=== PATIENT | female | born 1945 | race Caucasian/White ===

== ENCOUNTER 2016-11-08 00:25 | Emergency (ER) | payer MEDICARE, MEDICAID ==
[~2016-11-08] VITALS: Ht 154.9 cm; Wt 89.5 kg
[~2016-11-08 00:25] MED LIST: ALBU8.5H2 IH; AMT25T PO; ATOR40TA69 PO; Acetaminophen PO; DIGO250T12 PO; FURO40TA4 PO; INSU100C8 SUBQ; INSU100I13 SUBQ; LEVO75TA4 PO; LOSA50TA37 PO; METO-272 PO; MULT1CAP33 PO; ONDA4TAB6 PO; RIVA10TA PO; SERT100T PO
[2016-11-08 00:32] VITALS: BP 119/77
[2016-11-08] MEDS ORDERED: Diltiazem 5 mg/mL 5 mL Inj IVPUSH ONE ×4 (00:35→02:35)
--- NOTE | 2016-11-08 00:36 | ED.REPORT ---
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 I cannot get her to choose a specific chief complaint. She is a vague and wandering historian-although she will answer questions - and was brought to the ED after her chair collapsed some hours ago. After spending several hours on the floor-possibly longer-EMS was called. The patient was found to be profoundly tachycardic and in what appears to be atrial fibrillation with rapid ventricular response. Patient does complain of some palpitations. EMS also noted severe lower extremity edema and profound redness of the lower extremities. Associated symptoms include shortness of breath, chest pain, reduced appetite - and talks about nausea and not being able to eat normally for several days but is able to drink a little bit of fluids, and bilateral leg pain. The patient denies fever, chills, diaphoresis, or other symptoms. EMS found the patient with a pulse high of 188, an oral temperature of 98.1, a blood sugar of 136, and O2 sats in possibly the 70s on room air, although the determination of saturations was complicated by a very poor Plath- so it is unclear if the signal was accurate. En route she was awake and alert. She is supposed to be on home O2, but later mentions her oxygen device has been broken for months. Additionally she is supposed to be on Xarelto, but reports recent insurance issues and has not been on any anticoagulants for a number of weeks-possibly months. She reports that she is only getting "some" of her medications, but cannot name her medications to me. She has not seen a PCP for the past three months. She is unable to see her old PCP due to insurance issues and has yet to establish a new one. Nursing Notes Stated Complaint: SEPTIC Chief Complaint: Dysrhythmia/Cardiac Nursing Notes Reviewed: Yes ([employer] not reconciled - patient is supposed to be on Xarelto but has not had it in weeks due to insurance) Allergies: Coded Allergies: lisinopril (Verified Allergy, Mild, COUGH, 01/30/16) Scheduled Amitriptyline (Amitriptyline) 25 Mg Tab 25 MG PO HS Atorvastatin Calcium (Atorvastatin Calcium) 40 Mg Tablet 40 MG PO HS Digoxin (Digox) 250 Mcg Tablet 250 MCG PO DAILY Furosemide (Furosemide) 40 Mg Tablet 80 MG PO DAILY Insulin Aspart (NovoLOG U100 Insulin Vial) 100 U/Ml U Unknown Dose SUBQ TID- INSULIN Insulin Glargine (Lantus U100 Solostar Insulin Pen) 100 Unit/Ml Inj 30 UNIT SUBQ HS Levothyroxine (Levothyroxine) 75 Mcg Tablet 75 MCG PO DAILY Losartan Potassium (Losartan Potassium) 50 Mg Tablet 50 MG PO BID Metoprolol Succinate ER (Metoprolol Succinate ER) 50 Mg Tab.er.24h 50 MG PO BID Multivitamin (Multivitamins) 1 Each Capsule 1 EACH PO DAILY senoir complete Rivaroxaban (Xarelto) 10 Mg Tablet 20 MG PO DAILY Sertraline HCl (Zoloft) 100 Mg Tablet 100 MG PO DAILY Scheduled PRN ([Acetaminophen]) 325 MG TABLET 650 MG PO Q6H PRN PRN For Pain Albuterol HFA (Proair HFA) 8.5 Gm Hfa.aer.ad 1-2 PUFFS IH Q4 PRN PRN For Shortness of Breath Ondansetron (Zofran) 4 Mg Tablet 4 MG PO Q4H PRN PRN For Nausea General Time Seen by MD: 00:25 Chief Complaint Multip medical complaints Hx Obtained From: Patient, EMS Arrived By: Ambulance Sudden in Onset?: No Onset Occurred: More than a week ago... ("a couple of weeks") Symptom Duration: Intermittent Location: : Chest: Leg left: Leg right Quality: Painful Severity: Current: Moderate Severity: Maximum: Moderate Associated with: Reports: Chest pain, Shortness of breath, Denies: Fever Pertinent Negative: Relieved by nothing Context Related History: Reports Diabetes mellitus Recent Healthcare: No recent doctor visit Past Medical History Past Medical History Notes: Transferred to [facility] 04/2015 for Traumatic Subarachnoid Hospitalized from 11/28/14 - 12/14/14 for septic shock and multisystem organ failure Hospitalized from 10/22/14 - 10/28/14 for health care associated pneumonia Hospitalized 09/26/14 for pneumonia- treated with levoquin Hospitalized January 2016 for shortness breath and congestive heart failure with atrial fibrillation with RVR Echocardiogram 02/03/2016 EF of 60-70%, right ventricular mildly dilated, mild to moderate mitral regurg Past Medical History Obesity hypoventilation syndrome/obstructive sleep apnea with severe chronic cor pulmonale - she is supposed to be on home O2, compliance unclear Chronic atrial fibrillation-on Xarelto anticoagulation, Digoxin, Metoprolol as of 01/29/16 Hypothyroid Morbid obesity Diastolic heart failure in the setting of normal coronary arteries with negative cardiac cath in 2011, echocardiogram August 2014 showed EF of 55-60%, normal valves" D-shaped" left ventricle in systole and diastole consistent RV pressure overload, with subsequent [place] catheterization November 2014 confirming pulmonary arterial pressure 43/1 mmHg Chronic lower extremity edema History of alcoholism and opioid abuse, sober since 2007 Hx of a traumatic subarachnoid hemorrhage requiring transfer 04/2015 - on phenytoin, compliance and instructions unclear Date of prior acute kidney injury with a peak creatinine 3.November 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 Reports: Congestive heart failure, Diabetes mellitus, Hyperlipidemia, Hypertension Reports: Atrial fibrillation Past Surgical History Gastroplasty Right subclavian artery occlusion s/p repair, 2011 Reports: , Cholecystectomy, Tonsillectomy Smoking History Never Smoker Social History Alcohol Use: Denies alcohol use Drug Use: Denies drug use, In recovery (per EMR) Other Social History: , Lives with children Ambulatory Status Walker Review of Systems + Reduced appetite Full Review of Systems Constitutional: Denies: Chills, Fever Respiratory: Reports: Shortness of breath Cardiovascular: Reports: Chest pain, Palpitations GI: Reports: Nausea, Denies: Diarrhea, Vomiting Musculoskeletal: Reports: Extremity pain (Lower, bilateral), Extremity swelling (Lower, bilateral, with redness) Skin: Denies Diaphoresis Complete sys rev & neg: except as marked. Physical Exam Vital Signs Vital Signs Date Time Temp Pulse Resp B/P Pulse Ox O2 Delivery O2 Flow Rate FiO2 11/08/16 03:14 36.3 152 33 137/68 92 Nasal Cannula 2 11/08/16 00:32 119/77 Initial VS: Reviewed, Vital signs abnormal Neck: Supple, Full range of motion Respiratory: Breath sounds normal, Clear to auscultation, No respiratory distress Psychiatric: Mood/affect normal, Behavior normal General/Constitutional: Awake, Alert Appearance / Presentation: Positive: Obese Patient appears weak and fatigued She is a wandering historian Head / Eyes: Normocephalic Faint ecchymosis around left periorbital region - unclear if true contusion Heart Rate / Rhythm: Positive: Tachycardia No heart tones heard Palpable pulses Normal BP Lower Extremity / Pelvis / MS: No deformity Severe edema to bilateral legs Skin: Dry Color / Condition: Positive: Erythema generalized (Lower extremities, without heat) Bullae along distal right thigh Large abrasion with an open wound that appears chronic in the area of erythema to right leg, with several smaller surrounding wounds. Wounds appear infected without heat present Skin candidiasis under breasts Neurologic: Oriented X3 No focal deficits Interpretation & Diagnostics Interpretation & Diagnostics: Venous Blood Gas Report: Time 00:55 pH 7.293 pCO2 31 pO2 36.3 cHCO3 15.2 cBase -10.3 Arterial Blood Gas Report: Time 03:25 pH 7.269 pCO2 34 pO2 99.4 cHCO3 15.0 cBase -10.7 Lab Results Interpretation Result Diagram: 11/08/16 0040 11/08/16 0306 Test 11/08/16 00:40 11/08/16 03:06 White Blood Count 15.5th/mm3 (3.8-10.1) Red Blood Count 4.99mil/mm3 (3.90-5.20) Hemoglobin 15.1g/dL (12.0-15.6) Hematocrit 45.1% (35.0-46.0) Mean Corpuscular Volume 90.4fL (81-100) Mean Corpuscular Hemoglobin 30.3pg (27.0-35.0) Mean Corpuscular Hemoglobin Concent 33.5% (32.0-37.0) Red Cell Distribution Width 19.5% (12.3-15.4) Platelet Count 198bil/L (150-400) Neutrophils (%) (Auto) 72.1% (40-74) Lymphocytes (%) (Auto) 18.7% (14-46) Monocytes (%) (Auto) 7.3% (4-12) Eosinophils (%) (Auto) 0.4% (0-5) Basophils (%) (Auto) 0.2% (0-3) Hematology Comments Prothrombin Time 11.4sec (8.1-12.5) Prothromb Time International Ratio 1.06ratio Magnesium Level 2.5mg/dL (1.6-2.6) Total Creatine Kinase 234U/L (21-215) Troponin T 0.024ug/L (0.0-0.011) Pro-B-Type Natriuretic Peptide 2407pg/mL (0-301) Thyroid Stimulating Hormone (TSH) 12.050uIU/mL (0.450-4.500) Digoxin Level 0.3nG/mL (0.9-2.0) Phenytoin (Dilantin) Level 0.8uG/mL (10.0-20.0) Sodium Level 131mEq/L (134-144) Potassium Level 5.2mEq/L (3.5-5.2) Chloride Level 95mEq/L (97-108) Carbon Dioxide Level 14mmol/L (18-29) Blood Urea Nitrogen 40mg/dL (8-27) Creatinine 0.94mg/dL (0.57-1.00) Estimat Glomerular Filtration Rate 84mL/min (>59) Glucose Level 152mg/dL (60-99) Lactic Acid Level 3.5mmol/L (0.4-2.0) Calcium Level 8.7mg/dL (8.5-10.1) Total Bilirubin 1.4mg/dL (0.0-1.2) Aspartate Amino Transf (AST/SGOT) 36U/L (0-50) Alanine Aminotransferase (ALT/SGPT) 22U/L (0-32) Alkaline Phosphatase 214U/L (25-165) Total Protein 7.0g/dL (6.4-8.4) Albumin 3.9g/dL (3.4-5.0) Lab Results Interpretation: CBC positive leukocytosis CMP mild hyponatremia, marginal hyperkalemia-with the lab reporting suspected mild homolysis, moderate metabolic acidosis, normal glucose Lactate acid severely elevated Troponin marginally elevated ProBNP significantly elevated-difficult to interpret in the setting of atrial fibrillation Blood cultures 2 pending UA pending TSH elevated c/w hypothyroidism Subtherapeutic digoxin and Dilantin levels ECG Interpretation ECG Interpretation: Atrial fibrillation with rapid ventricular rate at 159 Poor quality baseline No clear ischemic abnormalities More rapid rate but otherwise unchanged from 01/29/2016 Time: 00:39 Interpreted by: ED physician ECG Interpretation: Atrial fibrillation with rapid ventricular rate at 143 No clear ischemic abnormalities More rapid rate but also otherwise unchanged from 01/29/2016 Time: 01:45 Interpreted by: ED physician X-Ray Chest Interpretation Chest Xray Interpretation: Right hemidiaphragm elevation Nonspecific density of right base Both findings present on previous x-ray from one year ago View: Portable, 1 view Interpretation / Wet Read by: Wet read ED physician CT Head Interpretation CONCLUSION: Small old lacunar infarct right posterior frontal deep white matter. Moderate involutional changes. Moderate patchy low density bilaterally in the deep white matter likely due to chronic ischemic small vessel disease. No acute intracranial abnormality. Transmitted to ED at 11/08/2016 - 2:29:52 AM PDT Study: Head CT no contrast Interpretation / Wet Read by: Interpret - Radiologist (Geoffrey Obrien M.D.) Procedures Central Line Placement Time: 02:42 Procedure Performed by: ED physician Consent / Setup / Site Prep: Consent from patient, Time-out performed, Oxygen administered, Pulse oximeter applied, clinical research monitor applied, Hand hygiene observed, Standard surgical scrub, Max barrier precaution, Sterile drapes applied, Position Trendelenburg Skin Preparation Agent: Hibiclens - Chlorhexidine (Initial attempt ) Local Anesthesia: Bupivacaine 0.5% Side / Location / Ultrasound: Femoral right, Subclavian right (Initial attempt - I was easily able to get flash and blood back from the right subclavian vein but was unable to pass the guide-perez. Several attempts were unsuccessful despite easy aspiration of blood and this was abandoned. Due to need, right femoral artery was prepped. ) Catheter / Lumen / Technique: Triple lumen, Seldinger technique, Good blood return, Secured with suture (Due to location) Post-Procedure / Complications: Dressing placed, CXR neg for pneumothorax, Condition improved, Tolerated procedure well, Patient stable Re-Eval/Medical Decision Med Decision/Clinical Course This is a 71-year-old female who is a wandering historian and he was brought by EMS after care collapsed and she was too weak to get up off the floor after a number of hours. She talks about how she has not been feeling well for several weeks-she has had nausea, palpitations, poor appetite, decreased intake, and increasing pain and discomfort in both lower extremities. She has chronic CHF, chronic edema in the legs, but reports increasing redness and discomfort as well. Of note she has multiple medical problems-but states that her insurance changed since she has not been able see PCP since roughly July, that she is post B on home O2 but her oxygen machine is been broken for some time matter of weeks or months, and that while she supposed be on anticoagulants such as Xarelto no longer has insurance coverage-and has not been able to get the anticoagulant, or "most" of her medications in recent weeks. Medics found the patient ill-appearing, in atrial fibrillation rapid ventricular response, and profoundly weak. On exam the patient is not febrile. She is profoundly tachycardic. She is not hypotensive. He has findings of right-sided congestive heart failure, she has profound erythema of the lower extremities-on the skin is not hot, there is some wounds on the right leg in particular this areas although both legs are equally erythematous. The legs appear cellulitic. Her EKGs revealed atrial fibrillation with RVR, but no clear ischemic changes. The patient's multiple doses of diltiazem in an attempt to obtain rate control, and then was placed on a diltiazem drip with improvement. She complains some pain in the lower extremities since he seemed titrated pain and nausea medicine. She is a challenging patient from a fluid management perspective. Her extremities and her history are concerning for congestive heart failure and a component of volume overload-although there is a high probability this is tachycardia induced with the uncontrolled atrial fibrillation. Is in the differential, but aggressive fluids in this situation with the underlying congestive heart failure also present, may complicate matters considerably. The patient's respiratory status appears stable at this time. Given the challenges with what appears to be a component of volume overload in one sense, and potential dehydration another, I chose to initiate therapy with obtaining rate control to if that improves both a lactic acidosis, and the overall clinical picture. The patient is being treated for cellulitis of lower extremities of his Zosyn and vancomycin. She has small bruising around the left side of her face-or what appeared appeared to be subtle bruising, and a prior history of a intracranial bleed, so CT of the brain was obtained. CT of the head was negative. The patient's heart rate improved, but the tachycardia did not resolve. The patient was placed on a diltiazem drip, and ultimately was maximized at 15 mg/ hr. She is still tachycardic. Again the challenges remained in intermittent between congestive heart failure and lactic acidosis secondary to tachydysrhythmia and subsequent cardiomyopathy, versus component of sepsis from lower extremity cellulitis. Therefore given judicious volume committed rather than the aggressive 30 mL/kg typically employed for sepsis. The patient has very poor access, and requires better access for the drip, antibiotic combination. Multiple attempts at peripheral lines were unsuccessful. Given the patient's ill status, central line was placed. Patient is an obese neck difficult anatomy, and a initial right subclavian line was attempted-the subclavian vein was accessed without difficulty, however the guidewire could not be passed. Therefore ultimately these attempted a subclavian was abandoned, and I placed a right femoral catheter without difficulty. Given this location, it was sutured in place so the line would not be lost. A postprocedure chest x-ray was negative for pneumothorax. An ultrasound of the lower extremities to evaluate for DVT is being performed. An ABG was performed and reveals adequate oxygenation, but a persistent metabolic acidosis is not really improved. The heart rate still in the 140s on the maximum dilt drip. Titrated NS boluses are being given. A liu has been requested to help follow urine output. I have been informed no beds are available, so the patient is being turned over to Dr. Robert at change of shift while a bed search is underway. Source of Hx: Old records, EMS Time of Eval: 01:00 Patient Status: Condition unchanged Re-Evaluation/Progress Note: Patient requests pain medication for the pain in her legs. Time of Eval: 01:20 Patient Status: Condition improved Re-Evaluation/Progress Note: Patient rechecked. Additional history obtained. Time of Eval: 02:06 Patient Status: Condition improved Re-Evaluation/Progress Note: Patient rechecked. Discussed with patient plan for bilateral leg US. Time of Eval: 02:30 Patient Status: Condition improved Re-Evaluation/Progress Note: Patient rechecked. Time of Eval: 02:37 Patient Status: Condition improved Re-Evaluation/Progress Note: Discussed with patient plan for central line placement. She agrees with plan for care and all questions were addressed. Time of Eval: 03:37 Patient Status: Condition improved Re-Evaluation/Progress Note: Patient rechecked. Discussed with patient plan for transfer of care to Dr. Robert. Differential Diagnosis: Negative: Abscess, Acute coronary syndrome, Diabetes mellitus, G-tube repair/replacement, Malingering, Neutropenia, Pneumonia Counseled Regarding: Diagnosis, Lab results Discharge & Departure Shift Change Sign-Out Patient Care Transferred: Yes Discussed Complaint(s): Yes Laboratory Evaluation: Ordered, not yet done Imaging Studies: Ordered, not yet done Procedures: Done, results known Response to Therapy: Improved Assume care at 3:[address] Pickard. Arrangements made with [facility] for transfer to their ICU, accepting doctor Dr. Somers. I gave her an initial loading dose of digoxin 0.5 mg, as she had formerly been on digoxin and was supposed to be on at present. She is not been taking it for months apparently. She is already on maximum dose diltiazem with minimal effect on her rate. She has been receiving small aliquots of fluid without much influence either, but her lactate has come down from 4.7-3.5. Central line is been placed by Dr. Pickard and IV antibiotics started. Primary Impression: Atrial fibrillation with RVR Additional Impressions: Congestive heart failure Congestive heart failure type: unspecified congestive heart failure type Congestive heart failure chronicity: acute on chronic Qualified Code: I50.9 - Heart failure, unspecified Bilateral lower leg cellulitis Noncompliance with medication regimen Metabolic acidosis Elevated lactic acid level Hypothyroid Hypothyroidism type: unspecified Qualified Code: E03.9 - Hypothyroidism, unspecified Ruled Out: DVT (deep venous thrombosis) Discharge Condition All VS Reviewed: Yes Condition: Improved Referrals: Jonny Muniz MD (PCP) Care Transferred to: Dr. Robert Care Transferred at: 03:35 Crit Care Except Billable Proc Time Spent: 30-74 minutes Services Performed: Patient management by me, Time spent at bedside, Reviewing test results, Reviewing imaging, Discussing patient care, Documentation in record Scribe Attestation Portions of this note were transcribed by Diana Childs. I, Dr. Pickard, personally performed the history, physical exam, and medical decision-making; I reviewed and confirmed the accuracy of the information in the transcribed note. Signed by: Bandar Peters, 11/08/2016, 03:40 copies to: Jonny Muniz MD, Matthew F MD Nov 08, 2016 00:36 DIANA CHILDS Nov 08, 2016 00:43 Broosk Robert MD Nov 08, 2016 04:38
[2016-11-08] MEDS ORDERED: Lidocaine-Epi-Tetracaine Solution 3 mL Syringe TOPICAL ONE (00:45)
[2016-11-08] MEDS ORDERED: Lidocaine 2% 6mL Topical Jelly MUC_MEMBRM ONE (00:45)
[2016-11-08] MEDS ORDERED: Lidocaine 2% 5 mL Urojet Topical Jelly Syringe MUC_MEMBRM ONE (00:45)
[2016-11-08] MEDS ORDERED: Mupirocin 2% 22 Gm Ointment TOPICAL ONE (00:45)
[2016-11-08 00:48] LABS: BASOPHILS % (AUTO) 0.2 % (0-3); EOSINOPHILS % (AUTO) 0.4 % (0-5); MONOCYTES % (AUTO) 7.3 % (4-12); Mean Corpuscular Hemoglobin 30.3 pg (27.0-35.0); Mean Corpuscular Volume 90.4 fL (81-100); NEUTROPHILS % (AUTO) 72.1 % (40-74)
[2016-11-08] MEDS ORDERED: fentaNYL-PF 50 mCg/mL 2 mL Inj IVPUSH ONE (01:00)
[2016-11-08 01:05] LABS: Platelet Count 198 bil/L (150-400)
--- NOTE | 2016-11-08 01:05 | ABG ---
DateTimeAnalyzed 01:01:33 -_ pH ____7.293 - pCO2 ___31.4__ -mmHg pO2 ___36.3__ -mmHg HCO3- ___15.2__ -mmol/L ABE __-10.3__ -mmol/L tHb ___14.4__ -g/dL O2Hb ___56.2__ -% COHb ____2.2__ -% MetHb ____0.2__ -% sO2 ___57.6__ -% FIO2 __100.0__ -% Drawn By LAB - Date/Time Notified____ 01:05:00 -_ Oxygen Device 1 NON RE-ALBAN - Notified By AF - Notified Whom ___Dr. Neeraj - Age 63 -years B 756 -mmHg K+ ____4.6__ -mmol/L tO2 ___11.3__ -Vol% Sravan test N/A -
[2016-11-08 01:06] LABS: INR 1.06 ratio
[2016-11-08] MEDS ORDERED: Ondansetron 2 mg/mL 2 mL Inj IVPUSH ONE (01:10)
[2016-11-08 01:41] LABS: Magnesium 2.5 mg/dL (1.6-2.6)
[2016-11-08 01:42] LABS: TROPONIN T 0.024 ug/L (0.0-0.011)
[2016-11-08 01:43] LABS: Creatine Kinase 234 U/L (21-215)
[2016-11-08] MEDS ORDERED: Diltiazem Inj 125 MG in Dextrose 5% 100 ML IV SCH (01:47)
[2016-11-08] MEDS ORDERED: Vancomycin Dose per Pharmacist XX ONE (01:50)
[2016-11-08] MEDS ORDERED: Piperacillin-Tazo 3.375 Gm Inj 3.375 GM in Dextrose 5% Minibag Plus 50 ML IV ONE (01:50)
[2016-11-08] MEDS ORDERED: Vancomycin Inj 1,750 MG in 0.9% Sodium Chloride 500 ML IV ONE (01:55)
[2016-11-08] MEDS: fentaNYL-PF 50 mCg/mL 2 mL Inj IVPUSH PRN ×2 (02:30→02:50)
[2016-11-08] MEDS ORDERED: 0.9% Sodium Chloride 500 ML IV ONE ×3 (02:35→03:35)
[2016-11-08] MEDS ORDERED: Magnesium Sulf 2 Gm/50mL Water 2 GM in IV Premix 1 EACH IV ONE (02:40)
[2016-11-08 03:14] VITALS: BP 137/68; PULSE 152; RESP 33; O2SAT 92
--- NOTE | 2016-11-08 03:30 | ABG ---
DateTimeAnalyzed 03:27:00 -_ pH ____7.269 - 7.350 7.450 pCO2 ___33.8__ -mmHg 35.0 45.0 pO2 ___99.4__ -mmHg 69.0 116 HCO3- ___15.0__ -mmol/L 22.0 26.0 ABE __-10.7__ -mmol/L -2.0 2.0 tHb ___13.3__ -g/dL O2Hb ___94.7__ -% COHb ____1.1__ -% MetHb ____0.8__ -% sO2 ___96.5__ -% FIO2 ___21.0__ -% Drawn By AF - Date/Time Notified____ 03:29:00 -_ Notified By AF - Notified Whom ___Dr. Neeraj - Age 63 -years B 758 -mmHg tO2 ___17.9__ -Vol% Sravan test _Positive -
[2016-11-08] MEDS ORDERED: fentaNYL-PF 50 mCg/mL 2 mL Inj IVPUSH PRN (03:35)
[2016-11-08] MEDS ORDERED: Digoxin 0.25 mg/mL 2 mL Inj IV ONE (03:50)
[2016-11-08 04:44] LABS: APPEARANCE,URINE HAZY (CLEAR,HAZY); COLOR,URINE YELLOW (YELLOW)
[2016-11-08 04:45] LABS: OCCULT BLOOD,URINE MODERATE (NEGATIVE)
[2016-11-08 05:32] VITALS: BP 156/98; PULSE 136; RESP 22; O2SAT 92
--- NOTE | 2016-11-08 09:06 | DRSVH ---
PROCEDURE: X-RAY CHEST ONE VIEW, PORTABLE ([id number]) INDICATIONS: AFIB TECHNIQUE: One view of the chest was acquired. COMPARISON: [facility], CR, XR CHEST 1VW (PORTABLE), 11/08/2016, 3:03. [facility], CR, XR CHEST 1VW (PORTABLE), 01/29/2016, 7:17. FINDINGS: Surgical changes and devices: None. Lungs and pleura: Air space opacities present involving the lung bases, otherwise lungs are clear. Mediastinum: Mediastinal contours appear normal. Heart size is enlarged. Bones and chest wall: No suspicious bony lesions. Overlying soft tissues appear unremarkable. IMPRESSION: Bibasilar atelectasis versus aspiration or pneumonia. Correlate clinically. Dictated by: Arpan Khan RR Interpreted: Mona Barbosa MD on 11/08/2016 at 9:05 Transcribed by: GALO on 11/08/2016 at 9:06 Approved by: Mona Barbosa MD, PhD on 11/08/2016 at 16:27
--- NOTE | 2016-11-08 09:34 | DRSVH ---
PROCEDURE: X-RAY CHEST ONE VIEW, PORTABLE ([id number]) INDICATIONS: POST CENTRAL LINE TECHNIQUE: One view of the chest was acquired. COMPARISON: None. FINDINGS: Surgical changes and devices: Multiple surgical clips project over the right neck. Lungs and pleura: Mild venous congestion present slightly increased from previous examination. Sligh t decrease in right and left basilar airspace opacity. No pneumothorax. Mediastinum: Mediastinal contours appear normal. Heart size is enlarged. Bones and chest wall: No suspicious bony lesions. Overlying soft tissues appear unremarkable. IMPRESSION: 1. Mild venous congestion and decrease in the bibasilar airspace opacities likely related to atelecta sis. No pneumothorax is seen. Dictated by: Arpan Khan [facility] Interpreted: Mona Barbosa MD on 11/08/2016 at 9:31 Transcribed by: GALO on 11/08/2016 at 9:34 Approved by: Mona Barbosa MD, PhD on 11/08/2016 at 16:27
--- NOTE | 2016-11-08 09:35 | DRSVH ---
PROCEDURE: US VENOUS LEG DUPLEX BILATERAL INDICATIONS: ro DVT TECHNIQUE: Real-time imaging, as well as color and pulse Doppler interrogation, were performed of the deep veins of both legs from the inguinal ligament to the popliteal fossa. COMPARISON: None. FINDINGS: The deep veins are normally compressible, and free of intraluminal thrombus. Color and pu lse Doppler demonstrate normal phasic intravascular flow. There is normal augmentation response to d istal compression maneuver. IMPRESSION: No deep venous thrombosis identified within either the left or right lower extremities. Dictated by: Arpan Khan [facility] Interpreted: Mona Barbosa MD on 11/08/2016 at 9:35 Transcribed by: GALO on 11/08/2016 at 9:35 Approved by: Mona Barbosa MD, PhD on 11/08/2016 at 16:27
--- NOTE | 2016-11-08 10:46 | DRSVH ---
PROCEDURE: CT BRAIN WITHOUT CONTRAST ([id number]) INDICATIONS: fall TECHNIQUE: Noncontrast 4.5 mm thick angled axial sections acquired from the foramen magnum to the vertex, with c oronal reformats. COMPARISON: None. FINDINGS: Image quality: Excellent. CSF spaces: Basal cisterns are patent. No extra-axial fluid collections. The ventricles are symmet bethany in size and shape. Brain: No intracranial bleeds or masses. There is cerebral volume loss for age, with resultant vent ricular and sulcal prominence. There are periventricular and deep white matter chronic small vessel ischemic changes. Old, small, lacunar infarct noted in the posterior right centrum semiovale. Encepha lomalacia noted in the anterior margin of the right frontal lobe possibly related to remote trauma. There is intracranial internal carotid artery and vertebral artery atherosclerosis. Skull and face: Calvarium and visualized facial bones appear intact, without suspicious lesions. Sinuses: Visualized sinuses and mastoids are clear. IMPRESSION: No acute intracranial disease process. Dictated by: Mona Barbosa MD, PhD on 11/08/2016 at 10:42 Approved by: Mona Barbosa MD, PhD on 11/08/2016 at 10:45
== END 2016-11-08 05:16 | disposition short-term general hospital (02) ==
LOC: SED 00:25
DX: I11.0 Hypertensive heart disease with heart failure (principal); I50.9 Heart failure, unspecified; L03.116 Cellulitis of left lower limb; L03.115 Cellulitis of right lower limb; E03.9 Hypothyroidism, unspecified; E11.59 Type 2 diabetes mellitus with other circulatory complications; E87.2 Acidosis; Z79.4 Long term (current) use of insulin; Z79.899 Other long term (current) drug therapy
CPT/HCPCS: 36415; 36556; 36620; 70450; 71010; 80053; 80162; 80185; 81000; 82375; 82550; 82803; 83605; 83735; 83880; 84443; 84484; 85025; 85610; 87040; 93005; 93970; 96365; 96368; 96375; 96376; 99291; J1160; J2405; J2543; J3010; J3370; J7040

== ENCOUNTER 2017-01-04 14:27 | Observation (INO) | payer MEDICARE, MEDICAID ==
[~2017-01-04] VITALS: Ht 154.9 cm; Wt 92.9 kg
[2017-01-04] VITALS (9 sets, daily range): BP systolic 104–128; BP diastolic 48–83; PULSE 84–150; RESP 18–40; O2SAT 97–100
--- NOTE | 2017-01-04 14:56 | ED.REPORT ---
HPI-General Illness Date of Service January 04, 2017 ED Provider: Henrry Rivera MD The patient is a 71 year old female with history of congestive heart failure, DVT, hyperlipidemia, hypertension, hypothyroidism, atrial fibrillation on Xarelto, and prior traumatic subarachnoid hemorrhage, who was upstairs vising her when staff were concerned about her condition and sent her to the emergency department for further evaluation. The patient has noticed slightly increased work of breathing. She has not been taking all of her medicationss regularly due to financial issues. She has been taking her furosimide BID as prescribed but has not been taking her Digoxin for the last week or 2. She has chronic lower extremity swelling and redness that has gotten worse. She denies chest pain, fevers, chills, cough. She denies recent falls or head injury. Nursing Notes Stated Complaint: SOB,HF,REQ MEDICATION Chief Complaint: Respiratory Complaints Nursing Notes Reviewed: Yes Allergies: Coded Allergies: lisinopril (Verified Allergy, Mild, COUGH, 01/04/17) Scheduled Amitriptyline (Amitriptyline) 25 Mg Tab 25 MG PO HS Atorvastatin Calcium (Atorvastatin Calcium) 40 Mg Tablet 40 MG PO HS Digoxin (Digox) 250 Mcg Tablet 250 MCG PO DAILY Furosemide (Furosemide) 40 Mg Tablet 80 MG PO DAILY Insulin Aspart (NovoLOG U100 Insulin Vial) 100 U/Ml U Unknown Dose SUBQ TID- INSULIN Insulin Glargine (Lantus U100 Solostar Insulin Pen) 100 Unit/Ml Inj 30 UNIT SUBQ HS Levothyroxine (Levothyroxine) 75 Mcg Tablet 75 MCG PO DAILY Losartan Potassium (Losartan Potassium) 50 Mg Tablet 50 MG PO BID Metoprolol Succinate ER (Metoprolol Succinate ER) 50 Mg Tab.er.24h 50 MG PO BID Multivitamin (Multivitamins) 1 Each Capsule 1 EACH PO DAILY senoir complete Rivaroxaban (Xarelto) 10 Mg Tablet 20 MG PO DAILY Sertraline HCl (Zoloft) 100 Mg Tablet 100 MG PO DAILY Scheduled PRN Albuterol HFA (Proair HFA) 8.5 Gm Hfa.aer.ad 1-2 PUFFS IH Q4 PRN PRN For Shortness of Breath General Time Seen by MD: 14:46 Chief Complaint Other (shortness of breath) Hx Obtained From: Patient Arrived By: Walk-in Sudden in Onset?: No Onset Occurred: More than a week ago... Symptom Duration: Since onset Severity: Current: No pain currently Severity: Maximum: No pain Recent Healthcare: No recent hospitalization Similar Sx Previous: Yes Past Medical History Past Medical History Obesity hypoventilation syndrome/obstructive sleep apnea with severe chronic cor pulmonale - she is supposed to be on home O2, compliance unclear Chronic atrial fibrillation-on Xarelto anticoagulation, Digoxin, Metoprolol as of 01/29/16 Hypothyroid Morbid obesity Diastolic heart failure in the setting of normal coronary arteries with negative cardiac cath in 2011, echocardiogram August 2014 showed EF of 55-60%, normal valves" D-shaped" left ventricle in systole and diastole consistent RV pressure overload, with subsequent [place] catheterization November 2014 confirming pulmonary arterial pressure 43/1 mmHg Chronic lower extremity edema History of alcoholism and opioid abuse, sober since 2007 Hx of a traumatic subarachnoid hemorrhage requiring transfer 04/2015 - on phenytoin, compliance and instructions unclear Date of prior acute kidney injury with a peak creatinine 3.November 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 Reports: Congestive heart failure, Diabetes mellitus, Hyperlipidemia, Hypertension Reports: Atrial fibrillation Past Surgical History Gastroplasty Right subclavian artery occlusion s/p repair, 2011 Reports: , Cholecystectomy, Tonsillectomy Family History Noncontributory Smoking History Never Smoker Social History Alcohol Use: Denies alcohol use Drug Use: Denies drug use, In recovery Other Social History: Good social support, , Lives with children Ambulatory Status Walker Review of Systems Full Review of Systems Constitutional: Denies: Chills, Fever Respiratory: Reports: Shortness of breath, Denies: Non-productive cough Cardiovascular: Denies: Chest pain Musculoskeletal: Reports: Extremity swelling (chronic) Skin: Reports Rash (chronic) Complete sys rev & neg: except as marked. Physical Exam Vital Signs Vital Signs Date Time Temp Pulse Resp B/P Pulse Ox O2 Delivery O2 Flow Rate FiO2 01/04/17 16:24 116 26 106/48 98 Room Air 01/04/17 15:46 118 30 104/71 100 Room Air 01/04/17 15:37 105 28 113/60 100 Room Air 01/04/17 15:27 126 26 128/83 100 Room Air 01/04/17 14:31 36.4 150 40 99 Room Air Initial VS: Reviewed Head / Eyes: Atraumatic, Normocephalic, PERRL Neck: Supple, Non-tender, Full range of motion Abdomen / GI: Soft, Non-tender, No guarding, No rebound, No distention Lymphatic: No lymphadenopathy Extremities: Vascular intact, Neuro intact Skin: Warm, Dry, No cyanosis Neurologic: Alert, Oriented, Nonfocal Psychiatric: Mood/affect normal, Behavior normal, Normal thought content General/Constitutional: Awake, Alert ENT: Airway patent Mouth: Positive: Mucous membranes dry Respiratory / Chest: No respiratory distress Coarse breath sounds bilaterally with bibasilar crackles Cardiovascular: Peripheral circulation NL, Pulses = bilaterally Heart Rate / Rhythm: Positive: Irregular rhythm, Tachycardia Lower Extremity / Pelvis / MS: Neurologic intact, Vascular intact 2+ pitting edema of her bilateral lower extremities extending almost up to her hips. No unilateral swelling. Interpretation & Diagnostics Lab Results Interpretation Result Diagram: 01/04/17 1455 01/04/17 1455 Test 01/04/17 14:55 White Blood Count 9.1th/mm3 (3.8-10.1) Red Blood Count 3.97mil/mm3 (3.90-5.20) Hemoglobin 12.0g/dL (12.0-15.6) Hematocrit 36.4% (35.0-46.0) Mean Corpuscular Volume 91.7fL (81-100) Mean Corpuscular Hemoglobin 30.2pg (27.0-35.0) Mean Corpuscular Hemoglobin Concent 33.0% (32.0-37.0) Red Cell Distribution Width 18.7% (12.3-15.4) Platelet Count 241bil/L (150-400) Neutrophils (%) (Auto) 62.8% (40-74) Lymphocytes (%) (Auto) 26.0% (14-46) Monocytes (%) (Auto) 9.2% (4-12) Eosinophils (%) (Auto) 1.0% (0-5) Basophils (%) (Auto) 0.7% (0-3) Sodium Level 136mEq/L (134-144) Potassium Level 4.1mEq/L (3.5-5.2) Chloride Level 97mEq/L (97-108) Carbon Dioxide Level 21mmol/L (18-29) Blood Urea Nitrogen 9mg/dL (8-27) Creatinine 0.79mg/dL (0.57-1.00) Estimat Glomerular Filtration Rate 102mL/min (>59) Glucose Level 149mg/dL (60-99) Calcium Level 9.3mg/dL (8.5-10.1) Magnesium Level 1.8mg/dL (1.6-2.6) Total Bilirubin 0.5mg/dL (0.0-1.2) Aspartate Amino Transf (AST/SGOT) 26U/L (0-50) Alanine Aminotransferase (ALT/SGPT) 22U/L (0-32) Alkaline Phosphatase 104U/L (25-165) Troponin T < 0.010ug/L (0.0-0.011) Pro-B-Type Natriuretic Peptide 1414pg/mL (0-301) Total Protein 7.2g/dL (6.4-8.4) Albumin 3.4g/dL (3.4-5.0) Digoxin Level < 0.3nG/mL (0.9-2.0) ECG Interpretation ECG Interpretation: Atrial fibrillation with RVR Normal axis Normal intervals No ST segment elevations No acute T wave abnormalities When compared to prior EKG dated 10/29/2016 the patient remains in atrial fibrillation with RVR Time: 14:49 Interpreted by: ED physician X-Ray Chest Interpretation Chest Xray Interpretation: IMPRESSION: 1. Probable linear atelectasis in the lung bases without definite acute cardiopulmonary disease. Dictated by: Henri Mcwilliams M.D. on 01/04/2017 at 14:20 Interpretation / Wet Read by: Interpret - Radiologist Re-Eval/Medical Decision Med Decision/Clinical Course The patient is a 71 year old female with history of congestive heart failure, DVT, hyperlipidemia, hypertension, hypothyroidism, atrial fibrillation on Xarelto, and prior traumatic subarachnoid hemorrhage, who was upstairs vising her when staff were concerned about her condition and sent her to the emergency department for further evaluation. The patient has noticed slightly increased work of breathing. She has not been taking all of her medicationss regularly due to financial issues. She has been taking her furosimide BID as prescribed but has not been taking her Digoxin for the last week or 2. She has chronic lower extremity swelling and redness that has gotten worse. She denies chest pain, fevers, chills, cough. She denies recent falls or head injury. Here in the emergency department the patient is tachycardic with a heart rate in the 150s that was otherwise hemodynamically stable and mentating normally. Was obtained and interpreted by myself as documented above. Of note, she was in atrial fibrillation with rapid ventricular response in the 150s to 160s. Treated with IV metoprolol 5 mg x3 with improvement in her heart rate into the low 100s. She was given 25 mg of oral metoprolol thereafter. LABS: CBC unremarkable, CMP unremarkable, troponin negative, BNP 1414, Digoxin level is low. CXR: Probable linear atelectasis in the lung bases without definite acute cardiopulmonary disease. She reported pain in her lower extremities which she attributes to her edema. She is treated with a small dose of IV morphine. Overall presentation seems most consistent with shortness of breath secondary to A. fib with rapid ventricular response. Presentation of convincing for acute coronary syndrome and an initial screening EKG and troponin are reassuring. I suspect there is some degree of congestive heart failure exacerbation as well though I do not feel that she immediately requires IV diuresis though this may be considered as we further stabilized her atrial fibrillation with rapid ventricular response. Overall presentation not convincing for acute pulmonary embolism. Patient discussed with admitting hospitalist and transferred in stable condition for further management. Source of Hx: Old records Time of Eval: 15:47 Re-Evaluation/Progress Note: Rechecked the patient. Discussed plan for admission. All questions were addressed. Consultation : Referral / Consult Name: Seun Acuna MD Consulted With: Hospitalist Requested Call at: 15:45 Call Returned at: 16:22 Lpn Care Manager: Will see patient, Agrees with eval, Agrees with plan, Accepts admit Counseled Regarding: Diagnosis, Lab results, Need for admission Discharge & Departure Primary Impression: CHF exacerbation Congestive heart failure type: unspecified congestive heart failure type Qualified Code: I50.9 - Heart failure, unspecified Additional Impressions: Atrial fibrillation with rapid ventricular response Noncompliance with medication regimen Congestive heart failure Congestive heart failure type: unspecified congestive heart failure type Congestive heart failure chronicity: unspecified congestive heart failure chronicity Qualified Code: I50.9 - Heart failure, unspecified Lower extremity edema Laterality: unspecified laterality Qualified Code: R60.0 - Localized edema Elevated brain natriuretic peptide (BNP) level Disposition: ADMITTED TO HOSPITAL Discharge Condition All VS Reviewed: Yes Condition: Stable Referrals: Jonny Muniz MD (PCP) Crit Care Except Billable Proc Time Spent: 135-164 minutes Services Performed: Patient management by me, Time spent at bedside, Reviewing test results, Reviewing imaging, Discussing patient care, Documentation in record, Time with fam/surrogate Scribe Attestation Portions of this note were transcribed by Leslie Colbert. I, Dr. Rivera personally performed the history, physical exam and medical decision-making; I reviewed and confirmed the accuracy of the information in the transcribed note. Signed by: Bandar Hayden, 01/04/2017 at 1625. copies to: Jonny Muniz MD, Beck O MD January 04, 2017 14:56 Leslie Colbert January 04, 2017 15:03
[2017-01-04] MEDS ORDERED: Ondansetron 2 mg/mL 2 mL Inj IVPUSH PRN (15:00)
[2017-01-04] MEDS ORDERED: Alum-Mag Hydrox-Simeth 30 mL Suspension PO PRN (15:00)
[2017-01-04 15:07] LABS: BASOPHILS % (AUTO) 0.7 % (0-3); MONOCYTES % (AUTO) 9.2 % (4-12); Mean Corpuscular Hemoglobin 30.2 pg (27.0-35.0); Mean Corpuscular Volume 91.7 fL (81-100); NEUTROPHILS % (AUTO) 62.8 % (40-74); Platelet Count 241 bil/L (150-400)
[2017-01-04] MEDS: MeTOProlol 1 mg/mL 5 mL Inj IVPUSH SCH ×3 (15:12→15:36)
--- NOTE | 2017-01-04 15:23 | DRSVH ---
PROCEDURE: X-RAY CHEST ONE VIEW, PORTABLE ([id number]) INDICATIONS: SHORT OF BREATH TECHNIQUE: One view of the chest was acquired. COMPARISON: [facility], CR, XR CHEST 1VW (PORTABLE), 11/08/2016, 3:03. FINDINGS: Surgical changes and devices: Multiple surgical clips are redemonstrated within the visualized right neck. Lungs and pleura: No pleural effusions or pneumothorax. There is mild elevation of the right hemidi aphragm again noted. There are a few linear basilar opacities likely representing atelectasis. No f ocal consolidation. Mediastinum: Mediastinal contours appear unchanged. Heart size is enlarged. Bones and chest wall: No suspicious bony lesions. Overlying soft tissues appear unremarkable. IMPRESSION: 1. Probable linear atelectasis in the lung bases without definite acute cardiopulmonary disease. Dictated by: Henri Mcwilliams M.D. on 01/04/2017 at 14:20 Approved by: Henri Mcwilliams M.D. on 01/04/2017 at 14:22
[2017-01-04 15:29] LABS: TROPONIN T < 0.010 ug/L (0.0-0.011)
[2017-01-04 15:39] LABS: Magnesium 1.8 mg/dL (1.6-2.6)
[2017-01-04] MEDS ORDERED: Polyethylene Glycol (PEG) 17 Gm Powder PO PRN (16:20)
[2017-01-04] MEDS ORDERED: Glucose 40% Oral Gel 15 Gm Tube PO PRN (17:00)
[2017-01-04] MEDS ORDERED: Furosemide 10 mg/mL 2 mL Inj IVPUSH ONE (17:00)
--- NOTE | 2017-01-04 17:19 | PCM.HPMED ---
Subjective Date of Service January 04, 2017 Primary Provider: Admitting Physician: Primary Care Physician: Jonny Muniz MD Attending Physician: Chief Complaint: Difficulty of breathing History of Present Illness: 71-year-old female with depression afebrile on's are also, hypothyroidism, hypertension, hyperlipidemia, chronic diastolic heart failure presented with difficulty breathing pt stated that she has been off her medicine since 2mo ago as her insurance didn 't cover her meds, doesn't exactly remember what she has not been off, she is only taking furosemide until today, ran out of Xarelto about a week ago. 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 pt didn't bring metoprolol, therefore it was also off on past four days. Today, pt was brought from her room by RN staffs to ED as pt didn't look good with labored breathing. ED VS AC346d, RR40, [id number], afebrlie, 99-100% on RA. pt noted to have afib RVR on EKG rate 156, pt received metoprolol 5mg iv followed by po25mg tartrate. CXR didn't suggest overt pul edema. During interview in ED, pt looked comfortable, not labored. stated that she changed her insurance but was told that Rx only be refilled by new PCP Alban Owusu once she establish her care. Her regular PCP is not accepting her new insurance(). pt set up appointment on 01/25, but couldn't get refill until then. ROS: denied fever chills, n/v/c/d. chest pain, has chronic LE erythema/swelling/ pain, but seems getting better recently, denied new findings for the past 1month or 1week, no recent travel, has sick contacts: being treated for MRSA Review of Systems: Pertinent positives as noted in history of present illness. All other systems were reviewed and are negative Allergies Coded Allergies: lisinopril (Verified Allergy, Mild, COUGH, 01/04/17) Home Medications from 11/15/16 EHR Scheduled Amitriptyline (Amitriptyline) 25 Mg Tab 25 MG PO HS Atorvastatin Calcium (Atorvastatin Calcium) 40 Mg Tablet 40 MG PO HS Digoxin (Digox) 250 Mcg Tablet 250 MCG PO DAILY Furosemide (Furosemide) 40 Mg Tablet 80 MG PO DAILY Insulin Aspart (NovoLOG U100 Insulin Vial) 100 U/Ml U Unknown Dose SUBQ TID- INSULIN Insulin Glargine (Lantus U100 Solostar Insulin Pen) 100 Unit/Ml Inj 30 UNIT SUBQ HS Levothyroxine (Levothyroxine) 75 Mcg Tablet 75 MCG PO DAILY Losartan Potassium (Losartan Potassium) 50 Mg Tablet 50 MG PO BID Metoprolol Succinate ER (Metoprolol Succinate ER) 50 Mg Tab.er.24h 50 MG PO BID Multivitamin (Multivitamins) 1 Each Capsule 1 EACH PO DAILY senoir complete Rivaroxaban (Xarelto) 10 Mg Tablet 20 MG PO DAILY Sertraline HCl (Zoloft) 100 Mg Tablet 100 MG PO DAILY Scheduled PRN Albuterol HFA (Proair HFA) 8.5 Gm PMH PAST MEDICAL HISTORY: diastolic congestive heart failure, chronic atrial fibrillation on anticoagulation on Xarelto, type 2 diabetes mellitus, hypothyroidism, history of subarachnoid hemorrhage, depression, hyperlipidemia. PSH c-secx2, gastric bypass FAMILY HISTORY: Mother had valve replacement. SOCIAL HISTORY: Denies any smoking. Alcohol occasionally. ALLERGIES: LISINOPRIL DOCUMENTED OF HAVING COUGH. Social History Hx Alcohol Use: Yes (occasional) Hx Substance Use: No Hx Tobacco Use: No Smoking Status: Never Smoker Additional Information lives with Exam Vital Signs Vital Sign - Last Date Time Temp Pulse Resp B/P Pulse Ox O2 Delivery O2 Flow Rate FiO2 01/04/17 15:46 118 30 104/71 100 Room Air 01/04/17 14:31 36.4 Exam NAD, comfortably laying down on the bed no JVD, MMM, no LAD irreg tachy, nl s1, s2 no mrg mild crackles throughout, no wheezing S,ND,NT,normoactive BS+ diffuse blenching erythema below knee bilaterally, no discharge, very mildly tender, symmetric, Rt anterior venegas scabbed ulcer, 1+pitting/non-pitting edema, pulses 1/2, decreased sensory bilaterally, Lab and Diagnostics Result Diagram: 01/04/17 1455 01/04/17 1455 X-Rays, CTs and MRIs PROCEDURE: X-RAY CHEST ONE VIEW, PORTABLE ([id number]) INDICATIONS: SHORT OF BREATH TECHNIQUE: One view of the chest was acquired. COMPARISON: [facility], CR, XR CHEST 1VW (PORTABLE), 11/08/2016, 3: 03. FINDINGS: Surgical changes and devices: Multiple surgical clips are redemonstrated within the visualized right neck. Lungs and pleura: No pleural effusions or pneumothorax. There is mild elevation of the right hemidiaphragm again noted. There are a few linear basilar opacities likely representing atelectasis. No focal consolidation. Mediastinum: Mediastinal contours appear unchanged. Heart size is enlarged. Bones and chest wall: No suspicious bony lesions. Overlying soft tissues appear unremarkable. IMPRESSION: 1. Probable linear atelectasis in the lung bases without definite acute cardiopulmonary disease. Dictated by: Henri Mcwilliams M.D. on 01/04/2017 at 14:20 Approved by: Henri Mcwilliams M.D. on 01/04/2017 at 14:22 Cardiac Echo Impressions Echocardiogram Report Name: SEAN PIERSON RStudy D ate: 01/30/2016 Height: 61 in Hospital Exam Location: [facility] Weight: 185 lb Gender: Female BSA: 1.8 m2 : 1945 Age: 70 yrs BP: 148/98 mmHg HR: 75 History: A.Fib, CHF Performed By: EW Referring Physician: COLIN GIBBS Interpretation Summary The left ventricle is normal in size, wall thickness, and systolic function without any focal wall motion abnormalities with the ejection fraction is estimated to be 65-70% and appears unchanged compared to the previous study. The right ventricle is mildly dilated and right ventricular systolic function is mildly reduced. The right ventricle appears slightly larger and less dynamic compared to the previous study. The right ventricular systolic pressure is estimated at 47 mmHg assuming a right atrial pressure of 15 mm Hg, and is likely unchanged compared to the previous study. The atria are not well visualized but the left atrium is likely moderately dilated and the right atrium is likely mildly dilated. There is mild to moderate mitral regurgitation that is more prominent compared to the previous study. There is mild to moderate tricuspid regurgitation that is less prominent compared to the previous study. There is no other significant valvular heart disease. The ascending aorta is mild-moderately enlarged but is unchanged compared to the previous study. Assessment & Plan Acute, active chronic A. fib with RVR in the setting of medication noncompliance, POA, -resume home meds; metoprolol ER 50mg bid, digoxin 0.125 slow loading, Xarelto 20mg qd -metoprolol 5mg iv x3 for rate>110s -telemetry -will give 80mg iv lasix one dose, will resume home dose tomorrow diastolic congestive heart failure, mildly overloaded on adm -diuretics as above, -monitor i/o chronic venous stasis, POA, unlikely acute cellulitis given chronicity, no s/s of sepsis, -elevate LE as needed, monitor for now Chronic, stable type 2 diabetes mellitus, resume [id number] [id number]), lisproSS for now , resume amitriptyline for neuropathy hypothyroidism, resume LT4, check TFT depression, resume Zoloft, hyperlipidemia, resume lipitor, HTN, hold losartan for now, resume if HD stable tomorrow dispo:Patient will be admitted with inpatient status with expectation of inpatient therapy for more than 2 midnights please coordinate with SW/CM before d/c for Rx refill with new insurance to prevent readmission given her home situation, being in the hospital, pt likely benefit from diet:heart healthy/diabetic dvt ppx:systemic AC Full code, verbally confirmed. Time spent 65 minutes Seun Acuna MD January 04, 2017 16:21
[2017-01-04] MEDS ORDERED: Furosemide 10 mg/mL 10 mL Inj IVPUSH ONE (17:20)
[2017-01-04] MEDS ORDERED: MeTOProlol 1 mg/mL 5 mL Inj IVPUSH PRN (17:25)
[2017-01-04] MEDS: Insulin LISPRO 300 Unit/3 mL Inj SUBQ SCH ×2 (17:30→21:00)
[2017-01-04] MEDS ORDERED: Furosemide Inj 80 MG in 0.9% Sodium Chloride 50 ML IVPUSH ONE (17:35)
[2017-01-04 20:08] LABS: APPEARANCE,URINE CLEAR (CLEAR,HAZY); COLOR,URINE DARK YELLOW (YELLOW); OCCULT BLOOD,URINE NEGATIVE (NEGATIVE); PH,URINE 5.5 (5.0-8.0); UROBILINOGEN,URINE NORMAL (NORMAL)
[2017-01-04] MEDS: Insulin GLARgine 100 Unit/mL Syringe SUBQ SCH (21:14)
[2017-01-04] MEDS: Nystatin 100,000 Unit/Gm 15 Gm Powder TOPICAL SCH (22:52)
[2017-01-05] VITALS (8 sets, daily range): BP systolic 108–124; BP diastolic 63–74; PULSE 76–112; RESP 18–28; O2SAT 95–100
--- NOTE | 2017-01-05 02:35 | NUR ---
Scratching Skin/Nystatin Pt has been itching skin and has had a few spots become small openings from nails. She says it's from the diabetes. When asked to minimize itching says it is hard to but will try. Pt has many skin problems which are documented in the assessment. Applied Nystatin to skin folds after cleaning with soap & water. Repositioned pt in bed with heels raised and elbow protection with pillows. Will continue to monitor and remind pt to keep scratching to a minimal.
[2017-01-05 06:04] LABS: EOSINOPHILS % (AUTO) 2.2 % (0-5); MONOCYTES % (AUTO) 9.1 % (4-12); Mean Corpuscular Hemoglobin 30.1 pg (27.0-35.0); Mean Corpuscular Volume 96.8 fL (81-100); NEUTROPHILS % (AUTO) 52.2 % (40-74); Platelet Count 178 bil/L (150-400)
[2017-01-05 06:26] LABS: Magnesium 1.7 mg/dL (1.6-2.6); Phosphorus 4.7 mg/dL (2.5-4.9)
[2017-01-05] MEDS: Insulin LISPRO 300 Unit/3 mL Inj SUBQ SCH ×4 (07:45→22:00)
[2017-01-05] MEDS: Nystatin 100,000 Unit/Gm 15 Gm Powder TOPICAL SCH ×2 (08:12→21:57)
[2017-01-05] MEDS: MeTOProlol XL 50 mg ER24 Tablet PO SCH ×2 (08:12→21:57)
[2017-01-05] MEDS ORDERED: Furosemide 10 mg/mL 10 mL Inj IVPUSH SCH (08:30)
--- NOTE | 2017-01-05 10:41 | PCM.PNMED ---
Subjective Date of Service January 05, 2017 Subjective She is seen today in her room to follow up her atrial fibrillation and heart failure. I note her TSH of 14.05 with a T4 of 0.69. She states that she has not taken her thyroid medicine in several months. Thus no change in her current dosing is indicated. She is feeling better, although she disputes that she ever felt badly, and then she contradicts herself again. She says her legs are always purplish. Exam Vital Signs Vital Sign - Last Date Time Temp Pulse Resp B/P Pulse Ox O2 Delivery O2 Flow Rate FiO2 01/05/17 08:56 36.8 112 20 109/67 100 Nasal Cannula 0.50 Intake and Output 01/04/17 01/04/17 01/05/17 Cumulative From/Thru 15:00 23:00 07:00 01/04/17 14:31 - 01/05/17 06:00 Intake Total 400 ml 400 ml 800 ml Output Total 75 ml 1136 ml 1211 ml Balance 325 ml -736 ml -411 ml Intake Oral 400 ml 400 ml 800 ml Output Urine Total 75 ml 1136 ml 1211 ml # Bowel Movements 0 0 0 Exam She is alert and oriented 3, heart is irregularly irregular without murmur, lungs are clear to auscultation bilaterally, extremities have trace bilateral pitting ankle edema with purplish skin discoloration. IVs and Medications Medications Reviewed: Medications were reviewed in detail Lab and Diagnostics Result Diagram: 01/05/17 0540 01/05/17 0540 X-Rays, CTs and MRIs PROCEDURE: X-RAY CHEST ONE VIEW, PORTABLE ([id number]) INDICATIONS: SHORT OF BREATH TECHNIQUE: One view of the chest was acquired. COMPARISON: [facility], CR, XR CHEST 1VW (PORTABLE), 11/08/2016, 3: 03. FINDINGS: Surgical changes and devices: Multiple surgical clips are redemonstrated within the visualized right neck. Lungs and pleura: No pleural effusions or pneumothorax. There is mild elevation of the right hemidiaphragm again noted. There are a few linear basilar opacities likely representing atelectasis. No focal consolidation. Mediastinum: Mediastinal contours appear unchanged. Heart size is enlarged. Bones and chest wall: No suspicious bony lesions. Overlying soft tissues appear unremarkable. IMPRESSION: 1. Probable linear atelectasis in the lung bases without definite acute cardiopulmonary disease. Dictated by: Henri Mcwilliams M.D. on 01/04/2017 at 14:20 Approved by: Henri Mcwilliams M.D. on 01/04/2017 at 14:22 Cardiac Echo Impressions Echocardiogram Report Name: SEAN CABALLEROudaltagracia Newman ate: 01/30/2016 Height: 61 in Hospital Exam Location: [facility] Weight: 185 lb Gender: Female BSA: 1.8 m2 : 1945 Age: 70 yrs BP: 148/98 mmHg HR: 75 History: A.Fib, CHF Performed By: MARILIA Referring Physician: COLIN GIBBS Interpretation Summary The left ventricle is normal in size, wall thickness, and systolic function without any focal wall motion abnormalities with the ejection fraction is estimated to be 65-70% and appears unchanged compared to the previous study. The right ventricle is mildly dilated and right ventricular systolic function is mildly reduced. The right ventricle appears slightly larger and less dynamic compared to the previous study. The right ventricular systolic pressure is estimated at 47 mmHg assuming a right atrial pressure of 15 mm Hg, and is likely unchanged compared to the previous study. The atria are not well visualized but the left atrium is likely moderately dilated and the right atrium is likely mildly dilated. There is mild to moderate mitral regurgitation that is more prominent compared to the previous study. There is mild to moderate tricuspid regurgitation that is less prominent compared to the previous study. There is no other significant valvular heart disease. The ascending aorta is mild-moderately enlarged but is unchanged compared to the previous study. Assessment & Plan Acute, active chronic A. fib with RVR in the setting of medication noncompliance, POA, -Doing well now on home meds; metoprolol ER 50mg bid, digoxin 0.125 slow loading , Xarelto 20mg qd -metoprolol 5mg iv x3 for rate>110s -telemetry -Now on Lasix home dose. diastolic congestive heart failure, mildly overloaded on adm -diuretics as above, -monitor i/o chronic venous stasis, POA, unlikely acute cellulitis given chronicity, no s/s of sepsis, -elevate LE as needed, monitor for now Chronic, stable type 2 diabetes mellitus, resume [id number] qhs([id number]), lisproSS for now , resume amitriptyline for neuropathy hypothyroidism, resume LT4, check TFT depression, resume Zoloft, hyperlipidemia, resume lipitor, HTN. Resume losartan. Hypothyroidism, unstable -She had not taken her thyroid medicine in several months, thus the elevated TSH. -Resumed on 0.075 mg levothyroxine, with next TSH due in 2-3 months. dispo:Patient will be admitted with inpatient status with expectation of inpatient therapy for more than 2 midnights please coordinate with SW/CM before d/c for Rx refill with new insurance to prevent readmission given her home situation, being in the hospital, pt likely benefit from HH, plan discharge tomorrow. diet:heart healthy/diabetic dvt ppx:systemic AC Full code, verbally confirmed. Israel Heath M.D. Resuscitation Status: CPR: Attempt Resuscitation Niranjan Heath MD January 05, 2017 09:25
[2017-01-05] MEDS: Insulin GLARgine 100 Unit/mL Syringe SUBQ SCH (21:57)
[2017-01-06] VITALS (8 sets, daily range): BP systolic 90–118; BP diastolic 53–70; PULSE 66–91; RESP 20–28; O2SAT 91–97
--- NOTE | 2017-01-06 05:28 | NUR ---
Uneventful Night: Pt rested through the night with no complaints of chest pain or discomfort. Denies SOB with rest or n/v. Bed locked, low position. Non-slip socks and SBA for safety. Call light within reach, using appropriately. Frequent rounding in place. Pleasant and cooperative with care.
[2017-01-06] MEDS: Insulin LISPRO 300 Unit/3 mL Inj SUBQ SCH ×4 (07:36→21:51)
[2017-01-06] MEDS: MeTOProlol XL 50 mg ER24 Tablet PO SCH ×2 (08:12→21:50)
[2017-01-06] MEDS: Nystatin 100,000 Unit/Gm 15 Gm Powder TOPICAL SCH ×2 (08:15→21:51)
--- NOTE | 2017-01-06 09:15 | NUR ---
TIMO signed GELACIO Liu
[2017-01-06] MEDS: Furosemide 10 mg/mL 10 mL Inj IVPUSH SCH (09:39)
--- NOTE | 2017-01-06 11:07 | PCM.PNMED ---
Subjective Date of Service January 06, 2017 Subjective She is seen today in her room to follow-up her congestive heart failure, hypothyroidism and atrial for ablation. She has gained 0.3 kg. She remains quite frail appearing with continued edema. She was trialed on oral Lasix yesterday. Exam Vital Signs Vital Sign - Last Date Time Temp Pulse Resp B/P Pulse Ox O2 Delivery O2 Flow Rate FiO2 01/06/17 05:54 79 01/06/17 05:00 36.4 24 102/68 97 Nasal Cannula 0.50 Intake and Output 01/05/17 01/05/17 01/06/17 Cumulative From/Thru 15:00 23:00 07:00 01/04/17 14:31 - 01/06/17 06:09 Intake Total 1116 ml 420 ml 2336 ml Output Total 1200 ml 1200 ml 3611 ml Balance -84 ml -780 ml -1275 ml Intake Oral 1116 ml 420 ml 2336 ml Output Urine Total 1200 ml 1200 ml 3611 ml # Bowel Movements 1 0 1 Exam Heart is regular rate and rhythm without murmur Lungs have left basilar crackles There is trace bilateral pitting ankle edema and chronic reddish purple discoloration of the lower legs. IVs and Medications Medications Reviewed: Medications were reviewed in detail Lab and Diagnostics Result Diagram: 01/05/17 0540 01/05/17 0540 X-Rays, CTs and MRIs PROCEDURE: X-RAY CHEST ONE VIEW, PORTABLE ([id number]) INDICATIONS: SHORT OF BREATH TECHNIQUE: One view of the chest was acquired. COMPARISON: [facility], CR, XR CHEST 1VW (PORTABLE), 11/08/2016, 3: 03. FINDINGS: Surgical changes and devices: Multiple surgical clips are redemonstrated within the visualized right neck. Lungs and pleura: No pleural effusions or pneumothorax. There is mild elevation of the right hemidiaphragm again noted. There are a few linear basilar opacities likely representing atelectasis. No focal consolidation. Mediastinum: Mediastinal contours appear unchanged. Heart size is enlarged. Bones and chest wall: No suspicious bony lesions. Overlying soft tissues appear unremarkable. IMPRESSION: 1. Probable linear atelectasis in the lung bases without definite acute cardiopulmonary disease. Dictated by: Henri Mcwilliams M.D. on 01/04/2017 at 14:20 Approved by: Henri Mcwilliams M.D. on 01/04/2017 at 14:22 Cardiac Echo Impressions Echocardiogram Report Name: SEAN CABALLERO RStudy D ate: 01/30/2016 Height: 61 in Hospital Exam Location: [facility] Weight: 185 lb Gender: Female BSA: 1.8 m2 : 1945 Age: 70 yrs BP: 148/98 mmHg HR: 75 History: A.Fib, CHF Performed By: MARILIA Referring Physician: COLIN GIBBS Interpretation Summary The left ventricle is normal in size, wall thickness, and systolic function without any focal wall motion abnormalities with the ejection fraction is estimated to be 65-70% and appears unchanged compared to the previous study. The right ventricle is mildly dilated and right ventricular systolic function is mildly reduced. The right ventricle appears slightly larger and less dynamic compared to the previous study. The right ventricular systolic pressure is estimated at 47 mmHg assuming a right atrial pressure of 15 mm Hg, and is likely unchanged compared to the previous study. The atria are not well visualized but the left atrium is likely moderately dilated and the right atrium is likely mildly dilated. There is mild to moderate mitral regurgitation that is more prominent compared to the previous study. There is mild to moderate tricuspid regurgitation that is less prominent compared to the previous study. There is no other significant valvular heart disease. The ascending aorta is mild-moderately enlarged but is unchanged compared to the previous study. Assessment & Plan Acute, active chronic A. fib with RVR in the setting of medication noncompliance, POA, -Doing well now on home meds; metoprolol ER 50mg bid, digoxin 0.125, Xarelto 20mg qd -metoprolol 5mg iv x3 for rate>110s -telemetry can now be stopped. diastolic congestive heart failure, mildly overloaded on adm -diuretics will be changed back to IV Lasix for 1 more day, hoping to transition back to oral Lasix tomorrow and discharge at that time. She may need metolazone. chronic venous stasis, POA, unlikely acute cellulitis given chronicity, no s/s of sepsis, -elevate LE as needed, monitor for now Chronic, stable type 2 diabetes mellitus, [id number] qhs([id number]), lisproSS have kept the blood sugars in the low 100s., resume amitriptyline for neuropathy depression. Doing well on Zoloft. hyperlipidemia tolerating Lipitor HTN doing well on losartan. Hypothyroidism, unstable -She had not taken her thyroid medicine in several months, thus the elevated TSH. -Resumed on 0.075 mg levothyroxine, with next TSH due in 2-3 months. dispo: given her home situation, being in the hospital, pt likely benefit from , plan discharge tomorrow. diet:heart healthy/diabetic dvt ppx:systemic AC Full code, verbally confirmed. Israel Heath M.D. Resuscitation Status: CPR: Attempt Resuscitation Niranjan Heath MD January 06, 2017 08:29
--- NOTE | 2017-01-06 15:11 | NUR ---
Social Work: Initial Assessment Data: Pt is a 71 y/o female admitted for AFIB with RVR, CHF exacerbation. Pt's PCP is Dr Muniz, pt's insurance is [employer]. EMR reviewed. Readmit score is 5, high. [employer]DESIGNER met with pt at bedside, role explained. Pt states she and her spouse and daughter live in [place] in a 3 story home where she uses a walker. Pt does not drive, pt has hx with HH with [facility], pt has no hx of SNF. Pt has no LTC or VA benefits, pt is not a caregiver. Pt's spouse is an inpt also in the 3rd floor. She states that if she discharges before him she will stay at the hospital with him. Pt also stated that she would like to have HH with [facility] as she has previously had them before. [employer]DESIGNER will discuss with MD and await possible order. MD stated in rounds that pt may have difficulty getting her medications at discharge. [employer]DESIGNER spoke with pt regarding this. Pt states that she does not have any money until January 10. [employer]DES[employer]ER asked what her preferred pharmacy is, she states [facility]. [employer]DESIGNER will discuss with MD and await order to run pt's medications for cost on day of discharge and also ask that MD consider lowest cost medications if possible. Assessment: Pt who is independent at baseline. Plan: Pt will d/c home via POV with daughter when medically stable, pt requesting HH with [facility], [employer]ER awaiting possible MD order. [employer]DES[employer]ER to await possible order to run cost of medications on day of discharge for pt. [employer]DES[employer]ER will continue to follow. GELACIO Liu Addendum: 01/06/17 at 1519 by SAL BUSTILLO Amended: Links added.
[2017-01-06] MEDS: Insulin GLARgine 100 Unit/mL Syringe SUBQ SCH (21:51)
[2017-01-07] VITALS (7 sets, daily range): BP systolic 99–150; BP diastolic 58–84; PULSE 72–85; RESP 18–22; O2SAT 90–97
--- NOTE | 2017-01-07 07:10 | NUR ---
Respiratory Pt denies SOB. SPO2 87-90 on RA while sleeping. O2 via NC applied. SPO2 mid 90s. Tolerating activities well. No overt complications noted.
[2017-01-07] MEDS: Insulin LISPRO 300 Unit/3 mL Inj SUBQ SCH ×3 (07:28→21:16)
[2017-01-07] MEDS: Furosemide 10 mg/mL 10 mL Inj IVPUSH SCH (07:49)
[2017-01-07] MEDS: MeTOProlol XL 50 mg ER24 Tablet PO SCH ×2 (07:50→21:20)
[2017-01-07] MEDS: Nystatin 100,000 Unit/Gm 15 Gm Powder TOPICAL SCH ×2 (07:50→21:21)
--- NOTE | 2017-01-07 10:31 | NUR ---
contact precautions this RN placed pt back on contact precautions even though labs are clear. pt's who is MRSA positive is in and out of pt's room visiting his .
[2017-01-07] MEDS ORDERED: DIGO0.12 PO (11:55)
[2017-01-07] MEDS ORDERED: ATOR40TA69 PO (11:59)
[2017-01-07] MEDS ORDERED: LOSA50TA37 PO (11:59)
[2017-01-07] MEDS ORDERED: METO-272 PO (11:59)
[2017-01-07] MEDS ORDERED: FURO40TA4 PO (11:59)
[2017-01-07] MEDS ORDERED: RIVA10TA PO (11:59)
[2017-01-07] MEDS ORDERED: INSU100I13 SUBQ (12:00)
--- NOTE | 2017-01-07 13:02 | NUR ---
telemetry pt refusing to wear telemetry. pt pulled lines off and refuses to put them back on. Doc paged to DC order
--- NOTE | 2017-01-07 13:55 | NUR ---
Social Work-readiness for discharge: Data:EMR Reviewed. Pt is on day 3 of hospitalization for AFIB per H&P. Pt is likely medically stable later today or tomorrow. MD order received for HH services. SW followed up with pt at bedside, SW role explained. SW provided pt with HH choice list, pt would like a referral to [facility] . RAHUL called Piper with [facility] and provided her with referral for RN and PT, access given. SW discussed pt's concerns around medications. Pt states she has access to money, but will not be able to get this until tomorrow because the bank is closed. Pt states she was more concerned about getting actual prescriptions for her medications because she is not able to get into her PCP for a while. Pt declined having SW send her medications to the pharmacy because she has the funds tomorrow. Pt is agreeable to assist in calling the bank tomorrow and then getting medications filled. Pt does not have ride home at discharge. Daughter is not able to and stole their car. SW attempted to call daughter with no answer. Pt and have no family or friends in the area and son is in assisted. confirms they have money, their debit card got eaten by the machine and he will have to get a new card tomorrow. SW called [employer] and they are willing to bill pt with hospital backing on payment. RAHUL confirmed with UR specialist Arminda that this is ok. SW went back into the room to discuss further, wonders why she cannot just discharge into 's room. RAHUL spoke with charge account authorizer and UR RN regard this. SW explained that pt cannot be discharged into the room, but can be discharged into the lobby and then pt can chose to either call a cab home(phone number provided) or return to room, this would be her choice. SW explained to pt that if she returns to room, she is not a pt and would need to get her food, take care of herself, and will be responsible for her medications. Pt states an understanding. RAHUL will continue to follow. Assessment:Pt to benefit from HH. Plan:Pt to discharge home when medically stable via POV. Referral made to [facility] for RN and PT. Pt to get money out of the bank tomorrow to pay for medications. RAHUL will continue to follow. GELACIO Galvez
[2017-01-07] MEDS ORDERED: Dextrose 10% 250 ML IV PRN (14:20)
--- NOTE | 2017-01-07 15:08 | PCM.DIMED ---
Discharge Instructions Date of Service January 07, 2017 Dates of Hospitalization January 04, 2017 at 16:56 Discharge Diagnosis Discharge Diagnosis Chronic A. fib with rapid ventricular rate due to medication noncompliance Chronic diastolic congestive heart failure exacerbated by rapid rate Diet Discharge Diet: Low fat, Low Sodium, Diabetic Activity Discharge Activity: No restrictions Patient Instructions Follow-up with PCP in: 1 week Lor Bunch MD January 07, 2017 15:08
[2017-01-07] MEDS ORDERED: ALBU8.5H2 IH (15:10)
[2017-01-07] MEDS ORDERED: LEVO75TA4 PO (15:10)
[2017-01-07] MEDS ORDERED: SERT100T PO (15:10)
[2017-01-07] MEDS ORDERED: AMT25T PO (15:10)
--- NOTE | 2017-01-07 15:15 | PCM.DC.MED ---
Discharge Summary Date of Service January 07, 2017 Dates of Hospitalization Date of Hospital Admission January 04, 2017 at 16:56 Date of Discharge: January 07, 2017 Providers: Admitting Physician: Seun Acuna MD Primary Care Physician: Jonny Muniz MD Attending Physician: Seun Acuna MD Diagnosis at Time of Discharge Diagnosis at Time of Discharge Chronic A. fib with rapid ventricular rate due to medication noncompliance Chronic diastolic congestive heart failure exacerbated by rapid rate Procedures XRay, CTs & MRIs PROCEDURE: X-RAY CHEST ONE VIEW, PORTABLE ([id number]) INDICATIONS: SHORT OF BREATH TECHNIQUE: One view of the chest was acquired. COMPARISON: [facility], CR, XR CHEST 1VW (PORTABLE), 11/08/2016, 3: 03. FINDINGS: Surgical changes and devices: Multiple surgical clips are redemonstrated within the visualized right neck. Lungs and pleura: No pleural effusions or pneumothorax. There is mild elevation of the right hemidiaphragm again noted. There are a few linear basilar opacities likely representing atelectasis. No focal consolidation. Mediastinum: Mediastinal contours appear unchanged. Heart size is enlarged. Bones and chest wall: No suspicious bony lesions. Overlying soft tissues appear unremarkable. IMPRESSION: 1. Probable linear atelectasis in the lung bases without definite acute cardiopulmonary disease. Dictated by: Henri Mcwilliams M.D. on 01/04/2017 at 14:20 Approved by: Henri Mcwilliams M.D. on 01/04/2017 at 14:22 Cardiac Echo Impression Echocardiogram Report Name: SEAN PIERSON RStudy D ate: 01/30/2016 Height: 61 in Hospital Exam Location: [facility] Weight: 185 lb Gender: Female BSA: 1.8 m2 : 1945 Age: 70 yrs BP: 148/98 mmHg HR: 75 History: A.Fib, CHF Performed By: EW Referring Physician: COLIN GIBBS Interpretation Summary The left ventricle is normal in size, wall thickness, and systolic function without any focal wall motion abnormalities with the ejection fraction is estimated to be 65-70% and appears unchanged compared to the previous study. The right ventricle is mildly dilated and right ventricular systolic function is mildly reduced. The right ventricle appears slightly larger and less dynamic compared to the previous study. The right ventricular systolic pressure is estimated at 47 mmHg assuming a right atrial pressure of 15 mm Hg, and is likely unchanged compared to the previous study. The atria are not well visualized but the left atrium is likely moderately dilated and the right atrium is likely mildly dilated. There is mild to moderate mitral regurgitation that is more prominent compared to the previous study. There is mild to moderate tricuspid regurgitation that is less prominent compared to the previous study. There is no other significant valvular heart disease. The ascending aorta is mild-moderately enlarged but is unchanged compared to the previous study. Brief History 71-year-old female with depression afebrile on's are also, hypothyroidism, hypertension, hyperlipidemia, chronic diastolic heart failure presented with difficulty breathing pt stated that she has been off her medicine since 2mo ago as her insurance didn 't cover her meds, doesn't exactly remember what she has not been off, she is only taking furosemide until today, ran out of Xarelto about a week ago. 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 pt didn't bring metoprolol, therefore it was also off on past four days. Today, pt was brought from her room by RN staffs to ED as pt didn't look good with labored breathing. ED VS [id number], RR40, ND225-960, afebrlie, 99-100% on RA. pt noted to have afib RVR on EKG rate 156, pt received metoprolol 5mg iv followed by po25mg tartrate. CXR didn't suggest overt pul edema. During interview in ED, pt looked comfortable, not labored. stated that she changed her insurance but was told that Rx only be refilled by new PCP Alban Owusu once she establish her care. Her regular PCP is not accepting her new insurance(). pt set up appointment on 01/25, but couldn't get refill until then. ROS: denied fever chills, n/v/c/d. chest pain, has chronic LE erythema/swelling/ pain, but seems getting better recently, denied new findings for the past 1month or 1week, no recent travel, has sick contacts: being treated for MRSA Hospital Course chronic A. fib with RVR in the setting of medication noncompliance, POA, - initial dose metoprolol 5mg iv - resumed home meds; metoprolol ER 50mg bid, digoxin 0.125 slow loading, Xarelto 20mg qd - good rate control now that back on meds diastolic congestive heart failure, exacerbated by rapid rate,mildly overloaded on admission -initially given 80mg iv lasix one dose, then next day resumed home dose - given another IV dose January 06 and weight decreased 1.4 kg (total of 1 kg down from admit) - at discharge lungs are clear although trace pedal edema, resume oral dose as outpatient chronic venous stasis, POA, unlikely acute cellulitis given chronicity, no s/s of sepsis, -elevate LE as needed type 2 diabetes mellitus, - lantus 10unit qhs (home 30unit) - lispro SS - resumed amitriptyline for neuropathy Hypothyroidism, TSH elevated - resumed previous dose of levothyroxine since has not been taking recently depression - resumed Zoloft, Hyperlipidemia - resumed lipitor, HTN - initally held losartan but then resumed Full code, verbally confirmed by admitting physician. ADDENDUM: Discharge was canceled later in the day when patient complained of nausea and dizziness when standing. Sitting blood pressure did not drop compared to lying. It was decided to delay discharge and obtain physical therapy evaluation the next day. Exam Vital Signs (Last) Date Time Temp Pulse Resp B/P Pulse Ox O2 Delivery O2 Flow Rate FiO2 01/07/17 14:53 36.6 85 22 138/84 97 Room Air 01/07/17 05:37 1.00 Exam General: Alert and oriented, no acute distress Heart: Regular Lungs: Clear Abdomen: Soft, non-tender Extremities: Trace pedal edema, erythema of both lower legs poss due to chronic stasis Test 01/04/17 14:55 01/04/17 18:30 01/05/17 05:40 01/07/17 05:25 Hemoglobin A1c 6.3% (4.8-5.6) Troponin T < 0.010ug/L (0.0-0.011) Thyroid Stimulating Hormone (TSH) 14.050uIU/mL (0.450-4.500) Free Thyroxine 0.69ng/dL (0.82-1.77) Digoxin Level < 0.3nG/mL (0.9-2.0) Urine Color Dark yellow (YELLOW) Urine Appearance Clear (CLEAR,HAZY) Urine pH 5.5 (5.0-8.0) Urine Specific Roy 1.025 (1.003-1.035) Urine Protein Negativemg/dL (NEG,TRACE) Urine Glucose (UA) Negativemg/dL (NEGATIVE) Urine Ketones Negativemg/dL (NEGATIVE) Urine Occult Blood Negative (NEGATIVE) Urine Nitrite Negative (NEGATIVE) Urine Bilirubin Negative (NEGATIVE) Urine Urobilinogen Normalmg/dL (NORMAL) Urine Leukocyte Esterase Negative (NEGATIVE) Urine RBC 0-2/hpf (0-2) Urine WBC 0-5/hpf (0-5) Urine Epithelial Cells Many/hpf (NONE-MOD) Urine Crystals None seen (NONE SEEN) Urine Bacteria Few/hpf (NONE-FEW) Urine Hyaline Casts None/lpf (NONE) Urine Granular Casts None seen (NONE SEEN) Urine Waxy Casts None seen (NONE SEEN) Urine Red Blood Cell Casts None seen (NONE SEEN) Urine White Blood Cell Casts None seen (NONE SEEN) Urine Mucus None seen (None Seen) Urine Trichomonas None seen (NONE SEEN) Urine Yeast None (NONE SEEN) Urinalysis Comment None Urine Culture Reflexed Not indicated White Blood Count 6.9th/mm3 (3.8-10.1) Red Blood Count 3.49mil/mm3 (3.90-5.20) Hemoglobin 10.5g/dL (12.0-15.6) Hematocrit 33.8% (35.0-46.0) Mean Corpuscular Volume 96.8fL (81-100) Mean Corpuscular Hemoglobin 30.1pg (27.0-35.0) Mean Corpuscular Hemoglobin Concent 31.1% (32.0-37.0) Red Cell Distribution Width 18.7% (12.3-15.4) Platelet Count 178bil/L (150-400) Neutrophils (%) (Auto) 52.2% (40-74) Lymphocytes (%) (Auto) 34.9% (14-46) Monocytes (%) (Auto) 9.1% (4-12) Eosinophils (%) (Auto) 2.2% (0-5) Basophils (%) (Auto) 1.0% (0-3) Phosphorus Level 4.7mg/dL (2.5-4.9) Magnesium Level 1.7mg/dL (1.6-2.6) Total Bilirubin 0.4mg/dL (0.0-1.2) Aspartate Amino Transf (AST/SGOT) 31U/L (0-50) Alanine Aminotransferase (ALT/SGPT) 21U/L (0-32) Alkaline Phosphatase 83U/L (25-165) Total Protein 5.7g/dL (6.4-8.4) Albumin 2.8g/dL (3.4-5.0) Sodium Level 139mEq/L (134-144) Potassium Level 4.4mEq/L (3.5-5.2) Chloride Level 101mEq/L (97-108) Carbon Dioxide Level 24mmol/L (18-29) Blood Urea Nitrogen 13mg/dL (8-27) Creatinine 0.97mg/dL (0.57-1.00) Estimat Glomerular Filtration Rate 81mL/min (>59) Glucose Level 118mg/dL (60-99) Calcium Level 8.3mg/dL (8.5-10.1) Pro-B-Type Natriuretic Peptide 1770pg/mL (0-301) Discharge Medications Discharge Medications Amitriptyline (Amitriptyline) 25 Mg Tab 25 MG PO HS Prescribed by: LEONILA HYATT MD Atorvastatin Calcium (Atorvastatin Calcium) 40 Mg Tablet 40 MG PO HS Prescribed by: LEONILA HYATT MD Digoxin (Digoxin) 0.125 Mg/2.5 Ml Solution 125 MG PO DAILY Prescribed by: LEONILA HYATT MD Furosemide (Furosemide) 40 Mg Tablet 80 MG PO DAILY Prescribed by: LEONILA HYATT MD Insulin Aspart (NovoLOG U100 Insulin Vial) 100 U/Ml U Unknown Dose SUBQ TID- INSULIN (Reported) Insulin Glargine (Lantus U100 Solostar Insulin Pen) 100 Unit/Ml Inj 10 UNIT SUBQ HS Prescribed by: LEONILA HYATT MD Levothyroxine (Levothyroxine) 75 Mcg Tablet 75 MCG PO DAILY Prescribed by: LEONILA HYATT MD Losartan Potassium (Losartan Potassium) 50 Mg Tablet 50 MG PO BID Prescribed by: LEONILA HYATT MD Metoprolol Succinate ER (Metoprolol Succinate ER) 50 Mg Tab.er.24h 50 MG PO BID Prescribed by: LEONILA HYATT MD Multivitamin (Multivitamins) 1 Each Capsule 1 EACH PO DAILY (Reported) senoir complete Rivaroxaban (Xarelto) 10 Mg Tablet 20 MG PO DAILY Prescribed by: LEONILA HYATT MD Sertraline HCl (Zoloft) 100 Mg Tablet 100 MG PO DAILY Prescribed by: LEONILA HYATT MD As needed Albuterol HFA (Proair HFA) 8.5 Gm Hfa.aer.ad 1-2 PUFFS IH Q4 PRN PRN For Shortness of Breath Prescribed by: LEONILA HYATT MD Followup Plan Discharge Diet: Low fat, Low Sodium, Diabetic Discharge Activity: No restrictions Follow-up with PCP in: 1 week Leonila Hyatt MD January 07, 2017 15:15
--- NOTE | 2017-01-07 15:34 | NUR ---
Social Work-discharge: Data:EMR Reviewed. Pt is on day 3 of hospitalization for AFIB per H&P. Pt is medically stable for discharge. Pt aware she needs to get medications filled, declining having SW check cost. Pt has access to funds tomorrow and will have her call the [facility]. Pt aware she will be discharging to the [facility]. Pt has the phone number for bk paredes and is aware that she can return to 's room as visitor if she wants this is her choice, but she will need to be able to take care of herself. Pt and both agreeable to this plan. SW updated Piper with [facility] of discharge and faxed in F2F and orders for RN and PT. All updated and agreeable to plan. Assessment;Pt to benefit from HH. Plan:Pt to discharge home today vai private pay taxi. F2F and orders faxed into [facility] for RN and PT. All updated and agreeable to plan. GELACIO Galvez Addendum: 01/09/17 at 1332 by DEMETRA ROBBINS RAHUL updated that pt did not discharge and orders were cancelled. GELACIO Galvez
--- NOTE | 2017-01-07 16:36 | NUR ---
pain in legs pt states that her legs are hurting again and she isn't sure she will be able to discharge. This RN gave pain medication. pt also states that she now has the chills. Warm blankets given. Doc paged
[2017-01-07] MEDS: Insulin GLARgine 100 Unit/mL Syringe SUBQ SCH (21:00)
[2017-01-08] VITALS (7 sets, daily range): BP systolic 96–133; BP diastolic 58–78; PULSE 79–86; RESP 16–18; O2SAT 92–98
--- NOTE | 2017-01-08 04:43 | NUR ---
pain Roxicodone given per pt's request for leg pain with good relief. Pagesil KIM for PO Zofran for nausea (pt has no IV access); rec'd an order and given; pt had no further c/o nausea this shift. no vomiting noted.
[2017-01-08] MEDS: Insulin LISPRO 300 Unit/3 mL Inj SUBQ SCH ×4 (07:23→21:29)
[2017-01-08] MEDS: MeTOProlol XL 50 mg ER24 Tablet PO SCH ×2 (07:59→19:29)
[2017-01-08] MEDS: Nystatin 100,000 Unit/Gm 15 Gm Powder TOPICAL SCH ×2 (08:00→19:29)
[2017-01-08] MEDS: Furosemide 10 mg/mL 10 mL Inj IVPUSH SCH (08:00)
[2017-01-08 08:35] LABS: Mean Corpuscular Volume 97.4 fL (81-100)
--- NOTE | 2017-01-08 10:31 | NUR ---
Othostatics/Mobility Pt c/o bilate LE pain this morning, rating at 5/10, PRN Oxycodone effective for pain. Pt denied any nausea this morning, ate 100% of her breakfast. Othostatics this morning, Lying BP 96/60 P 82, Sitting BP 110/67 P 83, Standing BP 114/62 P 86. Pt tolerated physical therapy well, ambulating in room with contact guard but denied any pain while ambulating. Pt may DC to home per Phys Therapy recommendation. Cont to monitor.
--- NOTE | 2017-01-08 11:26 | NUR ---
Evaluation completed. Please go to "Notes" then click on "Assessments and Notes" (bottom left corner of screen). Then select appropriate discipline tab on top of screen.
[2017-01-08] MEDS ORDERED: 0.9% Sodium Chloride 500 ML IV ONE (12:00)
--- NOTE | 2017-01-08 15:10 | PCM.PNMED ---
Subjective Date of Service January 08, 2017 Subjective Still feels poorly, says weak and lightheaded when she gets up Exam Vital Signs Vital Sign - Last Date Time Temp Pulse Resp B/P Pulse Ox O2 Delivery O2 Flow Rate FiO2 01/08/17 11:31 72 01/08/17 08:47 114/62 01/08/17 07:23 Supplement Oxygen 01/08/17 05:04 37.1 18 95 01/08/17 01:28 1.00 Intake and Output 01/07/17 01/07/17 01/08/17 Cumulative From/Thru 15:00 23:00 07:00 01/04/17 14:31 - 01/08/17 05:07 Intake Total 356 ml 477 ml 200 ml 3843 ml Output Total 250 ml 1025 ml 800 ml 5811 ml Balance 106 ml -548 ml -600 ml -1968 ml Intake Oral 356 ml 477 ml 200 ml 3843 ml Output Urine Total 250 ml 1025 ml 800 ml 5811 ml # Voids 1 # Bowel Movements 0 1 Exam General: Alert and oriented, no acute distress Heart: Regular Lungs: Clear Abdomen: Soft, non-tender Extremities: trace pedal edema, chr stasis skin changes, bilat erythema worse on right IVs and Medications Medications Reviewed: Medications were reviewed in detail Lab and Diagnostics Result Diagram: 01/08/17 0830 01/08/17 0830 X-Rays, CTs and MRIs PROCEDURE: X-RAY CHEST ONE VIEW, PORTABLE ([id number]) INDICATIONS: SHORT OF BREATH TECHNIQUE: One view of the chest was acquired. COMPARISON: [facility], CR, XR CHEST 1VW (PORTABLE), 11/08/2016, 3: 03. FINDINGS: Surgical changes and devices: Multiple surgical clips are redemonstrated within the visualized right neck. Lungs and pleura: No pleural effusions or pneumothorax. There is mild elevation of the right hemidiaphragm again noted. There are a few linear basilar opacities likely representing atelectasis. No focal consolidation. Mediastinum: Mediastinal contours appear unchanged. Heart size is enlarged. Bones and chest wall: No suspicious bony lesions. Overlying soft tissues appear unremarkable. IMPRESSION: 1. Probable linear atelectasis in the lung bases without definite acute cardiopulmonary disease. Dictated by: Henri Mcwilliams M.D. on 01/04/2017 at 14:20 Approved by: Henri Mcwilliams M.D. on 01/04/2017 at 14:22 Cardiac Echo Impressions Echocardiogram Report Name: SEAN CABALLERO RStudaltagracia Newman ate: 01/30/2016 Height: 61 in Hospital Exam Location: [facility] Weight: 185 lb Gender: Female BSA: 1.8 m2 : 1945 Age: 70 yrs BP: 148/98 mmHg HR: 75 History: A.Fib, CHF Performed By: MARILIA Referring Physician: COLIN GIBBS Interpretation Summary The left ventricle is normal in size, wall thickness, and systolic function without any focal wall motion abnormalities with the ejection fraction is estimated to be 65-70% and appears unchanged compared to the previous study. The right ventricle is mildly dilated and right ventricular systolic function is mildly reduced. The right ventricle appears slightly larger and less dynamic compared to the previous study. The right ventricular systolic pressure is estimated at 47 mmHg assuming a right atrial pressure of 15 mm Hg, and is likely unchanged compared to the previous study. The atria are not well visualized but the left atrium is likely moderately dilated and the right atrium is likely mildly dilated. There is mild to moderate mitral regurgitation that is more prominent compared to the previous study. There is mild to moderate tricuspid regurgitation that is less prominent compared to the previous study. There is no other significant valvular heart disease. The ascending aorta is mild-moderately enlarged but is unchanged compared to the previous study. Assessment & Plan chronic A. fib with RVR in the setting of medication noncompliance, POA, - initial dose metoprolol 5mg iv - resumed home meds; metoprolol ER 50mg bid, digoxin 0.125 slow loading, Xarelto 20mg qd - good rate control now that back on meds diastolic congestive heart failure, exacerbated by rapid rate,mildly overloaded on admission -initially given 80mg iv lasix one dose, then next day resumed home dose - given another IV dose January 06 and weight decreased 1.4 kg (total of 1 kg down from admit) - given another IV dose January 07 and weight decreased another 1.3 kg - Have discontinued the IV Lasix, though she is not orthostatic perhaps she has been over diuresed and this is causing her general malaise and lightheadedness with standing so will go 500 mL of saline IV - Currently she states she feels too poorly to be discharged home - We will need to resume her usual home diuretics at discharge chronic venous stasis, POA, unlikely acute cellulitis given chronicity, no s/s of sepsis, -elevate LE as needed type 2 diabetes mellitus, - lantus 10unit qhs (home 30unit) - lispro SS - resumed amitriptyline for neuropathy Hypothyroidism, TSH elevated - resumed previous dose of levothyroxine since has not been taking recently depression - resumed Zoloft, Hyperlipidemia - resumed lipitor, HTN - initally held losartan but then resumed Full code, verbally confirmed by admitting physician. ADDENDUM: Discharge was canceled later in the day when patient complained of nausea and dizziness when standing. Sitting blood pressure did not drop compared to lying. It was decided to delay discharge and obtain physical therapy evaluation the next day. VTE Mechanical Devices: Venous Foot Pump Resuscitation Status: CPR: Attempt Resuscitation Lor Bunch MD January 08, 2017 15:10
[2017-01-08] MEDS: Insulin GLARgine 100 Unit/mL Syringe SUBQ SCH (21:00)
--- NOTE | 2017-01-08 23:02 | NUR ---
Activity Pt alert and oriented, forgetful; refused meal this evening, not hungry. BS low at 106, and HS at 103, pt took some crackers and an jello for snack. Sleeping well, complained of being tired. Will monitor.
[2017-01-09 05:17] VITALS: BP 136/72; PULSE 86; RESP 18; O2SAT 96
[2017-01-09] MEDS: Insulin LISPRO 300 Unit/3 mL Inj SUBQ SCH ×4 (07:28→21:45)
[2017-01-09] MEDS: Ondansetron 2 mg/mL 2 mL Inj IVPUSH PRN ×2 (07:37→11:48)
[2017-01-09] MEDS: MeTOProlol XL 50 mg ER24 Tablet PO SCH ×2 (07:58→20:51)
[2017-01-09] MEDS: Nystatin 100,000 Unit/Gm 15 Gm Powder TOPICAL SCH ×2 (07:59→20:53)
[2017-01-09 11:22] VITALS: BP 147/80; PULSE 80; RESP 20; O2SAT 95
--- NOTE | 2017-01-09 13:32 | NUR ---
Social Work-readiness for discharge: data:EMR Reviewed. Pt is on day 5 of hospitalization or AFIB per H&P. Pt is not medically stable anticipate 1-2 more days. PT has seen pt and they are recommending home with services. Referral has been made to [facility] for RN and PT, access has been given. Pt plans to return home with her . SW informed [facility] of pt not discharging the other day. SW will continue to follow. Assessment:Pt who would benefit from . Plan:Pt to discharge home when medically stable via POV. Referral made to [facility] for RN and PT. F2F provided to [facility] . SW will continue to follow. GELACIO Galvez
--- NOTE | 2017-01-09 14:02 | PCM.PNMED ---
Subjective Date of Service January 09, 2017 Subjective Still complains of nausea. Has had Zofran IV twice today. Did not eat breakfast but able to eat a little lunch. was able to ambulate some with his therapy but says this causes worsened nausea and dizziness and that she is "too sick to go home". Exam Vital Signs Vital Sign - Last Date Time Temp Pulse Resp B/P Pulse Ox O2 Delivery O2 Flow Rate FiO2 01/09/17 11:45 85 01/09/17 11:38 Room Air 01/09/17 11:22 36.8 20 147/80 95 01/08/17 01:28 1.00 Intake and Output 01/08/17 01/08/17 01/09/17 Cumulative From/Thru 15:00 23:00 07:00 01/04/17 14:31 - 01/09/17 06:33 Intake Total 880 ml 400 ml 5123 ml Output Total 850 ml 600 ml 7261 ml Balance 30 ml -200 ml -2138 ml Intake Oral 880 ml 400 ml 5123 ml Output Urine Total 850 ml 600 ml 7261 ml # Voids 1 # Bowel Movements 1 1 3 Exam General: Alert and oriented, laying on bed with emesis bag ready Heart: Irregular with controlled rate Lungs: Clear anteriorly and laterally Abdomen: Soft, non-tender Extremities: Trace pedal edema. Chronic bilat erythema less than yesterday, waldo in R leg, so now more symmetrical IVs and Medications Medications Reviewed: Medications were reviewed in detail Lab and Diagnostics Result Diagram: 01/08/17 0830 01/08/17 0830 X-Rays, CTs and MRIs PROCEDURE: X-RAY CHEST ONE VIEW, PORTABLE ([id number]) INDICATIONS: SHORT OF BREATH TECHNIQUE: One view of the chest was acquired. COMPARISON: [facility], CR, XR CHEST 1VW (PORTABLE), 11/08/2016, 3: 03. FINDINGS: Surgical changes and devices: Multiple surgical clips are redemonstrated within the visualized right neck. Lungs and pleura: No pleural effusions or pneumothorax. There is mild elevation of the right hemidiaphragm again noted. There are a few linear basilar opacities likely representing atelectasis. No focal consolidation. Mediastinum: Mediastinal contours appear unchanged. Heart size is enlarged. Bones and chest wall: No suspicious bony lesions. Overlying soft tissues appear unremarkable. IMPRESSION: 1. Probable linear atelectasis in the lung bases without definite acute cardiopulmonary disease. Dictated by: Henri Mcwilliams M.D. on 01/04/2017 at 14:20 Approved by: Henri Mcwilliams M.D. on 01/04/2017 at 14:22 Cardiac Echo Impressions Echocardiogram Report Name: SEAN CABALLERO RStudaltagracia Newman ate: 01/30/2016 Height: 61 in Hospital Exam Location: [facility] Weight: 185 lb Gender: Female BSA: 1.8 m2 : 1945 Age: 70 yrs BP: 148/98 mmHg HR: 75 History: A.Fib, CHF Performed By: MARILIA Referring Physician: COLIN GIBBS Interpretation Summary The left ventricle is normal in size, wall thickness, and systolic function without any focal wall motion abnormalities with the ejection fraction is estimated to be 65-70% and appears unchanged compared to the previous study. The right ventricle is mildly dilated and right ventricular systolic function is mildly reduced. The right ventricle appears slightly larger and less dynamic compared to the previous study. The right ventricular systolic pressure is estimated at 47 mmHg assuming a right atrial pressure of 15 mm Hg, and is likely unchanged compared to the previous study. The atria are not well visualized but the left atrium is likely moderately dilated and the right atrium is likely mildly dilated. There is mild to moderate mitral regurgitation that is more prominent compared to the previous study. There is mild to moderate tricuspid regurgitation that is less prominent compared to the previous study. There is no other significant valvular heart disease. The ascending aorta is mild-moderately enlarged but is unchanged compared to the previous study. Assessment & Plan chronic A. fib with RVR in the setting of medication noncompliance, POA, - initial dose metoprolol 5mg iv - resumed home meds; metoprolol ER 50mg bid, digoxin 0.125 slow loading, Xarelto 20mg qd - good rate control now that back on meds diastolic congestive heart failure, exacerbated by rapid rate,mildly overloaded on admission -initially given 80mg iv lasix one dose, then next day resumed home dose - given another IV dose January 06 and weight decreased 1.4 kg (total of 1 kg down from admit) - given another IV dose January 07 and weight decreased another 1.3 kg - Currently she states she feels too poorly to be discharged home - Have discontinued the IV Lasix, though she is not orthostatic perhaps she has been over diuresed and this is causing her general malaise and lightheadedness with standing so given 500 mL of saline IV January 08 - Most likely resume her usual home diuretics at discharge - checked dig level today (as potential cause of nausea) and it's 1.0 - Will hold statin and Zoloft since less essential medication, just in case might be causing nausea chronic venous stasis, POA, unlikely acute cellulitis given chronicity, no s/s of sepsis, -elevate LE as needed type 2 diabetes mellitus, - lantus 10unit qhs (home 30unit) - lispro SS - resumed amitriptyline for neuropathy Hypothyroidism, TSH elevated - resumed previous dose of levothyroxine since has not been taking recently depression - resumed Zoloft, Hyperlipidemia - resumed lipitor, HTN - initally held losartan but then resumed Full code, verbally confirmed by admitting physician. ADDENDUM: VTE Mechanical Devices: Venous Foot Pump Resuscitation Status: CPR: Attempt Resuscitation Lor Bunch MD January 09, 2017 14:02
--- NOTE | 2017-01-09 18:21 | NUR ---
Nausea Pt reported persistent nausea this am, PRN zofran given x2 over the course of the morning, pt didn't eat breakfast but ate small lunch and dinner. Pt still reports mild nausea discomfort but not requesting PRN meds at this point. Care continues
[2017-01-09 20:13] VITALS: BP 143/88; PULSE 68; RESP 18; O2SAT 92
[2017-01-09] MEDS: Insulin GLARgine 100 Unit/mL Syringe SUBQ SCH (21:45)
--- NOTE | 2017-01-10 04:46 | NUR ---
pain pt c/o 4-6 legs/feet pain. Administered PO Tylenol and Oxycodone. Pt respond pain relief by resting in bed quietly with eyes closed didn't voice pain afterward for couple hrs. pt denies nausea during this shift. pt spent most of the night asleep. will continue to monitor and deliver care.
[2017-01-10 05:20] VITALS: BP 129/77; PULSE 62; RESP 18; O2SAT 95
[2017-01-10] MEDS: Insulin LISPRO 300 Unit/3 mL Inj SUBQ SCH ×2 (07:32→11:25)
[2017-01-10] MEDS: MeTOProlol XL 50 mg ER24 Tablet PO SCH (08:20)
[2017-01-10] MEDS: Nystatin 100,000 Unit/Gm 15 Gm Powder TOPICAL SCH (08:20)
[2017-01-10] MEDS: Ondansetron 2 mg/mL 2 mL Inj IVPUSH PRN (09:09)
--- NOTE | 2017-01-10 10:40 | NUR ---
Social Work: Readiness for d/c Data: Pt is on day 6 of hospitalization. EMR reviewed. Pt discussed in rounds. MD states pt is ready for d/c today. OFFSET PRESS OPERATOR HELPER spoke with pt regarding d/c plan. Pt plans to take a taxi home with her spouse who is also an inpt on this floor. They requested OFFSET PRESS OPERATOR HELPER assist with setting taxi up private pay. OFFSET PRESS OPERATOR HELPER will continue to follow regarding d/c orders. Amy IQBAL has completed F2F, informed pt will d/c today. Assessment: Pt who is independent at baseline. Plan: Pt will d/c home via taxi private pay when medically stable, likely today per MD, with Amy IQBAL RN, PT. Ana María Vaz, OFFSET PRESS OPERATOR HELPER
--- NOTE | 2017-01-10 10:53 | PCM.DC.MED ---
Discharge Summary Date of Service Jan 10, 2017 Dates of Hospitalization Date of Hospital Admission January 04, 2017 at 16:56 Date of Discharge: Jan 10, 2017 Providers: Admitting Physician: Seun Acuna MD Primary Care Physician: Jonny Muniz MD Attending Physician: Seun Acuna MD Diagnosis at Time of Discharge Diagnosis at Time of Discharge Chronic A. fib with rapid ventricular rate due to medication noncompliance Chronic diastolic congestive heart failure exacerbated by rapid rate Procedures XRay, CTs & MRIs PROCEDURE: X-RAY CHEST ONE VIEW, PORTABLE ([id number]) INDICATIONS: SHORT OF BREATH TECHNIQUE: One view of the chest was acquired. COMPARISON: [facility], CR, XR CHEST 1VW (PORTABLE), 11/08/2016, 3: 03. FINDINGS: Surgical changes and devices: Multiple surgical clips are redemonstrated within the visualized right neck. Lungs and pleura: No pleural effusions or pneumothorax. There is mild elevation of the right hemidiaphragm again noted. There are a few linear basilar opacities likely representing atelectasis. No focal consolidation. Mediastinum: Mediastinal contours appear unchanged. Heart size is enlarged. Bones and chest wall: No suspicious bony lesions. Overlying soft tissues appear unremarkable. IMPRESSION: 1. Probable linear atelectasis in the lung bases without definite acute cardiopulmonary disease. Dictated by: Henri Mcwilliams M.D. on 01/04/2017 at 14:20 Approved by: Henri Mcwilliams M.D. on 01/04/2017 at 14:22 Cardiac Echo Impression Echocardiogram Report Name: SEAN PIERSON RStudy D ate: 01/30/2016 Height: 61 in Hospital Exam Location: [facility] Weight: 185 lb Gender: Female BSA: 1.8 m2 : 1945 Age: 70 yrs BP: 148/98 mmHg HR: 75 History: A.Fib, CHF Performed By: EW Referring Physician: COLIN GIBBS Interpretation Summary The left ventricle is normal in size, wall thickness, and systolic function without any focal wall motion abnormalities with the ejection fraction is estimated to be 65-70% and appears unchanged compared to the previous study. The right ventricle is mildly dilated and right ventricular systolic function is mildly reduced. The right ventricle appears slightly larger and less dynamic compared to the previous study. The right ventricular systolic pressure is estimated at 47 mmHg assuming a right atrial pressure of 15 mm Hg, and is likely unchanged compared to the previous study. The atria are not well visualized but the left atrium is likely moderately dilated and the right atrium is likely mildly dilated. There is mild to moderate mitral regurgitation that is more prominent compared to the previous study. There is mild to moderate tricuspid regurgitation that is less prominent compared to the previous study. There is no other significant valvular heart disease. The ascending aorta is mild-moderately enlarged but is unchanged compared to the previous study. Brief History As per HPI by admitting physician, "71-year-old female with depression afebrile on's are also, hypothyroidism, hypertension, hyperlipidemia, chronic diastolic heart failure presented with difficulty breathing pt stated that she has been off her medicine since 2mo ago as her insurance didn 't cover her meds, doesn't exactly remember what she has not been off, she is only taking furosemide until today, ran out of Xarelto about a week ago. Since four days go, pt stayed in [facility] as a caregiver for her -Lindsey Pierson in [facility] [place]. pt didn't bring metoprolol, therefore it was also off on past four days. Today, pt was brought from her room by RN staffs to ED as pt didn't look good with labored breathing. ED VS [id number], RR40, [id number], afebrlie, 99-100% on RA. pt noted to have afib RVR on EKG rate 156, pt received metoprolol 5mg iv followed by po25mg tartrate. CXR didn't suggest overt pul edema. During interview in ED, pt looked comfortable, not labored. stated that she changed her insurance but was told that Rx only be refilled by new PCP Alban Owusu once she establish her care. Her regular PCP is not accepting her new insurance(). pt set up appointment on 01/25, but couldn't get refill until then. ROS: denied fever chills, n/v/c/d. chest pain, has chronic LE erythema/swelling/ pain, but seems getting better recently, denied new findings for the past 1month or 1week, no recent travel, has sick contacts: being treated for MRSA" Hospital Course Chronic A. fib with RVR in the setting of medication noncompliance, POA, - On admission initial dose metoprolol 5mg iv provided which improved rate. -Once on hospital floor patient was resumed on home meds; metoprolol ER 50mg bid , digoxin 0.125, Xarelto 20mg qd - good rate control now that back on meds - Stable at time of discharge Diastolic congestive heart failure, exacerbated by rapid rate,mildly overloaded on admission - Initially given 80mg iv lasix one dose on admission. - Given another IV dose January 06 and weight decreased 1.4 kg (total of 1 kg down from admit) - Given another IV dose January 07 and weight decreased another 1.3 kg - Breathing effort is essentially returned to normal time of discharge, or extremity edema was significantly improved. - Was held on January 08, due to lightheadedness concern for volume depletion no there was no orthostasis noted. - Checked Dig level on January 09 (as potential cause of nausea) which was 1.0 Persistent nausea - Still present though somewhat improved on day of discharge. - Benefited partly from treatment with Zofran, which was continued on discharge. Chronic venous stasis, POA, unlikely acute cellulitis given chronicity, no s/s of sepsis, -elevated LE as needed - Stable on discharge type 2 diabetes mellitus, - Lantus 10unit qhs during hospitalization provided in place of patient's usual 30 units , given control blood sugars and poor by mouth intake . - Still eating less than usual as was continued on only 10 units on discharge , and to titrate up to home dosage based on home blood sugar readings as diet increases . - resumed amitriptyline for neuropathy Hypothyroidism, TSH elevated - resumed previous dose of levothyroxine since has not been taking recently depression - resumed Zoloft, Hyperlipidemia - resumed lipitor, HTN - initally held losartan but then resumed Exam Vital Signs (Last) Date Time Temp Pulse Resp B/P Pulse Ox O2 Delivery O2 Flow Rate FiO2 01/10/17 07:30 Supplement Oxygen 01/10/17 05:20 36.4 62 18 129/77 95 01/08/17 01:28 1.00 Test 01/04/17 14:55 01/04/17 18:30 01/05/17 05:40 01/07/17 05:25 Hemoglobin A1c 6.3% (4.8-5.6) Troponin T < 0.010ug/L (0.0-0.011) Thyroid Stimulating Hormone (TSH) 14.050uIU/mL (0.450-4.500) Free Thyroxine 0.69ng/dL (0.82-1.77) Urine Color Dark yellow (YELLOW) Urine Appearance Clear (CLEAR,HAZY) Urine pH 5.5 (5.0-8.0) Urine Specific [place] 1.025 (1.003-1.035) Urine Protein Negativemg/dL (NEG,TRACE) Urine Glucose (UA) Negativemg/dL (NEGATIVE) Urine Ketones Negativemg/dL (NEGATIVE) Urine Occult Blood Negative (NEGATIVE) Urine Nitrite Negative (NEGATIVE) Urine Bilirubin Negative (NEGATIVE) Urine Urobilinogen Normalmg/dL (NORMAL) Urine Leukocyte Esterase Negative (NEGATIVE) Urine RBC 0-2/hpf (0-2) Urine WBC 0-5/hpf (0-5) Urine Epithelial Cells Many/hpf (NONE-MOD) Urine Crystals None seen (NONE SEEN) Urine Bacteria Few/hpf (NONE-FEW) Urine Hyaline Casts None/lpf (NONE) Urine Granular Casts None seen (NONE SEEN) Urine Waxy Casts None seen (NONE SEEN) Urine Red Blood Cell Casts None seen (NONE SEEN) Urine White Blood Cell Casts None seen (NONE SEEN) Urine Mucus None seen (None Seen) Urine Trichomonas None seen (NONE SEEN) Urine Yeast None (NONE SEEN) Urinalysis Comment None Urine Culture Reflexed Not indicated Neutrophils (%) (Auto) 52.2% (40-74) Lymphocytes (%) (Auto) 34.9% (14-46) Monocytes (%) (Auto) 9.1% (4-12) Eosinophils (%) (Auto) 2.2% (0-5) Basophils (%) (Auto) 1.0% (0-3) Phosphorus Level 4.7mg/dL (2.5-4.9) Magnesium Level 1.7mg/dL (1.6-2.6) Total Bilirubin 0.4mg/dL (0.0-1.2) Aspartate Amino Transf (AST/SGOT) 31U/L (0-50) Alanine Aminotransferase (ALT/SGPT) 21U/L (0-32) Alkaline Phosphatase 83U/L (25-165) Total Protein 5.7g/dL (6.4-8.4) Albumin 2.8g/dL (3.4-5.0) Pro-B-Type Natriuretic Peptide 1770pg/mL (0-301) Test 01/08/17 08:30 01/09/17 09:15 White Blood Count 5.7th/mm3 (3.8-10.1) Red Blood Count 3.79mil/mm3 (3.90-5.20) Hemoglobin 11.0g/dL (12.0-15.6) Hematocrit 36.9% (35.0-46.0) Mean Corpuscular Volume 97.4fL (81-100) Mean Corpuscular Hemoglobin 29.0pg (27.0-35.0) Mean Corpuscular Hemoglobin Concent 29.8% (32.0-37.0) Red Cell Distribution Width 18.0% (12.3-15.4) Platelet Count 199bil/L (150-400) Sodium Level 138mEq/L (134-144) Potassium Level 4.5mEq/L (3.5-5.2) Chloride Level 100mEq/L (97-108) Carbon Dioxide Level 27mmol/L (18-29) Blood Urea Nitrogen 11mg/dL (8-27) Creatinine 0.91mg/dL (0.57-1.00) Estimat Glomerular Filtration Rate 87mL/min (>59) Glucose Level 117mg/dL (60-99) Calcium Level 8.3mg/dL (8.5-10.1) Digoxin Level 1.0nG/mL (0.9-2.0) General: Alert, Oriented X3, Cooperative, Mild Distress Mouth: Mucous Membr Moist/[place] Chest & Lungs: Clear to auscultation & percussion Cardiovascular: Regular Rate/Rhythm Abdomen: Non-tender, Non-distended Extremities: No cyanosis/clubbing/edma bilat, Other (redness mild stasis changes in bilateral lower extremities without ulceration or significant edema) Neurological: Grossly Neurologically Intact Discharge Medications Discharge Medications Amitriptyline (Amitriptyline) 25 Mg Tab 25 MG PO HS Prescribed by: LEONILA HYATT MD Atorvastatin Calcium (Atorvastatin Calcium) 40 Mg Tablet 40 MG PO HS Prescribed by: LEONILA HYATT MD Digoxin (Digoxin) 0.125 Mg/2.5 Ml Solution 125 MG PO DAILY Prescribed by: LEONILA HYATT MD Furosemide (Furosemide) 40 Mg Tablet 80 MG PO DAILY Prescribed by: LEONILA HYATT MD Insulin Aspart (NovoLOG U100 Insulin Vial) 100 U/Ml U Unknown Dose SUBQ TID- INSULIN (Reported) Insulin Glargine (Lantus U100 Solostar Insulin Pen) 100 Unit/Ml Inj 10 UNIT SUBQ HS Prescribed by: LEONILA HYATT MD Levothyroxine (Levothyroxine) 75 Mcg Tablet 75 MCG PO DAILY Prescribed by: LEONILA HYATT MD Losartan Potassium (Losartan Potassium) 50 Mg Tablet 50 MG PO BID Prescribed by: LEONILA HYATT MD Metoprolol Succinate ER (Metoprolol Succinate ER) 50 Mg Tab.er.24h 50 MG PO BID Prescribed by: LEONILA HYATT MD Multivitamin (Multivitamins) 1 Each Capsule 1 EACH PO DAILY (Reported) senoir complete Rivaroxaban (Xarelto) 10 Mg Tablet 20 MG PO DAILY Prescribed by: LEONILA HYATT MD Sertraline HCl (Zoloft) 100 Mg Tablet 100 MG PO DAILY Prescribed by: LEONILA HYATT MD As needed Albuterol HFA (Proair HFA) 8.5 Gm Hfa.aer.ad 1-2 PUFFS IH Q4 PRN PRN For Shortness of Breath Prescribed by: LEONILA HYATT MD Followup Plan Disposition: Home with health services via [facility] Discharge Diet: Low fat, Low Sodium, Diabetic Discharge Activity: No restrictions Follow-up Provider: Jonny Muniz MD Follow-up with PCP in: 1 week Time spent 40 minutes copies to: Jonny Muniz MD Vital Signs Vital Sign - Last Date Time Temp Pulse Resp B/P Pulse Ox O2 Delivery O2 Flow Rate FiO2 01/10/17 07:30 Supplement Oxygen 01/10/17 05:20 36.4 62 18 129/77 95 01/08/17 01:28 1.00 Intake and Output 01/09/17 01/09/17 01/10/17 Cumulative From/Thru 15:00 23:00 07:00 01/04/17 14:31 - 01/10/17 06:25 Intake Total 550 ml 240 ml 5913 ml Output Total 375 ml 475 ml 8111 ml Balance 175 ml -235 ml -2198 ml Intake Oral 550 ml 240 ml 5913 ml Output Urine Total 375 ml 475 ml 8111 ml # Voids 1 # Bowel Movements 1 4 Lab and Diagnostics Result Diagram: 01/08/1782901/08/17829 Nasir Flower DO Jan 10, 2017 10:53
[2017-01-10 11:27] VITALS: PULSE 78
--- NOTE | 2017-01-10 12:32 | NUR ---
Discharge reviewed d/c instructions with pt including care notes, renewed prescriptions and new prescriptions. Pt signed and given original copies, copies to chart. IV d/c intact, no tele. VS stable at this time. All belongings being packed by pt with help from HUGO. Pt will leave unit with who is also pt and will d/c in next hour or so. Care continues. Addendum: 01/10/17 at 1427 by JOSI CASTRO RN pt taken off unit via WC by HUOG with all belongings intact. WAREHOUSE INVENTORY CLERK waited with pt and (who d/c at same time) downstairs as cab ride was delayed, cab arrived at 1415 and pt and safely put in vehicle for ride home.
--- NOTE | 2017-01-10 12:44 | NUR ---
Social Work: Discharge Data: Pt is on day 6 of hospitalization. EMR reviewed. D/C orders are in. SOLVENT PLANT OPERATOR set up taxi for pt for 1:45pm. SOLVENT PLANT OPERATOR notified RN. SOLVENT PLANT OPERATOR will continue to follow if needs arise. Assessment: Pt who is independent at baseline. Plan: Pt will d/c home via taxi today at 1:45pm with Amy IQBAL RN, PT. SOLVENT PLANT OPERATOR will continue to follow if needs arise. GELACIO Liu
== END 2017-01-10 13:43 | disposition home or self-care (01) ==
LOC: SED 14:27 → INTOOBSV 16:56 → MPC 16:56
PROVIDERS: ADMIT Internal Medicine; ATTEND Internal Medicine
DX: I48.2 Chronic atrial fibrillation (principal); I50.33 Acute on chronic diastolic (congestive) heart failure; T46.0X6A Underdosing of cardiac-stimulant glycosides and drugs of similar action, initial encounter; T45.516A Underdosing of anticoagulants, initial encounter; E78.5 Hyperlipidemia, unspecified; F10.21 Alcohol dependence, in remission; I10 Essential (primary) hypertension; E11.40 Type 2 diabetes mellitus with diabetic neuropathy, unspecified; R11.0 Nausea; R42 Dizziness and giddiness; Z79.01 Long term (current) use of anticoagulants; Z91.128 Patient's intentional underdosing of medication regimen for other reason; Z79.4 Long term (current) use of insulin
CPT/HCPCS: 36415; 71010; 80048; 80053; 80162; 81000; 82948; 83036; 83735; 83880; 84100; 84439; 84443; 84484; 85025; 85027; 87641; 93005; 96374; 96375; 96376; 97161; 97530; 99291; 99292; J1815; J1940; J2270; J2405; J7040

== ENCOUNTER 2017-03-24 17:27 | Inpatient (IN) | payer MEDICARE, MEDICAID ==
[2017-03-24] VITALS (9 sets, daily range): BP systolic 117–158; BP diastolic 76–117; PULSE 109–149; RESP 18–44; O2SAT 95–100
[~2017-03-24] VITALS: Ht 154.9 cm; Wt 84.5 kg
--- NOTE | 2017-03-24 06:44 | NUR ---
Admission to [facility] Room 2030 Pt arrived on a gurney at approximately 2300 and was transferred to the bed via sliding board due to pt's current state of weakness. Pt was on 4L oxymask upon arrival and the BiPap that the pt was using in the ED was transferred with the pt into the room and set up. Pt is AOx3, BEGUM but too weak to walk on own at this time. Pt's admission was completed but pt does seem a little unsure of what time of day they take their medications. Pt has bruising on their left eye and generalized bruising on their face. When asked how the pt got the bruises pt did say that they must have walked into a wall. Pt c/o 7/10 pain in neck and requested pain medication. Pt was offered Tylenol and refused the medication. Pt said that they have not eaten or taken medications in the past couple of days. Pt received a once time dose of their Xarelto at this time.
[~2017-03-24 17:27] MED LIST changes: -Acetaminophen PO; +DIGO0.12 PO; -DIGO250T12 PO; -ONDA4TAB6 PO
--- NOTE | 2017-03-24 17:29 | ED.REPORT ---
HPI-Chest Pain 40 and Over Date of Service Mar 24, 2017 ED Provider: Dr. Lalito Reis MD A 72 year old female with a history of CHF, chronic atrial fibrillation with RVR , obesity hypoventilation syndrome, medical noncompliance, diabetes mellitus, hypertension, hyperlipidemia, and diastolic heart failure presents to the ED via EMS with SOB that began yesterday but became increasingly worse just prior to arrival. The patient has been complaining of recent nausea, rapid heart palpations, increased anxiety, lower extremity edema, recent nonproductive cough and diarrhea. EMS report that the patient has been incontinent to urine and was found diaphoretic and covered in feces at the scene. En route the patient was hypertensive and tachycardic and received 6mg adenosine and 12mg of Diltazem. She was initially stating at 94% on room air and dropped to 84% and was placed on the nasal cannula. The patient has been noncompliant with her medication for the past 3 days because they reportedly cause emesis. She has not taken her Xarelto Digoxin or Metoprolol. Patient recently fell 1 week ago and presents with several contusions. She denies chest pain, fever, chills or dysuria. Nursing Notes Stated Complaint: FAST HEART RATE AND CHEST PAIN Nursing Notes Reviewed: Yes Allergies: Coded Allergies: lisinopril (Verified Allergy, Mild, COUGH, 01/04/17) Scheduled Amitriptyline (Amitriptyline) 25 Mg Tab 25 MG PO HS Atorvastatin Calcium (Atorvastatin Calcium) 40 Mg Tablet 40 MG PO HS Digoxin (Digoxin) 0.125 Mg/2.5 Ml Solution 125 MG PO DAILY Furosemide (Furosemide) 40 Mg Tablet 80 MG PO DAILY Insulin Aspart (NovoLOG U100 Insulin Vial) 100 U/Ml U Unknown Dose SUBQ TID- INSULIN Insulin Glargine (Lantus U100 Solostar Insulin Pen) 100 Unit/Ml Inj 10 UNIT SUBQ HS Levothyroxine (Levothyroxine) 75 Mcg Tablet 75 MCG PO DAILY Losartan Potassium (Losartan Potassium) 50 Mg Tablet 50 MG PO BID Metoprolol Succinate ER (Metoprolol Succinate ER) 50 Mg Tab.er.24h 50 MG PO BID Multivitamin (Multivitamins) 1 Each Capsule 1 EACH PO DAILY senoir complete Rivaroxaban (Xarelto) 10 Mg Tablet 20 MG PO DAILY Sertraline HCl (Zoloft) 100 Mg Tablet 100 MG PO DAILY Scheduled PRN Albuterol HFA (Proair HFA) 8.5 Gm Hfa.aer.ad 1-2 PUFFS IH Q4 PRN PRN For Shortness of Breath General Time Seen by MD: 17:31 Chief Complaint Shortness of breath Hx Obtained From: Patient, EMS Arrived By: Ambulance Sudden in Onset?: No Onset Occurred: Yesterday Symptom Duration: Since onset Associated with: Reports: Cough, non-productive, Nausea, Shortness of Breath, Denies: Fever Pertinent Negative: Pt denies other symptoms Recent Healthcare: No recent hospitalization, Recent doctor visit Risk Factors )( CAD Risk Stratification Hyperlipidemia Hypertension Risk factors reviewed )( TAD Risk Stratification Hypertension Risk factors reviewed )( PE Risk Stratification Risk factors reviewed Past Medical History Past Medical History 1. Obesity hypoventilation syndrome/obstructive sleep apnea with severe chronic cor pulmonale - she is supposed to be on home O2, compliance unclear 2. Chronic atrial fibrillation-on Xarelto anticoagulation, Digoxin, Metoprolol (medical noncompliance) 3. Hypothyroid 4. Morbid obesity 5. Diastolic heart failure in the setting of normal coronary arteries with negative cardiac cath in 2011, echocardiogram August 2014 showed EF of 55-60%, normal valves" D-shaped" left ventricle in systole and diastole consistent RV pressure overload, with subsequent Ferdinand-Dani catheterization November 2014 confirming pulmonary arterial pressure 43/1 mmHg 6. Chronic lower extremity edema 7. History of alcoholism and opioid abuse, sober since 2007 8. Hx of a traumatic subarachnoid hemorrhage requiring transfer 04/2015 - on phenytoin, compliance and instructions unclear 9. Congestive heart failure 10. Diabetes mellitus 11. Hyperlipidemia 12. Hypertension Past Surgical History Gastroplasty Right subclavian artery occlusion s/p repair, 2011 Cholecystectomy Tonsillectomy Smoking History Unknown if Ever Smoker Social History Other Social History: Lives alone, Local resident Ambulatory Status Walker Review of Systems Constitutional: Denies: Chills, Fever Respiratory: Reports: Non-productive cough, Shortness of breath Cardiovascular: Reports: Edema (LE), Palpitations, Denies: Chest pain GI: Reports: Diarrhea, Nausea Complete sys rev & neg: except as marked. Female: Reports: Incontinence, Denies: Dysuria Physical Exam Initial Vital Signs Vital Signs (First) Date Time Temp Pulse Resp B/P Pulse Ox O2 Delivery O2 Flow Rate FiO2 03/24/17 17:50 149 44 158/117 100 Nasal Cannula 4 Initial Vitals BP: 129/78 HR: 124 O2: 94% Initial VS: Reviewed Head / Eyes: Atraumatic, Normocephalic, PERRL General/Constitutional: Awake, Alert Behavior: Positive: Anxious Appearance / Presentation: Positive: Obese GENERAL: Smells of urine Respiratory / Chest: Atraumatic Resp Distress / Stridor: Positive: Resp distress severe Rales / Rhonchi: Positive: Rales diffuse RESPIRATORY: Tachypneic Heart Rate / Rhythm: Positive: Irreg irregular rhythm, Tachycardia Upper Ext Edema: Positive: Pitting (Lower extremity edema) CARDIO: Hypertensive Abdomen: Atraumatic, Soft, Non-tender, No guarding, No rebound Neck: Atraumatic, Supple Neck Vascular: Positive: JVD moderate Lower Extremity / Pelvis / MS: Atraumatic, Neurologic intact, Vascular intact Skin: Atraumatic, Dry, Intact Trauma / Burn / Environmental: Positive: Contusion (Multiple contusions present in various locations secondary to a GLF that occurred 1 week ago) Neurologic: Oriented X3, Speech NL, No motor deficits, No sensory deficits, CN II - XII intact Upper Extremity / MS: Atraumatic, Neurologic intact, Vascular intact Interpretation & Diagnostics Lab Results Interpretation Test 03/24/17 17:58 ECG Interpretation ECG Interpretation: Atrial fibrillation with RVR Rate [address] changes Time: 17:44 Interpreted by: ED physician Re-Eval/Medical Decision Time of Eval: 17:45 Patient Status: Condition improved Re-Evaluation/Progress Note: Breathing has improved following breathing treatment. Time of Eval: 18:04 Re-Evaluation/Progress Note: Breathing and anxiety have improved upin recheck. She is informed of her pending results and the plan to admit. Counseled Regarding: Diagnosis, Lab results, Need for admission Discharge & Departure Shift Change Sign-Out Patient Care Transferred: Yes Discussed Complaint(s): Yes Laboratory Evaluation: Ordered, not yet done Imaging Studies: Ordered, not yet done Response to Therapy: Improved Dr. Hdz Primary Impression: Atrial fibrillation with RVR Disposition: ADMITTED TO HOSPITAL Discharge Condition All VS Reviewed: Yes Condition: Improved Care Transferred to: Dr. Hdz Care Transferred at: 18:00 Scribe Attestation Portions of this note were transcribed by Nurys Diana. I, Dr. Lalito Reis personally performed the history, physical exam and medical decision- making; I reviewed and confirmed the accuracy of the information in the transcribed note. Lalito Walter DO Mar 24, 2017 17:29 BANNERRADHANURYS Mar 24, 2017 17:35 ROHITNURYS Mar 24, 2017 17:35
[2017-03-24] MEDS ORDERED: Diltiazem 5 mg/mL 5 mL Inj IVPUSH ONE (17:40)
[2017-03-24] MEDS: MeTOProlol 1 mg/mL 5 mL Inj IVPUSH SCH ×2 (17:46→21:01)
[2017-03-24 18:09] LABS: Mean Corpuscular Hemoglobin 29.2 pg (27.0-35.0); Mean Corpuscular Volume 88.7 fL (81-100); Platelet Count 310 bil/L (150-400)
[2017-03-24 18:19] LABS: D-Dimer 2.32 mg/L FEU (<0.50); INR 1.22 ratio
--- NOTE | 2017-03-24 18:19 | DRSVH ---
PROCEDURE: X-RAY CHEST ONE VIEW, PORTABLE ([id number]) INDICATIONS: 72 year-old female with hypoxia. TECHNIQUE: One view of the chest was acquired. COMPARISON: [facility], CR, XR CHEST 1VW (PORTABLE), 01/04/2017, 14:53. [facility], CR, XR CHEST 1VW (PORTABLE), 11/08/2016, 3:03. [facility], CR, XR CHEST 1VW (PORT ABLE), 11/08/2016, 0:35. FINDINGS: Surgical changes and devices: Multiple right supraclavicular surgical clips are again noted. Lungs and pleura: No pleural effusions or pneumothorax. Lungs are clear, except for scattered bibasi lar pulmonary scarring. Mediastinum: Mediastinal contours appear normal. Heart size is normal given AP technique. Bones and chest wall: No suspicious bony lesions. Overlying soft tissues appear unremarkable. IMPRESSION: No acute cardiopulmonary disease. Dictated by: Mao Milner M.D. on 03/24/2017 at 18:17 Approved by: Mao Milner M.D. on 03/24/2017 at 18:18
[2017-03-24 18:25] LABS: Magnesium 1.8 mg/dL (1.6-2.6)
[2017-03-24 18:27] LABS: BASOPHILS % (AUTO) 0 % (0-3); EOSINOPHILS % (AUTO) 0 % (0-5); MONOCYTES % (AUTO) 3 % (4-12); NEUTROPHILS % (AUTO) 75 % (40-74)
[2017-03-24 18:35] LABS: TROPONIN T < 0.010 ug/L (0.0-0.011)
[2017-03-24 19:15] LABS: APPEARANCE,URINE HAZY (CLEAR,HAZY); COLOR,URINE DARK YELLOW (YELLOW); OCCULT BLOOD,URINE NEGATIVE (NEGATIVE)
[2017-03-24] MEDS ORDERED: Piperacillin-Tazo 3.375 Gm Inj 3.375 GM in Dextrose 5% Minibag Plus 50 ML IV ONE (19:35)
[2017-03-24] MEDS: Ondansetron 2 mg/mL 2 mL Inj IVPUSH PRN ×2 (20:10→21:51)
--- NOTE | 2017-03-24 20:23 | DRSVH ---
PROCEDURE: CT BRAIN WITHOUT CONTRAST ([id number]) INDICATIONS: 72 year-old female with head trauma on Xarelto. TECHNIQUE: Noncontrast 4.5 mm thick angled axial sections acquired from the foramen magnum to the vertex, with c oronal reformats. COMPARISON: [facility], CT, CT BRAIN WO CON, 11/08/2016, 2:00. [facility], C T, CT BRAIN WO CON, 01/29/2016, 7:39. [facility], CT, CT BRAIN WO CON, 04/21/2015, 13:05. FINDINGS: Image quality: Excellent. CSF spaces: Basal cisterns are patent. No extra-axial fluid collections. The ventricles are symmet bethany in size and shape. Brain: No intracranial bleeds or masses. There is mild cerebral volume loss for age, with resultant ventricular and sulcal prominence. There are mild periventricular white matter chronic small vessel ischemic changes. There is intracranial internal carotid and vertebral artery atherosclerosis. Skull and face: Calvarium and visualized facial bones appear intact, without suspicious lesions. Sinuses: Visualized sinuses and mastoids are clear. IMPRESSION: No acute intracranial abnormalities. Mild periventricular white matter chronic small vess el ischemic change. Dictated by: Mao Milner M.D. on 03/24/2017 at 20:17 Approved by: Mao Milner M.D. on 03/24/2017 at 20:21
--- NOTE | 2017-03-24 20:54 | DRSVH ---
PROCEDURE: CT ANGIO CHEST PULMONARY EMBOLISM ([id number]) INDICATIONS: 72 year-old female with respiratory failure. TECHNIQUE: After the administration of intravenous contrast, 2 mm thick sections acquired from the pulmonary api kiesha to the posterior costophrenic angles. 3-dimensional maximum intensity projection (MIP) coronal a nd sagittal reformats were then acquired through the thorax. For radiation dose reduction, the follo wing was used: automated exposure control, adjustment of mA and/or kV according to patient size. COMPARISON: [facility], CT, CHEST ANGIO-PE, 08/23/2014, 18:29. FINDINGS: Image quality: Excellent. Pulmonary arteries: Pulmonary arteries demonstrate no intraluminal filling defects to suggest centra l pulmonary embolism. Main pulmonary artery is enlarged at 3.5 cm diameter. Lungs and pleura: Lung volumes are decreased, with extensive groundglass opacities. Trace bibasilar m obile pleural effusions are present. No pneumothorax. Central and peripheral airways are patent. Mediastinum: Cardiomegaly is unchanged, without pericardial effusion. No mediastinal or hilar adenop athy. Thoracic aorta is normal in caliber and enhancement. Esophagus is normal in caliber, without hiatal hernia. Bones and chest wall: No suspicious bony lesions. Ribs and thoracic spine appear intact throughout. No axillary or supraclavicular adenopathy. Abdomen: Left adrenal 2.8 cm adenoma is again noted, as well as posterosuperior right renal cortical simple cyst. Patient is status post gastric banding surgery. IMPRESSION: 1. No evidence for central pulmonary embolism. Enlarged main pulmonary artery would be consistent wit h pulmonary arterial hypertension. 2. Widespread groundglass opacities likely reflect subsegmental atelectasis in the setting of decreas ed lung volumes. 3. Trace bibasilar mobile pleural effusions are of uncertain etiology. 4. Moderate cardiomegaly is unchanged, as well as left adrenal adenoma. Dictated by: Mao Milner M.D. on 03/24/2017 at 20:44 Approved by: Mao Milner M.D. on 03/24/2017 at 20:53
[2017-03-24] MEDS ORDERED: HYDROcodone-APAP 5-325 mg Tablet PO PRN (22:15)
[2017-03-24] MEDS ORDERED: Alum-Mag Hydrox-Simeth 30 mL Suspension PO PRN (22:15)
[2017-03-24] MEDS ORDERED: Albuterol-Ipratropium 3 mL Inhalation Solution NEB PRN (22:15)
[2017-03-24] MEDS ORDERED: Polyethylene Glycol (PEG) 17 Gm Powder PO PRN (22:15)
[2017-03-24] MEDS ORDERED: 0.9% Sodium Chloride 1,000 ML IV SCH (23:15)
[2017-03-24] MEDS ORDERED: Glucose 40% Oral Gel 15 Gm Tube PO PRN (23:40)
[2017-03-25] VITALS (14 sets, daily range): BP systolic 111–123; BP diastolic 74–85; PULSE 23–125; RESP 18–26; O2SAT 96–100
--- NOTE | 2017-03-25 00:15 | PCM.HPMED ---
Subjective Date of Service Mar 24, 2017 Primary Provider: Admitting Physician: Jero Fernandes MD Primary Care Physician: Francoise De La Cruz MD Attending Physician: Jero Fernandes MD Admit Status: From the Emergency Department, Full Admit Chief Complaint: Dyspnea and nausea. . History of Present Illness: Kassie Pierson is a 72-year-old female with a past medical history significant for diastolic heart failure, cor pulmonale secondary to obesity hypoventilation syndrome and obstructive sleep apnea, chronic atrial fibrillation with RVR, medical noncompliance, diabetes mellitus, insulin using, hypertension, hyperlipidemia, who presents to [facility] emergency department via EMS with worsening shortness of breath 2 days. The patient reports that approximately 2 days ago she began having trouble breathing. She has had accompanying body aches, weakness, malaise, abdominal pain, nausea, and productive cough of yellow sputum. She also endorses mild headache. She denies vision changes, sore throat, chest pain, palpitations, vomiting, extremity pain, rash, fever, chills, dysuria, diarrhea or constipation. She denies worsening lower extremity edema, orthopnea, or paroxysmal nocturnal dyspnea. EMS reports that the patient has been incontinent to urine and was found diaphoretic and covered in feces at the scene. En route the patient was hypertensive and tachycardic and received 6 mg adenosine and 12 mg of Diltazem. She was initially stating at 94% on room air and dropped to 84% and was placed on the nasal cannula. The patient has been noncompliant with her medication for the past 3 days because they reportedly cause emesis. She has not taken her Xarelto, digoxin or metoprolol. Patient recently fell 1 week ago and presents with several contusions. She has not had any recent sick contacts. She has had very poor appetite over the last 2-3 days with very little PO intake other than fluids. Vital signs in the ER: Temperature 36.2. Pulse 149. Respiratory rate 44. Blood pressure 158/17. Pulse ox 100% on 4 L nasal cannula. She was given in the ED: Zosyn IV 3.375 g 1, acetaminophen PO 650 mg 1, metoprolol tartrate IV 5 mg 1, and ondansetron IV 4 mg 2. PCP is Dr. Francoise De La Cruz. . Review of Systems: A comprehensive review of systems was conducted with the patient and found to be negative except as above in the History of Present Illness. . Allergies Coded Allergies: lisinopril (Verified Allergy, Mild, COUGH, 01/04/17) Home Medications Albuterol 1-2 puffs inhaled every 4 hours as needed for shortness of breath. Amitriptyline 25 mg daily at bedtime. Atorvastatin 40 mg daily at bedtime. Digoxin 125 mg daily. Furosemide 80 mg daily. Lantus 10 units subcutaneous daily at bedtime. Levothyroxine 75 g daily. Losartan 50 mg twice a day. Metoprolol succinate 50 mg twice a day. Multivitamin daily. NovoLog SSI Sertraline 100 mg daily. Xarelto 20 mg daily. PMH 1. Heart failure with preserved ejection fraction. 2. Chronic atrial fibrillation- on Xarelto anticoagulation, Digoxin, Metoprolol (medical noncompliance). 3. Diabetes mellitus type II, insulin using. 4. Hypertension. 5. Hyperlipidemia. 6. Depression and anxiety. 7. Hypothyroidism. 8. History of alcoholism and opiate abuse in remission, sober since 2008. 9. Obesity hypoventilation syndrome/obstructive sleep apnea with severe chronic cor pulmonale - she is supposed to be on home O2, variable compliance. 10. Morbid obesity. 11. Chronic lower extremity lymphedema. 12. History of a traumatic subarachnoid hemorrhage requiring transfer 04/2015 - on phenytoin, compliance and instructions unclear. . Surgical History 1. Gastric bypass. 2. Right subclavian artery occlusion s/p repair, 2011 3. 2. 4. Cholecystectomy 5. Tonsillectomy. 6. Nephrolithiasis status post removal lithotripsy? 7. Appendectomy. . Family History Mother who had heart disease and from kidney failure. Unknown family history regarding her father. Two half siblings who are healthy. . Social History Hx Alcohol Use: Yes (former alcoholic, quit 2008) Hx Substance Use: No Hx Tobacco Use: No Smoking Status: Never Smoker Additional Information The patient is but still cohabitates with her former . She has 4 children, 3 of which were triplets and one of which passed as a . 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 . Exam Vital Signs Vital Sign - Last Date Time Temp Pulse Resp B/P Pulse Ox O2 Delivery O2 Flow Rate FiO2 03/24/17 21:35 35 99 30 03/24/17 20:33 36.2 109 142/76 BiPAP 03/24/17 17:50 4 Exam General: Elderly female lying in bed and in no acute distress, BiPAP in place, icteric, poor hygiene, appropriately interactive. HEENT: Normocephalic, atraumatic. External ears without defect. Pupils equal, round, and reactive to light. Contusion of left eye. Icteric sclerae, moist conjunctivae, and no lid lag. Unable to visualize oropharynx as BiPAP mask in place. Mucous membranes dry. Neck: Supple with full range of motion. No jugular venous distension. No bruits. No lymphadenopathy or thyromegaly. Cardiovascular: Irregularly irregular rhythm without murmurs, rubs, or gallops appreciated Pulmonary: Clear to auscultation bilaterally without crackles, wheezes, or rhonchi however exam limited by BiPAP. Normal respiratory effort with no use of accessory muscles. Abdomen: Soft, mild tenderness to palpation throughout, nondistended, bowel sounds present. No hepatosplenomegaly or masses appreciated. Extremities: No clubbing or cyanosis. Bilateral moderate lower extremity nonpitting lymphedema. Skin: Normal temperature, turgor, and texture; no rash, ulcers, or subcutaneous nodules appreciated except as above. Scattered contusions on body. Neurological: Cranial nerves grossly intact. Normal muscle strength, tone, and bulk. Reflexes, coordination, and sensory function within normal limits. Known gait impairment and uses FWW. Psychiatric: Normal mood and affect. Alert and oriented to person, place, and time. . Lab and Diagnostics Labs Item Value Date Time Digoxin Level < 0.3 nG/mL L 03/24/172022 Item Value Date Time Urine Color Dark yellow 03/24/171841 Urine Appearance Hazy 03/24/171841 Urine pH 5.0 03/24/171841 Urine Specific [place] 1.030 03/24/171841 Urine Protein 300 mg/dL 03/24/171841 Urine Glucose (UA) 100 mg/dL 03/24/171841 Urine Ketones Negative mg/dL 03/24/171841 Urine Occult Blood Negative 03/24/171841 Urine Nitrite Positive 03/24/171841 Urine Bilirubin Negative 03/24/171841 Urine Urobilinogen 8.0 mg/dL 03/24/171841 Urine Leukocyte Esterase Negative 8/13/17 1842 Urine RBC 0-2 /hpf 03/24/17 1842 Urine WBC 0-5 /hpf 03/24/17 184 Urine Epithelial Cells None /hpf 03/24/17 184 Urine Crystals None seen 03/24/17 184 Urine Bacteria Few /hpf 03/24/17 1842 Urine Hyaline Casts None /lpf 03/24/17 1842 Urine Granular Casts None seen 03/24/17 184 Urine Waxy Casts None seen 03/24/17 184 Urine Red Blood Cell Casts None seen 03/24/17 1842 Urine White Blood Cell Casts None seen 03/24/17 1842 Urine Mucus None seen 03/24/17 184 Urine Trichomonas None seen 03/24/17 184 Urine Yeast None 03/24/17 184 Urinalysis Comment None 03/24/17 184 Urine Culture Reflexed Indicated 03/24/17 184 Item Value Date Time Prothrombin Time 13.1 sec H 03/24/17 175 Prothromb Time International Ratio 1.22 ratio 03/24/17 175 D-Dimer 2.32 mg/L FEU H 03/24/17 175 Item Value Date Time Lactic Acid Level 4.3 mmol/L *H 03/24/17 2023 Calcium Level 8.6 mg/dL 03/24/17 1758 Magnesium Level 1.8 mg/dL 03/24/17 1758 Total Bilirubin 2.8 mg/dL H 03/24/17 1758 Aspartate Amino Transf (AST/SGOT) 22 U/L 03/24/17 1758 Alanine Aminotransferase (ALT/SGPT) 15 U/L 03/24/17 1758 Alkaline Phosphatase 155 U/L 03/24/17 1758 Troponin T < 0.010 ug/L 03/24/17 1758 Pro-B-Type Natriuretic Peptide 6238 pg/mL H 03/24/17 1758 Total Protein 8.1 g/dL 03/24/17 1758 Albumin 4.2 g/dL 03/24/17 1758 Procalcitonin 0.18 ng/mL H 03/24/17 1758 Result Diagram: 03/24/17 1758 03/24/17 175 Microbiology Blood culture 2 pending. Urine culture pending. . X-Rays, CTs and MRIs CT ANGIO CHEST PULMONARY EMBOLISM IMPRESSION: 1. No evidence for central pulmonary embolism. Enlarged main pulmonary artery would be consistent with pulmonary arterial hypertension. 2. Widespread groundglass opacities likely reflect subsegmental atelectasis in the setting of decreased lung volumes. 3. Trace bibasilar mobile pleural effusions are of uncertain etiology. 4. Moderate cardiomegaly is unchanged, as well as left adrenal adenoma. Dictated by: Mao Milner M.D. on 03/24/2017 at 20:44 CT BRAIN WITHOUT CONTRAST IMPRESSION: No acute intracranial abnormalities. Mild periventricular white matter chronic small vessel ischemic change. Dictated by: Mao Milner M.D. on 03/24/2017 at 20:17 X-RAY CHEST ONE VIEW, PORTABLE IMPRESSION: No acute cardiopulmonary disease. Dictated by: Mao Milner M.D. on 03/24/2017 at 18:17 . 12-lead ECG EKG: Atrial fibrillation with RVR, heart rate 140, no acute ischemic changes such as ST elevation or depression. . Cardiac Echo Impressions Echocardiogram Interpretation Summary 02/28/2016: The left ventricle is normal in size, wall thickness, and systolic function without any focal wall motion abnormalities with the ejection fraction is estimated to be 65-70% and appears unchanged compared to the previous study. The right ventricle is mildly dilated and right ventricular systolic function is mildly reduced. The right ventricle appears slightly larger and less dynamic compared to the previous study. The right ventricular systolic pressure is estimated at 47 mmHg assuming a right atrial pressure of 15 mm Hg, and is likely unchanged compared to the previous study. The atria are not well visualized but the left atrium is likely moderately dilated and the right atrium is likely mildly dilated. There is mild to moderate mitral regurgitation that is more prominent compared to the previous study. There is mild to moderate tricuspid regurgitation that is less prominent compared to the previous study. There is no other significant valvular heart disease. The ascending aorta is mild-moderately enlarged but is unchanged compared to the previous study. Reading Physician:10:23 AM Assessment & Plan Kassie Pierson is a 72-year-old female with a past medical history significant for diastolic heart failure, cor pulmonale secondary to obesity hypoventilation syndrome and obstructive sleep apnea, chronic atrial fibrillation with RVR, medical noncompliance, diabetes mellitus, insulin using, hypertension, hyperlipidemia, who presents to [facility] emergency department via EMS with worsening shortness of breath 2 days. 1. Acute sepsis due to bilateral community-acquired pneumonia, present on admission. Active. - Patient presented with shortness of breath, nausea, tachypnea (RR 44), and tachycardic (149) with moderate leukocytosis and lactic acidosis. Afebrile. - Early goal-directed therapy met including: Broad-spectrum IV antibiotics and early fluid resuscitation. - Initial lactic acid 4.3. Continue repeat lactic acid and total under 2.0. 2. Acute hypoxemic respiratory failure, present on admission. Active. - The patient presented shortness of breath, nausea, abdominal pain, tachypnea ( RR 44), and tachycardic (149) with moderate leukocytosis and lactic acidosis. Afebrile. Differential diagnosis includes: Bilateral pneumonia versus CHF exacerbation.PE ruled out. - Patient uses oxygen intermittently at home (noncompliance?). Continue BiPAP and titrate off to supplemental oxygen as tolerated. - Ordered Duonebs 4 times a day while awake and albuterol nebs every 4 hours as needed for shortness of breath. 3. Acute bilateral community-acquired pneumonia, present on admission. Active. - The patient presented with shortness of breath, nausea, tachypnea, and tachycardic with moderate leukocytosis 16.4 with bandemia. Afebrile. - Initial lactic acid 4.3. Started gentle IV fluid hydration with NS at 60 mL/ hr x 1 bag due to history of diastolic CHF and cor pulmonale. Continue repeat lactic acid and total under 2.0. - Pro-calcitonin 0.18. - Chest x-ray was read as no acute cardiopulmonary findings, however, appears to have bilateral pulmonary infiltrates, bibasilar effusions and cephalization. - CTA did not demonstrate any central pulmonary emboli, as above. - Ordered complete pneumonia workup including: Blood cultures 2, sputum Gram stain and culture if obtainable, respiratory viral PCR, and strep pneumoniae and legionella urine antigens. - Ordered MRSA screen. - Tylenol as needed for fever and pain. - Patient received Zosyn 3.375 g in the ED and will continue pending infectious work-up 4. Possible acute heart failure with preserved ejection fraction exacerbation, present on admission. Active. - The patient has a history of diastolic CHF and cor pulmonale secondary to sleep apnea and obesity hypoventilation syndrome. - Ordered limited echocardiogram to asses for CHF exacerbation or worsening pulmonary hypertension. - EKG demonstrated atrial fibrillation with RVR without signs of ischemia and troponin negative. - BNP 6238. - Digoxin level <0.03. - Continue diuresis with home dose of Lasix 80 mg daily. - Continue digoxin 125 mg daily, losartan 50 mg twice a day, and metoprolol succinate 50 mg twice a day - Ordered daily standing weights, strict I&O's, 2 L fluid restriction, and CHF teaching. 5. Acute anion gap metabolic acidosis, present on admission. Active. - Secondary to acute infection and lactic acidosis. Less likely rhabdomyolysis. - Initial anion gap 26. - Started gentle IV fluid hydration with NS at 60 mL/hr x 1 bag due to history of diastolic CHF and cor pulmonale. - Ordered creatinine kinase as patient has several contusions over body. - Correct underlying cause. 6. Hyperbilirubinemia, acuity unknown, present on admission. Active. - Likely secondary to acute sepsis and decreased PO intake. Differential diagnosis includes:Gilbert's disease versus less likely hepatocellular disease ( former alcoholic) or impaired canalicular excretion of bilirubin/biliary obstruction. - Bilirubin has been mildly elevated in the past. However, ast bilirubin 0.5 in 12/2016. - LFT's within normal limits. - Ordered direct and total bilirubin, pending. - Ordered abdominal ultrasound for tomorrow morning. - Continue to monitor CMP daily. Chronic problems: 7. Chronic atrial fibrillation, present on admission. Stable. - The patient has not taken Xarelto, digoxin, or metoprolol several days. - Received diltiazem IV 12 mg x 1 during EMS transport and metoprolol tartrate IV 5 mg x 1 in the ED. Currently rate controlled. - Continue digoxin 125 mg daily, Xarelto 20 mg daily, and metoprolol succinate 50 mg twice a day 8. Diabetes mellitus type II, non-insulin using, with neuropathy, present on admission. Stable. - Hemoglobin A1c 6.3% in 01/2017. Repeat hemoglobin A1c pending. - Ordered heart healthy and carbohydrate consistent diet. - Ordered low-dose correctional scale insulin. - Continue Lantus 10 units subcutaneous daily at bedtime starting tomorrow night 03/25/16. 9. Depression and anxiety, present on admission. Stable. - Continue sertraline 100 mg daily and amitriptyline 25 mg daily at bedtime. 10. Chronic bilateral lymphedema, present on admission. Stable. - Ordered physical and wound therapy. 11. Hypothyroidism, present on admission. Stable. - Continue levothyroxine 75 g daily. 12. Hypertension, present on admission. Stable. - Continue losartan 50 mg twice a day and metoprolol succinate 50 mg twice a day 13. Hyperlipidemia, present on admission. Stable. - Continue atorvastatin 40 mg daily at bedtime. 14. History of alcoholism and opiate abuse in remission, sober since 2008. - Will try to avoid narcotics. 15. Morbid obesity, present on admission. Stable. - BMI 36.7. - Ordered physical therapy. PRN antiemetics: Zofran and Maalox. PRN bowel regimen: Senna and MiraLAX. PRN analgesics: Tylenol. Patient is admitted under inpatient status with expected length of stay greater than 2 midnights due to severity of presenting symptoms, risk of adverse event, and complexity of treatment plan. . VTE Prophylaxis: SCDs, Other (Xarelto) Resuscitation Status: CPR: Attempt Resuscitation Attending Statement The patient was seen and examined together with Dr. Zapien on 03/24 and I agree with the history, exam and plan as outlined in the note above. copies to: Francoise De La Cruz MD, Georgia M DO Mar 24, 2017 22:27 Jero Fernandes MD Mar 25, 2017 01:06
[2017-03-25] MEDS: Ondansetron 2 mg/mL 2 mL Inj IVPUSH PRN ×3 (00:25→20:14)
[2017-03-25] MEDS ORDERED: Albuterol 2.5 mg/3 mL Inhalation Solution NEB PRN (00:30)
[2017-03-25] MEDS ORDERED: Heparin 5,000 Unit/mL Inj SUBQ SCH (00:30)
[2017-03-25 01:12] LABS: Bilirubin, Direct 0.9 mg/dL (0.0-0.3)
[2017-03-25] MEDS ORDERED: Dextrose 10% 250 ML IV PRN (01:35)
[2017-03-25 03:45] LABS: BASOPHILS % (AUTO) 0.2 % (0-3); EOSINOPHILS % (AUTO) 0.2 % (0-5); Mean Corpuscular Hemoglobin 28.8 pg (27.0-35.0); Mean Corpuscular Volume 88.1 fL (81-100); NEUTROPHILS % (AUTO) 67.1 % (40-74); Platelet Count 224 bil/L (150-400)
[2017-03-25 04:17] LABS: Magnesium 1.8 mg/dL (1.6-2.6)
[2017-03-25] MEDS: Piperacillin-Tazo 3.375 Gm Inj 3.375 GM in Dextrose 5% Minibag Plus 50 ML IV SCH ×3 (06:49→23:16)
[2017-03-25] MEDS: Albuterol-Ipratropium 3 mL Inhalation Solution NEB SCH ×4 (07:48→20:29)
--- NOTE | 2017-03-25 09:04 | DRSVH ---
PROCEDURE: US ABDOMEN INDICATIONS: abdominal pain, hyperbilirubinemia TECHNIQUE: Real-time scanning was performed of the abdominal and retroperitoneal organs, with image documentatio n. COMPARISON: Abdomen ultrasound 12/01/2014. FINDINGS: Liver length: 20.01 cm Gallbladder Wall Thickness: Post cholecystectomy CHD: Not seen CBD: 9.40 mm Spleen length: 11.14 cm Right kidney length: 10.92 cm Left kidney length: 10.40 cm Aorta(Proximal): 2.18 cm Aorta(Mid): 1.79 cm Aorta(Distal): Nonvisualized RCIA: Nonvisualized LCIA: Nonvisualized Liver: Liver measures 20 cm in size and shows increased echogenicity consistent with moderate fatty i nfiltration. In the superior portion of the left lobe is a hepatic cyst measuring 2.1 x 2.7 x 2.9 cm. Gallbladder: Surgically absent Biliary ducts: Intrahepatic bile ducts are non-dilated. Extrahepatic bile duct caliber is normal fo r post cholecystectomy status. Normal is 6-7 mm or less in diameter, or 10 mm or less post-cholecys tectomy. Pancreas: Obscured by bowel gas Spleen: Spleen is normal in size and homogeneous in echotexture. Kidneys: Kidneys are normal in size and echotexture. No hydronephrosis or nephrolithiasis. No awa d masses. There is a cyst in the upper pole of the right kidney measuring 3.5 x 3.7 x 4.0 cm, maximum diameter of 3.6 cm on prior study. Aorta: Visualized aorta is normal in caliber at less than 3 cm., distal aorta is obscured. Iliacs: Nonvisualized secondary to bowel gas IVC: Intrahepatic inferior vena cava is patent. Miscellaneous: No free abdominal fluid. IMPRESSION: 1. Hepatic steatosis. Left hepatic 2.9 cm subcapsular cyst. 2. Superior pole right renal 4.0 cm cyst 3. Status post cholecystectomy. Dilated common bile duct at 9.4 mm. 4. Structures obscured by bowel gas includes the common hepatic duct, pancreas, distal aorta and chidi c arteries. Dictated by: Terrence Piper M.D. on 03/25/2017 at 8:53 Approved by: Terrence Piper M.D. on 03/25/2017 at 9:03
[2017-03-25] MEDS: Insulin LISPRO 300 Unit/3 mL Inj SUBQ SCH ×4 (09:55→22:00)
[2017-03-25] MEDS: MeTOProlol XL 50 mg ER24 Tablet PO SCH ×2 (09:59→20:15)
--- NOTE | 2017-03-25 11:03 | DRSVH ---
[facility] [address] [address] Echocardiogram Report Name: SEAN CABALLERO ate: 03/25/2017 Height: 61 in Hospital Exam Location: [facility] Weight: 19 4 lb Gender: Female BSA: 1.9 m2 : 1945 Age: 72 yrs BP: 122/85 mmHg Reason For Study: DYSPNEA/ EDEMA Ordering Physician: Performed By: Humera Humphreys Referring Physician: RAFIQ KU Interpretation Summary The left ventricle is normal in size. There is mild concentric left ventricular hypertrophy. Left ventricular ejection fraction is estimated to be 35 +/- 5%. Compared to the prior exam, the left ventricular function is reduced. Severe apical hypokinesis, septal dyskinesis. There is mild to moderate mitral regurgitation. The aortic valve is slightly calcified. There is moderate to severe tricuspid regurgitation. Compared to the prior echo exam, there has been an increase in TR severity. The right ventricular systolic pressure is estimated at least 64 mmHg assuming a right atrial pressure of 15 mm Hg. Procedure: A two-dimensional transthoracic echocardiogram with color flow and Doppler was performed. The study quality was technically adequate. Comparison is made with the echocardiogram of 01/30/16. The patient was in atrial fibrillation with heart rates between 99 and 147 bpm during the exam. Left Ventricle: The left ventricle is normal in size. There is mild concentric left ventricular hypertrophy. Left ventricular ejection fraction is estimated to be 35 +/- 5%. Compared to the prior exam, the left ventricular function is reduced. Severe apical hypokinesis, septal dyskinesis. Diastolic function could not be accurately assessed due to atrial fibrillation. Right Ventricle: The right ventricle is normal in size, thickness and function. Atria: The left atrium is moderately dilated. The right atrium is moderate to severely dilated. There is no Doppler evidence for an interatrial shunt. Mitral Valve: The mitral valve leaflets are mildly calcified. There is mild to moderate mitral annular calcification. The mitral valve leaflets appear to open well. There is mild to moderate mitral regurgitation. Aortic Valve: The aortic valve is trileaflet. The aortic valve is slightly calcified. The aortic valve opens well. No aortic regurgitation is present. Tricuspid Valve: The tricuspid valve is not well visualized, but is grossly normal. There is moderate to severe tricuspid regurgitation. Compared to the prior echo exam, there has been an increase in TR severity. The right ventricular systolic pressure is estimated at least 64 mmHg assuming a right atrial pressure of 15 mm Hg. Pulmonic Valve: The pulmonic valve leaflets are thin and pliable; valve motion is normal. There is a trace or physiologic amount of pulmonic regurgitation. Great Vessels: The aortic root is normal size. The ascending aorta is moderately enlarged. The aortic arch could not be visualized. The pulmonary is not well visualized. The IVC is dilated (diameter is greater than 2.1 cm) and it collapses less than 50% with a sniff. This suggests a high right atrial pressure of 15 mm Hg. Pericardium/ Pleura There is no pericardial effusion. There is no pleural effusion. MMode/2D Measurements & Calculations LVIDd: 4.2 cm RA long axis LVOT diam LVIDs: 2.9 cm LA A2 area: 25.5 cm FS: 31.0 % LA A4 area: 28.9 cm RA area AoV Opening EPSS: 0.84 cm LA length (vol): 7.1 cm IVSd: 1.3 cm LA vol: 88.5 ml : 21.4 cm Ao root diam LVPWd: 1.3 cm LA vol index RA vol : 66.9 ml asc Aorta RA Diam: 4.4 cm IVC diam: 2.2 cm : 35.9 mm2 LV gregory. diameter/BSA LV sys. diameter/BSA RVD1 (basal) RVD2 (mid) (cm/m^2): 2.2 (cm/m^2): 1.5 : 2.9 cm TAPSE: 1.0 cm Doppler Measurements & Calculations Ao V2 max: 93.3 cm/secMV E max abbe Med Peak E' Abbe TR max abbe Ao max P.5 mmHg : 132.2 cm/sec : 348.8 cm/sec Ao mean P.0 mmHg MVA(VTI): 1.7 cm2 E/E' med: 25.2 TR max PG LVOT Max Abbe Lat Peak E' Abbe : 48.7 mmHg : 65.1 cm/sec PA V2 max RAISSA(I,D): 2.4 cm E/E' lat: 17.6 : 56.7 cm/sec sev ratio: 0.69 E/e' average PA mean PG : 0.79 mmHg PA Accel Time : 0.04 sec MV V2 mean Ao V2 mean LV V1 max PG PA V2 mean : 77.8 cm/sec : 67.2 cm/sec : 42.2 cm/sec MV mean P.3 mmHg Ao V2 VTI: 14.6 cm LV V1 VTI: 10.1 cm MV V2 VTI: 20.7 cm RAISSA(V,D): 2.4 cm2 RAISSA indexed to BSA (cm^2/m^2): 1.3 Electronically signed by: Raulito Glass on Reading Physician:03/25/2017 11:02 AM
--- NOTE | 2017-03-25 11:10 | NUR ---
SOB and RVR Pt. C/O SOBOE. She had difficulty breathing when she got OOB during each urination due to Furosemide. Her HR when up to 140s A. Fib RVR with activity. Dr. Alarcon verbally ordered Soler catheter. Soler catheter inserted per hospital policy at 1110.
--- NOTE | 2017-03-25 11:36 | PCM.PNMED ---
Subjective Date of Service Mar 25, 2017 Subjective Kassie Pierson is a 72-year-old female with a past medical history significant for diastolic heart failure, cor pulmonale secondary to obesity hypoventilation syndrome and obstructive sleep apnea, chronic atrial fibrillation with RVR, medical noncompliance, diabetes mellitus, insulin using, hypertension, hyperlipidemia, who presents to [facility] emergency department via EMS with worsening shortness of breath 2 days. Nursing reports no acute events overnight. Patient seen and examined laying in bed. Pt reports SOB with transition out of bed. Denies CP, ABD pain, N/V/D. C/o lower extremity swelling. Patient has had good urine output and has had a bowel movement in the last 24 hours. ROS reviewed and is negative unless otherwise negative. Exam Vital Signs Vital Sign - Last Date Time Temp Pulse Resp B/P Pulse Ox O2 Delivery O2 Flow Rate FiO2 03/25/17 09:57 120 03/25/17 09:45 Supplement Oxygen 03/25/17 08:17 18 98 4.00 03/25/17 08:04 36.5 111/85 03/24/17 23:45 30 Intake and Output 03/24/17 03/24/17 03/25/17 Cumulative From/Thru 15:00 23:00 07:00 03/24/17 17:50 - 03/25/17 06:48 Intake Total 253 ml 253 ml Balance 253 ml 253 ml Intake Oral 253 ml 253 ml # Voids 0 0 Exam Constitutional: Awake, alert, and oriented x3. In no acute distress. Head: normocephalic, has periorbital ecchymosis around R eye. Eyes: EOMI. Pupils equal round and reactive to light. Mild scleral icterus Heart: tachycardia with an irregularly irregular rhythm. 2+ pitting edema bilaterally. Lungs: mild bilateral rhonchi. mild diffuse wheeze. ABD: soft, nontender. bowel sounds present throughout. Musculoskeletal: moves all four extremities appropriately. Neuro: CN II-CNXII intact. No focal deficits. Psych: appropriate mood and affect. IVs and Medications IV Fluids 1L NS given in the last 24 hours. Medications Reviewed: Medications were reviewed in detail Medications High Risk IV Medications: Zosyn Lab and Diagnostics Item Value Date Time Lactic Acid Level 2.7 mmol/L H 03/25/17 0500 Total Creatine Kinase 83 U/L 03/25/17 0335 Procalcitonin 0.38 ng/mL H 03/25/17 033 Albumin 3.6 g/dL 03/25/17334 Total Protein 6.8 g/dL 03/25/17334 Alkaline Phosphatase 124 U/L 03/25/17334 Alanine Aminotransferase (ALT/SGPT) 13 U/L 03/25/17334 Aspartate Amino Transf (AST/SGOT) 17 U/L 03/25/17334 Total Bilirubin 2.0 mg/dL H 03/25/17334 Calcium Level 7.8 mg/dL L 03/25/17334 Magnesium Level 1.8 mg/dL 03/25/17334 Estimat Glomerular Filtration Rate 84 mL/min 03/25/17334 Free Thyroxine 0.75 ng/dL L 03/25/17334 Thyroid Stimulating Hormone (TSH) 9.490 uIU/mL H 03/24/172300 Lactic Acid Level 3.2 mmol/L H 03/25/17 003 Direct Bilirubin 0.9 mg/dL H 03/24/172300 Total Bilirubin 2.2 mg/dL H 03/24/172300 Lactic Acid Level 3.3 mmol/L H 03/24/172300 Red Blood Count 4.37 mil/mm3 03/25/17334 Mean Corpuscular Hemoglobin 28.8 pg 03/25/17334 Mean Corpuscular Volume 88.1 fL 03/25/17334 Mean Corpuscular Hemoglobin Concent 32.7 % 03/25/17334 Red Cell Distribution Width 17.7 % H 03/25/17334 Neutrophils (%) (Auto) 67.1 % 03/25/17334 Lymphocytes (%) (Auto) 20.8 % 03/25/17334 Monocytes (%) (Auto) 11.0 % 03/25/17334 Eosinophils (%) (Auto) 0.2 % 03/25/17334 Basophils (%) (Auto) 0.2 % 03/25/17334 Prothrombin Time 13.1 sec H 03/24/171757 Prothromb Time International Ratio 1.22 ratio 03/24/17 175 D-Dimer 2.32 mg/L FEU H 03/24/17 175 Digoxin Level < 0.3 nG/mL L 03/24/172022 Urine Legionella pneumophilia Ag Negative 03/24/17 183 Result Diagram: 03/25/1733403/25/17334 Microbiology Blood culture 2 pending. Urine culture pending. . X-Rays, CTs and MRIs CT ANGIO CHEST PULMONARY EMBOLISM IMPRESSION: 1. No evidence for central pulmonary embolism. Enlarged main pulmonary artery would be consistent with pulmonary arterial hypertension. 2. Widespread groundglass opacities likely reflect subsegmental atelectasis in the setting of decreased lung volumes. 3. Trace bibasilar mobile pleural effusions are of uncertain etiology. 4. Moderate cardiomegaly is unchanged, as well as left adrenal adenoma. Dictated by: Mao Milner M.D. on 03/24/2017 at 20:44 CT BRAIN WITHOUT CONTRAST IMPRESSION: No acute intracranial abnormalities. Mild periventricular white matter chronic small vessel ischemic change. Dictated by: Mao Milner M.D. on 03/24/2017 at 20:17 X-RAY CHEST ONE VIEW, PORTABLE IMPRESSION: No acute cardiopulmonary disease. Dictated by: aMo Milner M.D. on 03/24/2017 at 18:17 . PROCEDURE: US ABDOMEN IMPRESSION: 1. Hepatic steatosis. Left hepatic 2.9 cm subcapsular cyst. 2. Superior pole right renal 4.0 cm cyst 3. Status post cholecystectomy. Dilated common bile duct at 9.4 mm. 4. Structures obscured by bowel gas includes the common hepatic duct, pancreas, distal aorta and iliac arteries. Dictated by: Terrence Piper M.D. on 03/25/2017 at 8:53 12-lead ECG EKG: Atrial fibrillation with RVR, heart rate 140, no acute ischemic changes such as ST elevation or depression. . Cardiac Echo Impressions Echocardiogram Interpretation Summary 02/28/2016: The left ventricle is normal in size, wall thickness, and systolic function without any focal wall motion abnormalities with the ejection fraction is estimated to be 65-70% and appears unchanged compared to the previous study. The right ventricle is mildly dilated and right ventricular systolic function is mildly reduced. The right ventricle appears slightly larger and less dynamic compared to the previous study. The right ventricular systolic pressure is estimated at 47 mmHg assuming a right atrial pressure of 15 mm Hg, and is likely unchanged compared to the previous study. The atria are not well visualized but the left atrium is likely moderately dilated and the right atrium is likely mildly dilated. There is mild to moderate mitral regurgitation that is more prominent compared to the previous study. There is mild to moderate tricuspid regurgitation that is less prominent compared to the previous study. There is no other significant valvular heart disease. The ascending aorta is mild-moderately enlarged but is unchanged compared to the previous study. Reading Physician:10:23 AM Echocardiogram Report Interpretation Summary The left ventricle is normal in size. There is mild concentric left ventricular hypertrophy. Left ventricular ejection fraction is estimated to be 35 +/- 5%. Compared to the prior exam, the left ventricular function is reduced. Severe apical hypokinesis, septal dyskinesis. There is mild to moderate mitral regurgitation. The aortic valve is slightly calcified. There is moderate to severe tricuspid regurgitation. Compared to the prior echo exam, there has been an increase in TR severity. The right ventricular systolic pressure is estimated at least 64 mmHg assuming a right atrial pressure of 15 mm Hg. Electronically signed by: aRulito Glass on Reading Physician:03/25/2017 11:02 AM Assessment & Plan Kassie Pierson is a 72-year-old female with a past medical history significant for diastolic heart failure, cor pulmonale secondary to obesity hypoventilation syndrome and obstructive sleep apnea, chronic atrial fibrillation with RVR, medical noncompliance, diabetes mellitus, insulin using, hypertension, hyperlipidemia, who presents to [facility] emergency department via EMS with worsening shortness of breath 2 days. Possible acute systolic congestive heart failure exacerbation, present on admission. Active. - The patient has a history of diastolic CHF and cor pulmonale secondary to sleep apnea and obesity hypoventilation syndrome. - Echo revealed: Left ventricular ejection fraction is estimated to be 35 +/- 5% . Compared to the prior exam, the left ventricular function is reduced. Severe apical hypokinesis, septal dyskinesis. There is mild to moderate mitral regurgitation.There is moderate to severe tricuspid regurgitation. Compared to the prior echo exam, there has been an increase in TR severity. - EKG demonstrated atrial fibrillation with RVR without signs of ischemia and troponin negative. - Digoxin level <0.03. - Switch to Lasix 40mg IV BID. - Continue digoxin 0.125 mg daily, losartan 50 mg twice a day, and metoprolol succinate 50 mg twice a day - Ordered daily standing weights, strict I&O's, 2 L fluid restriction, and CHF teaching. Acute bilateral community-acquired pneumonia, present on admission. Active. - The patient presented with shortness of breath, nausea, tachypnea, and tachycardic with moderate leukocytosis 16.4 with bandemia. Afebrile. - Chest x-ray was read as no acute cardiopulmonary findings, however, appears to have bilateral pulmonary infiltrates, bibasilar effusions and cephalization. - Continue gentle IV fluid hydration with NS at 60 mL/hr x 1 bag due to history of diastolic CHF and cor pulmonale. - Pro-calcitonin 0.18, will trend -Viral PCR Negative, Urine Legionelle Antigen negative - Blood cultures, Urine culture pending. - MRSA screen pending. - Tylenol as needed for fever and pain. - Continue Zosyn, adjust pending culture reports. Acute sepsis due to bilateral community-acquired pneumonia, present on admission. Active. -Patient presented with shortness of breath, nausea, tachypnea (RR 44), and tachycardic (149) with moderate leukocytosis and lactic acidosis. Afebrile. -Continue Zosyn - Initial lactic acid 4.3. Most recent 2.7 (03/25). Repeat @1700 (03/25) Acute hypoxemic respiratory failure, present on admission. Active. - The patient presented shortness of breath, nausea, abdominal pain, tachypnea ( RR 44), and tachycardic (149) with moderate leukocytosis and lactic acidosis. Afebrile. Differential diagnosis includes: Bilateral pneumonia versus CHF exacerbation.PE ruled out. -Continue BiPAP and titrate off to supplemental oxygen as tolerated. -Continue Duonebs 4 times a day while awake and albuterol nebs every 4 hours as needed for shortness of breath. Acute anion gap metabolic acidosis, present on admission. Active. - Secondary to acute infection and lactic acidosis. - Initial anion gap 26. Monitoring - Started gentle IV fluid hydration with NS at 60 mL/hr x 1 bag due to history of diastolic CHF and cor pulmonale. - CK negative Hyperbilirubinemia, acuity unknown, present on admission. Active. - Likely secondary to acute sepsis and decreased PO intake. - Bilirubin has been mildly elevated in the past. However, ast bilirubin 0.5 in 12/2016. - LFT's within normal limits. - Ordered abdominal ultrasound for tomorrow morning. - Continue to monitor CMP daily. Chronic problems: Chronic atrial fibrillation, present on admission. Stable. - The patient has not taken Xarelto, digoxin, or metoprolol several days. - Received diltiazem IV 12 mg x 1 during EMS transport and metoprolol tartrate IV 5 mg x 1 in the ED. Currently rate controlled. - Continue digoxin 125 mg daily, Xarelto 20 mg daily, and metoprolol succinate 50 mg twice a day Diabetes mellitus type II, non-insulin using, with neuropathy, present on admission. Stable. - Hemoglobin A1c 6.3% in 01/2017. Repeat hemoglobin A1c pending. - Ordered heart healthy and carbohydrate consistent diet. - Ordered low-dose correctional scale insulin. - Continue Lantus 10 units subcutaneous daily at bedtime starting tomorrow night 03/25/16. Depression and anxiety, present on admission. Stable. - Continue sertraline 100 mg daily and amitriptyline 25 mg daily at bedtime. Chronic bilateral lymphedema, present on admission. Stable. - Ordered physical and wound therapy. Hypothyroidism, present on admission. Stable. - Continue levothyroxine 75 g daily. Hypertension, present on admission. Stable. - Continue losartan 50 mg twice a day and metoprolol succinate 50 mg twice a day Hyperlipidemia, present on admission. Stable. - Continue atorvastatin 40 mg daily at bedtime. History of alcoholism and opiate abuse in remission, sober since 2008. - Will try to avoid narcotics. Morbid obesity, present on admission. Stable. - BMI 36.7. - Ordered physical therapy. PRN antiemetics: Zofran and Maalox. PRN bowel regimen: Senna and MiraLAX. PRN analgesics: Tylenol. Patient is admitted under inpatient status with expected length of stay greater than 2 midnights due to severity of presenting symptoms, risk of adverse event, and complexity of treatment plan. . VTE Prophylaxis: SCDs, Other (Xarelto) Resuscitation Status: CPR: Attempt Resuscitation Attending Statement The patient was seen and examined together with Dr. De Leon on 03/25/17 and I have added additional information to the note above. Heron De Leon DO Mar 25, 2017 11:36 Michelle Alarcon DO Mar 25, 2017 18:52
--- NOTE | 2017-03-25 12:42 | NUR ---
Inpatient Wound Nurse Patient seen for lymphadema evaluation. No open areas noted, no signs or symptoms of cellulitis, firm edema noted from ankles proximal to popliteal spaces, then spongy and loose over bilateral thighs. There is no lymphadema specialist in hospital setting and patient declined toe to hip wraps. Diuretic therapy is just getting started, patient should be assessed for compression hose once new baseline, resultant from diuresis, is reached. If she is a candidate for lymphadema therapy, she may be seen by certified lymphadema specialist in outpatient setting.
--- NOTE | 2017-03-25 14:31 | NUR ---
Social Work: Initial Assessment/Multidisciplinary Rounds D: Per EMR review, pt is a 72 year old female admitted for respiratory distress, pneumonia, CHF. Pt is John Rowe with [facility] supplement; pt has no LTC or VA benefits. PCP is Francoise De La Cruz MD. NOK is Quang Pierson, friend/ex-spouse, . Advanced directives not completed- information provided. Readmit score is not entered. Pt discussed in multidisciplinary rounds. Capacity for self-care and discharge needs addressed. No concerns or needs identified at this time. Pt with COPD exacerbation. PT evaluation is pending. VISUALIZER met with the patient at bedside. Sw role explained, contact info and d/c planning checklist provided. Pt lives in [place] with her ex-. Pt lives in a 3 story home with approximately 10 steps to get to the main living quarters. Pt uses a FWW and a cane at baseline, and continues to drive. Pt states that she is I with all of her ADLs and that she has "not had too many issues with the stairs." Pt anticipates discharge home but is interested in having some home health. The pt had [facility] after a previous discharge and found this to be helpful. VISUALIZER will discuss this with the attending provider and will coordinate for HH if provider places an order. A: Pt who lives with her ex- and is I at baseline. P: Evolving; Anticipate pt to discharge home. VISUALIZER to discuss possible home health referral with attending provider at multidisciplinary rounds tomorrow. GELACIO Kingsley Addendum: 03/25/17 at 1437 by NAIDA BUSTILLO Amended: Links added.
[2017-03-25] MEDS ORDERED: MeTOProlol 1 mg/mL 5 mL Inj IVPUSH SCH (17:40)
[2017-03-25] MEDS ORDERED: Vancomycin Dose per Pharmacist XX SCH (19:25)
[2017-03-25] MEDS: Furosemide 10 mg/mL 4 mL Inj IVPUSH SCH (20:14)
[2017-03-25] MEDS ORDERED: Vancomycin Inj 1,750 MG in 0.9% Sodium Chloride 500 ML IV ONE (20:15)
--- NOTE | 2017-03-25 20:28 | PCM.CONPHA ---
Subjective Date of Service: Mar 25, 2017 Dyspnea and nausea. . Reason for Pharmacy Consult: Vancomycin Dosing Objective Vital Signs Date Time Temp Pulse Resp B/P Pulse Ox O2 Delivery O2 Flow Rate FiO2 03/25/17 16:33 36.8 84 22 120/81 98 Nasal Cannula 4.00 03/25/17 15:30 64 18 100 Nasal Cannula 4.00 03/25/17 12:00 36.4 23 23 123/74 96 BiPAP 30 03/25/17 11:52 113 26 99 30 03/25/17 11:52 113 18 99 BiPAP 03/25/17 09:57 120 03/25/17 09:45 Supplement Oxygen 03/25/17 08:47 125 03/25/17 08:17 68 18 98 OxyMask 4.00 03/25/17 08:15 68 98 03/25/17 08:04 36.5 73 18 111/85 100 OxyMask 4.00 03/25/17 05:04 36.5 114 18 122/85 100 OxyMask 4.00 03/25/17 04:35 93 96 03/24/17 23:45 18 95 30 03/24/17 23:00 Supplement Oxygen CPAP/BIPAP 03/24/17 22:45 115 03/24/17 22:36 36.9 124 20 117/88 98 OxyMask 5.00 03/24/17 21:35 35 99 30 03/24/17 20:33 36.2 109 28 142/76 99 BiPAP Weight (Kilograms): 88.000 Height (Feet): 5 Height (Inches): 1.00 Test 03/24/17 17:58 03/24/17 18:31 03/24/17 18:42 03/24/17 20:23 Band Neutrophils % 4% (1-5) Myelocytes % 1% (0-0) Prothrombin Time 13.1sec (8.1-12.5) Prothromb Time International Ratio 1.22ratio D-Dimer 2.32mg/L FEU (<0.50) Troponin T < 0.010ug/L (0.0-0.011) Pro-B-Type Natriuretic Peptide 6238pg/mL (0-301) Urine Legionella pneumophilia Ag Negative (Negative) Urine Color Dark yellow (YELLOW) Urine Appearance Hazy (CLEAR,HAZY) Urine pH 5.0 (5.0-8.0) Urine Specific Burns 1.030 (1.003-1.035) Urine Protein 300mg/dL (NEG,TRACE) Urine Glucose (UA) 100mg/dL (NEGATIVE) Urine Ketones Negativemg/dL (NEGATIVE) Urine Occult Blood Negative (NEGATIVE) Urine Nitrite Positive (NEGATIVE) Urine Bilirubin Negative (NEGATIVE) Urine Urobilinogen 8.0mg/dL (NORMAL) Urine Leukocyte Esterase Negative (NEGATIVE) Urine RBC 0-2/hpf (0-2) Urine WBC 0-5/hpf (0-5) Urine Epithelial Cells None/hpf (NONE-MOD) Urine Crystals None seen (NONE SEEN) Urine Bacteria Few/hpf (NONE-FEW) Urine Hyaline Casts None/lpf (NONE) Urine Granular Casts None seen (NONE SEEN) Urine Waxy Casts None seen (NONE SEEN) Urine Red Blood Cell Casts None seen (NONE SEEN) Urine White Blood Cell Casts None seen (NONE SEEN) Urine Mucus None seen (None Seen) Urine Trichomonas None seen (NONE SEEN) Urine Yeast None (NONE SEEN) Urinalysis Comment None Urine Culture Reflexed Indicated Digoxin Level < 0.3nG/mL (0.9-2.0) Test 03/24/17 22:15 03/24/17 23:01 03/25/17 03:35 03/25/17 17:14 Direct Bilirubin 0.9mg/dL (0.0-0.3) Thyroid Stimulating Hormone (TSH) 9.490uIU/mL (0.450-4.500) White Blood Count 12.0th/mm3 (3.8-10.1) Red Blood Count 4.37mil/mm3 (3.90-5.20) Hemoglobin 12.6g/dL (12.0-15.6) Hematocrit 38.5% (35.0-46.0) Mean Corpuscular Volume 88.1fL (81-100) Mean Corpuscular Hemoglobin 28.8pg (27.0-35.0) Mean Corpuscular Hemoglobin Concent 32.7% (32.0-37.0) Red Cell Distribution Width 17.7% (12.3-15.4) Platelet Count 224bil/L (150-400) Neutrophils (%) (Auto) 67.1% (40-74) Lymphocytes (%) (Auto) 20.8% (14-46) Monocytes (%) (Auto) 11.0% (4-12) Eosinophils (%) (Auto) 0.2% (0-5) Basophils (%) (Auto) 0.2% (0-3) Hematology Comments Sodium Level 134mEq/L (134-144) Potassium Level 4.7mEq/L (3.5-5.2) Chloride Level 100mEq/L (97-108) Carbon Dioxide Level 16mmol/L (18-29) Blood Urea Nitrogen 21mg/dL (8-27) Creatinine 0.94mg/dL (0.57-1.00) Estimat Glomerular Filtration Rate 84mL/min (>59) Glucose Level 201mg/dL (60-99) Calcium Level 7.8mg/dL (8.5-10.1) Magnesium Level 1.8mg/dL (1.6-2.6) Total Bilirubin 2.0mg/dL (0.0-1.2) Aspartate Amino Transf (AST/SGOT) 17U/L (0-50) Alanine Aminotransferase (ALT/SGPT) 13U/L (0-32) Alkaline Phosphatase 124U/L (25-165) Total Creatine Kinase 83U/L (21-215) Total Protein 6.8g/dL (6.4-8.4) Albumin 3.6g/dL (3.4-5.0) Procalcitonin 0.38ng/mL (0.00-0.08) Free Thyroxine 0.75ng/dL (0.82-1.77) Lactic Acid Level 2.7mmol/L (0.4-2.0) Assessment/Plan Assessment/Plan VANCOMYCIN MANAGEMENT A\ 72yo F with Bilateral CAP SCr=0.94, Crcl=54, WBC=12, Lact=2.7 Procal=0.38 Vancomycin goal =15-20 MRSA + on PCR Cultures pending Also on Zosyn P Will load Vancomycin with 1750mg IV x1 now and then start Vancomycin 1250mg IV Q12H 0900 8\15 with a vancomycin trough before the 4th dose 8\16 0830 Tristen Meza [facility] Mar 25, 2017 20:28
[2017-03-25] MEDS: Insulin GLARgine 100 Unit/mL Syringe SUBQ SCH (23:14)
[2017-03-26] VITALS (13 sets, daily range): BP systolic 98–128; BP diastolic 57–71; PULSE 79–110; RESP 16–22; O2SAT 98–100
[2017-03-26 04:36] LABS: BASOPHILS % (AUTO) 0.4 % (0-3); EOSINOPHILS % (AUTO) 1.3 % (0-5); MONOCYTES % (AUTO) 6.4 % (4-12); Mean Corpuscular Hemoglobin 28.7 pg (27.0-35.0); Mean Corpuscular Volume 89.9 fL (81-100); NEUTROPHILS % (AUTO) 68.3 % (40-74); Platelet Count 174 bil/L (150-400)
[2017-03-26] MEDS: Piperacillin-Tazo 3.375 Gm Inj 3.375 GM in Dextrose 5% Minibag Plus 50 ML IV SCH (05:10)
--- NOTE | 2017-03-26 06:48 | NUR ---
PAIN/REST A/O, indicated to be having 7/10 generalized pain at start of shift. Tylenol given, no further distress observed. Rested for extended period with eyes closed, O2 via NC SPO2 99-100%. MD started Vancomycin infused, pt. tolerated well. Fluid restrictions requested 2000 mL/day, not posted. Pt. NPO after midnight for impending JJ today, pt. informed. VSS. Tele: AFib in 90's. Report givent to on coming RN.
[2017-03-26] MEDS: Albuterol-Ipratropium 3 mL Inhalation Solution NEB SCH ×4 (07:22→20:24)
[2017-03-26] MEDS: Insulin LISPRO 300 Unit/3 mL Inj SUBQ SCH ×4 (08:00→22:00)
[2017-03-26] MEDS: Furosemide 10 mg/mL 4 mL Inj IVPUSH SCH ×2 (09:00→22:03)
[2017-03-26] MEDS ORDERED: Vancomycin Inj 1,250 MG in 0.9% Sodium Chloride 250 ML IV SCH (09:00)
[2017-03-26] MEDS: MeTOProlol XL 50 mg ER24 Tablet PO SCH ×2 (10:31→20:11)
--- NOTE | 2017-03-26 11:47 | PCM.PNMED ---
Subjective Date of Service Mar 26, 2017 Subjective Kassie Pierson is a 72-year-old female with a past medical history significant for diastolic heart failure, cor pulmonale secondary to obesity hypoventilation syndrome and obstructive sleep apnea, chronic atrial fibrillation with RVR, medical noncompliance, diabetes mellitus, insulin using, hypertension, hyperlipidemia, who presents to [facility] emergency department via EMS with worsening shortness of breath 2 days. Nursing reports no acute events overnight. Patient seen and examined. Patient complains of chest pain that is described as a pressure. Pain is constant. Pt has SOB. Denies N/V/D, ABD pain, and headache. Patient is having good urine output. Patient has had a bowel movement in the last 24 hours. ROS reviewed and is otherwise negative unless noted above. Exam Vital Signs Vital Sign - Last Date Time Temp Pulse Resp B/P Pulse Ox O2 Delivery O2 Flow Rate FiO2 03/26/17 11:36 36.7 79 18 122/57 100 Nasal Cannula 3.00 03/26/17 08:46 30 Intake and Output 03/25/17 03/25/17 03/26/17 Cumulative From/Thru 15:00 23:00 07:00 03/24/17 17:50 - 03/26/17 06:48 Intake Total 375 ml 1340 ml 840 ml 2808 ml Output Total 1950 ml 2800 ml 4750 ml Balance 375 ml -610 ml -1960 ml -1942 ml Intake Oral 650 ml 200 ml 1103 ml IV Total 375 ml 690 ml 640 ml 1705 ml Output Urine Total 1950 ml 2800 ml 4750 ml # Voids 0 # Bowel Movements 0 0 Exam Constitutional: awake, alert, and oriented x3. In no acute distress. Head: normocephalic and Right periorbital ecchymosis that is improved from previous exam. Eyes: EOMI Pupils equal round and reactive to light Heart: regular rate with an irregularly irregular rhythm. 2+ pitting edema bilaterally. 2/4 pedal pulses bilaterally. Lungs: Diffuse wheeze throughout. No rales, or rhonchi. ABD: soft, nontender, bowel sounds present throughout. Musculoskeletal: moves all four extremities appropriately. Skin: Warm, dry, bilateral lower extremity erythema that is nonblanching. periorbital ecchymosis as noted above. Neuro: CN II-XII intact. No focal deficits. Psych: appropriate mood and affect. IVs and Medications Medications Reviewed: Medications were reviewed in detail Medications High Risk IV Medications: [facility] Item Value Date Time Red Blood Count 4.14 mil/mm3 03/26/17419 Hematocrit 37.2 % 03/26/17419 Mean Corpuscular Volume 89.9 fL 03/26/17419 Mean Corpuscular Hemoglobin 28.7 pg 03/26/17419 Mean Corpuscular Hemoglobin Concent 32.0 % 03/26/17419 Red Cell Distribution Width 17.4 % H 03/26/17419 Neutrophils (%) (Auto) 68.3 % 03/26/17419 Lymphocytes (%) (Auto) 22.8 % 03/26/17419 Monocytes (%) (Auto) 6.4 % 03/26/17419 Eosinophils (%) (Auto) 1.3 % 03/26/17419 Basophils (%) (Auto) 0.4 % 03/26/17419 Estimat Glomerular Filtration Rate 91 mL/min 03/26/17419 Calcium Level 7.7 mg/dL L 03/26/17419 Lactic Acid Level 1.7 mmol/L 03/26/17419 Total Bilirubin 1.5 mg/dL H 03/26/17419 Aspartate Amino Transf (AST/SGOT) 13 U/L 03/26/17419 Alanine Aminotransferase (ALT/SGPT) 12 U/L 03/26/17419 Alkaline Phosphatase 107 U/L 03/26/17419 Total Protein 6.3 g/dL L 03/26/17419 Albumin 3.2 g/dL L 03/26/17419 Troponin T 0.010 ug/L 03/26/17419 Result Diagram: 03/26/1741903/26/17419 Microbiology Blood culture 2 pending. Urine culture pending. . X-Rays, CTs and MRIs CT ANGIO CHEST PULMONARY EMBOLISM IMPRESSION: 1. No evidence for central pulmonary embolism. Enlarged main pulmonary artery would be consistent with pulmonary arterial hypertension. 2. Widespread groundglass opacities likely reflect subsegmental atelectasis in the setting of decreased lung volumes. 3. Trace bibasilar mobile pleural effusions are of uncertain etiology. 4. Moderate cardiomegaly is unchanged, as well as left adrenal adenoma. Dictated by: Mao Milner M.D. on 03/24/2017 at 20:44 CT BRAIN WITHOUT CONTRAST IMPRESSION: No acute intracranial abnormalities. Mild periventricular white matter chronic small vessel ischemic change. Dictated by: Mao Milner M.D. on 03/24/2017 at 20:17 X-RAY CHEST ONE VIEW, PORTABLE IMPRESSION: No acute cardiopulmonary disease. Dictated by: Mao Milner M.D. on 03/24/2017 at 18:17 . PROCEDURE: US ABDOMEN IMPRESSION: 1. Hepatic steatosis. Left hepatic 2.9 cm subcapsular cyst. 2. Superior pole right renal 4.0 cm cyst 3. Status post cholecystectomy. Dilated common bile duct at 9.4 mm. 4. Structures obscured by bowel gas includes the common hepatic duct, pancreas, distal aorta and iliac arteries. Dictated by: Terrence Piper M.D. on 03/25/2017 at 8:53 12-lead ECG EKG: Atrial fibrillation with RVR, heart rate 140, no acute ischemic changes such as ST elevation or depression. . Cardiac Echo Impressions Echocardiogram Interpretation Summary 02/28/2016: The left ventricle is normal in size, wall thickness, and systolic function without any focal wall motion abnormalities with the ejection fraction is estimated to be 65-70% and appears unchanged compared to the previous study. The right ventricle is mildly dilated and right ventricular systolic function is mildly reduced. The right ventricle appears slightly larger and less dynamic compared to the previous study. The right ventricular systolic pressure is estimated at 47 mmHg assuming a right atrial pressure of 15 mm Hg, and is likely unchanged compared to the previous study. The atria are not well visualized but the left atrium is likely moderately dilated and the right atrium is likely mildly dilated. There is mild to moderate mitral regurgitation that is more prominent compared to the previous study. There is mild to moderate tricuspid regurgitation that is less prominent compared to the previous study. There is no other significant valvular heart disease. The ascending aorta is mild-moderately enlarged but is unchanged compared to the previous study. Reading Physician:10:23 AM Echocardiogram Report Interpretation Summary The left ventricle is normal in size. There is mild concentric left ventricular hypertrophy. Left ventricular ejection fraction is estimated to be 35 +/- 5%. Compared to the prior exam, the left ventricular function is reduced. Severe apical hypokinesis, septal dyskinesis. There is mild to moderate mitral regurgitation. The aortic valve is slightly calcified. There is moderate to severe tricuspid regurgitation. Compared to the prior echo exam, there has been an increase in TR severity. The right ventricular systolic pressure is estimated at least 64 mmHg assuming a right atrial pressure of 15 mm Hg. Electronically signed by: Raulito Glass on Reading Physician:03/25/2017 11:02 AM Assessment & Plan Kassie Pierson is a 72-year-old female with a past medical history significant for diastolic heart failure, cor pulmonale secondary to obesity hypoventilation syndrome and obstructive sleep apnea, chronic atrial fibrillation with RVR, medical noncompliance, diabetes mellitus, insulin using, hypertension, hyperlipidemia, who presents to [facility] emergency department via EMS with worsening shortness of breath 2 days. Possible acute systolic congestive heart failure exacerbation, present on admission. Active. - The patient has a history of diastolic CHF and cor pulmonale secondary to sleep apnea and obesity hypoventilation syndrome. - Echo revealed: Left ventricular ejection fraction is estimated to be 35 +/- 5% . Compared to the prior exam, the left ventricular function is reduced. Severe apical hypokinesis, septal dyskinesis. There is mild to moderate mitral regurgitation.There is moderate to severe tricuspid regurgitation. Compared to the prior echo exam, there has been an increase in TR severity. - EKG demonstrated atrial fibrillation with RVR without signs of ischemia and troponin negative. -EKG reviewed. - Digoxin level <0.03. - Switch to Lasix 40mg IV BID. - Continue digoxin 0.125 mg daily, losartan 50 mg twice a day, and metoprolol succinate 50 mg twice a day - Ordered daily standing weights, strict I&O's, 2 L fluid restriction, and CHF teaching. -Cardiology consulted and spoke with Dr. Santana who will see patient later today. Acute bilateral community-acquired pneumonia, present on admission. Active. - The patient presented with shortness of breath, nausea, tachypnea, and tachycardic with moderate leukocytosis 16.4 with bandemia. Afebrile. - Chest x-ray was read as no acute cardiopulmonary findings, however, appears to have bilateral pulmonary infiltrates, bibasilar effusions and cephalization. - Continue gentle IV fluid hydration with NS at 60 mL/hr x 1 bag due to history of diastolic CHF and cor pulmonale. -Viral PCR Negative, Urine Legionelle Antigen negative - Blood cultures positive for Staph epi, likely contamination -Urine culture no growth - MRSA screen negative. - Tylenol as needed for fever and pain. - Continue Zosyn, adjust pending culture reports. Acute sepsis due to bilateral community-acquired pneumonia, present on admission. Active. -Patient presented with shortness of breath, nausea, tachypnea (RR 44), and tachycardic (149) with moderate leukocytosis and lactic acidosis. Afebrile. -Continue Zosyn - Initial lactic acid 4.3. Most recent 2.7 (03/25). Repeat @1700 (03/25) Acute hypoxemic respiratory failure, present on admission. Active. - The patient presented shortness of breath, nausea, abdominal pain, tachypnea ( RR 44), and tachycardic (149) with moderate leukocytosis and lactic acidosis. Afebrile. Differential diagnosis includes: Bilateral pneumonia versus CHF exacerbation.PE ruled out. -Continue BiPAP and titrate off to supplemental oxygen as tolerated. -Continue Duonebs 4 times a day while awake and albuterol nebs every 4 hours as needed for shortness of breath. Acute anion gap metabolic acidosis, present on admission. Active. - Secondary to acute infection and lactic acidosis. - Initial anion gap 26. Monitoring - Started gentle IV fluid hydration with NS at 60 mL/hr x 1 bag due to history of diastolic CHF and cor pulmonale. - CK negative Hyperbilirubinemia, acuity unknown, present on admission. Active. - Likely secondary to acute sepsis and decreased PO intake. - Bilirubin has been mildly elevated in the past. However, ast bilirubin 0.5 in 12/2016. - LFT's within normal limits. - Ordered abdominal ultrasound for tomorrow morning. - Continue to monitor CMP daily. Chronic problems: Chronic atrial fibrillation, present on admission. Stable. - The patient has not taken Xarelto, digoxin, or metoprolol several days. - Received diltiazem IV 12 mg x 1 during EMS transport and metoprolol tartrate IV 5 mg x 1 in the ED. Currently rate controlled. - Continue digoxin 125 mg daily, Xarelto 20 mg daily, and metoprolol succinate 50 mg twice a day Diabetes mellitus type II, non-insulin using, with neuropathy, present on admission. Stable. - Hemoglobin A1c 6.3% in 01/2017. Repeat hemoglobin A1c pending. - Ordered heart healthy and carbohydrate consistent diet. - Ordered low-dose correctional scale insulin. - Continue Lantus 10 units subcutaneous daily at bedtime starting tomorrow night 03/25/16. Depression and anxiety, present on admission. Stable. - Continue sertraline 100 mg daily and amitriptyline 25 mg daily at bedtime. Chronic bilateral lymphedema, present on admission. Stable. - Ordered physical and wound therapy. Hypothyroidism, present on admission. Stable. - Continue levothyroxine 75 g daily. Hypertension, present on admission. Stable. - Continue losartan 50 mg twice a day and metoprolol succinate 50 mg twice a day Hyperlipidemia, present on admission. Stable. - Continue atorvastatin 40 mg daily at bedtime. History of alcoholism and opiate abuse in remission, sober since 2008. - Will try to avoid narcotics. Morbid obesity, present on admission. Stable. - BMI 36.7. - Ordered physical therapy. PRN antiemetics: Zofran and Maalox. PRN bowel regimen: Senna and MiraLAX. PRN analgesics: Tylenol. Disposition: Patient has new onset shortness of breath with significant echo changes from previous study in 2016, Cardiology consulted and working up etiology for this acute change. Due to complexity of case, and need for further care/optimization, length of stay is uncertain at this time. . VTE Prophylaxis: SCDs, Other (Xarelto) Resuscitation Status: CPR: Attempt Resuscitation Attending Statement The patient was seen and examined together with Resident/House-staff on 03/26/17 and I agree with the history, exam and plan as outlined in the note above. Heron De Leon DO Mar 26, 2017 11:47 Juan Alberto Marrero Mar 26, 2017 17:09
--- NOTE | 2017-03-26 14:30 | NUR ---
[facility] Patient is on 2000ml fluid restriction and continues diurese therapy with 40mg IVP Lasix BID, Soler drain clear urine, (1400ml) out so far. Patient is on 2L NC with sat upper 90's, lungs sound diminished but clear. Cardiology in to consult, A-fib in 90's up to 110 with PT, per master hearth technician. Patient refused JJ this am, slightly anxious, yesterday ECHO (30-35) change fro previous ECHO.
--- NOTE | 2017-03-26 15:28 | CONS ---
[address] [address] CONSULTATION REPORT PATIENT: SEAN CABALLERO : 1945 MR#: [id number] ADMIT: 03/24/2017 JOB ID: [id number] CARDIOLOGY CONSULTATION: DATE OF SERVICE: 03/26/2017 CHIEF COMPLAINT: I was asked by the Hospitalist team to consult on this patient given respiratory distress, new echo changes. HISTORY OF PRESENT ILLNESS: The patient is a 72-year-old woman who has a history of lung issues with hypoventilation syndrome, obstructive sleep apnea, Also with chronic atrial fibrillation with a history of RVR; however she has been managed with metoprolol, digoxin and Xarelto. Unfortunately, she had not been taking these medications regularly. She came to [facility] with complaints of increased shortness of breath for at least two days. She tells me that she noticed some increased swelling of her legs as well as a possible description of orthopnea. She had a productive cough, as well as mild headache. Apparently EMS came and reported she had incontinence of urine and was found to be diaphoretic and covered in feces. En route, she was also hypertensive and very tachycardic and received some diltiazem as well as a bolus of adenosine. Sats were reasonable initially but dropped to 84% and there she was placed on nasal cannula. Since she has been here, she has actually been placed back on her metoprolol which improved rate control. Echocardiogram performed shortly after admission showed that her heart rates were in the range of 99-147 beats per minute. Showed that the EF was in the range of 35% to 40%. The apex appeared hypokinetic. There was mild to moderate mitral regurgitation and now severe tricuspid regurgitation. Estimated right ventricular systolic pressure was at 64 mmHg and the right atrial pressure was elevated. Right ventricular systolic function was reported as normal, although on review the images this may also be somewhat reduced likely related to the rapid heart rates. She has been treated with diuresis with improvement. She is lying flat today. She has better heart rate control since she has been placed back on her metoprolol. When getting up with Physical Therapy today, heart rate did increase to around the 130s, but on average her heart rates have stayed below 100 since she has been started back on rate control. She has some bruising of her face which she says is secondary to bumping her head on the steering wheel, but I am not sure how this happened. PAST MEDICAL HISTORY/PROBLEM LIST: 1. History of obstructive sleep apnea. 2. History of chronic atrial fibrillation, on Xarelto, digoxin, and metoprolol, and was not taking this at time of admission. 3. Hypothyroidism. 4. History of hypoventilation syndrome along with obstructive sleep apnea. 5. Chronic lower extremity edema. 6. History of a traumatic subarachnoid hemorrhage requiring transfer. This is in the past. SURGICAL HISTORY: Including gastric bypass, a subclavian artery occlusion status post repair, cholecystectomy, tonsillectomy, appendectomy. MEDICATIONS: At home included albuterol, amitriptyline, atorvastatin 40 mg q.h.s., digoxin 125 mcg a day, furosemide 80 mg daily, Lantus 10 units subcu at bedtime, levothyroxine 75 mcg daily, losartan 50 b.i.d., metoprolol succinate 50 b.i.d., multivitamin, NovoLog insulin, Xarelto 20 mg daily. ALLERGIES: LISINOPRIL. SOCIAL HISTORY: Former alcoholic, quit drinking in 2008. Never smoker. FAMILY HISTORY: No early coronary disease. REVIEW OF SYSTEMS: Overall health: No fevers or chills. GI: No ulcers or blood in her stool. : No dysuria, hematuria. Pulmonary: Chronic issues but increased shortness of breath since admission. Cardiac: No chest pain. No chest pressure. No complaints of presyncope or syncope. Heme: No easy bleeding but obviously easy bruising. Derm: No rashes or skin breakdown, although she has bruising. Endocrine: Hypothyroidism. No heat or cold intolerance. Ophtho: No acute vision changes. ENT: No difficulty hearing. No difficulty swallowing. Psych: No acute issues. All other 12 point review of systems are negative. PHYSICAL EXAMINATION: Blood pressure is 122/57, heart rate is 79, sats 100% on 3 L; also improving on 2 L. General: No acute distress. Speaking in full sentences without apparent shortness of breath. Head and neck exam: She has bruising around her left eye. Neck: Difficult appreciate if JV distention is present but may be present. Heart exam is irregular. I do not appreciate obvious murmurs, gallops or rubs. Lungs: Somewhat coarse breath sounds anteriorly. Back: No CVA tenderness to palpation. Abdomen is soft, nondistended. Vascular: No carotid bruits appreciated. Extremities: Warm with edema bilaterally. Skin without breakdown. Neuro: Alert and interactive. Gait is not tested. Psych: Appropriate mood and affect. ENT: Hearing grossly intact. Mucous membranes moist. Ophtho: Vision grossly intact. CURRENT MEDICATIONS: Include sertraline, metoprolol succinate 50 mg b.i.d., digoxin 0.125 daily, levothyroxine 75 mcg daily, Lasix 40 IV b.i.d., insulin glargine, Xarelto, atorvastatin 40 mg q.h.s. LABORATORY DATA: Show white count 9.9, H and H 11.9 and 37.2, platelets of 174,000. Chemistry today shows sodium 138, BUN and creatinine 18 and 0.87. Troponin is not elevated. IMAGING: Compared to previous echo, the EF is down, however the heart rates were very high in this echocardiogram as compared to previous echocardiogram. The tricuspid regurgitation does appear more severe at this time but in addition the right atrial pressures were also elevated. Other imaging shows chest CT angiogram that shows no evidence of central PE, widespread ground-glass opacities, moderate cardiomegaly as well as left adrenal adenoma. Abdominal CT shows no free abdominal fluid, hepatic steatosis, a cyst. CULTURES: Cultures show one positive blood culture for coag-negative staph. I think plans are to repeat the blood culture. IMPRESSION: This patient came in with increased shortness of breath. She was also in atrial fibrillation with rapid ventricular response. Her rates have fortunately been controlled. She is now getting diuresed with good diuresis as noted today. I suspect many of her problems are due to atrial fibrillation with rapid ventricular response as well as accumulation of fluid; her tricuspid regurgitation is also increased and this may be just related to some dilation of the right ventricle with volume overload. PLAN: 1. I agree with rate control with the atrial fibrillation. 2. Diuresis I think is important. We need to get her closer to dry weight. I am not certain if her edema will completely resolve but it should improve with diuresis. 3. Given the bruising, I am not exactly sure what is going on; whether she is having frequent falls. I think we need to get her up with physical therapy and make sure she is steady on her feet. Also there is questions about compliance with medications. I am not sure if she has a caregiver or somebody who can check in on her and we might want to address this with [facility]osp[facility]. 60 minutes was spent reviewing the patient's old records, speaking with an examining her and discussing her case with the hospital team FRANKIE
[2017-03-26] MEDS: Ondansetron 2 mg/mL 2 mL Inj IVPUSH PRN (17:21)
[2017-03-26] MEDS: Insulin GLARgine 100 Unit/mL Syringe SUBQ SCH (22:02)
[2017-03-27] VITALS (13 sets, daily range): BP systolic 97–182; BP diastolic 56–72; PULSE 54–93; RESP 16–18; O2SAT 88–100
--- NOTE | 2017-03-27 03:17 | NUR ---
PAIN Patient complained of mild abdominal pain at beginning of shift, relieved with tylenol. Appears to be resting comfortably all night without complaint. Vitals remain stable. Will continue to monitor.
[2017-03-27] MEDS: Albuterol-Ipratropium 3 mL Inhalation Solution NEB SCH ×4 (07:39→20:46)
[2017-03-27 08:00] LABS: BASOPHILS % (AUTO) 0.3 % (0-3); EOSINOPHILS % (AUTO) 3.1 % (0-5); MONOCYTES % (AUTO) 8.2 % (4-12); Mean Corpuscular Volume 91.4 fL (81-100); NEUTROPHILS % (AUTO) 63.2 % (40-74); Platelet Count 141 bil/L (150-400)
[2017-03-27] MEDS: Insulin LISPRO 300 Unit/3 mL Inj SUBQ SCH ×4 (08:00→21:37)
[2017-03-27] MEDS ORDERED: Vancomycin Serum Trough XX ONE (08:30)
[2017-03-27] MEDS: Furosemide 10 mg/mL 4 mL Inj IVPUSH SCH ×2 (08:47→21:30)
[2017-03-27] MEDS: MeTOProlol XL 50 mg ER24 Tablet PO SCH ×2 (08:48→21:31)
--- NOTE | 2017-03-27 11:42 | PCM.PNMED ---
Subjective Date of Service Mar 27, 2017 Subjective Kassie Pierson is a 72-year-old female with a past medical history significant for diastolic heart failure, cor pulmonale secondary to obesity hypoventilation syndrome and obstructive sleep apnea, chronic atrial fibrillation with RVR, medical noncompliance, diabetes mellitus, insulin using, hypertension, hyperlipidemia, who presents to [facility] emergency department via EMS with worsening shortness of breath 2 days. Nursing reports no acute events overnight. Patient seen and examined. C/o one episode of diarrhea this morning. Denies CP , SOB, ABD pain, N/V, or headache. ROS reviewed and is otherwise negative unless noted above. Exam Vital Signs Vital Sign - Last Date Time Temp Pulse Resp B/P Pulse Ox O2 Delivery O2 Flow Rate FiO2 03/27/17 11:13 88 18 99 Nasal Cannula 2.00 03/27/17 08:52 36.6 120/68 03/26/17 12:27 30 Intake and Output 03/26/17 03/26/17 03/27/17 Cumulative From/Thru 15:00 23:00 07:00 03/24/17 17:50 - 03/27/17 05:30 Intake Total 1240 ml 4048 ml Output Total 1750 ml 6500 ml Balance -510 ml -2452 ml Intake Oral 1090 ml 2193 ml IV Total 150 ml 1855 ml Output Urine Total 1750 ml 6500 ml # Voids 0 # Bowel Movements 1 1 Exam Constitutional: awake, alert, and oriented x3, frail. no acute distress. Head: Normocephalic and atraumatic Eyes: EOMI, Pupils equal round and reactive to light. Heart: regular rate and rhythm. 2+ pitting peripheral edema. Lungs: clear to auscultation, no wheeze, rales, or rhonchi ABD: soft, nontender, bowel sounds present throughout. Musculoskeletal: moves all four extremities appropriately, walks with walker assist. Neuro: CN II-XII intact. no focal deficits. Skin: warm, dry, bilateral confluent erythema that is nonblanching from ankles to just below the knees. Psych: appropriate mood and affect. IVs and Medications Medications Reviewed: Medications were reviewed in detail Lab and Diagnostics Item Value Date Time Red Blood Count 4.07 mil/mm3 03/27/175 Hematocrit 37.2 % 03/27/17 0415 Mean Corpuscular Volume 91.4 fL 03/27/17414 Mean Corpuscular Hemoglobin 29.0 pg 03/27/17414 Mean Corpuscular Hemoglobin Concent 31.7 % L 03/27/17414 Red Cell Distribution Width 17.4 % H 03/27/17414 Neutrophils (%) (Auto) 63.2 % 03/27/17414 Lymphocytes (%) (Auto) 24.3 % 03/27/17414 Monocytes (%) (Auto) 8.2 % 03/27/17414 Eosinophils (%) (Auto) 3.1 % 03/27/17414 Basophils (%) (Auto) 0.3 % 03/27/17414 Estimat Glomerular Filtration Rate 73 mL/min 03/27/17414 Creatinine 1.06 mg/dL H 03/27/17414 Creatinine 1.05 mg/dL H 03/27/17449 Glucose Level 138 mg/dL H 03/27/17414 Calcium Level 8.1 mg/dL L 03/27/17414 Total Bilirubin 0.8 mg/dL 03/27/17414 Aspartate Amino Transf (AST/SGOT) 18 U/L 03/27/17414 Alanine Aminotransferase (ALT/SGPT) 11 U/L 03/27/17414 Alkaline Phosphatase 100 U/L 03/27/17414 Total Protein 6.3 g/dL L 03/27/17414 Albumin 3.2 g/dL L 03/27/17414 Troponin T 0.010 ug/L 03/26/17419 Result Diagram: 03/27/1741403/27/17449 Microbiology Blood culture 2 pending. Urine culture pending. . X-Rays, CTs and MRIs CT ANGIO CHEST PULMONARY EMBOLISM IMPRESSION: 1. No evidence for central pulmonary embolism. Enlarged main pulmonary artery would be consistent with pulmonary arterial hypertension. 2. Widespread groundglass opacities likely reflect subsegmental atelectasis in the setting of decreased lung volumes. 3. Trace bibasilar mobile pleural effusions are of uncertain etiology. 4. Moderate cardiomegaly is unchanged, as well as left adrenal adenoma. Dictated by: Mao Milner M.D. on 03/24/2017 at 20:44 CT BRAIN WITHOUT CONTRAST IMPRESSION: No acute intracranial abnormalities. Mild periventricular white matter chronic small vessel ischemic change. Dictated by: Mao Milner M.D. on 03/24/2017 at 20:17 X-RAY CHEST ONE VIEW, PORTABLE IMPRESSION: No acute cardiopulmonary disease. Dictated by: Mao Milner M.D. on 03/24/2017 at 18:17 . PROCEDURE: US ABDOMEN IMPRESSION: 1. Hepatic steatosis. Left hepatic 2.9 cm subcapsular cyst. 2. Superior pole right renal 4.0 cm cyst 3. Status post cholecystectomy. Dilated common bile duct at 9.4 mm. 4. Structures obscured by bowel gas includes the common hepatic duct, pancreas, distal aorta and iliac arteries. Dictated by: Terrence Piper M.D. on 03/25/2017 at 8:53 12-lead ECG EKG: Atrial fibrillation with RVR, heart rate 140, no acute ischemic changes such as ST elevation or depression. . Cardiac Echo Impressions Echocardiogram Interpretation Summary 02/28/2016: The left ventricle is normal in size, wall thickness, and systolic function without any focal wall motion abnormalities with the ejection fraction is estimated to be 65-70% and appears unchanged compared to the previous study. The right ventricle is mildly dilated and right ventricular systolic function is mildly reduced. The right ventricle appears slightly larger and less dynamic compared to the previous study. The right ventricular systolic pressure is estimated at 47 mmHg assuming a right atrial pressure of 15 mm Hg, and is likely unchanged compared to the previous study. The atria are not well visualized but the left atrium is likely moderately dilated and the right atrium is likely mildly dilated. There is mild to moderate mitral regurgitation that is more prominent compared to the previous study. There is mild to moderate tricuspid regurgitation that is less prominent compared to the previous study. There is no other significant valvular heart disease. The ascending aorta is mild-moderately enlarged but is unchanged compared to the previous study. Reading Physician:10:23 AM Echocardiogram Report Interpretation Summary The left ventricle is normal in size. There is mild concentric left ventricular hypertrophy. Left ventricular ejection fraction is estimated to be 35 +/- 5%. Compared to the prior exam, the left ventricular function is reduced. Severe apical hypokinesis, septal dyskinesis. There is mild to moderate mitral regurgitation. The aortic valve is slightly calcified. There is moderate to severe tricuspid regurgitation. Compared to the prior echo exam, there has been an increase in TR severity. The right ventricular systolic pressure is estimated at least 64 mmHg assuming a right atrial pressure of 15 mm Hg. Electronically signed by: Raulito Glass on Reading Physician:03/25/2017 11:02 AM Assessment & Plan Kassie Pierson is a 72-year-old female with a past medical history significant for diastolic heart failure, cor pulmonale secondary to obesity hypoventilation syndrome and obstructive sleep apnea, chronic atrial fibrillation with RVR, medical noncompliance, diabetes mellitus, insulin using, hypertension, hyperlipidemia, who presents to [facility] emergency department via EMS with worsening shortness of breath 2 days. Possible acute systolic congestive heart failure exacerbation, present on admission. Active. - The patient has a history of diastolic CHF and cor pulmonale secondary to sleep apnea and obesity hypoventilation syndrome. - Echo revealed: Left ventricular ejection fraction is estimated to be 35 +/- 5% . Compared to the prior exam, the left ventricular function is reduced. Severe apical hypokinesis, septal dyskinesis. There is mild to moderate mitral regurgitation.There is moderate to severe tricuspid regurgitation. Compared to the prior echo exam, there has been an increase in TR severity. - EKG demonstrated atrial fibrillation with RVR without signs of ischemia and troponin negative. - EKG reviewed. - Digoxin level <0.03. - Continue to Lasix 40mg IV BID. - Continue digoxin 0.125 mg daily, losartan 50 mg twice a day, and metoprolol succinate 50 mg twice a day - Ordered daily standing weights, strict I&O's, 2 L fluid restriction, and CHF teaching. - Spoke with Dr. Santana regarding plan of care. Agrees that medication noncompliance and A fib is the cause of her current echo changes. Will continue current medication and diuresis plan. - Consulted case management regarding home safety, need for home health support , and home physical therapy. Acute bilateral community-acquired pneumonia, present on admission. Active. - The patient presented with shortness of breath, nausea, tachypnea, and tachycardic with moderate leukocytosis 16.4 with bandemia. Afebrile. - Chest x-ray was read as no acute cardiopulmonary findings, however, appears to have bilateral pulmonary infiltrates, bibasilar effusions and cephalization. - Continue gentle IV fluid hydration with NS at 60 mL/hr x 1 bag due to history of diastolic CHF and cor pulmonale. - Viral PCR Negative, Urine Legionelle Antigen negative - Blood cultures positive for Staph epi, likely contamination - Urine culture no growth - MRSA screen negative. - Tylenol as needed for fever and pain. Acute sepsis due to bilateral community-acquired pneumonia, present on admission. Active. - Patient presented with shortness of breath, nausea, tachypnea (RR 44), and tachycardic (149) with moderate leukocytosis and lactic acidosis. Afebrile. - Lactic acid has normalized. Acute hypoxemic respiratory failure, present on admission. Active. - The patient presented shortness of breath, nausea, abdominal pain, tachypnea ( RR 44), and tachycardic (149) with moderate leukocytosis and lactic acidosis. Afebrile. Differential diagnosis includes: Bilateral pneumonia versus CHF exacerbation.PE ruled out. - Continue BiPAP and titrate off to supplemental oxygen as tolerated. - Continue Duonebs 4 times a day while awake and albuterol nebs every 4 hours as needed for shortness of breath. Acute anion gap metabolic acidosis, present on admission. Active. - Secondary to acute infection and lactic acidosis. - Initial anion gap 26. Monitoring - Started gentle IV fluid hydration with NS at 60 mL/hr x 1 bag due to history of diastolic CHF and cor pulmonale. - CK negative Hyperbilirubinemia, acuity unknown, present on admission. Active. - Likely secondary to acute sepsis and decreased PO intake. - Bilirubin has been mildly elevated in the past. However, ast bilirubin 0.5 in 12/2016. - LFT's within normal limits. - Ordered abdominal ultrasound for tomorrow morning. - Continue to monitor CMP daily. Chronic problems: Chronic atrial fibrillation, present on admission. Stable. - The patient has not taken Xarelto, digoxin, or metoprolol several days. - Received diltiazem IV 12 mg x 1 during EMS transport and metoprolol tartrate IV 5 mg x 1 in the ED. Currently rate controlled. - Continue digoxin 125 mg daily, Xarelto 20 mg daily, and metoprolol succinate 50 mg twice a day Diabetes mellitus type II, non-insulin using, with neuropathy, present on admission. Stable. - Hemoglobin A1c 6.3% in 01/2017. Repeat hemoglobin A1c pending. - Ordered heart healthy and carbohydrate consistent diet. - Ordered low-dose correctional scale insulin. - Continue Lantus 10 units subcutaneous daily at bedtime starting tomorrow night 03/25/16. Depression and anxiety, present on admission. Stable. - Continue sertraline 100 mg daily and amitriptyline 25 mg daily at bedtime. Chronic bilateral lymphedema, present on admission. Stable. - Ordered physical and wound therapy. Hypothyroidism, present on admission. Stable. - Continue levothyroxine 75 g daily. Hypertension, present on admission. Stable. - Continue losartan 50 mg twice a day and metoprolol succinate 50 mg twice a day Hyperlipidemia, present on admission. Stable. - Continue atorvastatin 40 mg daily at bedtime. History of alcoholism and opiate abuse in remission, sober since 2008. - Will try to avoid narcotics. Morbid obesity, present on admission. Stable. - BMI 36.7. - Ordered physical therapy. PRN antiemetics: Zofran and Maalox. PRN bowel regimen: Senna and MiraLAX. PRN analgesics: Tylenol. Disposition: Patient has had significant improvement with diuresis and rate control. Physical therapy is working with patient and case management will see tomorrow. Will likely discharge in the next 2-3 days. . VTE Prophylaxis: SCDs, Other (Xarelto) Resuscitation Status: CPR: Attempt Resuscitation Attending Statement The patient was seen and examined together with Dr. De Leon on 03/27/17 and I agree with the history, exam and plan as outlined in the note above. Heron De Leon DO Mar 27, 2017 11:42 Juan Alberto Marrero Mar 27, 2017 19:08
--- NOTE | 2017-03-27 14:29 | NUR ---
O2 needs Pt was 97% on NC 2L when PT worked with Pt. Trial on RA currently and she is 96-98%. Addendum: 03/27/17 at 1736 by CHARITO SCHUMACHER RN Pt 88 on RA while sleeping so Respiratory put her back on 2L NC.
[2017-03-27] MEDS: Insulin GLARgine 100 Unit/mL Syringe SUBQ SCH (21:36)
[2017-03-28] VITALS (14 sets, daily range): BP systolic 92–124; BP diastolic 58–77; PULSE 72–91; RESP 16–24; O2SAT 88–100
--- NOTE | 2017-03-28 03:54 | NUR ---
Blood sugar/Tele A&O x3 using call light appropriately. Soler catheter draining pale yellow urine to gravity, 2 L O2 per NC. HS Blood sugar 135, no sliding scale , 1 person assist to BSC, uses FWW. Tele_ A-fib 80 pvc.
[2017-03-28 05:06] LABS: BASOPHILS % (AUTO) 0.3 % (0-3); MONOCYTES % (AUTO) 9.9 % (4-12); Mean Corpuscular Hemoglobin 28.5 pg (27.0-35.0); Mean Corpuscular Volume 91.3 fL (81-100); NEUTROPHILS % (AUTO) 60.9 % (40-74); Platelet Count 155 bil/L (150-400)
[2017-03-28] MEDS: Insulin LISPRO 300 Unit/3 mL Inj SUBQ SCH ×4 (08:00→22:00)
[2017-03-28] MEDS: MeTOProlol XL 50 mg ER24 Tablet PO SCH ×2 (09:18→21:29)
[2017-03-28] MEDS: Albuterol-Ipratropium 3 mL Inhalation Solution NEB SCH ×4 (09:32→21:20)
--- NOTE | 2017-03-28 12:26 | NUR ---
Abd Pain/ RA Pt c/o abd pain 01/19, gave Tylenol. Pt has been sleeping comfortably in bed all morning. Refused a bed bath and Pt complaining that her abd pain is too much for now. Tolerable pain was 01/19. Will inform . Trialing again on RA. Pt 96% on RA sleeping.
--- NOTE | 2017-03-28 14:58 | PCM.PNMED ---
Subjective Date of Service Mar 28, 2017 Subjective Kassie Pierson is a 72-year-old female with a past medical history significant for diastolic heart failure, cor pulmonale secondary to obesity hypoventilation syndrome and obstructive sleep apnea, chronic atrial fibrillation with RVR, medical noncompliance, diabetes mellitus, insulin using, hypertension, hyperlipidemia, who presents to [facility] emergency department via EMS with worsening shortness of breath 2 days. Nursing reports no acute events overnight. Patient seen and examined laying in bed. C/o nausea and patient has had one episode of diarrhea today. Denies CP, SOB, ABD pain, vomiting, and headache. Patient is having good urine output and has had one bowel movement in the last 24 hours. ROS reviewed and otherwise negative unless noted above. Exam Vital Signs Vital Sign - Last Date Time Temp Pulse Resp B/P Pulse Ox O2 Delivery O2 Flow Rate FiO2 03/28/17 14:00 85 22 88 Room Air 03/28/17 12:22 36.5 104/71 03/28/17 09:32 2.00 03/26/17 12:27 30 Intake and Output 03/27/17 03/27/17 03/28/17 Cumulative From/Thru 15:00 23:00 07:00 03/24/17 17:50 - 03/28/17 06:21 Intake Total 240 ml 1020 ml 828 ml 6136 ml Output Total 900 ml 900 ml 1900 ml 04826 ml Balance -660 ml 120 ml -1072 ml -4064 ml Intake Oral 240 ml 1020 ml 828 ml 4281 ml IV Total 1855 ml Output Urine Total 900 ml 900 ml 1900 ml 70840 ml # Voids 0 # Bowel Movements 1 Exam Constitutional: awake, alert, and oriented x3. In no acute distress. Head: normocephalic and atraumatic Eyes: Pupils equal round and reactive. No scleral icterus. Periorbital ecchymosis on right orbit, healing and improved from yesterday's exam. Heart: Regular rate and irregularly irregular rhythm. 1+ peripheral edema. Lungs: clear to auscultation. no wheeze, rales, or rhonchi ABD: soft, nontender, bowel sounds present throughout. Large ecchymosis on LUQ ABD that looks to be healing, approx 1 week old. Musculoskeletal: moves all four extremities appropriately. Skin: warm, dry, no rash, bilateral circumferential erythema on bilateral lower extremities, nonblancing. improved from yesterday's exam. Multiple ecchymoses in various stages of healing on bilateral upper extremities. Neuro: CN II-XII intact. no focal deficits. Psych: appropriate mood and affect. IVs and Medications Medications Reviewed: Medications were reviewed in detail Lab and Diagnostics Item Value Date Time Red Blood Count 4.14 mil/mm3 03/28/17449 Hematocrit 37.8 % 03/28/17449 Mean Corpuscular Volume 91.3 fL 03/28/17449 Mean Corpuscular Hemoglobin 28.5 pg 03/28/17449 Mean Corpuscular Hemoglobin Concent 31.2 % L 03/28/17449 Red Cell Distribution Width 16.9 % H 03/28/17449 Neutrophils (%) (Auto) 60.9 % 03/28/17449 Lymphocytes (%) (Auto) 25.0 % 03/28/17449 Monocytes (%) (Auto) 9.9 % 03/28/17449 Eosinophils (%) (Auto) 3.0 % 03/28/17449 Basophils (%) (Auto) 0.3 % 03/28/17449 Estimat Glomerular Filtration Rate 94 mL/min 03/28/17449 Calcium Level 8.9 mg/dL 03/28/17449 Total Bilirubin 0.5 mg/dL 03/28/17449 Aspartate Amino Transf (AST/SGOT) 10 U/L 03/28/17449 Alanine Aminotransferase (ALT/SGPT) 9 U/L 03/28/17449 Alkaline Phosphatase 96 U/L 03/28/17449 Total Protein 5.9 g/dL L 03/28/17449 Albumin 3.3 g/dL L 03/28/17449 Result Diagram: 03/28/1744903/28/17449 Microbiology Blood culture 2 pending. Urine culture pending. . X-Rays, CTs and MRIs CT ANGIO CHEST PULMONARY EMBOLISM IMPRESSION: 1. No evidence for central pulmonary embolism. Enlarged main pulmonary artery would be consistent with pulmonary arterial hypertension. 2. Widespread groundglass opacities likely reflect subsegmental atelectasis in the setting of decreased lung volumes. 3. Trace bibasilar mobile pleural effusions are of uncertain etiology. 4. Moderate cardiomegaly is unchanged, as well as left adrenal adenoma. Dictated by: Mao Milner M.D. on 03/24/2017 at 20:44 CT BRAIN WITHOUT CONTRAST IMPRESSION: No acute intracranial abnormalities. Mild periventricular white matter chronic small vessel ischemic change. Dictated by: Mao Milner M.D. on 03/24/2017 at 20:17 X-RAY CHEST ONE VIEW, PORTABLE IMPRESSION: No acute cardiopulmonary disease. Dictated by: Mao Milner M.D. on 03/24/2017 at 18:17 . PROCEDURE: US ABDOMEN IMPRESSION: 1. Hepatic steatosis. Left hepatic 2.9 cm subcapsular cyst. 2. Superior pole right renal 4.0 cm cyst 3. Status post cholecystectomy. Dilated common bile duct at 9.4 mm. 4. Structures obscured by bowel gas includes the common hepatic duct, pancreas, distal aorta and iliac arteries. Dictated by: Terrence Piper M.D. on 03/25/2017 at 8:53 12-lead ECG EKG: Atrial fibrillation with RVR, heart rate 140, no acute ischemic changes such as ST elevation or depression. . Cardiac Echo Impressions Echocardiogram Interpretation Summary 02/28/2016: The left ventricle is normal in size, wall thickness, and systolic function without any focal wall motion abnormalities with the ejection fraction is estimated to be 65-70% and appears unchanged compared to the previous study. The right ventricle is mildly dilated and right ventricular systolic function is mildly reduced. The right ventricle appears slightly larger and less dynamic compared to the previous study. The right ventricular systolic pressure is estimated at 47 mmHg assuming a right atrial pressure of 15 mm Hg, and is likely unchanged compared to the previous study. The atria are not well visualized but the left atrium is likely moderately dilated and the right atrium is likely mildly dilated. There is mild to moderate mitral regurgitation that is more prominent compared to the previous study. There is mild to moderate tricuspid regurgitation that is less prominent compared to the previous study. There is no other significant valvular heart disease. The ascending aorta is mild-moderately enlarged but is unchanged compared to the previous study. Reading Physician:10:23 AM Echocardiogram Report Interpretation Summary The left ventricle is normal in size. There is mild concentric left ventricular hypertrophy. Left ventricular ejection fraction is estimated to be 35 +/- 5%. Compared to the prior exam, the left ventricular function is reduced. Severe apical hypokinesis, septal dyskinesis. There is mild to moderate mitral regurgitation. The aortic valve is slightly calcified. There is moderate to severe tricuspid regurgitation. Compared to the prior echo exam, there has been an increase in TR severity. The right ventricular systolic pressure is estimated at least 64 mmHg assuming a right atrial pressure of 15 mm Hg. Electronically signed by: Raulito Glass on Reading Physician:03/25/2017 11:02 AM Assessment & Plan Kassie Pierson is a 72-year-old female with a past medical history significant for diastolic heart failure, cor pulmonale secondary to obesity hypoventilation syndrome and obstructive sleep apnea, chronic atrial fibrillation with RVR, medical noncompliance, diabetes mellitus, insulin using, hypertension, hyperlipidemia, who presents to [facility] emergency department via EMS with worsening shortness of breath 2 days. Possible acute systolic congestive heart failure exacerbation, present on admission. Improving. - The patient has a history of diastolic CHF and cor pulmonale secondary to sleep apnea and obesity hypoventilation syndrome. - Echo revealed: Left ventricular ejection fraction is estimated to be 35 +/- 5% . Compared to the prior exam, the left ventricular function is reduced. Severe apical hypokinesis, septal dyskinesis. There is mild to moderate mitral regurgitation.There is moderate to severe tricuspid regurgitation. Compared to the prior echo exam, there has been an increase in TR severity. - EKG demonstrated atrial fibrillation with RVR without signs of ischemia and troponin negative. - EKG reviewed. - Digoxin level <0.03. - Patient on 80mg BID Lasix PO, will start her on 40mg Lasix PO BID starting tomorrow. - Continue digoxin 0.125 mg daily, losartan 50 mg twice a day, and metoprolol succinate 50 mg twice a day - Ordered daily standing weights, strict I&O's, 2 L fluid restriction, and CHF teaching. - Spoke with Dr. Santana regarding plan of care. Agrees that medication noncompliance and A fib is the cause of her current echo changes. Will continue current medication and diuresis plan. - Plan to take Soler cath out tomorrow, attempted today but patient refused. - Consulted case management regarding home safety, need for home health support , and home physical therapy. - Continue physical therapy to improve strength. Acute bilateral community-acquired pneumonia, present on admission. Resolved. - The patient presented with shortness of breath, nausea, tachypnea, and tachycardic with moderate leukocytosis 16.4 with bandemia. Afebrile. - Chest x-ray was read as no acute cardiopulmonary findings, however, appears to have bilateral pulmonary infiltrates, bibasilar effusions and cephalization. - Viral PCR Negative, Urine Legionelle Antigen negative - Blood cultures positive for Staph epi, likely contamination - Urine culture no growth - MRSA screen negative. - Tylenol as needed for fever and pain. Acute sepsis due to bilateral community-acquired pneumonia, present on admission. Active. - Patient presented with shortness of breath, nausea, tachypnea (RR 44), and tachycardic (149) with moderate leukocytosis and lactic acidosis. Afebrile. - Lactic acid has normalized. Acute hypoxemic respiratory failure, present on admission. Active. - The patient presented shortness of breath, nausea, abdominal pain, tachypnea ( RR 44), and tachycardic (149) with moderate leukocytosis and lactic acidosis. Afebrile. Differential diagnosis includes: Bilateral pneumonia versus CHF exacerbation.PE ruled out. - Continue BiPAP and titrate off to supplemental oxygen as tolerated. - Continue Duonebs 4 times a day while awake and albuterol nebs every 4 hours as needed for shortness of breath. Acute anion gap metabolic acidosis, present on admission. Active. - Secondary to acute infection and lactic acidosis. - Initial anion gap 26. Monitoring - Continue gentle IV fluid hydration with NS at 60 mL/hr x 1 bag due to history of diastolic CHF and cor pulmonale. - CK negative Hyperbilirubinemia, acuity unknown, present on admission. Active. - Likely secondary to acute sepsis and decreased PO intake. - Bilirubin has been mildly elevated in the past. However, ast bilirubin 0.5 in 12/2016. - LFT's within normal limits. - Continue to monitor CMP daily. Chronic problems: Chronic atrial fibrillation, present on admission. Stable. - The patient has not taken Xarelto, digoxin, or metoprolol several days. - Received diltiazem IV 12 mg x 1 during EMS transport and metoprolol tartrate IV 5 mg x 1 in the ED. Currently rate controlled. - Continue digoxin 125 mg daily, Xarelto 20 mg daily, and metoprolol succinate 50 mg twice a day Diabetes mellitus type II, non-insulin using, with neuropathy, present on admission. Stable. - Hemoglobin A1c 6.3% in 01/2017. Repeat hemoglobin A1c pending. - heart healthy and carbohydrate consistent diet. - Continue low-dose correctional scale insulin. - Continue Lantus 10 units subcutaneous daily at bedtime starting tomorrow night 03/25/16. Depression and anxiety, present on admission. Stable. - Continue sertraline 100 mg daily and amitriptyline 25 mg daily at bedtime. Chronic bilateral lymphedema, present on admission. Stable. - Continue physical and wound therapy. Hypothyroidism, present on admission. Stable. - Continue levothyroxine 75 g daily. Hypertension, present on admission. Stable. - Continue losartan 50 mg twice a day and metoprolol succinate 50 mg twice a day Hyperlipidemia, present on admission. Stable. - Continue atorvastatin 40 mg daily at bedtime. History of alcoholism and opiate abuse in remission, sober since 2008. - Will try to avoid narcotics. Morbid obesity, present on admission. Stable. - BMI 36.7. - Continue physical therapy. PRN antiemetics: Zofran and Maalox. PRN bowel regimen: Senna and MiraLAX. PRN analgesics: Tylenol. Disposition: Patient has had significant improvement with diuresis and rate control. Physical therapy is working with patient and case management will see tomorrow. Will likely discharge in the next 1-2 days. . VTE Prophylaxis: SCDs, Other (Xarelto) Resuscitation Status: CPR: Attempt Resuscitation Attending Statement The patient was seen and examined together with Dr. De Leon on 03/28/2017 and I agree with the history, exam and plan as outlined in the note above. . Heron De Leon DO Mar 28, 2017 14:58 Moreno Augustin MD Mar 30, 2017 16:23
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
[2017-03-28] MEDS: Insulin GLARgine 100 Unit/mL Syringe SUBQ SCH (22:08)
[2017-03-29] VITALS (11 sets, daily range): BP systolic 82–117; BP diastolic 45–73; PULSE 69–94; RESP 12–20; O2SAT 93–100
--- NOTE | 2017-03-29 02:49 | NUR ---
Tele/Pain A&O x3 using call light appropriately, 3 L O2 per NC, Pt seems passive , not very willing to engage in conversation w care givers. Unable or unwilling to give much detail about bruising on face and arms. Saline locked Tele: A-Fib 70's w [facility]. k
[2017-03-29 04:20] LABS: BASOPHILS % (AUTO) 0.2 % (0-3); EOSINOPHILS % (AUTO) 1.9 % (0-5); MONOCYTES % (AUTO) 10.9 % (4-12); Mean Corpuscular Hemoglobin 28.5 pg (27.0-35.0); Mean Corpuscular Volume 90.9 fL (81-100); NEUTROPHILS % (AUTO) 65.6 % (40-74); Platelet Count 178 bil/L (150-400)
[2017-03-29] MEDS: Insulin LISPRO 300 Unit/3 mL Inj SUBQ SCH ×4 (08:00→21:57)
[2017-03-29] MEDS: MeTOProlol XL 50 mg ER24 Tablet PO SCH ×2 (08:56→21:51)
[2017-03-29] MEDS: Albuterol-Ipratropium 3 mL Inhalation Solution NEB SCH ×4 (09:35→20:59)
--- NOTE | 2017-03-29 12:38 | NUR ---
Inpatient Wound Nurse Patient seen for perineal skin assessment. Multiple areas of excoriation and skin breaks noted over hips, buttocks, inguinal folds, and perineum. Eb, topical fungal rash noted with areas of peeling, distinct margins, satellite lesions, and bright red tissue that is raw in some areas, alternating with thin white film in inguinal folds and over labia. Request for Nystatin order was placed with . Perineum should be cleansed and dried well. No films or impregnated wipes should be used at this time, including silicone or dimethicone barriers or barrier wipes as these will block Nystatin ointment from reaching fungal spores. Once skin is cleansed from all topical treatments, skin should be dried VERY well. Application of Nystatin ointment should be rubbed in completely. Once rash is resolved, clear barrier ointments such as CriticAid Clear or any ointment or barrier wipes with silicone or dimethicone may be helpful and improve skin integrity. Patient was instructed to avoid scratching and keep nails short. [facility] will assess skin on Saturday.
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
--- NOTE | 2017-03-29 17:55 | NUR ---
Orthostatic/Liu/Abd Pain/O2 Pt became dizzy while doing orthostatics with PT today, BPs 100/55 while sitting, 82/49 while standing, 98/45 after Pt had sat back down for a few minutes. Pt's MD made aware who reduced Pt's lasix dose from 80mg BID back down to her home dose of 40mg BID. Pt's BP 80s-90s/40s-50s for remainder of the shift. Pt able to tolerate sitting up in a chair and a trip to the with contact guard and FWW. Pt agreed to have liu catheter out in the late am, liu catheter removed and Pt spontaneously voiding without issues. Pt reporting Abd pain intermittently throughout the shift, given PRN maalox this am without effect. Pt given PRN tylenol later in the afternoon when Pt reporting pain, Pt sleeping comfortably when returning to room to reassess tylenol. Addendum: 03/29/17 at 1807 by ATA MAY RN Pt on 2L O2 via nasal cannula with SPO2 sats in the upper 90s, trialed on RA by RT and Pt's SPO2 sat dropped to the 80s, Pt placed back on 2L via nasal cannula and sats recovered to upper 90s.
[2017-03-29] MEDS: Insulin GLARgine 100 Unit/mL Syringe SUBQ SCH (21:56)
[2017-03-30] VITALS (8 sets, daily range): BP systolic 86–96; BP diastolic 43–55; PULSE 64–82; RESP 12–20; O2SAT 91–97
[2017-03-30 03:43] LABS: BASOPHILS % (AUTO) 0.4 % (0-3); EOSINOPHILS % (AUTO) 2.1 % (0-5); MONOCYTES % (AUTO) 11.4 % (4-12); Mean Corpuscular Hemoglobin 28.4 pg (27.0-35.0); Mean Corpuscular Volume 88.9 fL (81-100); NEUTROPHILS % (AUTO) 58.3 % (40-74); Platelet Count 198 bil/L (150-400)
--- NOTE | 2017-03-30 07:53 | NUR ---
Rest Pt a/o, resting with eyes closed during most of NOC. Awoke easily for assessments and medication, requested snack of pop and pudding. Pudding given, encouraged to increase intake of water. Hypotensive, otherwise VSS. No Tele, SPO2 94% on RA. Report given to on coming RN.
[2017-03-30] MEDS: Albuterol-Ipratropium 3 mL Inhalation Solution NEB SCH ×3 (07:55→16:42)
[2017-03-30] MEDS: Insulin LISPRO 300 Unit/3 mL Inj SUBQ SCH ×3 (09:19→18:17)
[2017-03-30] MEDS: MeTOProlol XL 50 mg ER24 Tablet PO SCH (09:30)
[2017-03-30] MEDS: Ondansetron 2 mg/mL 2 mL Inj IVPUSH PRN (15:52)
--- NOTE | 2017-03-30 16:00 | PCM.DIMED ---
Heron De Leon DO 03/30/17 1600: Discharge Instructions Date of Service Mar 30, 2017 Dates of Hospitalization Mar 24, 2017 at 22:00 Discharge Diagnosis Discharge Diagnosis acute systolic congestive heart failure exacerbation Acute bilateral community-acquired pneumonia Acute sepsis due to bilateral community-acquired pneumonia Acute hypoxemic respiratory failure Acute anion gap metabolic acidosis Acute Abdominal Pain, not present on admission, Active. Gastroenteritis vs Trauma Hyperbilirubinemia Chronic atrial fibrillation Diabetes mellitus type II, non-insulin using, with neuropathy Depression and anxiety Chronic bilateral lymphedema Hypothyroidism Hypertension Hyperlipidemia History of alcoholism and opiate abuse in remission Medication Instructions Additional med instructions Because your blood pressures have been low, I have reduced your Losartan from twice a day to a once a day 50mg tablet. Test Results Test Results Your echocardiogram showed significant changes from your previous study last year. There is a reduced "pumping" of your heart and it is causing you to have shortness of breath unless you keep taking your medications. Diet Discharge Diet: Low fat, Low Sodium, Heart Healthy, Diabetic Activity Discharge Activity: No restrictions Call your provider Call your provider for: Fever or Chills, Shortness of breath, Bleeding, Chest pain, Vomitting, Excessive diarrhea, Weakness (unilateral) Patient Instructions Patient Instructions I have scheduled Nursing physical therapy. They will help you build your strength back when you get back home. The nursing team will see you 2-3 times a week and they will help manage your medications, make sure you are taking your medications, perform daily waits and adjust your medications accordingly so that you do not go into another congestive heart failure exacerbation again. You will also have [facility] services 2-3 times a week. They will help you with care around the house as well. Please establish a new primary care doctor at the [facility]. They will make sure you keep your medications refilled and will follow up with any problems that need to be addressed in the outpatient setting. Follow-up plan Follow up with [facility] in one week. Follow-up Provider: [facility] Follow-up with PCP in: 1 week Moreno Augustin MD 03/30/17 1643: Discharge Instructions Attending's Statement The patient was seen and examined together with Dr. De Leon on 03/30/2017 and I agree with the history, exam and plan as outlined in the note above. . Heron De Leon DO Mar 30, 2017 16:00 Moreno Augustin MD Mar 30, 2017 16:43
[2017-03-30] MEDS ORDERED: LOSA50TA37 PO (16:02)
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
--- NOTE | 2017-03-30 18:39 | NUR ---
Discharge Pt just discharged to home with family. Pt given discharge educational materials on community acquired pnu and A fib. Pt's IV access D/C'd and intact. Pt instructed to f/u with PCP as outlined in the discharge instructions. Pt verbalized understanding of all discharge instructions. All belongings accompanied Pt at time of discharge.
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
== END 2017-03-30 18:37 | disposition home health service (06) | DRG 871 ==
LOC: EDUNIT# 17:27 → SED 17:27 → EDBD 17:27 → PCC 22:00
PROVIDERS: ADMIT Hospitalist; ATTEND Hospitalist
DX: A41.9 Sepsis, unspecified organism (principal); J18.9 Pneumonia, unspecified organism; J96.01 Acute respiratory failure with hypoxia; I50.33 Acute on chronic diastolic (congestive) heart failure; E87.2 Acidosis; E66.2 Morbid (severe) obesity with alveolar hypoventilation; Z79.01 Long term (current) use of anticoagulants; I27.81 Cor pulmonale (chronic); Z68.36 Body mass index [BMI] 36.0-36.9, adult; Z99.81 Dependence on supplemental oxygen; D35.02 Benign neoplasm of left adrenal gland; K76.0 Fatty (change of) liver, not elsewhere classified; I51.7 Cardiomegaly; I48.2 Chronic atrial fibrillation; Z91.14 Patient's other noncompliance with medication regimen; Z79.4 Long term (current) use of insulin; I10 Essential (primary) hypertension; E78.5 Hyperlipidemia, unspecified; E03.9 Hypothyroidism, unspecified; F10.21 Alcohol dependence, in remission; I89.0 Lymphedema, not elsewhere classified; E11.40 Type 2 diabetes mellitus with diabetic neuropathy, unspecified; F32.9 Major depressive disorder, single episode, unspecified; F41.9 Anxiety disorder, unspecified

== ENCOUNTER 2017-04-16 03:38 | Inpatient (IN) | payer MEDICARE, MEDICAID ==
[2017-04-16] VITALS (26 sets, daily range): BP systolic 96–161; BP diastolic 64–102; PULSE 89–140; RESP 12–24; O2SAT 95–100
[~2017-04-16] VITALS: Ht 154.9 cm; Wt 82.0 kg
[~2017-04-16 03:38] MED LIST changes: -METO-272 PO; +METO-369 PO
--- NOTE | 2017-04-16 03:55 | ED.REPORT ---
HPI-General Illness Date of Service Apr 16, 2017 ED Provider: Dr. Robert Pt is a 72 year old female with a hx of afib, CHF, DM, and HTN presenting to the ED complaining of pain and swelling to the back of her neck gradually worsening over the past few days. The wound has been draining. Denies fever, chills, nausea, vomiting, SOB or wheezing. She reports that she did not take her medications today because she did not feel very well. Nursing Notes Stated Complaint: SWELLING ON BACK OF NECK,PAIN Chief Complaint: Skin Rash/Abscess Nursing Notes Reviewed: Yes Allergies: Coded Allergies: lisinopril (Verified Allergy, Mild, COUGH, 01/04/17) Scheduled Amitriptyline (Amitriptyline) 25 Mg Tab 25 MG PO HS Atorvastatin Calcium (Atorvastatin Calcium) 40 Mg Tablet 40 MG PO HS Digoxin (Digoxin) 0.125 Mg/2.5 Ml Solution 125 MG PO DAILY Furosemide (Furosemide) 40 Mg Tablet 80 MG PO DAILY Insulin Aspart (NovoLOG U100 Insulin Vial) 100 U/Ml U Unknown Dose SUBQ TID- INSULIN Insulin Glargine (Lantus U100 Solostar Insulin Pen) 100 Unit/Ml Inj 10 UNIT SUBQ HS Levothyroxine (Levothyroxine) 75 Mcg Tablet 75 MCG PO DAILY Losartan Potassium (Losartan Potassium) 50 Mg Tablet 50 MG PO DAILY Metoprolol Succinate ER (Metoprolol Succinate ER) 50 Mg Tab.er.24h 50 MG PO BID Multivitamin (Multivitamins) 1 Each Capsule 1 EACH PO DAILY senoir complete Rivaroxaban (Xarelto) 10 Mg Tablet 20 MG PO DAILY Sertraline HCl (Zoloft) 100 Mg Tablet 100 MG PO DAILY Scheduled PRN Albuterol HFA (Proair HFA) 8.5 Gm Hfa.aer.ad 1-2 PUFFS IH Q4 PRN PRN For Shortness of Breath General Time Seen by MD: 03:52 Chief Complaint Rash Hx Obtained From: Patient Arrived By: Walk-in Sudden in Onset?: No Onset Occurred: 4 days ago Symptom Duration: Since onset Location: : Neck Severity: Current: Severe Severity: Maximum: Severe Recent Healthcare: No recent doctor visit, No recent hospitalization Similar Sx Previous: No Past Medical History Past Medical History 1. Obesity hypoventilation syndrome/obstructive sleep apnea with severe chronic cor pulmonale - she is supposed to be on home O2, compliance unclear 2. Chronic atrial fibrillation-on Xarelto anticoagulation, Digoxin, Metoprolol (medical noncompliance) 3. Hypothyroid 4. Morbid obesity 5. Diastolic heart failure in the setting of normal coronary arteries with negative cardiac cath in 2011, echocardiogram August 2014 showed EF of 55-60%, normal valves" D-shaped" left ventricle in systole and diastole consistent RV pressure overload, with subsequent [place] catheterization November 2014 confirming pulmonary arterial pressure 43/1 mmHg 6. Chronic lower extremity edema 7. History of alcoholism and opioid abuse, sober since 2007 8. Hx of a traumatic subarachnoid hemorrhage requiring transfer 04/2015 - on phenytoin, compliance and instructions unclear 9. Congestive heart failure 10. Diabetes mellitus 11. Hyperlipidemia 12. Hypertension Reports: Congestive heart failure, Diabetes mellitus, Hyperlipidemia, Hypertension Reports: Atrial fibrillation Past Surgical History Gastroplasty Right subclavian artery occlusion s/p repair, 2011 Cholecystectomy Tonsillectomy Reports: , Cholecystectomy, Tonsillectomy Family History Noncontributory Smoking History Never Smoker Social History Alcohol Use: Denies alcohol use Drug Use: Denies drug use, In recovery Other Social History: Lives alone, Local resident Ambulatory Status Walker Review of Systems Full Review of Systems Constitutional: Denies: Chills, Fever Respiratory: Denies: Shortness of breath, Wheezing GI: Denies: Nausea, Vomiting Musculoskeletal: Reports: Neck pain Skin: Reports Rash, Reports Swelling Complete sys rev & neg: except as marked. Physical Exam Vital Signs Vital Signs Date Time Temp Pulse Resp B/P Pulse Ox O2 Delivery O2 Flow Rate FiO2 04/16/17 05:22 122 18 115/83 98 Room Air 04/16/17 05:01 139 04/16/17 04:34 131 24 158/79 98 Room Air 04/16/17 04:20 146 04/16/17 03:43 36.8 89 16 161/102 98 Room Air Initial VS: Reviewed General/Constitutional: Well-developed, Well-nourished Head / Eyes: Atraumatic, Normocephalic, PERRL ENT: Mucous membranes moist, Conjunctiva normal, No scleral icterus Abdomen / GI: Soft, Non-tender, No guarding, No rebound, No distention Neurologic: Alert, Oriented, Nonfocal Psychiatric: Mood/affect normal, Behavior normal, Normal thought content Respiratory / Chest: Atraumatic Dull right base Cardiovascular: No murmurs Heart Rate / Rhythm: Positive: Irreg irregular rhythm Heart is rapid irregular consistent with afib. Lower Extremity / Pelvis / MS: No deformity, Neurologic intact, Vascular intact 3+ edema Skin: Warm, Dry Excoriations on the legs, back, and back of neck. Tender erythematous mass appears to be phlegmon. No free fluid inside by bedside US. Not fluctuant. Purulent drainage. Interpretation & Diagnostics Lab Results Interpretation Result Diagram: 04/16/17 0405 04/16/17 0405 Test 04/16/17 04:05 White Blood Count 15.5th/mm3 (3.8-10.1) Red Blood Count 4.25mil/mm3 (3.90-5.20) Hemoglobin 12.0g/dL (12.0-15.6) Hematocrit 37.2% (35.0-46.0) Mean Corpuscular Volume 87.5fL (81-100) Mean Corpuscular Hemoglobin 28.2pg (27.0-35.0) Mean Corpuscular Hemoglobin Concent 32.3% (32.0-37.0) Red Cell Distribution Width 16.8% (12.3-15.4) Platelet Count 214bil/L (150-400) Neutrophils (%) (Auto) 82.7% (40-74) Lymphocytes (%) (Auto) 10.2% (14-46) Monocytes (%) (Auto) 5.2% (4-12) Eosinophils (%) (Auto) 1.3% (0-5) Basophils (%) (Auto) 0.2% (0-3) Prothrombin Time 10.9sec (8.1-12.5) Prothromb Time International Ratio 1.02ratio Activated Partial Thromboplast Time 29.1sec (22.8-33.0) Sodium Level 134mEq/L (134-144) Potassium Level 4.7mEq/L (3.5-5.2) Chloride Level 100mEq/L (97-108) Carbon Dioxide Level 13mmol/L (18-29) Blood Urea Nitrogen 24mg/dL (8-27) Creatinine 1.35mg/dL (0.57-1.00) Estimat Glomerular Filtration Rate 55mL/min (>59) Glucose Level 210mg/dL (60-99) Calcium Level 9.0mg/dL (8.5-10.1) Magnesium Level 1.9mg/dL (1.6-2.6) Total Bilirubin 0.3mg/dL (0.0-1.2) Aspartate Amino Transf (AST/SGOT) 15U/L (0-50) Alanine Aminotransferase (ALT/SGPT) 12U/L (0-32) Alkaline Phosphatase 111U/L (25-165) Troponin T 0.010ug/L (0.0-0.011) Pro-B-Type Natriuretic Peptide 2963pg/mL (0-301) Total Protein 7.5g/dL (6.4-8.4) Albumin 3.5g/dL (3.4-5.0) Hold Gillespie Top Tube Received (Received) Digoxin Level 0.3nG/mL (0.9-2.0) ECG Interpretation ECG Interpretation: Atrial fibrillation with a rate of 143. Left axis deviation. Repolarization abnormality, probably rate related. Time: 04:08 Interpreted by: ED physician X-Ray Chest Interpretation Chest Xray Interpretation: Mild increased markings. Mild CHF. View: Portable, 1 view Interpretation / Wet Read by: Wet read ED physician Re-Eval/Medical Decision Med Decision/Clinical Course 72-year-old CHF CAD diabetes rapid A. fib presents tonight ostensibly for lesions on the back of her neck that is painful, but is in fact in rapid atrial fibrillation at 150 with some mild CHF. She has not been compliant with her digoxin or other meds, has has been a problem in the past. She is on several toe and apparently has been taking that. Admitted now for rate control and control of her mild CHF. Transported in stable condition. A bupivacaine epi block was placed in the area of her neck lesion, as there is no drainable fluid collection visible on ultrasound. Transported in improved condition. Time of Eval: 04:21 Patient Status: Condition improved Re-Evaluation/Progress Note: Visualized the abscess with the bedside ultrasound. Pt reports that she was hospitalized due to SOB recently. Heartrate: 149 Resp Rate: 27 O2: 94 BP: 132/102 Time of Eval: 05:22 Patient Status: Condition improved Re-Evaluation/Progress Note: Used Bupivicane to numb the area. Pt pain is decreased. Consultation : Referral / Consult Name: Suad Fitzpatrick DO Consulted With: Hospitalist Call Returned at: 05:27 Machine Ceramic Coater: Will see patient, Agrees with plan, Accepts admit Counseled Regarding: Diagnosis, Lab results, Need for admission Discharge & Departure Primary Impression: Atrial fibrillation with RVR Additional Impressions: CHF (congestive heart failure) Congestive heart failure type: unspecified congestive heart failure type Congestive heart failure chronicity: unspecified congestive heart failure chronicity Qualified Code: I50.9 - Heart failure, unspecified Anticoagulated by anticoagulation treatment Noncompliance with medication regimen Disposition: ADMITTED TO HOSPITAL Discharge Condition All VS Reviewed: Yes Condition: Improved Referrals: Francoise De La Cruz MD (PCP) [facility] Attestation Portions of this note were transcribed by Marilu Marrero. I, Dr. Robert personally performed the history, physical exam and medical decision-making; I reviewed and confirmed the accuracy of the information in the transcribed note. Signed by: Bandar Cervantes, 04/15/2017. copies to: Francoise De La Cruz MD, Christopher W MD Apr 16, 2017 03:55 MARILU MARRERO Apr 16, 2017 04:02
[2017-04-16] MEDS ORDERED: Digoxin 0.25 mg/mL 2 mL Inj IV ONE ×2 (04:00→04:55)
[2017-04-16 04:16] LABS: BASOPHILS % (AUTO) 0.2 % (0-3); EOSINOPHILS % (AUTO) 1.3 % (0-5); MONOCYTES % (AUTO) 5.2 % (4-12); Mean Corpuscular Hemoglobin 28.2 pg (27.0-35.0); Mean Corpuscular Volume 87.5 fL (81-100); NEUTROPHILS % (AUTO) 82.7 % (40-74); Platelet Count 214 bil/L (150-400)
[2017-04-16] MEDS ORDERED: HYDROcodone-APAP 5-325 mg Tablet PO ONE (04:35)
[2017-04-16] MEDS ORDERED: Furosemide 10 mg/mL 10 mL Inj IVPUSH ONE (04:35)
[2017-04-16 04:38] LABS: INR 1.02 ratio
[2017-04-16 04:42] LABS: TROPONIN T 0.01 ug/L (0.0-0.011)
[2017-04-16 04:53] LABS: Magnesium 1.9 mg/dL (1.6-2.6)
[2017-04-16] MEDS ORDERED: Ondansetron 2 mg/mL 2 mL Inj IVPUSH PRN ×3 (05:45→17:20)
[2017-04-16] MEDS ORDERED: DIGO125T73 PO (06:40)
--- NOTE | 2017-04-16 06:46 | NUR ---
admit Pt came up to floor around 0600. Ambulated to commode. Tele showing Afib ranging from 120-130's. Pt asymptomatic. Admission completed. Med rec completed based on previous admission. Upon interview pt states shes non compliant with meds. Pt educated to take meds. Pt states her insurance coverage changed.
[2017-04-16] MEDS ORDERED: Polyethylene Glycol (PEG) 17 Gm Powder PO PRN (07:30)
[2017-04-16] MEDS ORDERED: Albuterol 2.5 mg/3 mL Inhalation Solution NEB PRN (07:35)
[2017-04-16] MEDS ORDERED: Diltiazem 5 mg/mL 5 mL Inj IVPUSH PRN (07:35)
--- NOTE | 2017-04-16 07:52 | PCM.HPMED ---
Subjective Date of Service Apr 16, 2017 Primary Provider: Admitting Physician: Suad Fitzpatrick DO Primary Care Physician: Francoise De La Cruz MD Attending Physician: Suad Fitzpatrick DO Admit Status: From the Emergency Department, Full Admit, [facility] Telemetry Chief Complaint: Neck pain History of Present Illness: This is a 72-year-old female presents with neck pain. This pain has been ongoing and progressive for 3-4 days. There is a swelling in the back of her neck. She has chronic atrial fibrillation. She presented to the ED because of neck pain. There she has a red swollen mass on the back of her neck which is tender to touch. Ultrasound indicated a possible fluid collection. I am he was not performed. She notes that this is entirely new. She denies fevers or chills. Any palpation or movement of the neck seems to increase the pain. No spontaneous drainage from the swelling. She denies any nausea. She does have chronic morbid obesity as well as systolic heart failure and diabetes mellitus. Her sugars have been somewhat high recently. She denies any nausea, no vomiting. She also denies any difficulty with stridor or swallowing. Her neck is not stiff, but it does hurt if she makes any movements of her neck right at were the swelling is. Review of Systems: All else reviewed and otherwise unremarkable except as noted in the history of present illness Allergies Coded Allergies: lisinopril (Verified Allergy, Mild, COUGH, 01/04/17) Home Medications Amitriptyline (Amitriptyline) 25 Mg Tab 25 MG PO HS Atorvastatin Calcium (Atorvastatin Calcium) 40 Mg Tablet 40 MG PO HS Digoxin (Digoxin) 0.125 Mg/2.5 Ml Solution 125 MG PO DAILY Furosemide (Furosemide) 40 Mg Tablet 80 MG PO DAILY Insulin Aspart (NovoLOG U100 Insulin Vial) 100 U/Ml U Unknown Dose SUBQ TID- INSULIN Insulin Glargine (Lantus U100 Solostar Insulin Pen) 100 Unit/Ml Inj 10 UNIT SUBQ HS Levothyroxine (Levothyroxine) 75 Mcg Tablet 75 MCG PO DAILY Losartan Potassium (Losartan Potassium) 50 Mg Tablet 50 MG PO DAILY Metoprolol Succinate ER (Metoprolol Succinate ER) 50 Mg Tab.er.24h 50 MG PO BID Multivitamin (Multivitamins) 1 Each Capsule 1 EACH PO DAILY senoir complete Rivaroxaban (Xarelto) 10 Mg Tablet 20 MG PO DAILY Sertraline HCl (Zoloft) 100 Mg Tablet 100 MG PO DAILY Scheduled PRN Albuterol HFA (Proair HFA) 8.5 Gm Hfa.aer.ad 1-2 PUFFS IH Q4 PRN PRN For Shortness of Breath PMH morbid obesity Obesity hypoventilation syndrome Systolic heart failure, chronic Chronic atrial fibrillation times a role to no Diabetes mellitus to Essential hypertension Distant history of alcohol abuse Hyperlipidemia Surgical History Gastroplasty Right subclavian artery repair section Cholecystectomy Family History Positive for heart disease and heart attack and mother Social History Occupation: known Hx Alcohol Use: No Hx Substance Use: No Hx Tobacco Use: No Smoking Status: Never Smoker Living Arrangement: with Family Exam Vital Signs Vital Sign - Last Date Time Temp Pulse Resp B/P Pulse Ox O2 Delivery O2 Flow Rate FiO2 04/16/17 06:02 36.9 131 22 157/90 97 Room Air Intake and Output 04/15/17 04/15/17 04/16/17 Cumulative From/Thru 15:00 23:00 07:00 04/16/17 03:43 - 04/16/17 06:41 Output Total 300 ml 300 ml Balance -300 ml -300 ml Output Urine Total 300 ml 300 ml Exam Oriented 3. No distress. Fluent speech. Normal affect. Slow to answer questions Normal skull. Normal nose and ears. Anicteric sclera, symmetric pupils Oropharynx is unremarkable, no facial droop. Neck is supple, normal thyroid. No adenopathy. Lungs are clear, normal effort rate. Heart is irregular without murmur gallop or rub. Abdomen soft, nondistended or tender. Extremities are with 2+ edema, which she states is good for her. Good radial and pedal pulses. Skin is free of rash, lesions. No petechiae or ecchymosis. Joints are grossly normal. Cranial nerves are grossly normal. Motor strength is normal in all extremities. Normal muscular tone. Posterior neck has a large red swelling which is tender and slightly warm to touch. It is indurated. Lab and Diagnostics Result Diagram: 04/16/1740404/16/17404 X-Rays, CTs and MRIs PROCEDURE: X-RAY CHEST ONE VIEW, PORTABLE ([id number]) INDICATIONS: afib TECHNIQUE: One view of the chest was acquired. COMPARISON: [facility], CR, XR CHEST 1VW (PORTABLE), 03/24/2017, 17: 43. FINDINGS: Surgical changes and devices: Right neck base surgical clips. Lungs and pleura: No pleural effusions or pneumothorax. Improving bibasilar pulmonary opacities. Mediastinum: Mediastinal contours appear normal. Heart size is normal. Bones and chest wall: No suspicious bony lesions. Overlying soft tissues appear unremarkable. IMPRESSION: Improving bibasilar pulmonary opacities most consistent with atelectasis. Improving bibasilar infection is also possible. Recommend continued radiographic followup. Dictated by: David Power M.D. on 04/16/2017 at 8:02 Approved by: David Power M.D. on 04/16/2017 at 8:04 Assessment & Plan 1. Posterior neck abscess, present on admission and active. We will start antibiotics and swab nares. Have consulted general surgery for incision and drainage. Nothing by mouth. 2. Obesity, present on admission and stable 3. Obesity hypoventilation syndrome, present on admission and stable 4. Probable acute on chronic systolic heart failure, present on admission active. We will diurese with IV Lasix. 5. Atrial fibrillation, chronic with rapid ventricular response. Present on admission active. IV diltiazem and reintroduce her usual medications. 6. DM 2, present on admission and active. Glargine 10 at bedtime and correctional lispro. 7. Essential hypertension, present on admission and active. We treated his usual medications. Patient is full resuscitation, discuss today Inpatient status with tonight's length of stay anticipated. Pain Evaluation: Adequate Pain Control Resuscitation Status: CPR: Attempt Resuscitation Time spent 40 minutes Sravan Roberts MD Apr 16, 2017 07:52
--- NOTE | 2017-04-16 08:06 | DRSVH ---
PROCEDURE: X-RAY CHEST ONE VIEW, PORTABLE ([id number]) INDICATIONS: afib TECHNIQUE: One view of the chest was acquired. COMPARISON: [facility], CR, XR CHEST 1VW (PORTABLE), 03/24/2017, 17:43. FINDINGS: Surgical changes and devices: Right neck base surgical clips. Lungs and pleura: No pleural effusions or pneumothorax. Improving bibasilar pulmonary opacities. Mediastinum: Mediastinal contours appear normal. Heart size is normal. Bones and chest wall: No suspicious bony lesions. Overlying soft tissues appear unremarkable. IMPRESSION: Improving bibasilar pulmonary opacities most consistent with atelectasis. Improving bibas ilar infection is also possible. Recommend continued radiographic followup. Dictated by: David Power M.D. on 04/16/2017 at 8:02 Approved by: David Power M.D. on 04/16/2017 at 8:04
[2017-04-16] MEDS: MeTOProlol XL 50 mg ER24 Tablet PO SCH ×2 (08:24→20:04)
[2017-04-16] MEDS: Sodium Chloride LOK Flush 10 mL Syringe IVFLUSH SCH ×3 (08:24→23:51)
[2017-04-16] MEDS ORDERED: Vasopressin 20 Unit/mL Inj ONE (08:30)
[2017-04-16] MEDS ORDERED: Dexamethasone 4 mg/mL Inj ONE (08:30)
[2017-04-16] MEDS ORDERED: Rocuronium 10 mg/mL 5 mL Inj ONE (08:30)
[2017-04-16] MEDS ORDERED: Propofol 10,000 mCg/mL 20 mL Inj ONE (08:30)
[2017-04-16] MEDS ORDERED: Glycopyrrolate 0.2 MG/ML 1mL Inj ONE (08:30)
[2017-04-16] MEDS ORDERED: EPHEDrine/NS 5 mg/mL 5 mL Syringe ONE (08:30)
[2017-04-16] MEDS ORDERED: Ondansetron 2 mg/mL 2 mL Inj ONE (08:30)
[2017-04-16] MEDS ORDERED: fentaNYL-PF 50 mCg/mL 2 mL Inj ONE (08:30)
[2017-04-16] MEDS ORDERED: Neostigmine 1 mg/mL 10 mL Inj ONE (08:30)
[2017-04-16] MEDS ORDERED: Glucose 40% Oral Gel 15 Gm Tube PO PRN (08:45)
[2017-04-16] MEDS: HYDROcodone-APAP 5-325 mg Tablet PO PRN ×2 (10:19→12:53)
[2017-04-16] MEDS: cefTRIAXone Inj 1,000 MG in Dextrose 5% Minibag Plus 50 ML IV SCH (11:49)
[2017-04-16] MEDS: 0.9% Sodium Chloride 1,000 ML IV SCH (11:49)
--- NOTE | 2017-04-16 12:13 | NUR ---
Case Management: IMM given and explained to pt. Pt. did not sign as she is under contact precautions. Lupis DOBSON RN
[2017-04-16] MEDS: Insulin LISPRO 300 Unit/3 mL Inj SUBQ SCH ×3 (12:48→22:00)
[2017-04-16] MEDS: Lidocaine Topical 5% Patch TOPICAL SCH (13:24)
--- NOTE | 2017-04-16 14:56 | NUR ---
Social Work: Initial Assessment/Multidisciplinary Rounds D: Per EMR review, pt is a 72 year old female admitted for rapid Afib CHF. Pt is John Rowe with [facility] supplement; pt has no LTC or VA benefits. PCP is Francoise De La Cruz MD. NOK is Quang Pierson, friend/ex-spouse, . Advanced directives not completed- pt declined information as she received it at last admission. Readmit score is not entered. Pt discussed in multidisciplinary rounds. Capacity for self-care and discharge needs addressed. No concerns or needs identified at this time. ETHANOL OPERATIONS MANAGER met with the patient at bedside. Sw role explained, contact info and d/c planning checklist provided. Pt lives in [place] with her ex-, and her son and his g/f. Pt lives in a 3 story home with approximately 10 steps to get to the main living quarters. Pt uses a FWW and a cane at baseline, and seldom drives . Pt states that she is I with all of her ADLs and that she has been navigating her stairs "much better, surprisingly" than she has in the past. Pt confirms that she was discharged home with [facility] for RN, PT care after her last admission however they never contacted her for an intake. She would like to continue to attempt to work with them if it can be determined why they have not contacted her yet. At this time there is no CM order to coordinate the resumption of HH. ETHANOL OPERATIONS MANAGER will await these orders before contacting [facility] to determine the patient's lack of HH and follow up care. A: Pt who lives with her ex- and is I at baseline. P: Evolving; Anticipate pt to discharge home. ETHANOL OPERATIONS MANAGER to discuss HH with provider and request CM order to coordinate with the HH Company. ETHANOL OPERATIONS MANAGER to continue to follow pt's clinical status and assess for further discharge needs. GELACIO Kingsley Addendum: 04/16/17 at 1501 by NAIDA HERMAN SS Amended: Links added.
--- NOTE | 2017-04-16 15:09 | PCM.HPANE ---
Patient Data Surgeon Admitting Provider:Suad Fitzpatrick DO Attending Provider:Suad Fitzpatrick DO Primary Care Physician:Francoise De La Cruz MD Other Provider: Reason for Visit Rapid Afib Chf Ht/WT & BMI Height (Feet): 5 Height (Inches): 1.00 Weight (Kilograms): 85.100 Body Mass Index 35.42 Allergies Coded Allergies: lisinopril (Verified Allergy, Mild, COUGH, 01/04/17) Past Anesthesia History Anesthesia History: Denies:: Anesthesia Reactions Diabetes History Hx Diabetes?: Yes Current Bedside Blood Glucose: 143 MRSA MRSA: No Medications Active Scripts Losartan Potassium 50 Mg Dlygib69 Mg PO DAILY #30 TABLET Ref 0 Prov:Heron De Leon DO 03/30/17 Levothyroxine 75 Mcg Ybegln08 Mcg PO DAILY #60 TABLET Prov:Lor Bunch MD 01/07/17 Albuterol HFA (Proair HFA)8.5 Gm Hfa.aer.ad1-2 Puffs IH Q4 PRN For Shortness of Breath #1 INHALER Prov:Lor Bunch MD 01/07/17 Amitriptyline 25 Mg Tab25 Mg PO HS #90 TABLET Prov:Lor Bunch MD 01/07/17 Insulin Glargine (Lantus U100 Solostar Insulin Pen)100 Unit/Ml Inj10 Unit SUBQ HS #30 PENINJ Prov:Lor Bunch MD 01/07/17 Furosemide 40 Mg Wvgolv95 Mg PO DAILY #90 TABLET Prov:Lor Bunch MD 01/07/17 Rivaroxaban (Xarelto)10 Mg Aqceoq34 Mg PO DAILY #90 TABLET Prov:Lor Bunch MD 01/07/17 Metoprolol Succinate ER 50 Mg Tab.er.24h50 Mg PO BID #180 TABLET Prov:Lor Bunch MD 01/07/17 Atorvastatin Calcium 40 Mg Noswhk22 Mg PO HS #90 TABLET Prov:Lor Bunch MD 01/07/17 Reported Medications Digoxin 125 Mcg Ymldtf828 Mcg PO DAILY #30 TABLET Ref 0 04/16/17 Insulin Aspart (NovoLOG U100 Insulin Vial)100 U/Ml UUnknown Dose SUBQ TID- INSULIN 09/15/14 Discontinued Reported Medications Multivitamin (Multivitamins)1 Each Capsule1 Each PO DAILY senoir complete 04/21/15 Discontinued Scripts Sertraline HCl (Zoloft)100 Mg Ehtsil457 Mg PO DAILY #90 TABLET Prov:Lor Bunch MD 01/07/17 Digoxin 0.125 Mg/2.5 Ml Nhsrotbd831 Mg PO DAILY #90 ML Ref 0 Prov:Lor Bunch MD 01/07/17 History History of ENT Problems?: No HEENT History: Denies:: Cataracts Dysphagia Glaucoma Sinus Problem Denture Type: None Teeth Condition: Broken Teeth Other HEENT Pertinent History: Many caps and crowns. Hx of Heart Problems?: Yes Cardiovascular History: Positive for:: Chest Pain Congestive Heart Failure Edema (chronic bilateral LE edema and redness) Hypertension Irregular Heartbeat (A-fib) Denies:: Cardiac Surgery Heart Murmur Pacemaker Thrombophlebitis Other Cardiac History: CHF with EF 35% and PAH with estimated PASP 64 mmHg. Hx of Respiratory Problem?: Yes Respiratory History: Positive for:: Dyspnea (with activity) Pneumonia (last admission in December) Denies:: Asthma COPD Chest Surgery Emphysema Hemoptysis Tuberculosis Hx Neurologic Problems?: Yes Neurological History: Positive for:: CVA (hx traumatic subarachnoid hemmorrhage ) Headaches (Mild headaches occasionally.) Seizures (Two grand mal seizures in May 2005.) Denies:: Alzheimer's Disease Dementia Dizziness Parkinson's Disease Hx of GI Problems?: Yes Hx of Problems?: Yes Genitourinary History: Positive for:: Kidney Stones Urinary Tract Infection Denies:: HX of Hemodialysis HX of Peritoneal Dialysis: No Female Hx: Denies:: Currently Endometriosis Pelvic Inflammatory Problems with Breasts? Hx Musculoskeletal Problems?: Yes Musculoskeletal History: Positive for:: Back Injury Denies:: Joint Replacement Musculoskeletal Trauma Hx of Psycho/Social Problems?: No Psycho Social History: Positive for:: Anxiety Hx Depression Denies:: Bipolar Disorder Suicide Attempt Hx Surgeries?: Yes (gastroplasty, c-sect, lance, tonsillectomy, rt.subclavian art.occlusion rep) Hx Any Other Health Problems?: Yes Other History: Positive for:: Endocrine Disease Hospitalization (subarachnoid bleed, sepsis, PNA) Thyroid Disease (hypothroidism) Denies:: Cancer History Blood Transfusions: Denies:: Accept Blood Products? Blood Transfuse Reaction Blood Transfusions Hx Diabetes: YesBedside Blood Glucose: 143 Occupation: known Hx Alcohol Use: NoHx Substance Use: No Smoking Status: Never Smoker Have You Smoked inLast 12 mo: No Stop/Bang Treated for Sleep Apnea?: No Do You Have a CPAP Machine?: No S-Snoring: Do You Snore Loudly: No T-Tired: feel tired, fatigued: No O-Obsered: Observed not breath: No P-Blood Pressure: treated: Yes B- Body Mass Index > 35 kg/m2: No A- Age over 50: Yes N- Neck Large Circumference: Yes G- Gender Male: No DONN Total Score: 2 Risk Assessment Category Category 1A: Patient has history of documented sleep apnea, and HAS NOT received any narcotic, sedative or anesthesia administration during this stay. Category 1B: Patient has history of documented sleep apnea, and HAS received any narcotic , sedative or anesthesia administration during this stay Category 2: Patient has SUSPECTED Obstructive Sleep Apnea, and HAS received any narcotic , sedative or anesthesia administration during this stay. Category 3: Patient has SUSPECTED Obstructive Sleep Apnea and HAS NOT received narcotic, sedative or anesthesia administration during this stay. Category 4: Outpatient in Procedural Areas with known sleep apnea or who screen positive for High Risk via the STOP/BANG questionnaire. Exam Exam Vital Signs Vital Signs Date Time Temp Pulse Resp B/P Pulse Ox O2 Delivery O2 Flow Rate FiO2 04/16/17 12:06 37.0 99 12 129/67 100 Room Air 04/16/17 09:04 115 04/16/17 08:25 122 04/16/17 08:18 36.8 122 20 131/79 98 Room Air General Appearance: Alert, Oriented X3, Cooperative, No Acute Distress HEENT/AIRWAY: MP 3, Neck Movement (Limited to none), Mouth Opening (2 fb) Lungs: Normal Air Movement Heart: Other (IRIR) Meds/Labs/Diagnostics Admission Meds Current Medications Digoxin (LaNOXin Inj) 0.25 mg ONCE ONCE IV Last administered on 04/16/17 04:20 ; Start 04/16/17 at 04:00; Stop 04/16/17 at 04:03; Status DC Furosemide (Lasix Inj) 80 mg ONCE ONCE IVPUSH Last administered on 04/16/17 04 :48; Start 04/16/17 at 04:35; Stop 04/16/17 at 04:36; Status DC Acetaminophen/ Hydrocodone Bitart (Langley 5-325) 1 tablet ONCE ONCE PO Last administered on 04/16/17 04:48; Start 04/16/17 at 04:35; Stop 04/16/17 at 04:36; Status DC Digoxin (LaNOXin Inj) 0.25 mg ONCE ONCE IV Last administered on 04/16/17 05:01 ; Start 04/16/17 at 04:55; Stop 04/16/17 at 04:56; Status DC Sodium Chloride 10 ml 10 ml Q8 IVFLUSH Last administered on 04/16/17 08:24; Start 04/16/17 at 08:30 Ceftriaxone Sodium/Dextrose/ Water (Rocephin Inj/ D5W Minibag Plus) 50 ml @ 100 mls/hr Q24H IV Last administered on 04/16/17 11:49; Start 04/16/17 at 07:30 Digoxin (LaNOXin) 0.125 mg DAILY PO Last administered on 04/16/17 08:25; Start 04/16/17 at 08:30 Furosemide (Lasix) 80 mg DAILY PO Last administered on 04/16/17 08:24; Start at 08:30 Levothyroxine Sodium (Synthroid) 75 mcg DAILY PO Last administered on 04/16/17 08:24; Start 04/16/17 at 08:30 Metoprolol Succinate (Toprol XL) 50 mg BID PO Last administered on 04/16/17 08: 24; Start 04/16/17 at 08:30 Rivaroxaban (Xarelto) 20 mg DAILY PO Last administered on 04/16/17 11:49; Start 04/16/17 at 08:30 Insulin Human Lispro (HumaLOG Insulin Inj) Nutritional Dose to be given pr... [facility] SUBQ Last administered on 04/16/17 12:48; Start 04/16/17 at 12:00 Valsartan 80 mg 80 mg DAILY PO Last administered on 04/16/17 10:18; Start at 09:05 Sodium Chloride (Normal Saline) 1,000 ml @ 100 mls/hr Q10H IV Last administered on 04/16/17 11:49; Start 04/16/17 at 11:15 Lidocaine (Lidoderm 5% Patch) 1 patch DAILY TOPICAL Last administered on t 13:24; Start 04/16/17 at 12:35 Bedside Blood Glucose: 143 Labs Test 04/16/17 04:05 04/16/17 05:39 04/16/17 07:45 White Blood Count 15.5th/mm3 (3.8-10.1) Red Blood Count 4.25mil/mm3 (3.90-5.20) Hemoglobin 12.0g/dL (12.0-15.6) Hematocrit 37.2% (35.0-46.0) Mean Corpuscular Volume 87.5fL (81-100) Mean Corpuscular Hemoglobin 28.2pg (27.0-35.0) Mean Corpuscular Hemoglobin Concent 32.3% (32.0-37.0) Red Cell Distribution Width 16.8% (12.3-15.4) Platelet Count 214bil/L (150-400) Neutrophils (%) (Auto) 82.7% (40-74) Lymphocytes (%) (Auto) 10.2% (14-46) Monocytes (%) (Auto) 5.2% (4-12) Eosinophils (%) (Auto) 1.3% (0-5) Basophils (%) (Auto) 0.2% (0-3) Prothrombin Time 10.9sec (8.1-12.5) Prothromb Time International Ratio 1.02ratio Activated Partial Thromboplast Time 29.1sec (22.8-33.0) Sodium Level 134mEq/L (134-144) Potassium Level 4.7mEq/L (3.5-5.2) Chloride Level 100mEq/L (97-108) Carbon Dioxide Level 13mmol/L (18-29) Blood Urea Nitrogen 24mg/dL (8-27) Creatinine 1.35mg/dL (0.57-1.00) Estimat Glomerular Filtration Rate 55mL/min (>59) Glucose Level 210mg/dL (60-99) Calcium Level 9.0mg/dL (8.5-10.1) Magnesium Level 1.9mg/dL (1.6-2.6) Total Bilirubin 0.3mg/dL (0.0-1.2) Aspartate Amino Transf (AST/SGOT) 15U/L (0-50) Alanine Aminotransferase (ALT/SGPT) 12U/L (0-32) Alkaline Phosphatase 111U/L (25-165) Pro-B-Type Natriuretic Peptide 3371pg/mL (0-301) Total Protein 7.5g/dL (6.4-8.4) Albumin 3.5g/dL (3.4-5.0) Procalcitonin 0.12ng/mL (0.00-0.08) Hold Gillespie Top Tube Received (Received) Digoxin Level 0.3nG/mL (0.9-2.0) Hold Urine Received (Received) Troponin T 0.010ug/L (0.0-0.011) Plan Impression Patient chart reviewed, patient interviewed and anesthestic plan with risks, benefits, and alternatives discussed, and informed consent obtained. NPO per Anesth. Guidelines: Yes ASA Physical Status: ASA3 Severe Disease Anesthetic Plan: GA Bene/Risks/Altern/Consents: Yes HP Complete Prior to Induction: Yes Thomas Pillai MD Apr 16, 2017 15:09
[2017-04-16] MEDS ORDERED: Lactated Ringer's 1,000 ML IV ONE (15:46)
--- NOTE | 2017-04-16 15:58 | CONS ---
[address] [address] CONSULTATION REPORT PATIENT: SEAN CABALLERO : 1945 MR#: [id number] ADMIT: 04/16/2017 JOB ID: [id number] DATE OF SERVICE: 04/16/2017 SURGICAL CONSULTATION: CHIEF COMPLAINT: This is a 72-year-old woman with swelling and pain of the posterior neck. This consultation is requested by Sravan Roberts M.D. HISTORY OF PRESENT ILLNESS: This is a 72-year-old woman with diabetes mellitus who presented with pain of the posterior neck for 3-4 days. She has chronic atrial fibrillation and was found to be tachycardic. An ultrasound demonstrated a possible fluid collection on the posterior aspect of her neck. She has not ever had pain or swelling in that location before. She denies fevers and chills. Palpation of the region or movement increases her pain, and she has not had spontaneous drainage. She has surrounding erythema. White blood cell count was 15. Hemoglobin A1c is pending at the time of this dictation. Blood glucose at the time of admission was 210. PAST MEDICAL HISTORY: 1. Diabetes. 2. Obesity. 3. Chronic systolic heart failure. 4. Obesity hypoventilation syndrome. 5. Essential hypertension. 6. Hyperlipidemia. PAST SURGICAL HISTORY: She has had section, cholecystectomy, an operation on her right subclavian artery, and an operation on her stomach. MEDICATIONS: Current medications are reviewed and include: Amitriptyline, atorvastatin, digoxin, furosemide, insulin Lantus, insulin NovoLog, levothyroxine, losartan, metoprolol, multivitamin, Xarelto, sertraline. ALLERGIES: LISINOPRIL. FAMILY HISTORY: Reviewed and noncontributory. SOCIAL HISTORY: She lives in [place]. She has never been a smoker. PHYSICAL EXAMINATION: Vital signs: Temperature 36.8, heart rate 115, respiratory rate of 20, blood pressure 131/79, saturation 98% on room air. General: Awake, alert, no acute distress. Head: Normocephalic. Neck: On the posterior aspect of her neck is a large indurated, fluctuant reading consistent with an infected cyst. There is surrounding erythema. Cardiac: Irregularly irregular rhythm, mild tachycardia. Respiratory: Clear to auscultation bilaterally. Extremities: Mild edema. Psychiatric: Normal cognition and judgment. LABORATORIES: White blood cell count of 15.5, hematocrit 37.2, platelets 214. Comprehensive metabolic panel is notable for creatinine 1.35 and glucose 210. Potassium, sodium are within normal limits. Liver function tests are within normal limits. Omy-N-uzhsagsikew peptide is elevated at 2963. Digoxin level low at 0.3. ASSESSMENT: A 72-year-old woman with a posterior neck abscess, most consistent with infected cyst. RECOMMENDATIONS: I recommend the incision and drainage be performed today given that her abscess is large and symptomatic. Ceftriaxone has been ordered by the primary team. Because rivaroxaban was also ordered on admission, careful attention will be paid to hemostasis; however, the operation will not be delayed due to the very large and symptomatic qualities of the abscess. I recommend careful attention to blood glucose management on this admission.
[2017-04-16] MEDS ORDERED: Bupivacaine-MPF 0.25% 30 mL Inj INFILTRATE ONE (16:47)
[2017-04-16] MEDS ORDERED: Lactated Ringer's 1,000 ML IV SCH (17:19)
[2017-04-16] MEDS ORDERED: Lactated Ringer's 500 ML IV PRN (17:19)
[2017-04-16] MEDS ORDERED: EPHEDrine Sulfate 50 mg/mL Inj IVPUSH PRN (17:20)
[2017-04-16] MEDS ORDERED: Dexamethasone 4 mg/mL Inj IVPUSH PRN (17:20)
[2017-04-16] MEDS ORDERED: fentaNYL-PF 50 mCg/mL 2 mL Inj IVPUSH PRN (17:20)
[2017-04-16] MEDS ORDERED: Phenylephrine 10,000 mCg/mL Inj IVPUSH PRN (17:20)
[2017-04-16] MEDS ORDERED: Bacitracin Ointment Packet TOPICAL ONE (17:32)
--- NOTE | 2017-04-16 18:03 | OP ---
[address] [address] OPERATIVE REPORT PATIENT: SEAN CABALLERO : 1945 MR#: [id number] ADMIT: 04/16/2017 JOB ID: [id number] DATE OF SURGERY: 04/16/2017 SURGEON: Olya Yang MD ASSISTANTS: Marquis Thomas PA-C; Brenda Calabrese MS-III (an prosthetic assistant was necessary for dissection and retraction). PREOPERATIVE DIAGNOSIS(ES): Infected cyst of posterior neck. POSTOPERATIVE DIAGNOSIS(ES): Infected cyst of posterior neck. PROCEDURE PERFORMED: Incision and drainage with excision of posterior neck cyst, 7 x 4 x 2 cm. HISTORY OF PRESENT ILLNESS: This is a 72-year-old woman with diabetes who presented to the hospital with a posterior neck mass which was fluctuant, erythematous, and with overlying skin compromise. White blood cell count was 15. Her physical examination was consistent with an infected cyst and therefore she was brought to the operating room on a semi-urgent basis. FINDINGS: 1. Large posterior neck cyst which was completely excised. The final cavity was 7 cm in width, 4 cm in vertical dimension, and 2 cm in depth. 2. The cyst cavity contained significant quantity of purulent fluid some of which was sent for culture. DESCRIPTION OF PROCEDURE: The patient was brought to the operating room and placed in supine position. General anesthesia was induced. A warming blanket and SCDs were placed. She was then repositioned into prone position. The operative field was prepped and draped in sterile fashion. A preprocedural pause was performed to confirm the correct patient, procedure, and site. Antibiotics had been previously infused on the floor. A vertical incision was made in the posterior and midline of the neck overlying the cyst cavity. There was a significant amount of purulent fluid, at least 20 mL, some of which was sent for culture. The cyst wall was identified and dissected deep to the skin. It was found to be adjacent to the muscle of the posterior neck. It was carefully dissected off using electrocautery. The entire cyst wall was excised. Because of the size of the cavity, a 15-Pashto Andreas drain was placed in the cavity with an exit site at the right posterolateral neck. This was sewn into place using a 2-0 nylon. The skin was closed with vertical mattress stitches of 3-0 nylon. Antibiotic ointment was placed. A sterile dressing was placed. The patient was awakened from general anesthesia and taken to the postoperative care unit in good condition. COMPLICATIONS: None. ESTIMATED BLOOD LOSS: 10 mL. SPECIMENS: Purulent fluid was sent for culture. The cyst wall was sent for pathology.
[2017-04-16] MEDS: HYDROmorphone 1 mg/mL Inj IVPUSH PRN ×2 (18:15→18:55)
--- NOTE | 2017-04-16 18:16 | PCM.ANEP1 ---
Post Anesthesia PACU Phase 1 Assessment Vital Signs Vital Signs Date Time Temp Pulse Resp B/P Pulse Ox O2 Delivery O2 Flow Rate FiO2 04/16/17 12:06 37.0 99 12 129/67 100 Room Air Anesthetic Administered: GA Level of Alertness: Sleepy, easy to arouse Pain: Yes Pain Scale Score: 8 Nausea or Vomiting: No CV Function & Hydration Stable: Yes (Tachycardic with BP at baseline) Airway Device: None Oxygen Delivery: Simple Mask Lungs: Normal Air Movement PACU Phase 2 Assessment Complications: No Follow up Care: N/A Patient Instructions Provided: N/A Thomas Pillai MD Apr 16, 2017 18:16
[2017-04-16] MEDS ORDERED: MeTOProlol 1 mg/mL 5 mL Inj IVPUSH ONE (18:20)
--- NOTE | 2017-04-16 18:23 | NUR ---
Pain management/Transfer to OR Pt. c/o strong neck pain related to neck abscess. IV morphine 2 mg given, which pt. stated was ineffective. PO vicodin given which helped a little, but pt. states pain is still very strong. Ice pack given to help with pain until next dose of morphine was available. Morphine given at 1245. Pt. was in tears with pain 20 minutes later, so 1 more vicodin administered. MD notified of uncontrolled pain and lidocaine patch ordered and administered. Pt. stated no relief after 30 minutes. When I checked on her a bit later she was asleep in bed. OR nurse called to get report and I informed her of pain management issues we had been having. They came to transfer her to OR at 1505 in stable condition.
[2017-04-16 20:40] LABS: Mean Corpuscular Hemoglobin 28.3 pg (27.0-35.0); Mean Corpuscular Volume 88.9 fL (81-100)
[2017-04-16] MEDS ORDERED: Insulin GLARgine 100 Unit/mL Syringe SUBQ SCH (21:00)
[2017-04-17] VITALS (7 sets, daily range): BP systolic 103–135; BP diastolic 52–107; PULSE 86–98; RESP 17–20; O2SAT 95–100
[2017-04-17 03:17] LABS: BASOPHILS % (AUTO) 0.1 % (0-3); EOSINOPHILS % (AUTO) 0.1 % (0-5); MONOCYTES % (AUTO) 3.5 % (4-12); Mean Corpuscular Hemoglobin 28.2 pg (27.0-35.0); Mean Corpuscular Volume 89.4 fL (81-100); Platelet Count 214 bil/L (150-400)
[2017-04-17] MEDS: 0.9% Sodium Chloride 1,000 ML IV SCH ×3 (03:41→17:15)
--- NOTE | 2017-04-17 05:15 | NUR ---
Arrival from PACU/Tele/pain/Activity/Neck dressing Pt arrived from PACU alert and oriented x 3 with noted drowsiness at 1930. Pt denied pain, nausea, vomiting, chest pain and shortness of breath. Pt placed in bed and was able to assist with turns and placement of bedpan urinating 50ml at that time. Pt has urinated x3 at this point with adequate urine output. Pt requested to read a book. Tele: AFIB 100-110 per isotope technician. Pt on MP30 . Pt c/o of 8/10 throat pain and was given MS 2mg IVP which she stated did not work, so Oxycodone IR 5mg given. Pt states the pain stayed the same and did not reduce. Pt on 3L of O2 via NC and oxygen saturation decreased to 77% after being stable throughout the night. Pt placed on Oxymask due to mouth breathing and oxygen saturations increased to 100%. Pt appears to be asleep at this time without distress or s/sx of pain. No other pain meds given. Neck dressing with gauze and hypafix tape along with attached ROCHELLE drain to suction. Dressing reinforced with hypafix due to tape lifting. c/d/i at this time. Care continues.
[2017-04-17] MEDS: MeTOProlol XL 50 mg ER24 Tablet PO SCH ×2 (08:19→20:36)
[2017-04-17] MEDS: Sodium Chloride LOK Flush 10 mL Syringe IVFLUSH SCH ×2 (08:20→17:38)
[2017-04-17] MEDS: HYDROcodone-APAP 5-325 mg Tablet PO PRN ×3 (08:21→18:45)
[2017-04-17] MEDS: cefTRIAXone Inj 1,000 MG in Dextrose 5% Minibag Plus 50 ML IV SCH (08:22)
[2017-04-17] MEDS: Insulin LISPRO 300 Unit/3 mL Inj SUBQ SCH ×4 (08:24→22:00)
[2017-04-17] MEDS: Lidocaine Topical 5% Patch TOPICAL SCH (08:24)
--- NOTE | 2017-04-17 11:19 | PCM.PNSURG ---
Subjective Visit Information: Reason for Visit Rapid Afib Chf Surgery/Surgery Date Post-Op Day # Date of Admission: Apr 16, 2017 at 05:25 Hospital Day # Subjective: Stable overnight. Leukocytosis decreasing. Pain on posterior neck and shoulders. ROCHELLE drain output 10mL Objective Vital Sign- Last 8 Hours Date Time Temp Pulse Resp B/P Pulse Ox O2 Delivery O2 Flow Rate FiO2 04/17/17 10:34 94 04/17/17 08:20 95 04/17/17 08:16 36.6 95 18 103/58 97 Room Air Intake and Output- Last 8 Hour 04/17/17 Cumulative From/Thru 06:59 04/16/17 03:43 - 04/17/17 05:40 Intake Total 1355 ml 2271 ml Output Total 710 ml 4730 ml Balance 645 ml -2459 ml Intake Oral 400 ml 400 ml IV Total 945 ml 1861 ml Tube Irrigant 10 ml 10 ml Output Urine Total 700 ml 4700 ml Drainage Total 10 ml 20 ml Estimated Blood Loss 10 ml # Voids 1 1 # Bowel Movements 0 0 General: Alert, Oriented X3, Cooperative, No Acute Distress Result Diagram: 04/17/17 0250 04/17/17 0250 Additional Information: Posterior neck with intact stitches reapproximating the vertical incision. Overlying skin is somewhat dusky, similar to its appearance prior to surgery. The drain is in place with a small amount of serosanguineous fluid within. The subcutaneous tissue is depressed due to excision of the large cyst. Assessment & Plan Impression 72-year-old woman with a large infected cyst of the posterior neck, postoperative day 1 from excision of this. Problems: Plan 1. Continue drain and antibiotics. 2. Blood glucose control, appreciate management by the hospitalist service. 3. If drain output remains similarly low, we will consider removing it prior to discharge. If not, she may need to leave the drain in place. Please let me know when discharge is expected. Resuscitation Status: CPR: Attempt Resuscitation Olya Yang MD Apr 17, 2017 11:19
--- NOTE | 2017-04-17 15:15 | NUR ---
Status MD at bedside at 1445. Pt c/o pain in neck, continuing po meds per recommendation of surgery. Pt also utilizing ice. Up in chair for 3 hours this afternoon. Tolerated activity well. VSS. Per MD pt may come off tele and precautions as nasal MRSA negative. Will continue pain management, blood sugar monitoring, antibiotics and VS monitoring. Will continue to encourage activity OOB as tolerated. Addendum: 04/17/17 at 1913 by SHERIF QUIÑONES RN MRSA not negative, disregard, precautions continued
--- NOTE | 2017-04-17 16:34 | PCM.PNMED ---
Subjective Date of Service Apr 17, 2017 Subjective 72-year-old woman with obesity and type II diabetes mellitus presents with soft tissue infection of posterior cervical area, complicated by A. fib. Patient is anxious and concerned that the abscess was not completely drained. Continues to report discomfort on the left side of neck. No fevers chills or systemic symptoms. No chest pain shortness of breath. No abdominal complaints. Exam Vital Signs Vital Sign - Last Date Time Temp Pulse Resp B/P Pulse Ox O2 Delivery O2 Flow Rate FiO2 04/17/17 11:38 36.8 94 20 135/107 97 Nasal Cannula 1.00 Intake and Output 04/16/17 04/16/17 04/17/17 Cumulative From/Thru 15:00 23:00 07:00 04/16/17 03:43 - 04/17/17 05:40 Intake Total 916 ml 1355 ml 2271 ml Output Total 3720 ml 710 ml 4730 ml Balance -2804 ml 645 ml -2459 ml Intake Oral 0 ml 400 ml 400 ml IV Total 916 ml 945 ml 1861 ml Tube Irrigant 10 ml 10 ml Output Urine Total 3700 ml 700 ml 4700 ml Drainage Total 10 ml 10 ml 20 ml Estimated Blood Loss 10 ml 10 ml # Voids 1 1 # Bowel Movements 0 0 Exam General: Obese woman, mild psychological distress HEENT: sclerae anicteric, oral mucosa moist Neck: no JVD, posterior cervical wound site with gauze packed wound, no excessive drainage or erythema Chest: clear to auscultation Cardiac: S1S2, irregular, no murmur Abdomen: BS normal, non-tender Extremities: Trace edema Neuro: A&O, cranial nerves symmetric, motor strength 5/5, coordination normal IVs and Medications Medications Reviewed: Medications were reviewed in detail Lab and Diagnostics Result Diagram: 04/17/17 0250 04/17/17 0250 Microbiology Nares swab for MRSA is negative Wound culture pending, mostly staph morphology X-Rays, CTs and MRIs PROCEDURE: X-RAY CHEST ONE VIEW, PORTABLE ([id number]) INDICATIONS: afib TECHNIQUE: One view of the chest was acquired. COMPARISON: [facility], CR, XR CHEST 1VW (PORTABLE), 03/24/2017, 17: 43. FINDINGS: Surgical changes and devices: Right neck base surgical clips. Lungs and pleura: No pleural effusions or pneumothorax. Improving bibasilar pulmonary opacities. Mediastinum: Mediastinal contours appear normal. Heart size is normal. Bones and chest wall: No suspicious bony lesions. Overlying soft tissues appear unremarkable. IMPRESSION: Improving bibasilar pulmonary opacities most consistent with atelectasis. Improving bibasilar infection is also possible. Recommend continued radiographic followup. Dictated by: David Power M.D. on 04/16/2017 at 8:02 Approved by: David Power M.D. on 04/16/2017 at 8:04 Assessment & Plan #1. Posterior neck abscess, present on admission and active. We will start antibiotics and swab nares. Have consulted general surgery for incision and drainage. Nothing by mouth. #5. Atrial fibrillation, chronic with rapid ventricular response. Present on admission active. Heart rate was 146 on admission. - IV diltiazem as needed -Continue metoprolol, digoxin and furosemide, her usual medications. #6. DM 2, present on admission and active. Goal of perioperative inpatient BG is 100-180. - Increase Glargine 10 up to 20 units at bedtime and continue correctional lispro. Resolving, stable and/or chronic problems: #4. Possible acute on chronic systolic heart failure, present on admission active. No oxygen deficit. Nonspecific chest x-ray. - IV Lasix and is treated one time, then discontinued #2. Obesity, present on admission and stable #3. Obesity hypoventilation syndrome, present on admission and stable #7. Essential hypertension, present on admission and active. We treated his usual medications. Patient is full resuscitation, discuss today [facility] length of [facility] anticipated. Pain Evaluation: Adequate Pain Control VTE Prophylaxis: Sub-Q Heparin (Unfractionated) VTE Mechanical Devices: Intermittant Pneumatic CD Resuscitation Status: CPR: Attempt Resuscitation Time spent 35 minutes Cleve Riojas MD Apr 17, 2017 16:34
--- NOTE | 2017-04-17 17:12 | NUR ---
Status 1630 pt teary eyed and states anxious about care and abscess healing/progression. Offered pt to continue with pain control, IV if needed and offered to request MD see her again. Pt refusing any bedside consult or further pain meds after oxycodone. Encouraged pt to attempt comfort with meds as needed and encouraged her to express needs. Pt while teary stating "i'm fine". VSS. MD notified of pt concerns/anxiety/frustrations and offer to use IV pain meds if necessary but pt refusing. To continue monitoring, surgery to reassess pt in am, had recently assessed same concerns at bedside.
[2017-04-17] MEDS: Heparin 5,000 Unit/mL Inj SUBQ SCH (17:38)
--- NOTE | 2017-04-17 19:38 | NUR ---
Status 1840 Rn and viscose cellar charge hand spoke with pt about pain control and observed wound status. Wound appearing to be healing poorly with some dusky borders. Dressing of vaseline gauze, gauze and hypafix tape changed. Pt agreeable to take pain medication this evening and explained rationale. Dr. Yang paged at 1935 to notify of wound status. Per Dr. Yang, may need to strip ROCHELLE drain. Dr. Yang to reasses in the am. scene shifter notified of recommendation of Dr. Yang.
[2017-04-17] MEDS: Insulin GLARgine 100 Unit/mL Syringe SUBQ SCH (22:06)
[2017-04-18] MEDS: Heparin 5,000 Unit/mL Inj SUBQ SCH ×3 (01:36→17:30)
[2017-04-18] MEDS: Sodium Chloride LOK Flush 10 mL Syringe IVFLUSH SCH ×3 (01:36→17:31)
[2017-04-18] MEDS: 0.9% Sodium Chloride 1,000 ML IV SCH (03:07)
[2017-04-18 03:18] VITALS: BP 124/63; PULSE 69; RESP 18; O2SAT 95
--- NOTE | 2017-04-18 03:51 | NUR ---
Pain/IV/neck dressing Pt c/o of 03/21 neck pain after ice pack given for comfort x2. MS 2mg IVP x 2 given and the pt appeared to be asleep at reassessment. New IV placed on LT wrist which is asymptomatic, patent, and no s/sx of infiltration. Pt continues with neck dressing and ROCHELLE drain, which produced 50ml. Dressing c/d/i with hypafix tape in place. VSS. Contact precautions continue to +MRSA in nares. Care continues.
[2017-04-18] MEDS: cefTRIAXone Inj 1,000 MG in Dextrose 5% Minibag Plus 50 ML IV SCH (07:30)
[2017-04-18] MEDS: Insulin LISPRO 300 Unit/3 mL Inj SUBQ SCH ×4 (08:00→21:49)
[2017-04-18 08:26] LABS: BASOPHILS % (AUTO) 0.3 % (0-3)
[2017-04-18 08:29] LABS: EOSINOPHILS % (AUTO) 3.7 % (0-5); MONOCYTES % (AUTO) 8.3 % (4-12); Mean Corpuscular Hemoglobin 28.6 pg (27.0-35.0); Mean Corpuscular Volume 89.8 fL (81-100); NEUTROPHILS % (AUTO) 61.9 % (40-74); Platelet Count 198 bil/L (150-400)
[2017-04-18 09:10] VITALS: BP 113/60; PULSE 82; RESP 22; O2SAT 100
[2017-04-18] MEDS: Lidocaine Topical 5% Patch TOPICAL SCH (09:11)
[2017-04-18] MEDS: MeTOProlol XL 50 mg ER24 Tablet PO SCH ×2 (09:12→21:03)
--- NOTE | 2017-04-18 10:20 | PCM.PNSURG ---
Subjective Visit Information: Reason for Visit Rapid Afib Chf Surgery/Surgery Date Post-Op Day # Date of Admission: Apr 16, 2017 at 05:25 Hospital Day # Subjective: This patient had anxiety and issues with pain control overnight. She still has some induration and pain on the left side of her neck. ROCHELLE drain output is 50 mL of serosanguineous fluid. Leukocytosis has resolved. Objective Vital Sign- Last 8 Hours Date Time Temp Pulse Resp B/P Pulse Ox O2 Delivery O2 Flow Rate FiO2 04/18/17 09:12 82 04/18/17 09:10 36.6 82 22 113/60 100 Room Air 04/18/17 03:18 37.2 69 18 124/63 95 Room Air Intake and Output- Last 8 Hour 04/18/17 Cumulative From/Thru 07:00 04/16/17 03:43 - 04/18/17 06:22 Intake Total 200 ml 3890 ml Output Total 50 ml 5130 ml Balance 150 ml -1240 ml Intake Oral 200 ml 1528 ml IV Total 2352 ml Tube Irrigant 10 ml Output Urine Total 5050 ml Drainage Total 50 ml 70 ml Estimated Blood Loss 10 ml # Voids 3 5 # Bowel Movements 0 0 General: Alert, Oriented X3, Cooperative, No Acute Distress Result Diagram: 04/18/17 0800 04/18/17 0800 Additional Information: The skin overlying the wound on the posterior neck has a region of sloughing in the middle, which is the skin that was compromised by pressure from the original cyst. Stitches are still intact. The drain is in place with serosanguineous drainage. There is induration and tenderness to the left side of the wound, which has spread since yesterday. There is associated erythema. There is no fluctuance to suggest increasing abscess. Assessment & Plan Impression 72-year-old woman postoperative day 2 from excision of infected posterior neck cyst. This was large and the skin was compromised at the time of the operation. It was left in place to minimize the need for a large open wound. The drain is functioning. There is spreading erythema and induration, which raises my concern that broader antibiotic coverage is necessary. Sensitivity are still pending from the culture. Problems: Plan 1. Bacitracin ointment to be applied to the wound. 2. Continue ROCHELLE drainage. 3. Consider broadening antibiotic coverage until sensitivities have returned. This was discussed with Dr. Riojas the hospitalist team this morning. 4. I have added scheduled Tylenol and ibuprofen to her pain regimen, in addition to this as needed oxycodone. I encouraged the patient to take all medications as scheduled. Please continue to monitor creatinine while she is on ibuprofen. VTE Prophylaxis: Sub-Q Heparin (Unfractionated) Resuscitation Status: CPR: Attempt Resuscitation Olya Yang MD Apr 18, 2017 10:20
--- NOTE | 2017-04-18 10:21 | NUR ---
Rounds aware that pt seen by surgery this am. Will work on antibiotic needs and pain needs. Per surgeon this am to apply bacitracin to wound site prior to re-dressing. Pt verbalized understanding of plan for antibiotic and new pain plan management. also notified this am that pt had a wet brief this am stating "I thought I was supposed to go in my brief". Re-educated pt that getting up to commode is appropriate. WCTM. Addendum: 04/18/17 at 1036 by SHERIF QUIÑONES RN notified that abscess resulted MRSA. Per , to not give am MD jaclyn to review antibiotic needs. Pt remains in contact precautions
[2017-04-18] MEDS ORDERED: Vancomycin Dose per Pharmacist XX SCH (11:00)
--- NOTE | 2017-04-18 11:15 | NUR ---
IV access notified that pt only has limited IV access in left thumb. Able to attempt another IV with success to right wrist and ability to run vanco following new IV placement. cultures drawn prior to starting of vanco. Will continue to monitor.
[2017-04-18 12:18] VITALS: BP 126/76; PULSE 82; RESP 18; O2SAT 99
--- NOTE | 2017-04-18 15:25 | NUR ---
Social Work: Readiness for Discharge/Multidisciplinary Rounds D: Pt discussed in multidisciplinary rounds; the patient is not yet medically stable for discharge. Underwent an I&D for a neck abscess. RN is to mobilize the patient today. Pt has been ambulating I during admission. Pt was previously discharged home with [facility] however pt has been waiting to hear about starting services. PACKING LINE WORKER spoke with [facility] rep. Brady Brown. He states that after the patient was discharged last time, their [facility] declined to take the patient on service due to contract issues with [employer]. They did not call the patient. PACKING LINE WORKER met with the patient at bedside to discuss discharge planning and assess for unmet needs. PACKING LINE WORKER informed the patient that home health services would not be able to start with her due to her insurance. Patient understands this and does not feel that this is an issue. She states that she has been feeling well and ambulating to the bathroom. She states that she intends to go home with her family and has no concerns. A: Pt who is [place] P: Anticipate pt to discharge home via POV once medically stable. PACKING LINE WORKER to continue to follow to assess for unmet needs. GELACIO Kingsley
[2017-04-18] MEDS ORDERED: hydrOXYzine 2 mg/mL 473 mL Syrup PO PRN (16:25)
--- NOTE | 2017-04-18 16:34 | PCM.PNMED ---
Subjective Date of Service Apr 18, 2017 Subjective 72-year-old woman with type II diabetes mellitus, pruritus with chronic excoriations, presents with soft tissue infection of posterior cervical area, complicated by A. fib. Patient is less anxious after consultations by surgery and infectious disease. Spreading erythema over neck is mildly uncomfortable. Continues to report discomfort on the left side of posterior cervical area. No fevers chills or systemic symptoms. No chest pain shortness of breath. No abdominal complaints. Has bowel movement 2 days ago. Exam Vital Signs Vital Sign - Last Date Time Temp Pulse Resp B/P Pulse Ox O2 Delivery O2 Flow Rate FiO2 04/18/17 12:18 36.8 82 18 126/76 99 Room Air 04/17/17 11:38 1.00 Intake and Output 04/17/17 04/17/17 04/18/17 Cumulative From/Thru 15:00 23:00 07:00 04/16/17 03:43 - 04/18/17 06:22 Intake Total 1419 ml 200 ml 3890 ml Output Total 350 ml 50 ml 5130 ml Balance 1069 ml 150 ml -1240 ml Intake Oral 928 ml 200 ml 1528 ml IV Total 491 ml 2352 ml Tube Irrigant 10 ml Output Urine Total 350 ml 5050 ml Drainage Total 50 ml 70 ml Estimated Blood Loss 10 ml # Voids 1 3 5 # Bowel Movements 0 0 Exam General: Obese woman, no acute distress HEENT: sclerae anicteric, oral mucosa moist Neck: posterior cervical wound site with gauze packed wound, moderate erythema over left side of neck 2 anterior cervical region Chest: clear to auscultation Cardiac: S1S2, irregular, no murmur Abdomen: BS normal, non-tender Extremities: Trace edema Neuro: A&O, cranial nerves symmetric, motor strength 5/5, coordination normal IVs and Medications Medications Reviewed: Medications were reviewed in detail Lab and Diagnostics Result Diagram: 04/18/17 0800 04/18/17 0800 Microbiology Nares swab for MRSA is negative Wound culture pending, mostly staph morphology X-Rays, CTs and MRIs PROCEDURE: X-RAY CHEST ONE VIEW, PORTABLE ([id number]) INDICATIONS: afib TECHNIQUE: One view of the chest was acquired. COMPARISON: [facility], CR, XR CHEST 1VW (PORTABLE), 03/24/2017, 17: 43. FINDINGS: Surgical changes and devices: Right neck base surgical clips. Lungs and pleura: No pleural effusions or pneumothorax. Improving bibasilar pulmonary opacities. Mediastinum: Mediastinal contours appear normal. Heart size is normal. Bones and chest wall: No suspicious bony lesions. Overlying soft tissues appear unremarkable. IMPRESSION: Improving bibasilar pulmonary opacities most consistent with atelectasis. Improving bibasilar infection is also possible. Recommend continued radiographic followup. Dictated by: David Power M.D. on 04/16/2017 at 8:02 Approved by: David Power M.D. on 04/16/2017 at 8:04 Assessment & Plan #1. MRSA Posterior neck abscess, present on admission and active. Incision and drainage performed on 04/16/17. She was placed on ceftriaxone. Persistent symptoms and spreading cellulitis. MRSA on wound culture and nasal swab. Switched to daptomycin. - Wound management per surgery service - Antibiotics management per infectious disease consultation #2. Pain management, present on admission. - Continue acetaminophen and oxycodone. - We will avoid NSAID due to diabetic renal disease and systemic illness #5. Atrial fibrillation, chronic with rapid ventricular response. Present on admission active. Heart rate was 146 on admission. -Continue metoprolol, digoxin and furosemide, her usual medications. - Discontinue telemetry at this point #6. DM 2, present on admission and active. Goal of perioperative inpatient BG is 100-180. - Continue Glargine 20 units at bedtime and with nutritional and correctional lispro. #8. Acute kidney injury, present on admission. Recent baseline serum creatinine was 0.85. Serum creatinine 1.35 on admission GFR 66. History of previous outpatient nonsteroidal use. Resolving, stable and/or chronic problems: #4. Possible acute on chronic systolic heart failure, present on admission active. No oxygen deficit. Nonspecific chest x-ray. - IV Lasix and is treated one time, then discontinued #2. Obesity, present on admission and stable #3. Obesity hypoventilation syndrome, present on admission and stable #7. Essential hypertension, present on admission and active. - Continue usual medications. Patient is full resuscitation Inpatient status with 3 days further hospitalization. VTE Prophylaxis: Sub-Q Heparin (Unfractionated) VTE Mechanical Devices: Intermittant Pneumatic CD Resuscitation Status: CPR: Attempt Resuscitation Time spent 35 minutes Cleve Riojas MD Apr 18, 2017 16:34
[2017-04-18 16:38] LABS: APPEARANCE,URINE HAZY (CLEAR,HAZY); COLOR,URINE STRAW (YELLOW); OCCULT BLOOD,URINE NEGATIVE (NEGATIVE); UROBILINOGEN,URINE NORMAL (NORMAL)
[2017-04-18 16:39] LABS: YEAST,URINE MANY (NONE SEEN)
--- NOTE | 2017-04-18 17:19 | CONS ---
[address] [address] CONSULTATION REPORT PATIENT: SEAN CABALLERO : 1945 MR#: [id number] ADMIT: 04/16/2017 JOB ID: [id number] DATE OF SERVICE: 04/18/2017 INFECTIOUS DISEASE CONSULTATION: I thank Dr. Arpan Riojas for this timely consult. REASON FOR CONSULTATION: Severe posterior neck MRSA abscess with adjacent cellulitis. HISTORY OF PRESENT ILLNESS: The patient is a 72-year-old woman whose past medical history is largely unremarkable though she does have obesity, some systolic congestive heart failure, diabetes, hypertension, and a distant history of alcohol abuse. She has undergone gastroplasty in the past. The patient was in her usual state of health until several days ago when she developed the gradual onset of pain, swelling, redness, and tenderness in her posterior neck. The patient has for a year or more suffered from chronic and recurrent erythematous erosions on her upper extremities. This started off perhaps as one of those, but then expanded and became more tender, more red, and a bigger problem. Eventually on April 16 she sought evaluation here because of this progressive problem, and the primary reason that drove her here was pain associated with this. There was no associated fever or chills, interestingly, and no associated constitutional symptoms. She denied any shortness of breath, chest pain, nausea, vomiting, or symptoms in association with this process. She did note that her 1-year-old grandson developed a MRSA infection while still in the hospital and has struggled with that, though not apparently in recent months. PAST MEDICAL HISTORY: 1. Obesity and diagnosis of obesity hypoventilation syndrome in the past. 2. Organic heart disease. a. CHF. b. AFib. 3. Diabetes. 4. Hypertension. 5. History of alcohol abuse. 6. Hyperlipidemia. 7. Status post cholecystectomy. SOCIAL HISTORY: The patient is a nonsmoker, nondrinker. FAMILY HISTORY: No history of TB in first- or second-degree relatives, though she has does not know any history as it pertains to her father. REVIEW OF SYSTEMS: The patient has severe neck pain but no headache per se. She has no visual complaints. She has no cough or shortness of breath but does have sore throat in association with this painful neck mass. No nausea, vomiting, diarrhea, dysuria. No problems with the lower extremities. She has chronic bilateral quarter-sized lesions on her upper extremities which she said come and go from one side to the other and she believes are associated with excessive itching. The remainder of the review of systems is negative. PHYSICAL EXAMINATION: Reveals an afebrile, reasonably comfortable woman whose BMI is 35, consistent with a diagnosis of obesity but not morbid obesity. She has been afebrile since admission, now 36.8, pulse 82, respiratory rate 18, blood pressure 126/76. She is saturating well on room air. She is awake, alert, conversational, and a good historian. There is no evidence for temporal wasting or problems with the head itself, but her posterior neck has a large approximately 6 x 5 cm wound with a drain protruding from it. There is some surrounding cellulitis which extends anteriorly several centimeters on both sides. Her neck is obviously stiff and she cannot flex it at this point due to the pain in the back of the neck. Lungs are relatively clear. A few wheezes at the left base. Cardiac tones regular rate and rhythm at this point. Abdomen soft and nontender. No organomegaly. She is mildly obese but not morbidly so. She does not have a Soler catheter. No suprapubic abnormalities. Lower extremities are essentially normal. No synovitis. No skin lesions are present there, but her upper extremities have 20 or 30 quarter-sized erythematous excoriations which have minimal cellulitis around them and these have the appearance of her prurigo nodularis secondary to itching or formication. Neurologically the patient is intact, alert and conversational, with normal strength. LABORATORIES: Include white blood count 15.5 when she came in, now normalized at 9500. Platelets 198. The diff was initially with considerable left shift, now completely normal. Creatinine 1.23 and it has come down a bit since admission; it was 1.35. Glucose 126 today. LFTs completely normal. Procalcitonin was 0.12 on her first in-hospital day and 2.5 yesterday. Urinalysis was not done apparently. Blood cultures are negative, but these were only done today interestingly. A MRSA screen of the nares was positive and a culture from the abscess which was done at the time of incision and drainage has yielded MRSA. This MRSA has standard susceptibilities and in fact is sensitive to clindamycin. IMAGING: Chest x-ray was done and was reviewed. The radiologist stated that it could be consistent with bibasilar atelectasis but my inclination is this chest x-ray is largely normal. IMPRESSION: This is an elderly woman who is in reasonably good health but does have some underlying medical problems including diabetes. She has been suffering for a year or more with these chronic ulcerative or erosive type lesions over her upper extremities and I think these are due to excessive itching and constitute some variant of prurigo nodularis. She now has a MRSA infection involving the posterior neck and the likely mechanism here is that her grandson has it, and I suspect others in the family do as well. Studies have shown that up to 10% of MRSA is due to intrafamilial spread and this is especially true in multigenerational families were little kids live with adults and elderly people, and I suspect that not only her grandson but probably others in the family have MRSA. Pets such as her many cats and single dog, can also become colonized with MRSA and spread it back and forth to family members. The optimal management here probably includes a short course of IV antibiotics before transition to oral. Vancomycin is certainly a reasonable choice, and that is what she has been receiving, though I think, given her age and attendant difficulties in monitoring therapy, that might be simpler just to give her daptomycin. Oral linezolid would also be a reasonable choice in this woman who is not apparently receiving any antidepressant medications. RECOMMENDATIONS: 1. I would discontinue both the vancomycin and ceftriaxone as we have an identified pathogen. 2. Will start with daptomycin at a dose of roughly 6 mg/kg per day. 3. Bactroban should be applied to the nares. 4. I will contact the micro laboratory and have them check a daptomycin susceptibility, though the chance that it is susceptible probably exceed 99%. 5. I would expect over the next day or two the patient will continue to steadily improve and she could be discharged on oral linezolid or some other appropriate agent. 6. We will need to confirm that she does not take any SSRI type drugs at home as occasionally we been burned because people were not receiving their SSRIs here but did in fact take them at home. Thank you very much for this consult.
[2017-04-18 17:26] VITALS: BP 130/72; PULSE 89; RESP 22; O2SAT 98
[2017-04-18] MEDS: DAPTOmycin Inj 500 MG in 0.9% Sodium Chloride 50 ML IV SCH (17:30)
--- NOTE | 2017-04-18 18:46 | NUR ---
Status Pt appearing less anxious this evening, antibiotics given, continuing with good appetite and encouraging po intake of fluids. pt able to get up easily with SBA to BSC and chair today. re educated on need to decrease itching/picking. pain meds provided with pt continuing to rate pain 8/10 however pt able to sleep comfortably for several hours this afternoon. wound care to neck provided this evening and sites of picking marked and calmoseptine applied. Pharmacy to deliver atarax. ROCHELLE output 20ml this shift. Left and posterior neck continue do be red, MDs aware.
[2017-04-18] MEDS ORDERED: Vancomycin Inj 500 MG in Dextrose 5% 100 ML IV SCH (20:30)
[2017-04-18 20:45] VITALS: BP 133/66; PULSE 79; RESP 20; O2SAT 99
[2017-04-18] MEDS: hydrOXYzine Pamoate 25 mg Capsule PO PRN (21:03)
[2017-04-18] MEDS: Insulin GLARgine 100 Unit/mL Syringe SUBQ SCH (22:03)
[2017-04-18 23:37] VITALS: BP 132/65; PULSE 72; RESP 18; O2SAT 95
[2017-04-19] VITALS (10 sets, daily range): BP systolic 104–139; BP diastolic 47–75; PULSE 62–100; RESP 16–28; O2SAT 92–100
[2017-04-19] MEDS: Heparin 5,000 Unit/mL Inj SUBQ SCH ×4 (00:44→23:57)
[2017-04-19] MEDS: Sodium Chloride LOK Flush 10 mL Syringe IVFLUSH SCH ×4 (00:44→23:56)
--- NOTE | 2017-04-19 04:56 | NUR ---
Pain/Scratching: The pt's lowest reported pain level was a 5/10. The pt received one dose of 2mg of IV morphine for a 10/10 pain level at the beginning of the shift. Pt cont. to received scheduled Tylenol and PRN Roxicodone through the night. The pt continues to pick/scratch; Vistaril administered last night. New dressing applied to the posterior neck early this am. Sero-sang drainage noted with some purulent drainage as well to the dressing.
[2017-04-19] MEDS: Insulin LISPRO 300 Unit/3 mL Inj SUBQ SCH ×4 (08:00→22:00)
[2017-04-19] MEDS: MeTOProlol XL 50 mg ER24 Tablet PO SCH ×2 (08:34→20:17)
[2017-04-19] MEDS: Lidocaine Topical 5% Patch TOPICAL SCH (08:34)
[2017-04-19] MEDS ORDERED: Sodium Chloride LOK Flush 10 mL Syringe IVFLUSH PRN ×2 (10:15)
--- NOTE | 2017-04-19 11:30 | PROG NOTE ---
[address] [address] PROGRESS NOTE PATIENT: SEAN CABALLERO : 1945 MR#: [id number] ADMIT: 04/16/2017 JOB ID: [id number] DATE: 04/19/2017 INFECTIOUS DISEASE FOLLOWUP NOTE: REASON FOR FOLLOWUP: MRSA infection in the posterior neck. INTERVAL HISTORY: Overnight the patient has felt relatively well, though she continues to have pain at the base of the neck; the posterior neck not surprisingly. No fevers, chills, or sweats have been reported. No pulmonary or GI symptoms. PHYSICAL EXAMINATION: Reveals an afebrile woman, temp 36.8. Pulse 72, respiratory rate 16, blood pressure 104/55. She is saturating 100% on room air and she is in no acute distress. She is awake, alert, smiling this morning. Eyes without conjunctivitis. Lungs relatively clear. Cardiac tones without murmur. Abdomen negative. The about 4 x 3 cm defect over the posterior neck remains quite angry-looking, though there is less surrounding cellulitis. No drainage is noted today. LABORATORIES: Include white count which normalized as of yesterday 9500, not repeated today. Procalcitonin was repeated today; it is down from 2.51 to 0.86, which is certainly encouraging. Urine white cells negative. Micro studies previously positive for MRSA. This MRSA has standard susceptibilities. It is susceptible to clindamycin and we await the daptomycin and ceftaroline susceptibilities we had asked for. IMPRESSION: This is a patient with quite an impressive neck MRSA infection. Note that this is also the patient with the multiple lesions over upper her extremities which we believe represent prurigo nodularis. RECOMMENDATIONS: 1. Will continue with daptomycin 6 mg/kg today and await the susceptibilities. 2. Will continue with nasal Bactroban. 3. Dr. Yang has informed me she plans to take the patient back for additional surgery today and I think it is reasonable. 4. If this patient were to be discharged over the weekend, I would send her out on linezolid 600 mg p.o. b.i.d. for about 10 additional days, but I think at this point, we will need to closely watch her. 5. I would also to insure before we give her linezolid that she is not taking any SSRIs at home. We have no evidence that she has taken any of these drugs here in the hospital, but it will be important to clear that with her before she goes.
--- NOTE | 2017-04-19 12:11 | NUR ---
IVT called to assess for PICC.....no veins on either side are of a size to cannulate. The vein occupancy would be 55% or greater on each vein measured. Anesthesia consulted (also Dr. Yang). We are to look for a large bore peripheral on the left arm. This is achieved.
[2017-04-19] MEDS ORDERED: Lactated Ringer's 1,000 ML IV ONE ×2 (12:35→14:20)
[2017-04-19] MEDS ORDERED: Bupivacaine-MPF 0.5% 30 mL Inj INFILTRATE ONE (13:18)
[2017-04-19] MEDS ORDERED: Lactated Ringer's 500 ML IV PRN (13:19)
[2017-04-19] MEDS ORDERED: Lactated Ringer's 1,000 ML IV SCH (13:19)
[2017-04-19] MEDS ORDERED: Ondansetron 2 mg/mL 2 mL Inj IVPUSH PRN (13:20)
[2017-04-19] MEDS ORDERED: EPHEDrine Sulfate 50 mg/mL Inj IVPUSH PRN (13:20)
[2017-04-19] MEDS ORDERED: Labetalol 5 mg/mL 20 mL Inj IV PRN (13:20)
[2017-04-19] MEDS ORDERED: Phenylephrine 10,000 mCg/mL Inj IVPUSH PRN (13:20)
[2017-04-19] MEDS ORDERED: MetoCLOpramide 5 mg/mL 2 mL Inj IVPUSH PRN (13:20)
[2017-04-19] MEDS ORDERED: HYDROmorphone 1 mg/mL Inj IVPUSH PRN (13:20)
[2017-04-19] MEDS ORDERED: Atropine 0.4 mg/mL Inj IVPUSH PRN (13:20)
[2017-04-19] MEDS ORDERED: Albuterol-Ipratropium 3 mL Inhalation Solution NEB PRN (13:20)
--- NOTE | 2017-04-19 13:47 | PCM.HPANE ---
Patient Data Surgeon Admitting Provider:Suad Fitzpatrick DO Attending Provider:Cleve Riojas MD Primary Care Physician:Francoise De La Cruz MD Other Provider: Reason for Visit Rapid Afib Chf Ht/WT & BMI Height (Feet): 5 Height (Inches): 1.00 Weight (Kilograms): 81.300 Body Mass Index 35.42 Allergies Coded Allergies: lisinopril (Verified Allergy, Mild, COUGH, 01/04/17) Past Anesthesia History Anesthesia History: Positive for:: Difficult Intubation (prior anesthetic had a difficult intubation - will use the glide scope and have a bronchoscope as back-up), Denies:: Abnormal Airway, Anesthesia Reactions, Fam Anesthesia Reaction, Fam Malignant Hypertherm, Malignant Hyperthermia Diabetes History Hx Diabetes?: Yes Current Bedside Blood Glucose: 110 MRSA MRSA: No Medications Home Meds Incl Beta Narcisa: Yes Date Beta Narcisa Taken: Apr 16, 2017 Time Beta Narcisa Taken: 823 Active Scripts Losartan Potassium 50 Mg Lckuwt04 Mg PO DAILY #30 TABLET Ref 0 Prov:Heron De Leon DO 03/30/17 Levothyroxine 75 Mcg Tlzbib23 Mcg PO DAILY #60 TABLET Prov:Lor Bunch MD 01/07/17 Albuterol HFA (Proair HFA)8.5 Gm Hfa.aer.ad1-2 Puffs IH Q4 PRN For Shortness of Breath #1 INHALER Prov:Lor Bunch MD 01/07/17 Amitriptyline 25 Mg Tab25 Mg PO HS #90 TABLET Prov:Lor Bunch MD 01/07/17 Insulin Glargine (Lantus U100 Solostar Insulin Pen)100 Unit/Ml Inj10 Unit SUBQ HS #30 PENINJ Prov:Lor Bunch MD 01/07/17 Furosemide 40 Mg Qzpobw73 Mg PO DAILY #90 TABLET Prov:Lor Bunch MD 01/07/17 Rivaroxaban (Xarelto)10 Mg Rggqqc44 Mg PO DAILY #90 TABLET Prov:Lor Bunch MD 01/07/17 Metoprolol Succinate ER 50 Mg Tab.er.24h50 Mg PO BID #180 TABLET Prov:Lor Bunch MD 01/07/17 Atorvastatin Calcium 40 Mg Twqtpt60 Mg PO HS #90 TABLET Prov:Lor Bunch MD 01/07/17 Reported Medications Digoxin 125 Mcg Xqxitw263 Mcg PO DAILY #30 TABLET Ref 0 04/16/17 Insulin Aspart (NovoLOG U100 Insulin Vial)100 U/Ml UUnknown Dose SUBQ TID- INSULIN 09/15/14 Discontinued Reported Medications Multivitamin (Multivitamins)1 Each Capsule1 Each PO DAILY senoir complete 04/21/15 Discontinued Scripts Sertraline HCl (Zoloft)100 Mg Bebzqx004 Mg PO DAILY #90 TABLET Prov:Lor Bunch MD 01/07/17 Digoxin 0.125 Mg/2.5 Ml Iyrkbcyz264 Mg PO DAILY #90 ML Ref 0 Prov:Lor Bunch MD 01/07/17 History History of ENT Problems?: No HEENT History: Denies:: Abnormal Airway Cataracts Difficult Intubation Dysphagia Glaucoma Hearing Problem Sinus Problem TMJ Denture Type: None Teeth Condition: Broken Teeth Other HEENT Pertinent History: Many caps and crowns. Hx of Heart Problems?: Yes Cardiovascular History: Positive for:: Chest Pain Congestive Heart Failure Edema (chronic bilateral LE edema and redness) Hypertension Irregular Heartbeat (A-fib) Denies:: AICD Abdominal Aortic Aneurism Atrial Fibrillation Cardiac Surgery Coronary Artery Disease Heart Murmur Pacemaker Peripheral Vascular Rheumatic Fever Thrombophlebitis Valvular Heart Disease Other Cardiac History: CHF with EF 35% and PAH with estimated PASP 64 mmHg. Hx of Respiratory Problem?: Yes Respiratory History: Positive for:: Dyspnea (with activity) Oxygen Administration (prn) Pneumonia (last admission in December) Denies:: Asthma COPD Chest Surgery Cough Emphysema Hemoptysis Pulmonary Embolism Tuberculosis Use of C-PAP Machine Use of Inhalers / NEBS Hx Neurologic Problems?: Yes Neurological History: Positive for:: CVA (hx traumatic subarachnoid hemmorrhage ) Headaches (Mild headaches occasionally.) Seizures (Two grand mal seizures in May 2005.) Denies:: Alzheimer's Disease Dementia Dizziness Parkinson's Disease Hx of GI Problems?: Yes Hx of Problems?: Yes Genitourinary History: Positive for:: Kidney Stones Urinary Tract Infection Denies:: HX of Hemodialysis HX of Peritoneal Dialysis: No Female Hx: Denies:: Currently Endometriosis Pelvic Inflammatory Problems with Breasts? Skin History: Positive for:: History Skin Disorders? Hx Musculoskeletal Problems?: Yes Musculoskeletal History: Positive for:: Back Injury Denies:: Joint Replacement Musculoskeletal Trauma Hx of Psycho/Social Problems?: No Psycho Social History: Positive for:: Anxiety Hx Depression Denies:: Bipolar Disorder Suicide Attempt Hx Surgeries?: Yes (gastroplasty, c-sect, lance, tonsillectomy, rt.subclavian art.occlusion rep) Hx Any Other Health Problems?: Yes Other History: Positive for:: Endocrine Disease Hospitalization (subarachnoid bleed, sepsis, PNA) Thyroid Disease (hypothroidism) Denies:: Cancer History Blood Transfusions: Denies:: Accept Blood Products? Blood Transfuse Reaction Blood Transfusions Hx Diabetes: YesBedside Blood Glucose: 110 Occupation: known Hx Alcohol Use: NoHx Substance Use: No Smoking Status: Never Smoker Have You Smoked inLast 12 mo: No Stop/Bang Treated for Sleep Apnea?: No Do You Have a CPAP Machine?: No S-Snoring: Do You Snore Loudly: No T-Tired: feel tired, fatigued: No O-Obsered: Observed not breath: No P-Blood Pressure: treated: Yes B- Body Mass Index > 35 kg/m2: No A- Age over 50: Yes N- Neck Large Circumference: Yes G- Gender Male: No DONN Total Score: 2 Risk Assessment Category Category 1A: Patient has history of documented sleep apnea, and HAS NOT received any narcotic, sedative or anesthesia administration during this stay. Category 1B: Patient has history of documented sleep apnea, and HAS received any narcotic , sedative or anesthesia administration during this stay Category 2: Patient has SUSPECTED Obstructive Sleep Apnea, and HAS received any narcotic , sedative or anesthesia administration during this stay. Category 3: Patient has SUSPECTED Obstructive Sleep Apnea and HAS NOT received narcotic, sedative or anesthesia administration during this stay. Category 4: Outpatient in Procedural Areas with known sleep apnea or who screen positive for High Risk via the STOP/BANG questionnaire. Exam Exam Vital Signs Vital Signs Date Time Temp Pulse Resp B/P Pulse Ox O2 Delivery O2 Flow Rate FiO2 04/19/17 08:34 72 04/19/17 08:25 36.8 73 16 104/55 100 Room Air 04/19/17 04:15 37.0 69 20 108/64 94 Room Air General Appearance: Alert, Oriented X3, Cooperative, No Acute Distress HEENT/AIRWAY: MP 3, Neck Movement (Limited to none), Mouth Opening (2 fb) Lungs: Normal Air Movement Heart: Other (IRIR) Meds/Labs/Diagnostics Admission Meds Current Medications Vancomycin HCl 1250 mg/Dextrose/ Water 250 ml @ 166.667 mls/hr ONCE ONCE IV Last administered on 04/18/17 12:43; Start 04/18/17 at 12:30; Stop 04/18/17 at 14: 44; Status DC Daptomycin/Sodium Chloride (Cubicin Inj/ Normal Saline) 50 ml @ 100 mls/hr Q24H IV Last administered on 04/18/17 17:30; Start 04/18/17 at 15:00 Bedside Blood Glucose: 110 Labs Test 04/16/17 04:05 04/16/17 05:39 04/16/17 07:45 04/17/17 02:50 Prothrombin Time 10.9sec (8.1-12.5) Prothromb Time International Ratio 1.02ratio Activated Partial Thromboplast Time 29.1sec (22.8-33.0) Hemoglobin A1c 9.2% (4.8-5.6) Magnesium Level 1.9mg/dL (1.6-2.6) Pro-B-Type Natriuretic Peptide 3371pg/mL (0-301) Hold Gillespie Top Tube Received (Received) Digoxin Level 0.3nG/mL (0.9-2.0) Hold Urine Received (Received) Troponin T 0.010ug/L (0.0-0.011) Total Bilirubin 0.3mg/dL (0.0-1.2) Aspartate Amino Transf (AST/SGOT) 21U/L (0-50) Alanine Aminotransferase (ALT/SGPT) 18U/L (0-32) Alkaline Phosphatase 136U/L (25-165) Total Protein 6.1g/dL (6.4-8.4) Albumin 3.1g/dL (3.4-5.0) Test 04/18/17 08:00 04/18/17 16:28 04/19/17 05:20 White Blood Count 9.5th/mm3 (3.8-10.1) Red Blood Count 3.84mil/mm3 (3.90-5.20) Hemoglobin 11.0g/dL (12.0-15.6) Hematocrit 34.5% (35.0-46.0) Mean Corpuscular Volume 89.8fL (81-100) Mean Corpuscular Hemoglobin 28.6pg (27.0-35.0) Mean Corpuscular Hemoglobin Concent 31.9% (32.0-37.0) Red Cell Distribution Width 17.0% (12.3-15.4) Platelet Count 198bil/L (150-400) Neutrophils (%) (Auto) 61.9% (40-74) Lymphocytes (%) (Auto) 25.4% (14-46) Monocytes (%) (Auto) 8.3% (4-12) Eosinophils (%) (Auto) 3.7% (0-5) Basophils (%) (Auto) 0.3% (0-3) Urine Color Straw (YELLOW) Urine Appearance Hazy (CLEAR,HAZY) Urine pH 5.0 (5.0-8.0) Urine Specific [place] 1.010 (1.003-1.035) Urine Protein Negativemg/dL (NEG,TRACE) Urine Glucose (UA) Negativemg/dL (NEGATIVE) Urine Ketones Negativemg/dL (NEGATIVE) Urine Occult Blood Negative (NEGATIVE) Urine Nitrite Negative (NEGATIVE) Urine Bilirubin Negative (NEGATIVE) Urine Urobilinogen Normalmg/dL (NORMAL) Urine Leukocyte Esterase Negative (NEGATIVE) Urine RBC 0-2/hpf (0-2) Urine WBC 0-5/hpf (0-5) Urine Epithelial Cells Many/hpf (NONE-MOD) Urine Crystals None seen (NONE SEEN) Urine Bacteria None/hpf (NONE-FEW) Urine Hyaline Casts None/lpf (NONE) Urine Granular Casts None seen (NONE SEEN) Urine Waxy Casts None seen (NONE SEEN) Urine Red Blood Cell Casts None seen (NONE SEEN) Urine White Blood Cell Casts None seen (NONE SEEN) Urine Mucus None seen (None Seen) Urine Trichomonas None seen (NONE SEEN) Urine Yeast Many (NONE SEEN) Urinalysis Comment None Urine Culture Reflexed Not indicated Sodium Level 134mEq/L (134-144) Potassium Level 4.7mEq/L (3.5-5.2) Chloride Level 99mEq/L (97-108) Carbon Dioxide Level 18mmol/L (18-29) Blood Urea Nitrogen 32mg/dL (8-27) Creatinine 1.05mg/dL (0.57-1.00) Estimat Glomerular Filtration Rate 74mL/min (>59) Glucose Level 136mg/dL (60-99) Calcium Level 9.0mg/dL (8.5-10.1) Procalcitonin 0.86ng/mL (0.00-0.08) Plan Impression Patient chart reviewed, patient interviewed and anesthestic plan with risks, benefits, and alternatives discussed, and informed consent obtained. NPO per Anesth. Guidelines: Yes ASA Physical Status: ASA3 Severe Disease Anesthetic Support Modalities: Lamy Scope, Arterial Line (radial arterial line discussed including risks and benefits. Patient agreed. AQA. Consent signed.) Anesthetic Plan: GA Bene/Risks/Altern/Consents: Yes HP Complete Prior to Induction: Yes Geoffrey Muñiz MD Apr 19, 2017 12:04
--- NOTE | 2017-04-19 13:57 | PCM.PNSURG ---
Subjective Visit Information: Reason for Visit Rapid Afib Chf Surgery/Surgery Date Post-Op Day # Date of Admission: Apr 16, 2017 at 05:25 Hospital Day # Subjective: Erythema on anterior and lateral neck is receding but there is new fluctuance to the left of the primary room suspicious for abscess. Minimal ROCHELLE drainage. Necrosis of skin overlying the wound. Objective Vital Sign- Last 8 Hours Date Time Temp Pulse Resp B/P Pulse Ox O2 Delivery O2 Flow Rate FiO2 04/19/17 08:34 72 04/19/17 08:25 36.8 73 16 104/55 100 Room Air Intake and Output- Last 8 Hour 04/19/17 Cumulative From/Thru 07:00 04/16/17 03:43 - 04/19/17 06:58 Intake Total 736 ml 5913 ml Output Total 730 ml 7580 ml Balance 6 ml -1667 ml Intake Oral 736 ml 3264 ml IV Total 2639 ml Tube Irrigant 10 ml Output Urine Total 725 ml 7475 ml Drainage Total 5 ml 95 ml Estimated Blood Loss 10 ml # Voids 3 10 # Bowel Movements 0 0 Neck: Other (Skin necrosis and erythema with fluctuance to the left of the primary wound) Result Diagram: 04/18/17 0800 04/19/17 0520 Assessment & Plan Impression 72yof POD3 excision of infected cyst, now found to contain MRSA. She has overlying skin necrosis and I am suspicious of a new small abscess to the left of the primary wound. Problems: Plan Re-exploration today with excision of necrotic skin, wound debridement and possible I&D of abscess. A new IV was placed for access. Continue IV antibiotics Anticipate wound vac therapy VTE Prophylaxis: Sub-Q Heparin (Unfractionated) Resuscitation Status: CPR: Attempt Resuscitation Olya Yang MD Apr 19, 2017 13:57
--- NOTE | 2017-04-19 14:15 | PCM.SURGPO ---
Immediate Operative Note Date of Surgery: Apr 19, 2017 Pre Operative Diagnosis Posterior neck cyst wound cellulitis and abscess Post Operative Diagnosis Posterior neck cyst wound cellulitis and abscess Procedure 1. Posterior neck wound exploration, debridement, left neck abscess drainage. 2. Wound vac placement Surgeon and Egg Producer Surgeon: Olya Yang MD Assistants: Tova Bose MD and Brenda Calabrese MS3 Findings 1. Purulent wound debris, indurated tissue, and necrotic skin flaps on posterior neck wound. Wound measures 7.5Wx4.2Fv8kdK 2. Small 1x1x0.5cm abscess 3 cm left lateral to cyst wound Complications There were no periprocedural complications identified. Surgical Specimen Removed: No Specimen sent to Pathology: No Anesthetic Administered: GA Grafts, Implants: None Output, Estimated Blood Loss: 5 Blood Admin during surgery: No Additional information Continue antibiotics. Wound vac therapy ordered. Change on 04/22/2017. Tova Bose MD Apr 19, 2017 14:15
[2017-04-19] MEDS: fentaNYL-PF 50 mCg/mL 2 mL Inj IVPUSH PRN ×2 (14:30→15:00)
--- NOTE | 2017-04-19 14:38 | PCM.ANEP1 ---
Post Anesthesia PACU Phase 1 Assessment Vital Signs Vital Signs Date Time Temp Pulse Resp B/P Pulse Ox O2 Delivery O2 Flow Rate FiO2 04/19/17 08:34 72 04/19/17 08:25 36.8 73 16 104/55 100 Room Air Anesthetic Administered: GA Level of Alertness: Sleepy, easy to arouse Pain: Yes (RN Awares) Pain Scale Score: 3 Nausea or Vomiting: No CV Function & Hydration Stable: Yes (Tachycardic with BP at baseline) Airway Device: None Oxygen Delivery: Simple Mask Lungs: Normal Air Movement Dermatome Level: Full Sensation PACU Phase 2 Assessment Complications: No Follow up Care: N/A Patient Instructions Provided: N/A Geoffrey Muñiz MD Apr 19, 2017 14:38
--- NOTE | 2017-04-19 14:40 | OP ---
[address] [address] OPERATIVE REPORT PATIENT: SEAN CABALLERO : 1945 MR#: [id number] ADMIT: 04/16/2017 JOB ID: [id number] DATE OF SURGERY: 04/19/2017 PREOPERATIVE DIAGNOSIS(ES): Infected posterior neck cyst, status post excision, with new overlying skin necrosis and abscess. POSTOPERATIVE DIAGNOSIS(ES): Infected posterior neck cyst, status post excision, with new overlying skin necrosis and abscess. PROCEDURE PERFORMED: 1. Debridement of posterior neck wound. Dimensions, 7.5 cm width x 4.5 cm vertical dimension x 2 cm in depth. 2. Incision and drainage of posterior neck abscess, 0.2 cm x 1 cm x 1 cm. SURGEON: Olya Yang MD. ASSISTANTS: Tova Bose MD, R3 and Brenda Calabrese MS3. HISTORY OF PRESENT ILLNESS: This is a 72-year-old woman with diabetes who presented to the hospital three days ago with a very large posterior infected neck cyst. Incision and drainage along with excision of the cyst wall was performed on that day. A drain was placed, as the cavity was quite large. The overlying skin at that time was somewhat dusky, but not frankly necrotic, so it was closed with hopes that it would either heal or there would be a small amount of sloughing. However, prior to maturation of the cultures, her cellulitis spread and the skin overlying the wound necrosed. Antibiotics were tailored to sensitivities yesterday. This morning, on examination, she had hardik necrosis of the skin and new fluctuance just to the left of the wound, suspicious for a new developing abscess. Therefore, she was booked for re-exploration. FINDINGS: Skin necrosis; fibrinous exudate at the base of the primary wound; new abscess just to the left of the wound with a connecting tunnel which was incised and drained. DESCRIPTION OF PROCEDURE: The patient was brought to the operating room and placed in a supine position. General anesthesia was induced. She was flipped to prone position. The operative field was prepped and draped in a sterile fashion. A preprocedural pause was performed to confirm the correct patient, procedure, and site. The previous stitches were removed from the vertical midline and the necrosed skin overlying the wound was removed. The total area of removed skin was approximately 2 cm x 2 cm in dimension. The base of the wound was examined and found to contain a fibrinous exudate. The Andreas drain that had been in place was removed. Using blunt debridement and curettage, the wound was completely debrided such that there was only healthy pink tissue remaining. The debridement occurred down to the muscle. Attention was turned to the left side of the wound. Approximately 2 cm to the left of the primary wound was a region of fluctuance, which was aspirated with a needle and found to contain pus. Therefore, an incision was made overlying it and the pus was removed. Copious irrigation was performed both of the primary wound and the left-sided abscess cavity. There was a connecting tunnel between the two. Chapin Sheppard of the wound care team was called to the room and offered to perform wound VAC therapy given the size and location of the wound. After instillation of a local anesthetic in the muscles of the neck and skin, a wound VAC was placed, connecting the two cavities. The patient was awakened from general anesthesia. COMPLICATIONS: None. ESTIMATED BLOOD LOSS: 10 mL. SPECIMENS: None.
--- NOTE | 2017-04-19 15:52 | PATH ---
SURGICAL PATHOLOGY Attending Physician:Olya Yang MD CASE STATUS: Signed Out PATIENT NAME: SEAN CABALLERO PID: [id number] : 1945 DATE COLLECTED:04/16/2017 00:00 SPECIMEN: Skin, Cyst CLINICAL HISTORY: NECK ABSCESS 1). POSTERIOR NECK CYST (TIME IN FORMALIN 1711) FINAL DIAGNOSIS: 1.POSTERIOR NECK CYST, EXCISION: - FIBROADIPOSE TISSUE WITH FAT NECROSIS AND EXTENSIVE FIBRINOPURULENT EXUDATE. - SKELETAL MUSCLE WITH ACTIVE INFLAMMATION. - TWO LYMPH NODES, NEGATIVE FOR NEOPLASM. - SEE COMMENT. COMMENT: No definite cyst lining in identified. The entire specimen was submitted. ICD10 L02.11 GROSS DESCRIPTION: The specimen is received in one formalin filled container labeled with the patient's name, sublabeled "posterior neck cyst" and consists of a light pink claire portion of tissue which measures 5.0 x 3.0 x 1.0 CM. The specimen is inked blue. The entire specimen is submitted in 14 cassettes. 04/17/2017DC MICRO DESCRIPTION: See diagnosis. ICD-9 CODES: CPT CODES: 1: 72289 Electronically Signed Out Rubio Bishop MD [facility] [address], [place] [address] Technical component performed at [facility], [facility] [address], [place], [address]
--- NOTE | 2017-04-19 16:00 | NUR ---
Pt back from OR Pt transported back by gurney, very drowsy but arousable. Pt required 3 PA to transfer to hospital bed. Report received from Tanner BURNS. Pt has new Wound Vac in place to back of neck. Set to 25mmHg. No discharge visible at this time. Pt rates her pain 10/10 and was administered IV Push 2mg Morphine. Pt appeared to have relief and upon reassessment was found to be sleeping.
--- NOTE | 2017-04-19 18:22 | PCM.PNMED ---
Subjective Date of Service Apr 19, 2017 Subjective 72-year-old woman with type II diabetes mellitus, pruritus with chronic excoriations, presents with soft tissue infection of posterior cervical area, complicated by A. fib. She tolerated repeat surgical debridement today, subsequently resting with postoperative analgesia. No fevers chills or systemic symptoms. No chest pain shortness of breath. No abdominal complaints. Has bowel movement 2 days ago. Exam Vital Signs Vital Sign - Last Date Time Temp Pulse Resp B/P Pulse Ox O2 Delivery O2 Flow Rate FiO2 04/19/17 16:21 36.5 81 22 134/75 92 Room Air 04/19/17 15:10 2 Intake and Output 04/18/17 04/18/17 04/19/17 Cumulative From/Thru 15:00 23:00 07:00 04/16/17 03:43 - 04/19/17 06:58 Intake Total 1287 ml 736 ml 5913 ml Output Total 1720 ml 730 ml 7580 ml Balance -433 ml 6 ml -1667 ml Intake Oral 1000 ml 736 ml 3264 ml IV Total 287 ml 2639 ml Tube Irrigant 10 ml Output Urine Total 1700 ml 725 ml 7475 ml Drainage Total 20 ml 5 ml 95 ml Estimated Blood Loss 10 ml # Voids 2 3 10 # Bowel Movements 0 0 0 Exam General: Obese woman, sleepy postoperatively HEENT: sclerae anicteric, oral mucosa moist Neck: posterior cervical wound site with gauze packed wound, Chest: clear to auscultation Cardiac: S1S2, irregular, no murmur Abdomen: BS normal, non-tender Extremities: No significant edema Neuro: Generally alert and appropriate, cranial nerves symmetric, motor strength and coordination normal Lab and Diagnostics Result Diagram: 04/18/17 0800 04/19/17 0520 Microbiology Nares swab for MRSA is negative Wound culture pending, mostly staph morphology X-Rays, CTs and MRIs PROCEDURE: X-RAY CHEST ONE VIEW, PORTABLE ([id number]) INDICATIONS: afib TECHNIQUE: One view of the chest was acquired. COMPARISON: [facility], CR, XR CHEST 1VW (PORTABLE), 03/24/2017, 17: 43. FINDINGS: Surgical changes and devices: Right neck base surgical clips. Lungs and pleura: No pleural effusions or pneumothorax. Improving bibasilar pulmonary opacities. Mediastinum: Mediastinal contours appear normal. Heart size is normal. Bones and chest wall: No suspicious bony lesions. Overlying soft tissues appear unremarkable. IMPRESSION: Improving bibasilar pulmonary opacities most consistent with atelectasis. Improving bibasilar infection is also possible. Recommend continued radiographic followup. Dictated by: David Power M.D. on 04/16/2017 at 8:02 Approved by: David Power M.D. on 04/16/2017 at 8:04 Assessment & Plan #1. MRSA Posterior neck abscess, present on admission and active. Incision and drainage performed on 04/16/17, and repeated on 04/19/17. Persistent symptoms and spreading cellulitis. MRSA on wound culture and nasal swab. Switched to track some to daptomycin. - Wound management per surgery service - Antibiotics management per infectious disease consultation - Bactroban to nares #2. Pain management, present on admission. - Continue acetaminophen and oxycodone. Ventral analgesic as needed. - We will avoid NSAID due to diabetic renal disease and systemic illness #5. Atrial fibrillation, chronic with rapid ventricular response. Present on admission active. Heart rate was 146 on admission. -Continue metoprolol, digoxin and furosemide, her usual medications. - Discontinue telemetry at this point #6. DM 2, present on admission and active. Goal of perioperative inpatient BG is 100-180. - Continue Glargine 20 units at bedtime and with nutritional and correctional lispro. #8. Acute kidney injury, present on admission. Recent baseline serum creatinine was 0.85. Serum creatinine 1.35 on admission GFR 66. History of previous outpatient nonsteroidal use. Resolving, stable and/or chronic problems: #4. Possible acute on chronic systolic heart failure, present on admission active. No oxygen deficit. Nonspecific chest x-ray. - IV Lasix and is treated one time, then discontinued #2. Obesity, present on admission and stable #3. Obesity hypoventilation syndrome, present on admission and stable #7. Essential hypertension, present on admission and active. - Continue usual medications. Patient is full resuscitation Inpatient status with 3 days further hospitalization. VTE Prophylaxis: Sub-Q Heparin (Unfractionated) VTE Mechanical Devices: Intermittant Pneumatic CD Resuscitation Status: CPR: Attempt Resuscitation Time spent 35 minutes Cleve Riojas MD Apr 19, 2017 18:22
[2017-04-19] MEDS ORDERED: fentaNYL-PF 50 mCg/mL 2 mL Inj ONE (18:50)
[2017-04-19] MEDS ORDERED: Phenylephrine/NS 100 mCg/mL 10 mL Syringe IVPUSH ONE (18:50)
[2017-04-19] MEDS ORDERED: Ondansetron 2 mg/mL 2 mL Inj ONE (18:50)
[2017-04-19] MEDS ORDERED: Propofol 10,000 mCg/mL 20 mL Inj ONE (18:50)
[2017-04-19] MEDS ORDERED: MetoCLOpramide 5 mg/mL 2 mL Inj ONE (18:50)
[2017-04-19] MEDS ORDERED: Furosemide 10 mg/mL 10 mL Inj IVPUSH ONE (18:50)
[2017-04-19] MEDS ORDERED: Succinylcholine Chloride 20 mg/mL 5 mL Inj ONE (18:50)
[2017-04-19] MEDS: DAPTOmycin Inj 500 MG in 0.9% Sodium Chloride 50 ML IV SCH (20:18)
[2017-04-19] MEDS: Insulin GLARgine 100 Unit/mL Syringe SUBQ SCH (20:25)
[2017-04-19] MEDS: Mupirocin 2% 22 Gm Ointment TOPICAL SCH (20:30)
[2017-04-20 03:47] VITALS: BP 116/65; PULSE 78; RESP 18; O2SAT 95
--- NOTE | 2017-04-20 04:32 | NUR ---
Shift summary Pt lethargic until approx 0200, after which she was a/ox3. C/O 04/21 neck and lower back pain, roxicodone 10 mg given x2 with effective results. Wound vac running at 125 mmHg, scant amount of bright red drainage noted. No scratching observed this shift, pt denies itching.
[2017-04-20] MEDS ORDERED: Vancomycin Serum Trough XX ONE (07:30)
[2017-04-20] MEDS: Insulin LISPRO 300 Unit/3 mL Inj SUBQ SCH ×4 (08:00→22:00)
[2017-04-20 08:16] VITALS: BP 114/61; PULSE 70; RESP 20; O2SAT 94
[2017-04-20] MEDS: MeTOProlol XL 50 mg ER24 Tablet PO SCH ×2 (08:35→20:21)
[2017-04-20] MEDS: Lidocaine Topical 5% Patch TOPICAL SCH (08:39)
[2017-04-20] MEDS: Heparin 5,000 Unit/mL Inj SUBQ SCH ×2 (08:39→16:09)
[2017-04-20] MEDS: Sodium Chloride LOK Flush 10 mL Syringe IVFLUSH SCH ×2 (08:39→16:09)
[2017-04-20] MEDS: Mupirocin 2% 22 Gm Ointment TOPICAL SCH ×2 (08:40→20:22)
[2017-04-20 12:12] VITALS: BP 103/63; PULSE 67; RESP 20; O2SAT 95
[2017-04-20] MEDS: hydrOXYzine Pamoate 25 mg Capsule PO PRN (12:42)
--- NOTE | 2017-04-20 12:48 | PCM.PNSURG ---
Subjective Date of Service: Apr 20, 2017 Date of Service: Apr 20, 2017 Visit Information: Reason for Visit Rapid Afib Chf Surgery/Surgery Date Post-Op Day # 1 Date of Admission: Apr 16, 2017 at 05:25 Hospital Day # 4 Subjective: S/P posterior neck wound re-exploration yesterday with debridement and placement of wound vac. Feels better today. Wound vac site intact and uncomfortable but manageable. Afebrile, VSS, no acute events overnight. Continues on daptomycin. Objective Vital Sign- Last 8 Hours Date Time Temp Pulse Resp B/P Pulse Ox O2 Delivery O2 Flow Rate FiO2 04/20/17 12:12 36.7 67 20 103/63 95 Room Air 04/20/17 08:38 72 04/20/17 08:16 36.8 70 20 114/61 94 Room Air Intake and Output- Last 8 Hour 04/20/17 Cumulative From/Thru 07:00 04/16/17 03:43 - 04/20/17 05:25 Intake Total 200 ml 6913 ml Output Total 250 ml 8145 ml Balance -50 ml -1232 ml Intake Oral 200 ml 3464 ml IV Total 3439 ml Tube Irrigant 10 ml Output Urine Total 250 ml 8025 ml Drainage Total 95 ml Estimated Blood Loss 25 ml # Voids 1 11 # Bowel Movements 0 General: Alert, Oriented X3, Cooperative, No Acute Distress Neck: Other (Posterior wound vac in place at -125mmHg with 5cc in cannister.) Lungs: Normal Air Movement Heart: Regular Rate/Rhythm Extremities: Warm Neuro: Grossly Neurologically Intact Result Diagram: 04/18/17 0800 04/19/17 0520 Assessment & Plan Impression 72 yo F s/p excision of infected posterior neck cyst on 04/18/2017 +MRSA and s/p re-exploration with wound debridement of necrotic skin and placement of wound vac on 04/19/2017. She is recovering well. Problems: Plan - Continue wound vac therapy, anticipate wound vac change on Saturday and potential discharge home with wound care when medically appropriate per primary team. - Continue antibiotic treatment, duration and antibiotic regimen per primary team - Please contact General Surgery with any questions or concerns VTE Prophylaxis: Sub-Q Heparin (Unfractionated) Resuscitation Status: CPR: Attempt Resuscitation Tova Bose MD Apr 20, 2017 12:48
--- NOTE | 2017-04-20 13:06 | NUR ---
Wound Vac/Pain/Act Wound VAC draining adequately. Set at 125mmHg. Wound vac reinforced as it was not fully secured. Reinforced with Tegaderm. Pt AOX3. at bedside. Neck pain reported at 6-03/21 ache. PO Tylenol not working for her. Admin 10mg Oxicodone. Will continue to monitor. Pt not on tele. Able to use BSC with SBA.
[2017-04-20 16:03] VITALS: BP 111/62; PULSE 85; RESP 20; O2SAT 96
[2017-04-20] MEDS ORDERED: 0.9% Sodium Chloride 250 ML ONE (16:39)
[2017-04-20] MEDS: DAPTOmycin Inj 500 MG in 0.9% Sodium Chloride 50 ML IV SCH (16:46)
--- NOTE | 2017-04-20 18:37 | NUR ---
Pain Pt not well controlled with PO Pain meds, Oxycontin 10mg. Provided pt PO pain med 10mg X2 today with no reported relief. I switched to 2mg IV Morphine and that seemed to alleviate pain more so than PO pain med. Will continue to monitor. Pain is located behind neck where wound vac is located.
--- NOTE | 2017-04-20 18:49 | PCM.PNMED ---
Subjective Date of Service Apr 20, 2017 Subjective 72-year-old woman with type II diabetes mellitus, pruritus with chronic excoriations, presents with soft tissue infection of posterior cervical area, complicated by A. fib. Repeat surgical debridement on 04/19/17, now reporting improvement in posterior cervical soft tissue pain complaints. No fevers chills or systemic symptoms. No chest pain shortness of breath. No abdominal complaints. Appetite is reasonable. Exam Vital Signs Vital Sign - Last Date Time Temp Pulse Resp B/P Pulse Ox O2 Delivery O2 Flow Rate FiO2 04/20/17 16:03 36.8 85 20 111/62 96 Room Air 04/19/17 15:10 2 Intake and Output 04/19/17 04/19/17 04/20/17 Cumulative From/Thru 15:00 23:00 07:00 04/16/17 03:43 - 04/20/17 05:25 Intake Total 800 ml 0 ml 200 ml 6913 ml Output Total 15 ml 300 ml 250 ml 8145 ml Balance 785 ml -300 ml -50 ml -1232 ml Intake Oral 0 ml 200 ml 3464 ml IV Total 800 ml 3439 ml Tube Irrigant 10 ml Output Urine Total 300 ml 250 ml 8025 ml Drainage Total 95 ml Estimated Blood Loss 15 ml 25 ml # Voids 1 11 # Bowel Movements 0 0 Exam General: Obese woman, alert and talkative HEENT: sclerae anicteric, oral mucosa moist Neck: posterior cervical wound site with gauze packed wound VAC, Chest: clear to auscultation Cardiac: S1S2, irregular, not tachycardic, no murmur Abdomen: BS normal, non-tender Extremities: No significant edema Neuro: Generally alert and appropriate, cranial nerves symmetric, motor strength and coordination normal Lab and Diagnostics Result Diagram: 04/18/17 0800 04/19/17 0520 Microbiology Nares swab for MRSA is negative Wound culture pending, mostly staph morphology X-Rays, CTs and MRIs PROCEDURE: X-RAY CHEST ONE VIEW, PORTABLE ([id number]) INDICATIONS: afib TECHNIQUE: One view of the chest was acquired. COMPARISON: [facility], CR, XR CHEST 1VW (PORTABLE), 03/24/2017, 17: 43. FINDINGS: Surgical changes and devices: Right neck base surgical clips. Lungs and pleura: No pleural effusions or pneumothorax. Improving bibasilar pulmonary opacities. Mediastinum: Mediastinal contours appear normal. Heart size is normal. Bones and chest wall: No suspicious bony lesions. Overlying soft tissues appear unremarkable. IMPRESSION: Improving bibasilar pulmonary opacities most consistent with atelectasis. Improving bibasilar infection is also possible. Recommend continued radiographic followup. Dictated by: David Power M.D. on 04/16/2017 at 8:02 Approved by: David Power M.D. on 04/16/2017 at 8:04 Assessment & Plan #1. MRSA Posterior neck abscess, present on admission and active. Incision and drainage performed on 04/16/17, and repeated on 04/19/17. Persistent symptoms and spreading cellulitis. MRSA on wound culture and nasal swab. Switched to track some to daptomycin. - Wound management per surgery service - Antibiotics management per infectious disease consultation - Bactroban to nares #2. Pain management, present on admission. - Continue acetaminophen and oxycodone. Ventral analgesic as needed. - We will avoid NSAID due to diabetic renal disease and systemic illness #5. Atrial fibrillation, chronic with rapid ventricular response. Present on admission active. Heart rate was 146 on admission. Now resolved. - Continue metoprolol, digoxin and furosemide, her usual medications. - Discontinue telemetry at this point #6. DM 2, present on admission and active. Goal of perioperative inpatient BG is 100-180. Blood glucoses have been at goal. - Continue Glargine 20 units at bedtime and with nutritional and correctional lispro. #8. Acute kidney injury, present on admission. Recent baseline serum creatinine was 0.85. Serum creatinine 1.35 on admission GFR 66. - Continue to monitor Resolving, stable and/or chronic problems: #4. Possible acute on chronic systolic heart failure, present on admission active. No oxygen deficit. Nonspecific chest x-ray. - IV Lasix and is treated one time, then discontinued #2. Obesity, present on admission and stable #3. Obesity hypoventilation syndrome, present on admission and stable #7. Essential hypertension, present on admission and active. - Continue usual medications. Patient is full resuscitation Inpatient status with 3 days further hospitalization. VTE Prophylaxis: Sub-Q Heparin (Unfractionated) VTE Mechanical Devices: Intermittant Pneumatic CD Resuscitation Status: CPR: Attempt Resuscitation Time spent 25 minutes Cleve Riojas MD Apr 20, 2017 18:49
[2017-04-20 19:46] VITALS: BP 131/86; PULSE 81; RESP 16; O2SAT 98
[2017-04-20 21:50] VITALS: PULSE 74; RESP 16; O2SAT 96
[2017-04-20] MEDS: Insulin GLARgine 100 Unit/mL Syringe SUBQ SCH (22:53)
[2017-04-21] MEDS: Heparin 5,000 Unit/mL Inj SUBQ SCH ×3 (00:46→16:55)
[2017-04-21] MEDS: Sodium Chloride LOK Flush 10 mL Syringe IVFLUSH SCH ×3 (00:46→16:55)
[2017-04-21 03:00] VITALS: BP 116/65; PULSE 79; RESP 18; O2SAT 95
--- NOTE | 2017-04-21 06:11 | NUR ---
Wound Vac/Pain Patient reporting 10/10 pain at rest when assessed during other nursing cares. Tylenol, oxycodone, and morphine given per orders. Patient noted to be sleeping between nursing cares. Minimal sero-sanguineous drainage in wound vac. Continue to monitor.
[2017-04-21 07:59] VITALS: BP 130/64; PULSE 67; RESP 18; O2SAT 99
[2017-04-21] MEDS: Insulin LISPRO 300 Unit/3 mL Inj SUBQ SCH ×4 (08:00→22:00)
[2017-04-21] MEDS: MeTOProlol XL 50 mg ER24 Tablet PO SCH ×2 (08:15→20:31)
[2017-04-21] MEDS: Lidocaine Topical 5% Patch TOPICAL SCH (08:17)
[2017-04-21] MEDS: Mupirocin 2% 22 Gm Ointment TOPICAL SCH ×2 (08:17→20:32)
--- NOTE | 2017-04-21 11:28 | PCM.PNSURG ---
Subjective Date of Service: Apr 21, 2017 Date of Service: Apr 21, 2017 Visit Information: Date of Admission: Apr 16, 2017 at 05:25 Subjective: Neck still sore. Wound vac holding suction well and surrounding skin without erythema. Pain well controlled. Objective Vital Sign- Last 8 Hours Date Time Temp Pulse Resp B/P Pulse Ox O2 Delivery O2 Flow Rate FiO2 04/21/17 08:15 72 04/21/17 07:59 37.1 67 18 130/64 99 Room Air Intake and Output- Last 8 Hour 04/21/17 Cumulative From/Thru 07:00 04/16/17 03:43 - 04/21/17 05:31 Intake Total 624 ml 8343 ml Output Total 900 ml 82011 ml Balance -276 ml -1827 ml Intake Oral 574 ml 4038 ml IV Total 50 ml 4295 ml Tube Irrigant 10 ml Output Urine Total 900 ml 18950 ml Drainage Total 95 ml Estimated Blood Loss 25 ml # Voids 11 # Bowel Movements 0 0 General: Alert, Oriented X3, Cooperative, No Acute Distress Neck: Supple, Other (Wound vac holding suction well. No erythema around wound vac site.) Result Diagram: 04/18/17 0800 04/21/17 0250 Assessment & Plan Impression 72 yo F s/p excision of infected posterior neck cyst on 04/18/2017 +MRSA and s/p re-exploration with wound debridement of necrotic skin and placement of wound vac on 04/19/2017. She is recovering well. Problems: Plan - Continue wound vac therapy, anticipate wound vac change on Saturday and potential discharge home with wound care when medically appropriate per primary team. - Continue antibiotic treatment, duration and antibiotic regimen per primary team - Please contact General Surgery with any questions or concerns VTE Prophylaxis: Sub-Q Heparin (Unfractionated) Resuscitation Status: CPR: Attempt Resuscitation Tova Bose MD Apr 21, 2017 11:28
--- NOTE | 2017-04-21 11:50 | PCM.PNMED ---
Subjective Date of Service Apr 21, 2017 Subjective 72-year-old woman with type II diabetes mellitus, pruritus with chronic excoriations, presents with soft tissue infection of posterior cervical area, complicated by A. fib. Wound site pain is manageable on current regimen. No fevers chills or systemic symptoms. No chest pain shortness of breath. No abdominal complaints. Exam Vital Signs Vital Sign - Last Date Time Temp Pulse Resp B/P Pulse Ox O2 Delivery O2 Flow Rate FiO2 04/21/17 08:15 72 04/21/17 07:59 37.1 18 130/64 99 Room Air 04/19/17 15:10 2 Intake and Output 04/20/17 04/20/17 04/21/17 Cumulative From/Thru 15:00 23:00 07:00 04/16/17 03:43 - 04/21/17 05:31 Intake Total 806 ml 624 ml 8343 ml Output Total 1125 ml 900 ml 90541 ml Balance -319 ml -276 ml -1827 ml Intake Oral 574 ml 4038 ml IV Total 806 ml 50 ml 4295 ml Tube Irrigant 10 ml Output Urine Total 1125 ml 900 ml 00561 ml Drainage Total 95 ml Estimated Blood Loss 25 ml # Voids 11 # Bowel Movements 0 0 Exam General: Obese woman, alert and comfortable HEENT: sclerae anicteric, oral mucosa moist Neck: posterior cervical wound site with gauze packed wound VAC, Chest: clear to auscultation Cardiac: S1S2, irregular, not tachycardic, no murmur Abdomen: BS normal, non-tender Extremities: Mild stasis erythema with Trace edema Neuro: Generally alert and appropriate, cranial nerves symmetric, motor strength and coordination normal IVs and Medications Medications Reviewed: Medications were reviewed in detail Lab and Diagnostics Result Diagram: 04/18/17 0800 04/21/17 0250 Microbiology Nares swab for MRSA is negative Wound culture pending, mostly staph morphology X-Rays, CTs and MRIs PROCEDURE: X-RAY CHEST ONE VIEW, PORTABLE ([id number]) INDICATIONS: afib TECHNIQUE: One view of the chest was acquired. COMPARISON: [facility], CR, XR CHEST 1VW (PORTABLE), 03/24/2017, 17: 43. FINDINGS: Surgical changes and devices: Right neck base surgical clips. Lungs and pleura: No pleural effusions or pneumothorax. Improving bibasilar pulmonary opacities. Mediastinum: Mediastinal contours appear normal. Heart size is normal. Bones and chest wall: No suspicious bony lesions. Overlying soft tissues appear unremarkable. IMPRESSION: Improving bibasilar pulmonary opacities most consistent with atelectasis. Improving bibasilar infection is also possible. Recommend continued radiographic followup. Dictated by: David Power M.D. on 04/16/2017 at 8:02 Approved by: David Power M.D. on 04/16/2017 at 8:04 Assessment & Plan #1. MRSA Posterior neck abscess, present on admission and active. Incision and drainage performed on 04/16/17, and repeated on 04/19/17. Ceftriaxone started . Persistent symptoms and spreading cellulitis. MRSA on wound culture and nasal swab. Switched to daptomycin on 04/18. - Wound VAC and dressing management per surgery and wound care service - Antibiotics management per infectious disease consultation - Bactroban to nares - Likely to switch to nasal at time of discharge - Educate patient to discontinue SSRIs, for which she seems to have remaining prescriptions at home #2. Pain management, present on admission. - Continue acetaminophen and oxycodone. - We will avoid NSAID due to diabetic renal disease and systemic illness #6. DM 2 uncontrolled, present on admission and active. Goal of A1c 9.2%. Goal of perioperative inpatient BG is 100-180. Blood glucoses have been at goal and current inpatient insulin management. - Continue Glargine 20 units at bedtime and with nutritional and correctional lispro. - Plan to augment her outpatient insulin regimen at time of discharge Resolving, stable and/or chronic problems: #8. Acute kidney injury, present on admission. Recent baseline serum creatinine was 0.85. Serum creatinine 1.35 on admission GFR 66. - Resolved - Continue to monitor #5. Atrial fibrillation, chronic with acute rapid ventricular response. Present on admission active. Heart rate was 146 on admission. Now resolved. - Continue metoprolol, digoxin and furosemide, her usual medications. #4. Possible acute on chronic systolic heart failure, present on admission active. No oxygen deficit. Nonspecific chest x-ray. - IV Lasix and is treated one time, then discontinued #2. Obesity, present on admission and stable #3. Obesity hypoventilation syndrome, present on admission and stable #7. Essential hypertension, present on admission and active. - Continue usual medications. Patient is full resuscitation Inpatient status with duration of further hospitalization per surgery and infectious disease service. VTE Prophylaxis: Sub-Q Heparin (Unfractionated) VTE Mechanical Devices: Intermittant Pneumatic CD Resuscitation Status: CPR: Attempt Resuscitation Time spent 35 minutes Cleve Riojas MD Apr 21, 2017 11:50
[2017-04-21 12:37] VITALS: BP 115/60; PULSE 79; RESP 20; O2SAT 96
[2017-04-21 16:49] VITALS: BP 132/68; PULSE 76; RESP 20; O2SAT 94
[2017-04-21] MEDS: DAPTOmycin Inj 500 MG in 0.9% Sodium Chloride 50 ML IV SCH (17:07)
[2017-04-21 20:23] VITALS: BP 131/64; PULSE 87; RESP 18; O2SAT 97
[2017-04-21] MEDS: hydrOXYzine Pamoate 25 mg Capsule PO PRN (20:31)
[2017-04-21] MEDS: Insulin GLARgine 100 Unit/mL Syringe SUBQ SCH (22:35)
[2017-04-21 23:44] VITALS: BP 145/82; PULSE 90; RESP 22; O2SAT 98
[2017-04-22] MEDS: Sodium Chloride LOK Flush 10 mL Syringe IVFLUSH SCH ×4 (01:19→23:12)
[2017-04-22] MEDS: Heparin 5,000 Unit/mL Inj SUBQ SCH ×4 (01:19→23:12)
--- NOTE | 2017-04-22 06:09 | NUR ---
Rest/Pain Patient reports 9/10 pain at beginning of shift. Scheduled tylenol and PRN oxycodone given, as well as PRN oxycodone. Hydroxyzine given for itching. Patient noted to be dozing a short time later. Easily arouses for assessments and care. Sleeping throughout most of night. Continue to monitor.
--- NOTE | 2017-04-22 07:08 | PCM.PNSURG ---
Subjective Date of Service: Apr 22, 2017 Date of Service: Apr 22, 2017 Visit Information: Reason for Visit Rapid Afib Chf Surgery/Surgery Date Post-Op Day # 3 Date of Admission: Apr 16, 2017 at 05:25 Hospital Day # 6 Subjective: Kassie feels okay today. She slept alright. Her neck is still sore but she is tolerating the wound vac placement. Pain is well controlled. Objective Vital Sign- Last 8 Hours Date Time Temp Pulse Resp B/P Pulse Ox O2 Delivery O2 Flow Rate FiO2 04/21/17 23:44 36.7 90 22 145/82 98 Room Air Intake and Output- Last 8 Hour 04/22/17 Cumulative From/Thru 07:00 04/16/17 03:43 - 04/22/17 06:22 Intake Total 430 ml 9333 ml Output Total 800 ml 99822 ml Balance -370 ml -2762 ml Intake Oral 400 ml 4918 ml IV Total 30 ml 4405 ml Tube Irrigant 10 ml Output Urine Total 800 ml 48671 ml Drainage Total 95 ml Estimated Blood Loss 25 ml # Voids 3 14 # Bowel Movements 0 General: Alert, Oriented X3, Cooperative Neck: Other (Wound vac holding suction well. No new induration or erythema on surrounding skin. No warmth or edema.) Lungs: Normal Air Movement Heart: Regular Rate/Rhythm Result Diagram: 04/18/17 0800 04/21/17 0250 Assessment & Plan Impression 72 yo F s/p excision of infected posterior neck cyst on 04/18/2017 +MRSA and s/p re-exploration with wound debridement of necrotic skin and placement of wound vac on 04/19/2017. She is recovering well. Problems: Plan - Continue wound vac therapy, wound vac change today and potential discharge home with wound care when medically appropriate per primary team. - Continue antibiotic treatment, duration and antibiotic regimen per primary team - Please contact General Surgery with any questions or concerns VTE Prophylaxis: Sub-Q Heparin (Unfractionated) Resuscitation Status: CPR: Attempt Resuscitation Tova Bose MD Apr 22, 2017 07:08
[2017-04-22] MEDS: Insulin LISPRO 300 Unit/3 mL Inj SUBQ SCH ×4 (08:00→21:30)
[2017-04-22 08:15] VITALS: PULSE 80; RESP 16; O2SAT 96
[2017-04-22 09:19] VITALS: BP 127/60; PULSE 85; RESP 24; O2SAT 97
[2017-04-22] MEDS: Mupirocin 2% 22 Gm Ointment TOPICAL SCH ×2 (09:22→20:45)
[2017-04-22] MEDS: Lidocaine Topical 5% Patch TOPICAL SCH (09:22)
[2017-04-22] MEDS: MeTOProlol XL 50 mg ER24 Tablet PO SCH ×2 (09:23→20:43)
[2017-04-22] MEDS: hydrOXYzine Pamoate 25 mg Capsule PO PRN ×2 (09:23→20:43)
--- NOTE | 2017-04-22 09:31 | PROG NOTE ---
[address] [address] PROGRESS NOTE PATIENT: SEAN CABALLERO : 1945 MR#: [id number] ADMIT: 04/16/2017 JOB ID: [id number] DATE: 04/22/2017 REASON FOR FOLLOWUP: Severe MRSA infection in the posterior neck. INTERVAL HISTORY: Following her additional debridement and placement of wound VAC, the patient has improved somewhat, though she continues to have considerable pain in and around the area of the debridement. No fevers, chills, sweats at this point. No significant shortness of breath or cough, and she is up and sitting at the side of the bed eating breakfast this morning. PHYSICAL EXAMINATION: Reveals a reasonably comfortable woman who expresses some pain. She has been afebrile throughout her hospital stay. Temperature is 36.7, pulse 90, respiratory rate 22, blood pressure 145/82. She is saturating well on room air. No acute distress. Examination of the head reveals no notable abnormalities. The neck has an extended incision off to the right which is now about 9 cm in total length. The wound VAC covers the major part of the incision which extends from the mid point of the posterior neck down into the right. Lungs are clear. Cardiac tones are regular rate and rhythm. No notable skin rash. LABORATORIES: Include white count which has not been repeated for several days now, was last 9500. A creatinine from yesterday 0.82, which is steadily improving. Procalcitonin was down to 0.86 a couple of days ago. It has also not been repeated. Micro includes MRSA cultures with our daptomycin susceptibilities now available at 0.5. Linezolid KENNY is 2. These both suggest those agents would be very efficacious. No new x-rays of interest. IMPRESSION: This is an unfortunate woman with a severe methicillin-resistant Staphylococcus aureus (MRSA) infection of the neck which has now been debrided twice, with a wound VAC in place. At this point, she is steadily improving and probably could be considered for discharge in the near future. RECOMMENDATIONS: 1. Continue daptomycin IV as long as she is here. 2. Will continue the Bactroban in the nares which should be continued for a total of 10 day course. 3. When she is ready to go, she could be sent out on about a 10 day course of linezolid 600 mg p.o. b.i.d.
--- NOTE | 2017-04-22 15:22 | NUR ---
POST HOSPITAL FOLLOW UP: [facility] and they are perusing authorization for home wound vac. Scheduled follow up appointment for 04/25/17 check in at 920AM Updated [employer] APPRENTICE
[2017-04-22] MEDS ORDERED: DAPTOmycin Inj 500 MG in 0.9% Sodium Chloride 50 ML IV SCH (15:30)
--- NOTE | 2017-04-22 15:33 | NUR ---
Social Work: Readiness for Discharge/Multidisciplinary Rounds D: Pt discussed in multidisciplinary rounds; the patient is not yet medically stable for discharge. Surgery is following for wound care. Pt with a wound vac in place. ID is following who states pt can be transitioned to PO Abx at time of discharge. Pt does not have any home health options due to her insurance and will need outpatient follow up at the wound care center. Per machine i trimmer, the patient's insurance states that they have stopped paying for hospitalization as of 04/21/17. The wound care center is working on the authorization for the patient's wound vac and expect it to be authorized tomorrow morning. They have the patient scheduled for an outpatient follow up appointment on 04/25/17 at 0920. CORPORATE SCHEDULER has informed attending provider who will keep patient overnight. CORPORATE SCHEDULER met with the patient and UR RN to discuss patient's discharge. Initially, pt believed she was discharging tonight however this has been changed. She agrees with this plan to go home tomorrow and states she will contact her spouse to notify of her discharge. Pt understands she does not qualify for home health due to her insurance. She is fine with follow up as an outpatient at the wound care center. A: Pt who is ambulating I P: Anticipate pt to discharge home with outpatient follow up at the wound care center on 04/25/17 at 0920 pending insurance authorization for a home wound vac. CORPORATE SCHEDULER to continue to follow to assess for unmet d/c needs. GELACIO Kingsley
--- NOTE | 2017-04-22 15:40 | NUR ---
Wound Note Patient seen post op day #3 for NPWT dressing change at bedside. 72 yo diabetic female s/p posterior neck abscess I&D in OR 04/19/17. NPWT dressing has remained sealed, after patient was given pain medication by nursing including morphine bolus dressing removed. Wound measures 7.5 cm W x 4.5 cm L x 1 cm deep, undermined circumferentially 1 cm, periwound skin is minimally erythemic. There is a stab incision at left side of posterior neck which is 1 cm L x 0.2 cm W x 1 cm D it does not communicate with the central wound at this time, this wound remains indurated and a small amount of purulence was expressed from the wound (< 1 cc). Both wounds were irrigated with saline and cleaned with sterile q tip applicator. Elected to use white foam over the underlying tissue to minimize pain at next dressing change, wounds are 95% granulation tissue, no necrotic tissue in wound beds. White foam placed deeply covered with black foam and tracked to right middle trapezius for comfort, a good seal was attained at 125 mmhg continuous therapy. Home going NPWT unit authorization is pending, hopefully nursing can be arranged by [facility] for 2x/week dressing changes and 1x/week follow up appts at the wound center.
--- NOTE | 2017-04-22 15:47 | NUR ---
Wound Vac & Wound Care Visit Authorization An order was sent to [facility] for patient to have a home wound vac approved for placement when ready to discharge. I also called [facility] and asked for a STAT referral to be placed to Wound Care so patient could have follow up visits after discharge since her insurance requires it. I was told Dr. De La Cruz was out of the office but they would route my request to Dr. Lowe.
[2017-04-22 17:47] VITALS: BP 132/68; PULSE 88; RESP 20; O2SAT 96
--- NOTE | 2017-04-22 17:52 | PCM.PNMED ---
Subjective Date of Service Apr 22, 2017 Subjective 72-year-old woman with type II diabetes mellitus, pruritus with chronic excoriations, presents with MRSA subcutaneous abscess of posterior cervical area , complicated by A. fib. Pain management hematocrit. No fevers chills or systemic symptoms. No chest pain shortness of breath. No abdominal complaints. Exam Vital Signs Vital Sign - Last Date Time Temp Pulse Resp B/P Pulse Ox O2 Delivery O2 Flow Rate FiO2 04/22/17 17:47 36.7 88 20 132/68 96 Room Air 04/19/17 15:10 2 Intake and Output 04/21/17 04/21/17 04/22/17 Cumulative From/Thru 15:00 23:00 07:00 04/16/17 03:43 - 04/22/17 06:22 Intake Total 560 ml 430 ml 9333 ml Output Total 1125 ml 800 ml 49161 ml Balance -565 ml -370 ml -2762 ml Intake Oral 480 ml 400 ml 4918 ml IV Total 80 ml 30 ml 4405 ml Tube Irrigant 10 ml Output Urine Total 1125 ml 800 ml 94378 ml Drainage Total 95 ml Estimated Blood Loss 25 ml # Voids 3 14 # Bowel Movements 0 Exam General: Obese woman, alert and comfortable HEENT: sclerae anicteric, oral mucosa moist Neck: posterior cervical wound site exposed by wound care service, no surrounding erythema, no purulence, Chest: clear to auscultation Cardiac: S1S2, irregular, no murmur Abdomen: BS normal, non-tender Extremities: Mild stasis erythema with Trace edema Neuro: Generally alert and appropriate, cranial nerves symmetric, motor strength and coordination normal IVs and Medications Medications Reviewed: Medications were reviewed in detail Lab and Diagnostics Result Diagram: 04/18/17 0800 04/21/17 0250 Microbiology Nares swab for MRSA is negative Wound culture pending, mostly staph morphology X-Rays, CTs and MRIs PROCEDURE: X-RAY CHEST ONE VIEW, PORTABLE ([id number]) INDICATIONS: afib TECHNIQUE: One view of the chest was acquired. COMPARISON: [facility], CR, XR CHEST 1VW (PORTABLE), 03/24/2017, 17: 43. FINDINGS: Surgical changes and devices: Right neck base surgical clips. Lungs and pleura: No pleural effusions or pneumothorax. Improving bibasilar pulmonary opacities. Mediastinum: Mediastinal contours appear normal. Heart size is normal. Bones and chest wall: No suspicious bony lesions. Overlying soft tissues appear unremarkable. IMPRESSION: Improving bibasilar pulmonary opacities most consistent with atelectasis. Improving bibasilar infection is also possible. Recommend continued radiographic followup. Dictated by: David Power M.D. on 04/16/2017 at 8:02 Approved by: David Power M.D. on 04/16/2017 at 8:04 Assessment & Plan #1. MRSA Posterior neck abscess, present on admission and active. Incision and drainage performed on 04/16/17, and repeated on 04/19/17. Ceftriaxone started . Persistent symptoms and spreading cellulitis. MRSA on wound culture and nasal swab. Switched to daptomycin on 04/18. - Wound VAC and dressing management per surgery and wound care service - Antibiotics management per infectious disease consultation - Bactroban to nares - Likely to switch to Linezolid at time of discharge - Discontinue amitriptyline and Educate patient to discontinue SSRIs, for which she seems to have remaining prescriptions at home #2. Pain management, present on admission. - Continue acetaminophen and oxycodone. - We will avoid NSAID due to diabetic renal disease and systemic illness #6. DM 2 uncontrolled, present on admission and active. Goal of A1c 9.2%. Goal of perioperative inpatient BG is 100-180. Blood glucoses have been at goal and current inpatient insulin management. - Continue Glargine 20 units at bedtime and with nutritional and correctional lispro. - Plan to augment her outpatient insulin regimen at time of discharge Resolving, stable and/or chronic problems: #8. Acute kidney injury, present on admission. Recent baseline serum creatinine was 0.85. Serum creatinine 1.35 on admission GFR 66. - Resolved - Continue to monitor #5. Atrial fibrillation, chronic with acute rapid ventricular response. Present on admission active. Heart rate was 146 on admission. Now resolved. - Continue metoprolol, digoxin and furosemide, her usual medications. #4. Possible acute on chronic systolic heart failure, present on admission active. No oxygen deficit. Nonspecific chest x-ray. - IV Lasix and is treated one time, then discontinued #2. Obesity, present on admission and stable #3. Obesity hypoventilation syndrome, present on admission and stable #7. Essential hypertension, present on admission and active. - Continue usual medications. Patient is full resuscitation Inpatient status with duration of further hospitalization per surgery and infectious disease service. VTE Prophylaxis: Sub-Q Heparin (Unfractionated) VTE Mechanical Devices: Intermittant Pneumatic CD Resuscitation Status: CPR: Attempt Resuscitation Time spent 30 minutes Cleve Riojas MD Apr 22, 2017 17:52
--- NOTE | 2017-04-22 18:23 | NUR ---
Pain Pt voices pain in her neck from wound at 04/21. She has been administered 975mg of PO Tylenol and 10 mg PO of oxycodone. Upon reassessment pt stated slight to no relief at 03/21. During wound vacuum dressing change she was given an additional bolus of 2mg Morphine. Pt stated that she still was experiencing pain during dressing change. Addendum: 04/22/17 at 1831 by SAMUEL GRADY RN Pt administered 10mg of oxycodone at 1530 for 03/21 pain. Pt upon reassessment, states her pain has improved to 6/10. Pt at this writing is sitting on edge of bed eating her dinner. Pt pleasant and smiling.
[2017-04-22 20:10] VITALS: PULSE 72; RESP 16; O2SAT 96
[2017-04-22 20:45] VITALS: BP 123/71; PULSE 78; RESP 20; O2SAT 96
[2017-04-22] MEDS: Insulin GLARgine 100 Unit/mL Syringe SUBQ SCH (20:52)
[2017-04-22 23:11] VITALS: BP 139/90; PULSE 79; RESP 20; O2SAT 95
[2017-04-23 03:56] VITALS: PULSE 72; O2SAT 96
[2017-04-23] MEDS: hydrOXYzine Pamoate 25 mg Capsule PO PRN ×2 (03:59→09:05)
--- NOTE | 2017-04-23 06:09 | NUR ---
Constipation /Pain / Wound Vac Pt hasn't had BM since 04/16/17 per report. Laxatives offered at HS and Pt declined laxative medications. Pt complained of Neck pain all night, rating it 7-8 out of 10. Medicated with scheduled Tylenol 975mg PO X 2 doses and Oxycodone IR 10mg X 2 doses and one dose of IV Morphine 2mg for breakthrough pain with mild relief of pain, but Pt able to sleep. Neck wound vac dressing CDI. VS stable and afebrile. No Tele.
[2017-04-23] MEDS ORDERED: LINE600T7 PO (07:46)
[2017-04-23] MEDS ORDERED: OXYC1TAB24 PO (07:46)
--- NOTE | 2017-04-23 07:54 | PCM.DIMED ---
Discharge Instructions Date of Service Apr 23, 2017 Dates of Hospitalization Apr 16, 2017 at 05:25 Discharge Diagnosis Discharge Diagnosis MRSA soft tissue infection; Atrial fibrillation with rapid ventricular response; Poorly controlled type II diabetes mellitus; Chronic pruritus with skin picking Medication Instructions Additional med instructions Review will take the antibiotic linezolid (Zyvox) twice daily for 1 more week. It is very important that you do not take amitriptyline or any antidepressant medications when you are taking this antibiotic. Check your medications at home to see that there are no medications whose names and with -tyline or - oxitene. If you have such medications then contact your primary care doctor for guidance, or at least do not take them when you are taking the antibiotic. You should check your blood glucoses regularly every morning, prior to lunch, dinner and bedtime. Increase your bedtime Lantus insulin until your morning blood sugars are 80-130 on most days. You may increase your Lantus dose by 4-6 units each time and observe for several days before further increase. After you have achieve good control of your vehicle care specialist blood sugars, then check your blood sugars prior to each meal. If your blood sugar before meals is greater than 130, then increase the amount of NovoLog that you take the previous meal by 2-4 units. As you adjust your mealtime insulin the sugars to check at the medial following each insulin dose are the best indicator of whether you take the right amount of NovoLog. You should make appointment with her primary care doctor soon for further insulin adjustments and monitoring inferior diabetes mellitus. Poorly controlled diabetes mellitus is a major risk factor for the kind of skin infection you developed. Continue to use Caladryl lotion or any other methods to reduce your skin itching and scratching. Patient Instructions Patient Instructions Wound care appointments for dressing changes and 1x/week follow up appts at the wound center. Follow-up Provider: Francoise De La Cruz MD Follow-up with PCP in: 1 week Mid-level Provider (F9): [facility],WOUND Follow-up with Mid-level in: Other (2 days) Cleve Riojas MD Apr 23, 2017 07:54
[2017-04-23] MEDS: Sodium Chloride LOK Flush 10 mL Syringe IVFLUSH SCH ×2 (08:30→16:30)
[2017-04-23 08:46] VITALS: BP 99/58; PULSE 69; RESP 20; O2SAT 98
[2017-04-23 08:59] VITALS: PULSE 69
[2017-04-23] MEDS: Insulin LISPRO 300 Unit/3 mL Inj SUBQ SCH ×3 (09:03→17:30)
[2017-04-23] MEDS: MeTOProlol XL 50 mg ER24 Tablet PO SCH (09:04)
[2017-04-23] MEDS: Mupirocin 2% 22 Gm Ointment TOPICAL SCH (09:06)
[2017-04-23] MEDS: Lidocaine Topical 5% Patch TOPICAL SCH (09:06)
[2017-04-23] MEDS: Heparin 5,000 Unit/mL Inj SUBQ SCH (09:06)
--- NOTE | 2017-04-23 09:30 | NUR ---
Home Wound Vac Approved Patient has been approved for a home wound vac when ready to discharge. The wound vacs are kept over at the outpatient wound center and Afua Bianchi the Inpt Wound RN will need to be reached on Vocera to bring one over for placement.
--- NOTE | 2017-04-23 10:13 | PROG NOTE ---
[address] [address] PROGRESS NOTE PATIENT: SEAN CABALLERO : 1945 MR#: [id number] ADMIT: 04/16/2017 JOB ID: [id number] DATE: 04/23/2017 REASON FOR FOLLOWUP: Severe MRSA soft tissue infection of the neck. INTERVAL HISTORY: Overnight, the patient has been feeling quite stable no fevers, chills, or sweats. No cough, shortness of breath, nausea, vomiting, or diarrhea. Her neck pain is a little changed. She has a wound VAC in place. PHYSICAL EXAMINATION: Reveals an afebrile woman. Temp 36.9, pulse 69, respiratory rate 20, blood pressure 99/58. She is saturating well on room air and she is in no acute distress. Examination of the neck reveals a deep crater. I had the opportunity to see this late yesterday afternoon or evening when the VAC was being changed. There is basically a crater which extends 1 to 1.5 cm deep and extends about 4 cm wide at the right base of the posterior neck. This wound is clean and there is good granulation tissue. Wound VAC is now placed over. There is no surrounding cellulitis. Lungs are clear. Cardiac tones without change. Abdomen benign. No skin rash. LABORATORIES: Include white count 9500 that has not been repeated for several days. CPK is 19. Recall that she has been receiving daptomycin. Labs include just the MRSA from the neck. No new imaging is available. IMPRESSION AND PLAN: 1. This patient is doing quite well at this point and appears ready for discharge on oral linezolid. She has a wound VAC in place and will be followed up by wound management. 2. Continue IV daptomycin through this morning. 3. Patient can be discharged on 10 days of linezolid 600 mg p.o. b.i.d. 4. She will be following up with wound care, and I do not think she needs to be seen in ID though I did give her my number, and she can call and be seen by me at any time. 5. I would continue Bactroban to the nares for at least 10 total days. Infectious Disease will sign off on this case at this time.
--- NOTE | 2017-04-23 11:04 | PCM.PNSURG ---
Subjective Date of Service: Apr 23, 2017 Date of Service: Apr 23, 2017 Visit Information: Reason for Visit Rapid Afib Chf Surgery/Surgery Date Post-Op Day # 7 and 4 Date of Admission: Apr 16, 2017 at 05:25 Hospital Day # 7 Subjective: Wound vac changed yesterday. No acute concerns. Wound progressing nicely. Postop General: No Complaints Objective Vital Sign- Last 8 Hours Date Time Temp Pulse Resp B/P Pulse Ox O2 Delivery O2 Flow Rate FiO2 04/23/17 08:59 69 04/23/17 08:46 36.9 69 20 99/58 98 Room Air 04/23/17 03:56 72 96 Room Air Intake and Output- Last 8 Hour 04/23/17 Cumulative From/Thru 07:00 04/16/17 03:43 - 04/23/17 06:18 Intake Total 400 ml 23500 ml Output Total 375 ml 92197 ml Balance 25 ml -1940 ml Intake Oral 400 ml 6248 ml IV Total 4472 ml Tube Irrigant 10 ml Output Urine Total 375 ml 17997 ml Drainage Total 95 ml Estimated Blood Loss 25 ml # Voids 3 17 # Bowel Movements 0 SURGICAL WOUND : Wound Location/Description Wound vac to posterior neck holding suction well, no concerning skin changes. Wound vac changed on 04/22 - no concerns from wound care team. Result Diagram: 04/18/17 0800 04/21/17 0250 Assessment & Plan Impression 72 yo F s/p excision of infected posterior neck cyst on 04/18/2017 +MRSA and s/p re-exploration with wound debridement of necrotic skin and placement of wound vac on 04/19/2017. She is recovering well and ready for discharge. Problems: Plan - Continue wound vac therapy and discharge home today - Outpatient wound care management - 10 day course of linezolid planned per Dr. Hernandez - Please contact General Surgery with any questions or concerns VTE Prophylaxis: Sub-Q Heparin (Unfractionated) Resuscitation Status: CPR: Attempt Resuscitation Attending Statement: I examined this patient and agree with the note as dictated by Dr. Bose. Olya Yang M.D. Tova Bose MD Apr 23, 2017 11:04 Olya Yang MD May 02, 2017 08:08
--- NOTE | 2017-04-23 11:56 | NUR ---
Social Work: Readiness for Discharge/Multidisciplinary Rounds D: Pt discussed in multidiscplinary rounds; the patient is medically stable for discharge and orders have been placed. Patient's wound vac has not yet been authorized. Outpatient Wound Care is working on this and will notify staff once received. Provider and Bedside RN understands patient cannot go until this is completed. [employer] is following and is aware of the issue getting the wound vac. She will continue to follow. A: Pt who is I at baseline P: Pt to discharge home with outpatient wound care follow up pending wound vac authorization. [employer] OPERATOR and [employer] to continue to follow to assess and confirm wound vac auth is received prior to d/c. GELACIO Kingsley
--- NOTE | 2017-04-23 12:42 | NUR ---
Discharge Pt discharged to home with transportation provided by her family. Pt has been unsuccessful at contacting her family to come and pick her up. Pt's IV's dc'd intact. No telemetry at discharge. Pt's discharge instructions, new medications and follow up appointments were reviewed. All pt's questions were answered and pt voiced understanding. During discharge it was noticed that the pt had picked at her wound vac dressing and partially removed it. Wound therapy was called and at this writing are replacing dressing. Pt has been educated to avoid any picking or scratching at site. Pt is currently in her room waiting for transportation.
--- NOTE | 2017-04-23 15:47 | PCM.DC.MED ---
Discharge Summary Date of Service Apr 23, 2017 Dates of Hospitalization Date of Hospital Admission Apr 16, 2017 at 05:25 Date of Discharge: Apr 23, 2017 Providers: Admitting Physician: Suad Fitzpatrick DO Primary Care Physician: Francoise De La Cruz MD Attending Physician: Edmond Prakash MD Diagnosis at Time of Discharge Diagnosis at Time of Discharge MRSA soft tissue infection; Atrial fibrillation with rapid ventricular response; Poorly controlled type II diabetes mellitus; Chronic pruritus with skin picking Consultations General surgery, Dr. Olya Yang User: Chapin Monique [facility] Date: 04/22/17 15:40 Type : Painter Touch Up Notes Wound Note Patient seen post op day #3 for NPWT dressing change at bedside. 72 yo diabetic female s/p posterior neck abscess I&D in OR 04/19/17. NPWT dressing has remained sealed, after patient was given pain medication by nursing including morphine bolus dressing removed. Wound measures 7.5 cm W x 4.5 cm L x 1 cm deep, undermined circumferentially 1 cm, periwound skin is minimally erythemic. There is a stab incision at left side of posterior neck which is 1 cm L x 0.2 cm W x 1 cm D it does not communicate with the central wound at this time, this wound remains indurated and a small amount of purulence was expressed from the wound (< 1 cc). Both wounds were irrigated with saline and cleaned with sterile q tip applicator. Elected to use white foam over the underlying tissue to minimize pain at next dressing change, wounds are 95% granulation tissue, no necrotic tissue in wound beds. White foam placed deeply covered with black foam and tracked to right middle trapezius for comfort, a good seal was attained at 125 mmhg continuous therapy. Home going NPWT unit authorization is pending, hopefully nursing can be arranged by for 2x/week dressing changes and 1x/week follow up appts at the wound center. . Procedures XRay, CTs & MRIs PROCEDURE: X-RAY CHEST ONE VIEW, PORTABLE ([id number]) IMPRESSION: Improving bibasilar pulmonary opacities most consistent with atelectasis. Improving bibasilar infection is also possible. Recommend continued radiographic followup. Dictated by: David Power M.D. on 04/16/2017 at 8:02 Approved by: David Power M.D. on 04/16/2017 at 8:04 . Brief History History of Present Illness (per admission note): This is a 72-year-old female presents with neck pain. This pain has been ongoing and progressive for 3-4 days. There is a swelling in the back of her neck. She has chronic atrial fibrillation. She presented to the ED because of neck pain. There she has a red swollen mass on the back of her neck which is tender to touch. Ultrasound indicated a possible fluid collection. I am he was not performed. She notes that this is entirely new. She denies fevers or chills. Any palpation or movement of the neck seems to increase the pain. No spontaneous drainage from the swelling. She denies any nausea. She does have chronic morbid obesity as well as systolic heart failure and diabetes mellitus. Her sugars have been somewhat high recently. She denies any nausea, no vomiting. She also denies any difficulty with stridor or swallowing. Her neck is not stiff, but it does hurt if she makes any movements of her neck right at were the swelling is. Hospital Course #1. MRSA Posterior neck abscess, present on admission and active. Incision and drainage performed on 04/16/17, and repeated on 04/19/[address] Olya Yang. Ceftriaxone started 04/16, but persistent symptoms and spreading cellulitis. MRSA detected on wound culture and nasal swab. Switched to daptomycin on 04/18. Wound VAC placed after second I and D. - Wound VAC and dressing management per surgery and wound care service; plan for twice weekly dressing change and weekly wound care clinic visit - Antibiotics switched to linezolid to complete a total of 10 day course on anti -MRSA coverage - Bactroban to nares, to complete 10 days - Discontinue amitriptyline and Educate patient to discontinue SSRIs, for which she seems to have remaining prescriptions at home #2. Pain management, present on admission. - Continue acetaminophen and short-term oxycodone. - We will avoid NSAID due to diabetic renal disease and systemic illness # 3. DM 2 uncontrolled, present on admission and active. Goal of A1c 9.2%. Goal of perioperative inpatient BG is 100-180. Blood glucoses have been at goal and current inpatient insulin management. - She was counseled to increase her Lantus until morning blood sugars are 80-130 ; following this she should consult her primary care doctor for further adjustment of her NovoLog dosing #4. Chronic pruritus, present on admission problem ongoing. - Patient gets some relief with Caladryl lotion - No relief with Benadryl or Atarax - She was counseled to use low-dose [id number] hydrocortisone cream twice per day # 5. Acute kidney injury, present on admission. Recent baseline serum creatinine was 0.85. Serum creatinine 1.35 on admission GFR 66. - Resolved - Continue to monitor # 6. Atrial fibrillation, chronic with acute rapid ventricular response. Present on admission active. Heart rate was 146 on admission. Now resolved. - Continue metoprolol, digoxin and furosemide, her usual medications. # 7. Possible acute on chronic systolic heart failure, present on admission active. No oxygen deficit. Nonspecific chest x-ray. - IV Lasix and is treated one time, then discontinued. Clinical impression was no significant systolic congestive heart failure exacerbation at this time. # 8. Obesity, present on admission and stable # 9. Obesity hypoventilation syndrome, present on admission and stable #7. Essential hypertension, present on admission and active. - Continue usual medications. Patient is full resuscitation . Exam Vital Signs (Last) Date Time Temp Pulse Resp B/P Pulse Ox O2 Delivery O2 Flow Rate FiO2 04/23/17 03:56 72 96 Room Air 04/22/17 23:11 36.8 20 139/90 04/19/17 15:10 2 Exam General: Obese woman, alert and comfortable HEENT: sclerae anicteric, oral mucosa moist Neck: Wound bandaged with wound VAC applied,, no surrounding erythema, no purulence, Chest: clear to auscultation Cardiac: S1S2, irregular, no murmur Abdomen: BS normal, non-tender Extremities: Mild stasis erythema with no edema Neuro: Alert and appropriate, cranial nerves symmetric, motor and coordination grossly normal Test 04/16/17 04:05 04/16/17 05:39 04/16/17 07:45 04/17/17 02:50 Prothrombin Time 10.9sec (8.1-12.5) Prothromb Time International Ratio 1.02ratio Activated Partial Thromboplast Time 29.1sec (22.8-33.0) Hemoglobin A1c 9.2% (4.8-5.6) Magnesium Level 1.9mg/dL (1.6-2.6) Pro-B-Type Natriuretic Peptide 3371pg/mL (0-301) Hold Gillespie Top Tube Received (Received) Digoxin Level 0.3nG/mL (0.9-2.0) Hold Urine Received (Received) Troponin T 0.010ug/L (0.0-0.011) Total Bilirubin 0.3mg/dL (0.0-1.2) Aspartate Amino Transf (AST/SGOT) 21U/L (0-50) Alanine Aminotransferase (ALT/SGPT) 18U/L (0-32) Alkaline Phosphatase 136U/L (25-165) Total Protein 6.1g/dL (6.4-8.4) Albumin 3.1g/dL (3.4-5.0) Test 04/18/17 08:00 04/18/17 16:28 04/19/17 05:20 04/21/17 02:50 White Blood Count 9.5th/mm3 (3.8-10.1) Red Blood Count 3.84mil/mm3 (3.90-5.20) Hemoglobin 11.0g/dL (12.0-15.6) Hematocrit 34.5% (35.0-46.0) Mean Corpuscular Volume 89.8fL (81-100) Mean Corpuscular Hemoglobin 28.6pg (27.0-35.0) Mean Corpuscular Hemoglobin Concent 31.9% (32.0-37.0) Red Cell Distribution Width 17.0% (12.3-15.4) Platelet Count 198bil/L (150-400) Neutrophils (%) (Auto) 61.9% (40-74) Lymphocytes (%) (Auto) 25.4% (14-46) Monocytes (%) (Auto) 8.3% (4-12) Eosinophils (%) (Auto) 3.7% (0-5) Basophils (%) (Auto) 0.3% (0-3) Urine Color Straw (YELLOW) Urine Appearance Hazy (CLEAR,HAZY) Urine pH 5.0 (5.0-8.0) Urine Specific [place] 1.010 (1.003-1.035) Urine Protein Negativemg/dL (NEG,TRACE) Urine Glucose (UA) Negativemg/dL (NEGATIVE) Urine Ketones Negativemg/dL (NEGATIVE) Urine Occult Blood Negative (NEGATIVE) Urine Nitrite Negative (NEGATIVE) Urine Bilirubin Negative (NEGATIVE) Urine Urobilinogen Normalmg/dL (NORMAL) Urine Leukocyte Esterase Negative (NEGATIVE) Urine RBC 0-2/hpf (0-2) Urine WBC 0-5/hpf (0-5) Urine Epithelial Cells Many/hpf (NONE-MOD) Urine Crystals None seen (NONE SEEN) Urine Bacteria None/hpf (NONE-FEW) Urine Hyaline Casts None/lpf (NONE) Urine Granular Casts None seen (NONE SEEN) Urine Waxy Casts None seen (NONE SEEN) Urine Red Blood Cell Casts None seen (NONE SEEN) Urine White Blood Cell Casts None seen (NONE SEEN) Urine Mucus None seen (None Seen) Urine Trichomonas None seen (NONE SEEN) Urine Yeast Many (NONE SEEN) Urinalysis Comment None Urine Culture Reflexed Not indicated Procalcitonin 0.86ng/mL (0.00-0.08) Sodium Level 140mEq/L (134-144) Potassium Level 4.4mEq/L (3.5-5.2) Chloride Level 103mEq/L (97-108) Carbon Dioxide Level 24mmol/L (18-29) Blood Urea Nitrogen 20mg/dL (8-27) Creatinine 0.82mg/dL (0.57-1.00) Estimat Glomerular Filtration Rate 98mL/min (>59) Glucose Level 131mg/dL (60-99) Calcium Level 8.8mg/dL (8.5-10.1) Test 04/23/17 03:55 Total Creatine Kinase 19U/L (21-215) Microbiology Results Nares swab for MRSA is negative Wound culture pending, mostly staph morphology Discharge Medications Discharge Medications Atorvastatin Calcium (Atorvastatin Calcium) 40 Mg Tablet 40 MG PO HS Prescribed by: LEONILA HYATT MD Digoxin (Digoxin) 125 Mcg Tablet 125 MCG PO DAILY (Reported) Furosemide (Furosemide) 40 Mg Tablet 80 MG PO DAILY Prescribed by: LEONILA HYATT MD Insulin Aspart (NovoLOG U100 Insulin Vial) 100 U/Ml U Unknown Dose SUBQ TID- INSULIN (Reported) Insulin Glargine (Lantus U100 Solostar Insulin Pen) 100 Unit/Ml Inj 10 UNIT SUBQ HS Prescribed by: LEONILA HYATT MD Levothyroxine (Levothyroxine) 75 Mcg Tablet 75 MCG PO DAILY Prescribed by: LEONILA HYATT MD Linezolid (Linezolid) 600 Mg Tablet 600 MG PO BID Prescribed by: EDMOND PRAKASH MD Losartan Potassium (Losartan Potassium) 50 Mg Tablet 50 MG PO DAILY Prescribed by: Trent BEACH Metoprolol Succinate ER (Metoprolol Succinate ER) 50 Mg Tab.er.24h 50 MG PO BID Prescribed by: LEONILA HYATT MD Rivaroxaban (Xarelto) 10 Mg Tablet 20 MG PO DAILY Prescribed by: LEONILA HYATT MD As needed Albuterol HFA (Proair HFA) 8.5 Gm Hfa.aer.ad 1-2 PUFFS IH Q4 PRN PRN For Shortness of Breath Prescribed by: LEONILA HYATT MD oxyCODONE-Acetaminophen 5-325 mg (oxyCODONE-Acetaminophen 5-325 mg) 1 Each Tablet 1 TAB PO Q6H PRN PRN For Pain Prescribed by: EDMOND PRAKASH MD Additional med instructions Review will take the antibiotic linezolid (Zyvox) twice daily for 1 more week. It is very important that you do not take amitriptyline or any antidepressant medications when you are taking this antibiotic. Check your medications at home to see that there are no medications whose names and with -tyline or - oxitene. If you have such medications then contact your primary care doctor for guidance, or at least do not take them when you are taking the antibiotic. You should check your blood glucoses regularly every morning, prior to lunch, dinner and bedtime. Increase your bedtime Lantus insulin until your morning blood sugars are 80-130 on most days. You may increase your Lantus dose by 4-6 units each time and observe for several days before further increase. After you have achieve good control of your cook candy blood sugars, then check your blood sugars prior to each meal. If your blood sugar before meals is greater than 130, then increase the amount of NovoLog that you take the previous meal by 2-4 units. As you adjust your mealtime insulin the sugars to check at the medial following each insulin dose are the best indicator of whether you take the right amount of NovoLog. You should make appointment with her primary care doctor soon for further insulin adjustments and monitoring inferior diabetes mellitus. Poorly controlled diabetes mellitus is a major risk factor for the kind of skin infection you developed. Continue to use Caladryl lotion or any other methods to reduce your skin itching and scratching. Followup Plan Disposition: Home with home health recommendation, but problematic insurance coverage Patient Instructions Wound care appointments for dressing changes and 1x/week follow up appts at the wound center. Follow-up Provider: Francoise De La Cruz MD Follow-up with PCP in: 1 week Mid-level Provider: [facility] Follow-up with Mid-level in: Other (2 days) Time spent 40 minutes copies to: Francoise De La Cruz MD, Jeffrey W MD Apr 23, 2017 07:55
--- NOTE | 2017-04-23 16:08 | NUR ---
Inpatient Wound Nurse Patient seen multiple times this morning for reinforcement of drape and poor seal of NWPT. Hospital unit alarmed at length until R side of drape was reinforced. It appeared that patient had loosened and peeled back entire R side of drape. Shortly after, CWCHANDNI RN was called back to bedside for another alarm, this time leak was found at proximal edge, all of which was loose. Patient stated that she didn't like the feel of the drape in her hair. This area was reinforced, patient was instructed not to touch or loosen drape, and seal and suction were obtained on portable NPWT unit. Shortly after, patient apparently peeled entire L side of drape off skin, causing alarming and poor seal. All three sides of drape were peeled back and hydrocolloid added to perimeter. Hair was shaved to occiput. All edges were reinforced with additional drape material. Patient was instructed to immediately stop peeling drape off skin and to leave entire dressing alone, do not touch it. Patient is obvious roller picker, with multiple open areas over entire body; patient picked at skin multiple times while TACHO RN was working on drape and needed constant reminders to stop this picking compulsion. At time of discharge, drape and seal were patent and suction low continuous 125. Patient will be seen at Wound Center on , she was given appointment card and stated intention of compliance.
--- NOTE | 2017-04-23 17:47 | NUR ---
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 This RN and SW have called listed numbers on multiple occasions with no response. Both phone numbers lack the ability to leave messages. Pt states that she does not have keys to her home and would be unable to get into her home even if she were able to take a taxi home. At this writing pt's discharge has been placed on hold, pt care resumes.
--- NOTE | 2017-04-23 17:56 | NUR ---
Social Work Note: Discharge/Continued Discharge Planning D/A: Discharge Orders completed. Multiple hours of attempts from pt, DISTRIBUTION MANAGER and RN to contact pt family (pt voicemail box is full). Pt states she might be able to private pay for a cab but she doesnt have keys to get into her home and she is worried she is locked out. Per MD, it is an unsafe discharge. Pt requires family to pick her up or confirmation pt is able to get into her home. DISTRIBUTION MANAGER to continue to follow. P: Anticipated discharge home via POV when confirmation of safe discharge is completed. DISTRIBUTION MANAGER to continue to follow. GELACIO Hawkins
[2017-04-23] MEDS ORDERED: DAPTOmycin Inj 500 MG in 0.9% Sodium Chloride 50 ML IV ONE (18:00)
--- NOTE | 2017-04-23 18:42 | NUR ---
wound vac Attempting to help RN care prior to her d/c. Noticed that pt had disconnected her wound vac in order to go to the bathroom. Informed pt that she can not do that, it must stay attached in order to work. When wound vac was reattached, it would not created a good seal. Attempted to apply skin prep to dressing to seal any micro leaks which was unsuccessful. Identified areas that appeared to leak and they were reinforced with drape. This was also unsuccessful. Finally just covered entire dressing with drape all over, this finally created a seal. Reinforced with pt need to keep wound vac connected. Also informed pt and her of need to contact wound clinic in AM if there were any additional leaks overnight. In addition, called the wound clinic at [phone] to leave a message on their answering machine to explain situation and asking them to call pt tomorrow morning to f/u as well.
--- NOTE | 2017-04-23 19:09 | NUR ---
Final discharge Pt arrived at 1815 to pickling grader pt. Pt's wound vac at this time was alarming for a leak. With help from another staff respiratory therapist leak was sealed by using additional drape and skin prep. Pt was instructed to contact wound care clinic first thing in the morning if wound vac started to alarm. Pt and her voiced understanding. Pt also voiced concerns that she was unable to pickling grader her prescriptions until the first of the month as she had no money to pay for them. Pt's evening dose of antibiotics and pain medications were administered prior to her discharge. Pt was encouraged to go to pharmacy this evening to pickling grader the rest of the antibiotics. Her stated that he could pay for them. Pt stated that if she couldn't get her pain medications this evening she would come back to the emergency department to get pain control. Pt's belongings were all gathered and transported with pt. Pt was escorted off unit to her 's vehicle by this RN.
== END 2017-04-23 18:51 | disposition home or self-care (01) | DRG 570 ==
LOC: SED 03:38 → INTOOBSV 05:25 → PCC 05:25 → OBSVTOIN 05:25 → UNDODISIN 04-23 12:32
PROVIDERS: ADMIT Internal Medicine; ATTEND Hospitalist
PROC: 0JB50ZZ Excision of Left Neck Subcutaneous Tissue and Fascia, Open Approach (ICD-10-PCS; principal; 2017-04-16 14:30)
PROC: 0JD50ZZ Extraction of Left Neck Subcutaneous Tissue and Fascia, Open Approach (ICD-10-PCS; 2017-04-19)
PROC: 0J950ZZ Drainage of Left Neck Subcutaneous Tissue and Fascia, Open Approach (ICD-10-PCS; 2017-04-19)
DX: L02.11 Cutaneous abscess of neck (principal); I50.23 Acute on chronic systolic (congestive) heart failure; E66.2 Morbid (severe) obesity with alveolar hypoventilation; N17.9 Acute kidney failure, unspecified; L03.221 Cellulitis of neck; Z68.35 Body mass index [BMI] 35.0-35.9, adult; B95.62 Methicillin resistant Staphylococcus aureus infection as the cause of diseases classified elsewhere; L28.1 Prurigo nodularis; Z79.4 Long term (current) use of insulin; I10 Essential (primary) hypertension; I48.2 Chronic atrial fibrillation; Z79.01 Long term (current) use of anticoagulants; E03.9 Hypothyroidism, unspecified; E11.65 Type 2 diabetes mellitus with hyperglycemia